=== PATIENT | female | born 1950 | race Caucasian/White ===

== ENCOUNTER 2016-10-16 11:02 | Inpatient (IN) | payer OTHER, MEDICARE ==
[~2016-10-16] VITALS: Ht 149.9 cm; Wt 113.4 kg
[~2016-10-16 11:02] MED LIST: ALBU18HF2 IH; ALEN70TA45 PO; AMLO5TAB2 PO; ATOR10TA PO; BENA10TA2 PO; CHOL50006 PO; GABA-532 PO; HYDR-552 PO; HYPR15DR9 OP; LEVE750T10 PO; LEVO150T8 PO; LIOT50TA3 PO; LORA0.5T PO; NYST5ORA PO; PARO10TA3 PO; TAMS0.4C34 PO; TOPI-67 PO; TRAM50TA2 PO; VENL75CA56 PO; ZIPR60CA2 PO; ZOLP5TAB7 PO
[2016-10-16 11:27] LABS: BASOPHILS # (AUTO) 0.1 /CMM (0.0-0.2); BASOPHILS % (AUTO) 0.5 % (0.0-2.0); DIFF TOTAL % 100 %; EOSINOPHILS # (AUTO) 0.7 /CMM (0.0-0.7); HEMATOCRIT 27 % (33-45); HEMOGLOBIN 8.4 g/dL (11.5-14.8); LYMPHOCYTES % (AUTO) 20.8 % (20.0-44.0); MEAN CORPUSCULAR HEMOGLOBIN 27 PG (26.0-33.0); MEAN CORPUSCULAR HGB CONC 31 g/dl (31.0-36.0); MEAN CORPUSCULAR VOLUME 85 fL (82-100); MONOCYTES % (AUTO) 6.7 % (2.0-12.0); NEUTROPHILS # (AUTO) 9.4 /CMM (1.8-8.9); PLATELET COUNT (AUTO) 268 /CMM (150-450); RED BLOOD CELL COUNT(AUTO) 3.16 MIL/uL (4.0-5.2); WHITE BLOOD COUNT (AUTO) 14.2 K/uL (4.3-11.0)
[2016-10-16 11:37] LABS: ANION GAP 15 (5-14); CALCIUM, SERUM 8.6 mg/dL (8.5-10.1); CARBON DIOXIDE 21 mmol/L (21-32); CHLORIDE 110 mmol/L (98-107); CREATININE 2.2 mg/dL (0.6-1.3); GFR 22 mL/min (>60); GLUCOSE 94 mg/dL (74-106); POTASSIUM 6.1 mmol/L (3.5-5.1); SODIUM SERUM 140 mmol/L (136-145); UREA NITROGEN, BLOOD 38 mg/dL (7-18)
[2016-10-16 11:40] LABS: INR 1.01 (0.87-1.13); PROTHROMBIN TIME 10.6 SECS (9.5-12.7)
[2016-10-16 11:43] LABS: ALANINE AMINOTRANSFERASE 23 U/L (12-78); ALBUMIN 2.9 g/dL (3.4-5.0); ASPARTATE AMINOTRANSFERASE 20 U/L (15-37); BILIRUBIN,TOTAL 0.1 mg/dL (0.2-1.0); TOTAL PROTEIN, SERUM 6.9 g/dL (6.4-8.2)
[2016-10-16 11:45] LABS: INDIRECT BILIRUBIN 0.1 mg/dL (0.0-1.1); TROPONIN I < 0.017 ng/mL (0.00-0.056)
[2016-10-16 11:51] LABS: LACTIC ACID 0.9 mmol/L (0.4-2.0)
[2016-10-16] MEDS ORDERED: LEVOFLOXACIN 750 MG /D5W 150ML 150 ML IV ONE ×2 (12:27→12:30)
[2016-10-16] MEDS ORDERED: IV SET PRIMARY PUMP SET 1 EA INFUS.SET MC ONE (12:28)
[2016-10-16] MEDS ORDERED: LEVO100T9 PO (13:23)
[2016-10-16] MEDS ORDERED: ERGO50003 PO (13:23)
[2016-10-16] MEDS ORDERED: HYDR-3326 PO (13:23)
[2016-10-16] MEDS ORDERED: ASPI-991 PO (13:23)
[2016-10-16] MEDS ORDERED: LURA80TA PO (13:23)
[2016-10-16] MEDS ORDERED: ACET-2605 PO (13:23)
[2016-10-16] MEDS ORDERED: LEVE250T4 PO (13:24)
[2016-10-16 16:00] VITALS: BP 132/63
[2016-10-16] MEDS ORDERED: INSULIN REGULAR, HUMAN 100 UNIT/ML 3 ML VIAL SQ PRN ×2 (19:00→23:00)
[2016-10-16] MEDS ORDERED: DEXTROSE 50%-WATER 50 ML DISP.SYRIN IV PRN ×2 (19:00→23:00)
[2016-10-16 20:00] VITALS: BP 117/66
[2016-10-16] MEDS ORDERED: LORAZEPAM 0.5 MG TABLET PO PRN (21:00)
[2016-10-16] MEDS ORDERED: TRAMADOL HCL 50 MG TABLET PO PRN (21:00)
[2016-10-16] MEDS ORDERED: ALBUTEROL SULFATE 8 GM HFA.AER.AD IH PRN (21:00)
[2016-10-16] MEDS: ATORVASTATIN 10 MG TABLET PO SCH (21:45)
[2016-10-16] MEDS: LEVETIRACETAM (250 MG) 250 MG TABLET PO SCH (21:45)
[2016-10-16] MEDS: TOPIRAMATE 25 MG TABLET PO SCH (21:45)
[2016-10-16] MEDS: GABAPENTIN 100 MG CAPSULE PO SCH (21:45)
[2016-10-16] MEDS: BLOOD SUGAR DIAGNOSTIC 1 EACH STRIP IN SCH (21:53)
[2016-10-16] MEDS ORDERED: ACETAMINOPHEN ES 500 MG TABLET PO PRN (22:00)
[2016-10-16] MEDS ORDERED: ZOLPIDEM TARTRATE 5 MG TABLET PO SCH (22:00)
[2016-10-17 01:08] LABS: ABG BASE EXCESS -3.7 mmol/L; ABG HCO3 22.6 mmol/L; ABG PCO2 46.4 mmHg (35.0-45.0); ABG PH 7.306 (7.350-7.450); ABG PO2 71.1 mmHg (75.0-100.0); ABG TOTAL HEMOGLOBIN 11.3 G/dL (12.0-16.0); ALLEN TEST Pass; AaDO2 23.1 mmHg; O2Hb 90.5 % (94.0-97.0)
[2016-10-17] MEDS: BLOOD SUGAR DIAGNOSTIC 1 EACH STRIP IN SCH ×2 (05:41→21:55)
[2016-10-17 07:17] LABS: BASOPHILS % (AUTO) 0.3 % (0.0-2.0); DIFF TOTAL % 100 %; EOSINOPHILS # (AUTO) 0.6 /CMM (0.0-0.7); EOSINOPHILS % (AUTO) 5.2 % (0.0-6.0); HEMATOCRIT 25 % (33-45); HEMOGLOBIN 8.3 g/dL (11.5-14.8); LYMPHOCYTES # (AUTO) 1.8 /CMM (0.8-4.8); LYMPHOCYTES % (AUTO) 15.2 % (20.0-44.0); MEAN CORPUSCULAR HEMOGLOBIN 28 PG (26.0-33.0); MEAN CORPUSCULAR HGB CONC 33 g/dl (31.0-36.0); MEAN CORPUSCULAR VOLUME 85 fL (82-100); MONOCYTES # (AUTO) 0.9 /CMM (0.1-1.30); MONOCYTES % (AUTO) 7.6 % (2.0-12.0); NEUTROPHILS # (AUTO) 8.4 /CMM (1.8-8.9); NEUTROPHILS % (AUTO) 71.7 % (43.0-81.0); PLATELET COUNT (AUTO) 243 /CMM (150-450); RED BLOOD CELL COUNT(AUTO) 2.99 MIL/uL (4.0-5.2); WHITE BLOOD COUNT (AUTO) 11.7 K/uL (4.3-11.0)
[2016-10-17] MEDS ORDERED: BLOOD SUGAR DIAGNOSTIC 1 EACH STRIP IN SCH (07:30)
[2016-10-17 07:46] LABS: THYROID STIMULATING HORMONE 10.493 uIU/mL (0.358-3.74)
[2016-10-17 08:00] VITALS: BP 142/71
[2016-10-17] MEDS ORDERED: ALBUTEROL FS 2.5 MG/0.5 ML VIAL.NEB NEB PRN ×2 (08:00→09:30)
[2016-10-17] MEDS ORDERED: IPRATROPIUM NEB FS 0.5 MG/2.5 ML AMPUL.NEB IH PRN ×2 (08:00→09:30)
[2016-10-17] MEDS ORDERED: TAMSULOSIN 0.4 MG CAP.SR.24H PO SCH (09:00)
[2016-10-17] MEDS: LEVETIRACETAM (250 MG) 250 MG TABLET PO SCH ×2 (09:00→21:09)
[2016-10-17] MEDS: ASPIRIN EC 81 MG TABLET.DR PO SCH (10:21)
[2016-10-17] MEDS: BENAZEPRIL HCL 10 MG TABLET PO SCH (10:22)
[2016-10-17] MEDS: PAROXETINE HCL 10 MG TABLET PO SCH (10:22)
[2016-10-17] MEDS: VENLAFAXINE XR 75 MG CAP.SR.24H PO SCH (10:23)
[2016-10-17] MEDS: TOPIRAMATE 25 MG TABLET PO SCH ×2 (10:23→21:10)
[2016-10-17] MEDS: GABAPENTIN 100 MG CAPSULE PO SCH ×3 (10:23→17:25)
[2016-10-17] MEDS: LEVOTHYROXINE SODIUM 100 MCG TABLET PO SCH (10:24)
[2016-10-17] MEDS: AMLODIPINE BESYLATE 5 MG TABLET PO SCH ×2 (10:24→17:27)
[2016-10-17] MEDS: POLYVINYL ALCOHOL 15 ML BOTTLE OP SCH ×3 (10:52→17:00)
[2016-10-17 16:00] VITALS: BP 133/72
[2016-10-17] MEDS ORDERED: DEXTROSE 50%-WATER 50 ML DISP.SYRIN IV PRN (18:30)
[2016-10-17] MEDS ORDERED: IV NS 0.9% 250 ML IV ONE (19:40)
[2016-10-17] MEDS ORDERED: SECONDARY IV SET 1 EA INFUS.SET MC ONE (19:40)
[2016-10-17] MEDS: AZITHROMYCIN 500 MG in IV D5W 250 ML IV SCH (19:53)
[2016-10-17 20:00] VITALS: BP 118/70
[2016-10-17] MEDS: ALBUTEROL FS 2.5 MG/0.5 ML VIAL.NEB NEB SCH ×2 (20:47→23:21)
[2016-10-17] MEDS: IPRATROPIUM NEB FS 0.5 MG/2.5 ML AMPUL.NEB IH SCH ×2 (20:47→23:21)
[2016-10-17] MEDS: CEFTRIAXONE 1 G in IV D5W 50 ML IV SCH (21:08)
[2016-10-17] MEDS: ATORVASTATIN 10 MG TABLET PO SCH (21:09)
[2016-10-17] MEDS: *INSULIN ASPART NOVOLOG 100 UNIT/ML CARTRIDGE SQ PRN (21:59)
[2016-10-18] MEDS: IPRATROPIUM NEB FS 0.5 MG/2.5 ML AMPUL.NEB IH SCH ×6 (03:17→23:11)
[2016-10-18] MEDS: ALBUTEROL FS 2.5 MG/0.5 ML VIAL.NEB NEB SCH ×6 (03:17→23:11)
[2016-10-18] MEDS: BLOOD SUGAR DIAGNOSTIC 1 EACH STRIP IN SCH ×4 (05:09→21:17)
[2016-10-18 08:00] VITALS: BP_SYST 144; BP_DIAS 68; BP_DIAS 82
[2016-10-18] MEDS: POLYVINYL ALCOHOL 15 ML BOTTLE OP SCH ×3 (09:00→16:42)
[2016-10-18] MEDS: LEVETIRACETAM (250 MG) 250 MG TABLET PO SCH ×2 (09:06→21:05)
[2016-10-18] MEDS: GABAPENTIN 100 MG CAPSULE PO SCH ×3 (09:06→16:40)
[2016-10-18] MEDS: VENLAFAXINE XR 75 MG CAP.SR.24H PO SCH (09:06)
[2016-10-18] MEDS: TOPIRAMATE 25 MG TABLET PO SCH ×2 (09:06→21:10)
[2016-10-18] MEDS: LEVOTHYROXINE SODIUM 100 MCG TABLET PO SCH (09:06)
[2016-10-18] MEDS: PAROXETINE HCL 10 MG TABLET PO SCH (09:06)
[2016-10-18] MEDS: ASPIRIN EC 81 MG TABLET.DR PO SCH (09:06)
[2016-10-18] MEDS: AMLODIPINE BESYLATE 5 MG TABLET PO SCH ×2 (09:07→16:41)
[2016-10-18] MEDS: BENAZEPRIL HCL 10 MG TABLET PO SCH (09:07)
[2016-10-18] MEDS ORDERED: LEVOFLOXACIN 500 MG /D5W 100ML 500 MG in PREMIX 1 EA IV SCH (12:00)
[2016-10-18] MEDS: INSULIN ASPART NOVOLOG 100 UNIT/ML CARTRIDGE SQ PRN (12:23)
[2016-10-18 16:00] VITALS: BP 134/71
[2016-10-18] MEDS: AZITHROMYCIN 500 MG in IV D5W 250 ML IV SCH (17:39)
[2016-10-18 20:00] VITALS: BP 118/72
[2016-10-18] MEDS: CEFTRIAXONE 1 G in IV D5W 50 ML IV SCH (20:59)
[2016-10-18] MEDS: ATORVASTATIN 10 MG TABLET PO SCH (21:06)
[2016-10-18] MEDS: *INSULIN ASPART NOVOLOG 100 UNIT/ML CARTRIDGE SQ PRN (21:20)
[2016-10-19] MEDS: IPRATROPIUM NEB FS 0.5 MG/2.5 ML AMPUL.NEB IH SCH ×6 (03:34→23:39)
[2016-10-19] MEDS: ALBUTEROL FS 2.5 MG/0.5 ML VIAL.NEB NEB SCH ×6 (03:34→23:39)
[2016-10-19] MEDS: BLOOD SUGAR DIAGNOSTIC 1 EACH STRIP IN SCH ×4 (06:44→22:39)
[2016-10-19 08:00] VITALS: BP 122/70
[2016-10-19] MEDS: ASPIRIN EC 81 MG TABLET.DR PO SCH (08:32)
[2016-10-19] MEDS: PAROXETINE HCL 10 MG TABLET PO SCH (08:33)
[2016-10-19] MEDS: TOPIRAMATE 25 MG TABLET PO SCH ×2 (08:33→20:45)
[2016-10-19] MEDS: LEVETIRACETAM (250 MG) 250 MG TABLET PO SCH ×2 (08:33→20:45)
[2016-10-19] MEDS: GABAPENTIN 100 MG CAPSULE PO SCH ×3 (08:33→17:47)
[2016-10-19] MEDS: AMLODIPINE BESYLATE 5 MG TABLET PO SCH ×2 (08:33→17:47)
[2016-10-19] MEDS: BENAZEPRIL HCL 10 MG TABLET PO SCH (08:33)
[2016-10-19] MEDS: VENLAFAXINE XR 75 MG CAP.SR.24H PO SCH (08:34)
[2016-10-19] MEDS: LEVOTHYROXINE SODIUM 100 MCG TABLET PO SCH (08:34)
[2016-10-19] MEDS: POLYVINYL ALCOHOL 15 ML BOTTLE OP SCH ×3 (08:37→17:54)
[2016-10-19] MEDS: HYDROCODONE/APAP 5/325MG 1 EACH TABLET PO PRN (12:11)
[2016-10-19] MEDS: *INSULIN ASPART NOVOLOG 100 UNIT/ML CARTRIDGE SQ PRN ×2 (12:20→22:43)
[2016-10-19 16:00] VITALS: BP 117/71
[2016-10-19] MEDS: AZITHROMYCIN 500 MG in IV D5W 250 ML IV SCH (17:49)
[2016-10-19 20:00] VITALS: BP 111/66
[2016-10-19] MEDS: CEFTRIAXONE 1 G in IV D5W 50 ML IV SCH (20:45)
[2016-10-19] MEDS: ATORVASTATIN 10 MG TABLET PO SCH (21:45)
[2016-10-20] MEDS: ALBUTEROL FS 2.5 MG/0.5 ML VIAL.NEB NEB SCH ×6 (04:13→23:27)
[2016-10-20] MEDS: IPRATROPIUM NEB FS 0.5 MG/2.5 ML AMPUL.NEB IH SCH ×6 (04:14→23:26)
[2016-10-20] MEDS: BLOOD SUGAR DIAGNOSTIC 1 EACH STRIP IN SCH ×4 (06:41→21:00)
[2016-10-20] MEDS: LEVOTHYROXINE SODIUM 100 MCG TABLET PO SCH (06:42)
[2016-10-20 08:00] VITALS: BP 100/66
[2016-10-20] MEDS: VENLAFAXINE XR 75 MG CAP.SR.24H PO SCH (09:00)
[2016-10-20] MEDS: ASPIRIN EC 81 MG TABLET.DR PO SCH (09:00)
[2016-10-20] MEDS: AMLODIPINE BESYLATE 5 MG TABLET PO SCH ×2 (09:00→17:00)
[2016-10-20] MEDS: POLYVINYL ALCOHOL 15 ML BOTTLE OP SCH ×3 (09:00→17:00)
[2016-10-20] MEDS: GABAPENTIN 100 MG CAPSULE PO SCH ×3 (09:00→18:23)
[2016-10-20] MEDS: PAROXETINE HCL 10 MG TABLET PO SCH (09:00)
[2016-10-20] MEDS: BENAZEPRIL HCL 10 MG TABLET PO SCH (09:00)
[2016-10-20] MEDS: TOPIRAMATE 25 MG TABLET PO SCH ×2 (09:00→20:59)
[2016-10-20] MEDS: LEVETIRACETAM (250 MG) 250 MG TABLET PO SCH ×2 (09:00→21:00)
[2016-10-20] MEDS: HYDROCODONE/APAP 5/325MG 1 EACH TABLET PO PRN ×2 (11:36→18:22)
[2016-10-20 14:00] VITALS: BP 111/60
[2016-10-20] MEDS: AZITHROMYCIN 500 MG in IV D5W 250 ML IV SCH (17:43)
[2016-10-20] MEDS: CEFTRIAXONE 1 G in IV D5W 50 ML IV SCH (20:40)
[2016-10-20] MEDS: ATORVASTATIN 10 MG TABLET PO SCH (21:00)
[2016-10-20] MEDS: *INSULIN ASPART NOVOLOG 100 UNIT/ML CARTRIDGE SQ PRN (21:13)
[2016-10-20 21:31] VITALS: BP 113/68
[2016-10-21] MEDS: ALBUTEROL FS 2.5 MG/0.5 ML VIAL.NEB NEB SCH ×6 (03:43→23:22)
[2016-10-21] MEDS: IPRATROPIUM NEB FS 0.5 MG/2.5 ML AMPUL.NEB IH SCH ×6 (03:43→23:22)
[2016-10-21] MEDS: LEVOTHYROXINE SODIUM 100 MCG TABLET PO SCH (06:39)
[2016-10-21] MEDS: BLOOD SUGAR DIAGNOSTIC 1 EACH STRIP IN SCH ×3 (06:39→16:33)
[2016-10-21] MEDS: INSULIN ASPART NOVOLOG 100 UNIT/ML CARTRIDGE SQ PRN (06:40)
[2016-10-21 08:00] VITALS: BP 111/68
[2016-10-21] MEDS: POLYVINYL ALCOHOL 15 ML BOTTLE OP SCH ×3 (09:00→16:33)
[2016-10-21] MEDS: VENLAFAXINE XR 75 MG CAP.SR.24H PO SCH (09:30)
[2016-10-21] MEDS: LEVETIRACETAM (250 MG) 250 MG TABLET PO SCH ×2 (09:30→21:37)
[2016-10-21] MEDS: ASPIRIN EC 81 MG TABLET.DR PO SCH (09:30)
[2016-10-21] MEDS: GABAPENTIN 100 MG CAPSULE PO SCH ×3 (09:30→16:31)
[2016-10-21] MEDS: PAROXETINE HCL 10 MG TABLET PO SCH (09:30)
[2016-10-21] MEDS: TOPIRAMATE 25 MG TABLET PO SCH ×2 (09:30→21:35)
[2016-10-21] MEDS: AMLODIPINE BESYLATE 5 MG TABLET PO SCH ×2 (09:31→16:31)
[2016-10-21] MEDS: BENAZEPRIL HCL 10 MG TABLET PO SCH (09:31)
[2016-10-21 16:00] VITALS: BP 111/68
[2016-10-21] MEDS: AZITHROMYCIN 500 MG in IV D5W 250 ML IV SCH (18:11)
[2016-10-21] MEDS: HYDROCODONE/APAP 5/325MG 1 EACH TABLET PO PRN (18:17)
[2016-10-21] MEDS: CEFTRIAXONE 1 G in IV D5W 50 ML IV SCH (19:30)
[2016-10-21 20:00] VITALS: BP 119/74
[2016-10-21] MEDS: ATORVASTATIN 10 MG TABLET PO SCH (21:35)
[2016-10-22] MEDS: ALBUTEROL FS 2.5 MG/0.5 ML VIAL.NEB NEB SCH ×6 (03:34→23:30)
[2016-10-22] MEDS: IPRATROPIUM NEB FS 0.5 MG/2.5 ML AMPUL.NEB IH SCH ×6 (03:35→23:30)
[2016-10-22 08:00] VITALS: BP 113/71
[2016-10-22] MEDS: VENLAFAXINE XR 75 MG CAP.SR.24H PO SCH (08:29)
[2016-10-22] MEDS: BENAZEPRIL HCL 10 MG TABLET PO SCH (08:30)
[2016-10-22] MEDS: LEVOTHYROXINE SODIUM 100 MCG TABLET PO SCH (08:31)
[2016-10-22] MEDS: GABAPENTIN 100 MG CAPSULE PO SCH ×3 (08:31→16:44)
[2016-10-22] MEDS: AMLODIPINE BESYLATE 5 MG TABLET PO SCH ×2 (08:31→16:44)
[2016-10-22] MEDS: PAROXETINE HCL 10 MG TABLET PO SCH (08:31)
[2016-10-22] MEDS: LEVETIRACETAM (250 MG) 250 MG TABLET PO SCH ×2 (08:31→22:16)
[2016-10-22] MEDS: TOPIRAMATE 25 MG TABLET PO SCH ×2 (08:31→22:16)
[2016-10-22] MEDS: ASPIRIN EC 81 MG TABLET.DR PO SCH (08:31)
[2016-10-22] MEDS: HYDROCODONE/APAP 5/325MG 1 EACH TABLET PO PRN (08:36)
[2016-10-22] MEDS: POLYVINYL ALCOHOL 15 ML BOTTLE OP SCH ×3 (08:43→16:40)
[2016-10-22] MEDS ORDERED: ERGOCALCIFEROL (VITAMIN D 2) 50,000 UNIT CAPSULE PO SCH (09:00)
[2016-10-22 16:00] VITALS: BP 114/60
[2016-10-22] MEDS: AZITHROMYCIN 500 MG in IV D5W 250 ML IV SCH (18:54)
[2016-10-22 20:00] VITALS: BP 116/65
[2016-10-22] MEDS: ATORVASTATIN 10 MG TABLET PO SCH (22:16)
[2016-10-22] MEDS: CEFTRIAXONE 1 G in IV D5W 50 ML IV SCH (22:17)
[2016-10-23] MEDS: ALBUTEROL FS 2.5 MG/0.5 ML VIAL.NEB NEB SCH ×4 (03:30→15:00)
[2016-10-23] MEDS: IPRATROPIUM NEB FS 0.5 MG/2.5 ML AMPUL.NEB IH SCH ×4 (03:30→15:00)
[2016-10-23] MEDS: HYDROCODONE/APAP 5/325MG 1 EACH TABLET PO PRN (07:12)
[2016-10-23 08:00] VITALS: BP 114/68
[2016-10-23] MEDS: POLYVINYL ALCOHOL 15 ML BOTTLE OP SCH ×3 (09:00→17:18)
[2016-10-23] MEDS: BENAZEPRIL HCL 10 MG TABLET PO SCH (10:42)
[2016-10-23] MEDS: LEVETIRACETAM (250 MG) 250 MG TABLET PO SCH (10:43)
[2016-10-23] MEDS: AMLODIPINE BESYLATE 5 MG TABLET PO SCH ×2 (10:44→17:20)
[2016-10-23] MEDS: LEVOTHYROXINE SODIUM 100 MCG TABLET PO SCH (10:45)
[2016-10-23] MEDS: GABAPENTIN 100 MG CAPSULE PO SCH ×3 (10:45→17:20)
[2016-10-23] MEDS: ASPIRIN EC 81 MG TABLET.DR PO SCH (10:45)
[2016-10-23] MEDS: VENLAFAXINE XR 75 MG CAP.SR.24H PO SCH (10:45)
[2016-10-23] MEDS: PAROXETINE HCL 10 MG TABLET PO SCH (10:46)
[2016-10-23] MEDS: TOPIRAMATE 25 MG TABLET PO SCH (10:46)
[2016-10-23 16:00] VITALS: BP 122/70
[2016-10-23 16:13] LABS: CALCIUM, SERUM 8.4 mg/dL (8.5-10.1); CREATININE 1.9 mg/dL (0.6-1.3)
[2016-10-23 17:20] VITALS: BP 120/77
[2016-10-23] MEDS: AZITHROMYCIN 500 MG in IV D5W 250 ML IV SCH (17:21)
[2016-10-23] MEDS: CEFTRIAXONE 1 G in IV D5W 50 ML IV SCH (20:00)
== END 2016-10-23 20:40 | DRG 720 ==
LOC: ER 11:03 → MED 15:10 → UNDODISIN 10-23 17:51
PROVIDERS: ADMIT Internal Medicine; ATTEND Internal Medicine
DX: A41.9 Sepsis, unspecified organism (principal); J96.90 Respiratory failure, unspecified, unspecified whether with hypoxia or hypercapnia; N17.0 Acute kidney failure with tubular necrosis; J69.0 Pneumonitis due to inhalation of food and vomit; N18.4 Chronic kidney disease, stage 4 (severe); J15.9 Unspecified bacterial pneumonia; I13.0 Hypertensive heart and chronic kidney disease with heart failure and stage 1 through stage 4 chronic kidney disease, or unspecified chronic kidney disease; E11.22 Type 2 diabetes mellitus with diabetic chronic kidney disease; K21.9 Gastro-esophageal reflux disease without esophagitis; J44.1 Chronic obstructive pulmonary disease with (acute) exacerbation; H26.9 Unspecified cataract; I25.10 Atherosclerotic heart disease of native coronary artery without angina pectoris; E03.9 Hypothyroidism, unspecified; E11.65 Type 2 diabetes mellitus with hyperglycemia; G40.409 Other generalized epilepsy and epileptic syndromes, not intractable, without status epilepticus; E87.5 Hyperkalemia; Z87.891 Personal history of nicotine dependence; E78.5 Hyperlipidemia, unspecified; M19.90 Unspecified osteoarthritis, unspecified site; T38.0X5A Adverse effect of glucocorticoids and synthetic analogues, initial encounter; Z79.82 Long term (current) use of aspirin; Z86.73 Personal history of transient ischemic attack (TIA), and cerebral infarction without residual deficits; G47.33 Obstructive sleep apnea (adult) (pediatric); E55.9 Vitamin D deficiency, unspecified; E66.2 Morbid (severe) obesity with alveolar hypoventilation; E67.3 Hypervitaminosis D; J44.0 Chronic obstructive pulmonary disease with (acute) lower respiratory infection; Z87.820 Personal history of traumatic brain injury
CPT/HCPCS: 36415; 36600; 71010-TC; 76770-TC; 80048-TC; 80061-TC; 80076-TC; 82803-TC; 82962-TC; 83605-TC; 84443-TC; 84484-TC; 85025-TC; 85730-TC; 87040-TC; 87081-TC; 94799-TC; 97001-TC; 97110-TC; 97530-TC; A4216; A4606; J0456; J0696; J1815; J1956; J7050; J7060; Z7610

== ENCOUNTER 2017-04-15 15:06 | Emergency (ER) | payer MEDICARE, OTHER ==
[~2017-04-15] VITALS: Ht 152.4 cm; Wt 113.4 kg
[~2017-04-15 15:06] MED LIST changes: +ACET-2605 PO; -ALEN70TA45 PO; +ASPI-991 PO; -CHOL50006 PO; +ERGO50003 PO; +HYDR-3326 PO; +LEVE250T4 PO; -LEVE750T10 PO; +LEVO100T9 PO; -LEVO150T8 PO; -LIOT50TA3 PO; +LURA80TA PO; -NYST5ORA PO; -ZIPR60CA2 PO
--- NOTE | 2017-04-15 15:15 | NUR ---
PATIENT BIB EMT FROM [facility], D/T PATIENT C/O VAGINAL IRRITATION. PATIENT IS A/OX 4. BREATHING EVEN AND UNLABORED ON ROOM AIR. NO SOB. VITALS STABLE. SAFTEY AND COMFORT MEASURES IN PLACE. AWAITING MD ORDERS.
--- NOTE | 2017-04-15 15:34 | NUR ---
AT BEDSIDE, PERFORMING PELVIC EXAM.
--- NOTE | 2017-04-15 15:39 | NUR ---
CALLED [facility] FOR TRANSPORT BACK TO [facility], ETA 20 MIN
--- NOTE | 2017-04-15 16:20 | NUR ---
PATIENT CLEARED FOR DISCHARGE. VITALS REMAIN STABLE. REPORT GIVEN TO EMT. DISCHARGE INSTRUCTION PROVIDED, PATIENT VERBALIZES UNDERSTANDING. PATIENT DISCHARGED BACK TO [facility].
[2017-04-15 16:24] VITALS: BP 128/72
== END 2017-04-15 16:26 ==
LOC: ER 15:08
DX: N89.8 Other specified noninflammatory disorders of vagina (principal); N95.2 Postmenopausal atrophic vaginitis; E11.9 Type 2 diabetes mellitus without complications; E78.5 Hyperlipidemia, unspecified; F29 Unspecified psychosis not due to a substance or known physiological condition; M19.90 Unspecified osteoarthritis, unspecified site; F32.9 Major depressive disorder, single episode, unspecified; I11.0 Hypertensive heart disease with heart failure; I50.9 Heart failure, unspecified; J45.909 Unspecified asthma, uncomplicated; K21.9 Gastro-esophageal reflux disease without esophagitis; R47.01 Aphasia; Z79.82 Long term (current) use of aspirin; Z86.73 Personal history of transient ischemic attack (TIA), and cerebral infarction without residual deficits; Z88.1 Allergy status to other antibiotic agents; Z88.8 Allergy status to other drugs, medicaments and biological substances; Z91.011 Allergy to milk products
CPT/HCPCS: 99283; A4606; Z7610

== ENCOUNTER 2017-07-02 08:30 | Emergency (ER) | payer MEDICARE, OTHER ==
[~2017-07-02] VITALS: Ht 149.9 cm; Wt 117.9 kg
--- NOTE | 2017-07-02 08:30 | NUR ---
BIB PA C/O R FOOT AND L HIP PAIN, NO RECENT FALL OR INJURY REPORTED, NAD NOTED, VSS, RESP EVEN AND UNLABORED. WAITING FOR MD JACKSON.
[2017-07-02] MEDS ORDERED: KETOROLAC TROMETHAMINE 15 MG/ML VIAL ONE ×2 (09:00)
[2017-07-02] MEDS ORDERED: KETOROLAC TROMETHAMINE INJ 30 MG/ML VIAL IV ONE (09:00)
--- NOTE | 2017-07-02 09:05 | NUR ---
RAC #20 IV ACCESS. BLOOD SAMPLE COLLECTED SENT TO LAB
[2017-07-02] MEDS ORDERED: CARB200T PO (09:26)
[2017-07-02] MEDS ORDERED: GABA-534 PO (09:26)
[2017-07-02] MEDS ORDERED: POLY15DR40 EACHEYE (09:26)
[2017-07-02] MEDS ORDERED: LEVO150T8 PO (09:26)
--- NOTE | 2017-07-02 09:26 | NUR ---
MAINTENANCE ENGINEER OIL FIELD AT BEDSIDE
[2017-07-02] MEDS ORDERED: CLOT15CR4 TP (09:31)
[2017-07-02 09:50] LABS: BASOPHILS % (AUTO) 0.4 % (0.0-2.0); EOSINOPHILS # (AUTO) 0.2 /CMM (0.0-0.7); EOSINOPHILS % (AUTO) 2.3 % (0.0-6.0); HEMATOCRIT 29 % (33-45); HEMOGLOBIN 9.5 g/dL (11.5-14.8); LYMPHOCYTES % (AUTO) 22.1 % (20.0-44.0); MEAN CORPUSCULAR HEMOGLOBIN 30 PG (26.0-33.0); MEAN CORPUSCULAR HGB CONC 33 g/dl (31.0-36.0); MEAN CORPUSCULAR VOLUME 90 fL (82-100); MONOCYTES # (AUTO) 0.8 /CMM (0.1-1.30); MONOCYTES % (AUTO) 8.9 % (2.0-12.0); NEUTROPHILS % (AUTO) 66.3 % (43.0-81.0); PLATELET COUNT (AUTO) 248 /CMM (150-450); RDW COEFFICIENT OF VARIATION 13.3 (11.5-15.0)
--- NOTE | 2017-07-02 09:57 | NUR ---
CALLED [facility] -- PER REPORT PATIENT DOESN'T WALK. PATIENT IS ABLE TO STAND WITH ASSISTANCE.
[2017-07-02 10:00] LABS: CALCIUM, SERUM 8.3 mg/dL (8.5-10.1); CARBON DIOXIDE 27 mmol/L (21-32); CHLORIDE 109 mmol/L (98-107); CREATININE 2.1 mg/dL (0.6-1.3); GLUCOSE 91 mg/dL (74-106); POTASSIUM 5.9 mmol/L (3.5-5.1); SODIUM SERUM 141 mmol/L (136-145); UREA NITROGEN, BLOOD 55 mg/dL (7-18)
[2017-07-02 10:03] LABS: INR 1.01 (0.87-1.13); PROTHROMBIN TIME 10.5 SECS (9.5-12.7)
[2017-07-02 10:05] LABS: ALANINE AMINOTRANSFERASE 15 U/L (12-78); ALBUMIN 2.8 g/dL (3.4-5.0); ALKALINE PHOSPHATASE 172 U/L (46-116); ASPARTATE AMINOTRANSFERASE 12 U/L (15-37); BILIRUBIN,TOTAL 0.2 mg/dL (0.2-1.0)
[2017-07-02 10:07] LABS: TROPONIN I < 0.017 ng/mL (0.00-0.056)
--- NOTE | 2017-07-02 10:43 | NUR ---
DR GODOY PAGED AGAIN
--- NOTE | 2017-07-02 11:04 | NUR ---
CALLED FOR AMB PICKUP ETA GIVEN [phone]
[2017-07-02 11:55] VITALS: BP 138/80
--- NOTE | 2017-07-02 11:55 | NUR ---
IV removed. Catheter intact and site benign. Pressure and 4x4 applied to site. No bleeding noted.
--- NOTE | 2017-07-02 11:55 | NUR ---
Patient discharged to home in stable condition. Written and verbal after care instructions given. Patient verbalizes understanding of instruction.
== END 2017-07-02 12:03 | disposition home or self-care (01) ==
LOC: ER 08:32
DX: S90.31XA Contusion of right foot, initial encounter (principal); E11.9 Type 2 diabetes mellitus without complications; H26.9 Unspecified cataract; M19.90 Unspecified osteoarthritis, unspecified site; E78.5 Hyperlipidemia, unspecified; F32.9 Major depressive disorder, single episode, unspecified; I11.0 Hypertensive heart disease with heart failure; I50.9 Heart failure, unspecified; J45.909 Unspecified asthma, uncomplicated; K21.9 Gastro-esophageal reflux disease without esophagitis; Z74.01 Bed confinement status; Z79.82 Long term (current) use of aspirin; Z86.73 Personal history of transient ischemic attack (TIA), and cerebral infarction without residual deficits; Z88.1 Allergy status to other antibiotic agents; Z88.8 Allergy status to other drugs, medicaments and biological substances; Z91.011 Allergy to milk products; W19.XXXA Unspecified fall, initial encounter; Y93.89 Activity, other specified; Y92.89 Other specified places as the place of occurrence of the external cause; Y99.9 Unspecified external cause status
CPT/HCPCS: 36415; 71010; 73503; 73630; 80048; 80076; 84484; 85025; 85730; 86850; 96374; 99285; A4606; J1885 ×2; 73502; Z7610

== ENCOUNTER 2017-09-22 07:23 | Emergency (ER) | payer MEDICARE, OTHER ==
[~2017-09-22] VITALS: Ht 149.9 cm; Wt 122.5 kg
[~2017-09-22 07:23] MED LIST changes: -ACET-2605 PO; -ALBU18HF2 IH; -ASPI-991 PO; +CARB200T PO; +CLOT15CR4 TP; -GABA-532 PO; +GABA-534 PO; -HYDR-3326 PO; -HYDR-552 PO; -HYPR15DR9 OP; -LEVO100T9 PO; +LEVO150T8 PO; -PARO10TA3 PO; +POLY15DR40 EACHEYE; -TAMS0.4C34 PO; -ZOLP5TAB7 PO
--- NOTE | 2017-09-22 07:26 | NUR ---
WEN [address] [facility] D/T "STAFF UNABLE TO AROUSE PT" PER EMS. PATIENT RECEIVED AAO3. APPEARS IN NO APPARENT DITSRESS, RESPIRATION EVEN AND UNLABORED. VSS
--- NOTE | 2017-09-22 07:45 | NUR ---
MD HERRERA AT BEDSIDE
[2017-09-22 08:37] LABS: BASOPHILS % (AUTO) 0.3 % (0.0-2.0); EOSINOPHILS # (AUTO) 0.3 /CMM (0.0-0.7); EOSINOPHILS % (AUTO) 2.4 % (0.0-6.0); HEMATOCRIT 25 % (33-45); HEMOGLOBIN 8.1 g/dL (11.5-14.8); LYMPHOCYTES # (AUTO) 2.2 /CMM (0.8-4.8); LYMPHOCYTES % (AUTO) 20.8 % (20.0-44.0); MEAN CORPUSCULAR HEMOGLOBIN 29 PG (26.0-33.0); MEAN CORPUSCULAR HGB CONC 33 g/dl (31.0-36.0); MEAN CORPUSCULAR VOLUME 89 fL (82-100); MONOCYTES # (AUTO) 0.9 /CMM (0.1-1.30); MONOCYTES % (AUTO) 8.4 % (2.0-12.0); NEUTROPHILS # (AUTO) 7.1 /CMM (1.8-8.9); NEUTROPHILS % (AUTO) 68.1 % (43.0-81.0); PLATELET COUNT (AUTO) 245 /CMM (150-450); RDW COEFFICIENT OF VARIATION 13.9 (11.5-15.0); RED BLOOD CELL COUNT(AUTO) 2.75 MIL/uL (4.0-5.2); WHITE BLOOD COUNT (AUTO) 10.4 K/uL (4.3-11.0)
[2017-09-22 08:46] LABS: CALCIUM, SERUM 8.7 mg/dL (8.5-10.1); CREATININE 1.9 mg/dL (0.6-1.3); POTASSIUM 4.8 mmol/L (3.5-5.1)
[2017-09-22 08:55] LABS: ALBUMIN 2.8 g/dL (3.4-5.0); BILIRUBIN,TOTAL 0.2 mg/dL (0.2-1.0); TOTAL PROTEIN, SERUM 6.6 g/dL (6.4-8.2)
--- NOTE | 2017-09-22 09:05 | NUR ---
[facility] ETA [id number] TRIP # [id number]
[2017-09-22 10:03] VITALS: BP 140/70
--- NOTE | 2017-09-22 10:03 | NUR ---
PATIENT TRANSPORTED TO [facility].
== END 2017-09-22 10:11 | disposition home or self-care (01) ==
LOC: ER 07:26
DX: E86.0 Dehydration (principal); N28.9 Disorder of kidney and ureter, unspecified; I10 Essential (primary) hypertension; I50.9 Heart failure, unspecified; J45.909 Unspecified asthma, uncomplicated; K21.9 Gastro-esophageal reflux disease without esophagitis; E11.9 Type 2 diabetes mellitus without complications; E78.5 Hyperlipidemia, unspecified; F32.9 Major depressive disorder, single episode, unspecified; M19.90 Unspecified osteoarthritis, unspecified site; Z86.73 Personal history of transient ischemic attack (TIA), and cerebral infarction without residual deficits; Z88.8 Allergy status to other drugs, medicaments and biological substances; Z88.1 Allergy status to other antibiotic agents; Z88.5 Allergy status to narcotic agent; Z91.011 Allergy to milk products; Z91.013 Allergy to seafood
CPT/HCPCS: 36415; 80048; 80076; 85025; 99284; A4606; Z7610

== ENCOUNTER 2017-11-19 17:12 | Emergency (ER) | payer MEDICARE, OTHER ==
[~2017-11-19] VITALS: Ht 149.9 cm; Wt 90.7 kg
[~2017-11-19 17:12] MED LIST changes: +ERGO500014 PO; -ERGO50003 PO; -TOPI-67 PO; +TOPI25TA49 PO
--- NOTE | 2017-11-19 17:29 | NUR ---
AAOX3, [id number]: FELL OFF HER WHEELCHAIR C/O L ANKLE AND FOOT PAIN. CMS WNL. RR IS EVEN AND UNLABORED WITH NAD NOTED. SKIN IS WARM AND DRY. AWAITING MD FOR EVAL.
--- NOTE | 2017-11-19 17:49 | NUR ---
XRAY IN PROGRESS AT BS
--- NOTE | 2017-11-19 17:57 | NUR ---
GWENDOLYN CALLED PATIENTS FRIEND FROM [facility] TO CHECK UP ON THE PATIENT .
--- NOTE | 2017-11-19 18:15 | NUR ---
CALLED [facility] FOR TRANSPORT ETA OF 1 HR WAS GIVEN. TRIP#[id number]
[2017-11-19] MEDS ORDERED: ONDANSETRON 4 MG TAB.RAPDIS PO ONE (18:30)
[2017-11-19] MEDS ORDERED: HYDROCODONE/APAP 5/325MG 1 EACH TABLET PO ONE (18:30)
[2017-11-19] MEDS ORDERED: HYDROCODONE/APAP 5/325MG 1 EACH TABLET ONE (18:35)
[2017-11-19] MEDS ORDERED: ONDANSETRON 4 MG TAB.RAPDIS ONE (18:35)
--- NOTE | 2017-11-19 19:07 | NUR ---
Patient discharged to home via ambulance in stable condition. Written and verbal after care instructions given. Patient verbalizes understanding of instruction.
[2017-11-19 19:11] VITALS: BP 132/61
== END 2017-11-19 19:15 | disposition home or self-care (01) ==
LOC: ER 17:13
DX: S82.842A Displaced bimalleolar fracture of left lower leg, initial encounter for closed fracture (principal); E11.9 Type 2 diabetes mellitus without complications; E78.5 Hyperlipidemia, unspecified; F32.9 Major depressive disorder, single episode, unspecified; I11.0 Hypertensive heart disease with heart failure; I50.9 Heart failure, unspecified; J45.909 Unspecified asthma, uncomplicated; K21.9 Gastro-esophageal reflux disease without esophagitis; Z86.73 Personal history of transient ischemic attack (TIA), and cerebral infarction without residual deficits; Z88.1 Allergy status to other antibiotic agents; Z88.8 Allergy status to other drugs, medicaments and biological substances; Z91.011 Allergy to milk products; W05.0XXA Fall from non-moving wheelchair, initial encounter; Y93.89 Activity, other specified; Y92.89 Other specified places as the place of occurrence of the external cause; Y99.8 Other external cause status
CPT/HCPCS: 73610-TC; 73630-TC; A4606; Q0162; Z7610

== ENCOUNTER 2018-01-07 12:36 | Inpatient (IN) | payer OTHER, MEDICARE ==
[~2018-01-07] VITALS: Ht 149.9 cm; Wt 120.2 kg
[2018-01-07] VITALS (8 sets, daily range): BP systolic 101–151; BP diastolic 59–86
[~2018-01-07 12:36] MED LIST changes: -AMLO5TAB2 PO; +AMLO5TAB7 PO; -BENA10TA2 PO; +BENA10TA9 PO
--- NOTE | 2018-01-07 12:49 | NUR ---
AAOX3, CAME TO ER FROM [facility] C/O ABNORMAL LAB HGB=6.6. RR IS EVEN AND UNLABORED WITH NAD NOTED. SKIN IS WARM AND DRY. PAPA ADEN AT BS FOR EVAL.
--- NOTE | 2018-01-07 12:56 | NUR ---
*STOCK HANDLER FLOORPERSON AT [facility], ARSLAN JOHNSON, .
[2018-01-07 13:24] LABS: BASOPHILS # (AUTO) 0.1 /CMM (0.0-0.2); BASOPHILS % (AUTO) 0.7 % (0.0-2.0); EOSINOPHILS % (AUTO) 2.2 % (0.0-6.0); HEMATOCRIT 24 % (33-45); HEMOGLOBIN 7.6 g/dL (11.5-14.8); LYMPHOCYTES # (AUTO) 2.5 /CMM (0.8-4.8); LYMPHOCYTES % (AUTO) 20.5 % (20.0-44.0); MEAN CORPUSCULAR HGB CONC 33 g/dl (31.0-36.0); MEAN CORPUSCULAR VOLUME 87 fL (82-100); MONOCYTES # (AUTO) 1.2 /CMM (0.1-1.30); MONOCYTES % (AUTO) 9.4 % (2.0-12.0); NEUTROPHILS # (AUTO) 8.2 /CMM (1.8-8.9); NEUTROPHILS % (AUTO) 67.2 % (43.0-81.0); PLATELET COUNT (AUTO) 326 /CMM (150-450); RDW COEFFICIENT OF VARIATION 14.5 (11.5-15.0); RED BLOOD CELL COUNT(AUTO) 2.71 MIL/uL (4.0-5.2); WHITE BLOOD COUNT (AUTO) 12.3 K/uL (4.3-11.0)
[2018-01-07 13:32] LABS: CALCIUM, SERUM 8.5 mg/dL (8.5-10.1); CREATININE 2.3 mg/dL (0.6-1.3); POTASSIUM 5.2 mmol/L (3.5-5.1)
[2018-01-07 13:36] LABS: INR 0.88 (0.85-1.15)
[2018-01-07 13:38] LABS: ALBUMIN 2.8 g/dL (3.4-5.0); BILIRUBIN,DIRECT 0.1 mg/dL (0.0-0.2); BILIRUBIN,TOTAL 0.2 mg/dL (0.2-1.0); TOTAL PROTEIN, SERUM 7.1 g/dL (6.4-8.2)
--- NOTE | 2018-01-07 13:56 | NUR ---
PAGED DR.DALE MCCORMICK
[2018-01-07] MEDS ORDERED: HYDR-552 PO (14:03)
[2018-01-07] MEDS ORDERED: ALBU18HF2 IH (14:03)
[2018-01-07] MEDS ORDERED: ASPI-1152 PO (14:03)
[2018-01-07] MEDS ORDERED: ONDA4TAB5 PO (14:03)
[2018-01-07] MEDS ORDERED: POLY17PO4 PO (14:03)
--- NOTE | 2018-01-07 14:55 | NUR ---
REPORT GIVEN TO MARIJA ULRICH FOR CHRISTINE MS 116-2
--- NOTE | 2018-01-07 14:55 | NUR ---
MS1/RN REPORT FROM ER - ROOM 116#2 REPORT RECEIVED FROM ER NURSE TRIPP FOR PT TO BE ADMITTED FOR ANEMIA, UNDER THE CARE OF DR. MCCORMICK. AWAITING FOR PT'S ARRIVAL.
--- NOTE | 2018-01-07 15:25 | NUR ---
MS1/RISK SPECIALIST TO [facility] - ROOM 116#1 PT ARRIVED VIA GURNEY ACCOMPANIED BY ER NURSE TRIPP AND LINES TENDER. PT TRANSFERRED TO UNIT BED. ON ROOM AIR SATURATING WELL @ 96%, LUNG SOUNDS CLEAR. IV SITE FLUSHED, PATENT WITH NO S/S OF INFECTION. NO ACTIVE BLEEDING NOTED. PT NOTED WITH CAST OF LEFT LOWER FOOT, DRESSING. PT A/O X 3, COMFORTABLE, ABLE TO VERBALIZED NEEDS. AWAITING FOR ADMITTING ORDERS. CL WITHIN REACHED AND SAFETY MAINTAINED. ON GOING MONITORING.
[2018-01-07] MEDS ORDERED: CLOTRIMAZOLE/BETAMETASONE DIPROPIONATE 15 GM TUBE TP PRN (16:30)
[2018-01-07] MEDS ORDERED: IV NS 0.9% 250 ML BAG IV ONE (16:30)
[2018-01-07] MEDS ORDERED: LORAZEPAM 0.5 MG TABLET PO PRN (16:30)
[2018-01-07] MEDS: POLYVINYL ALCOHOL 15 ML BOTTLE EACHEYE SCH (16:30)
[2018-01-07] MEDS ORDERED: ONDANSETRON 4 MG TAB.RAPDIS SL PRN (16:30)
--- NOTE | 2018-01-07 16:40 | NUR ---
MS1/RN BLOOD TRANSFUSION TRANSFUSION OF 1 UNIT OF PRBC INITIATED. ON GOING MONITORING.
[2018-01-07] MEDS: GABAPENTIN 300 MG CAPSULE PO SCH (17:53)
[2018-01-07] MEDS: CARBAMAZEPINE 200 MG TABLET PO SCH (17:53)
[2018-01-07] MEDS: AMLODIPINE BESYLATE 5 MG TABLET PO SCH (17:53)
[2018-01-07] MEDS: HYDROCODONE/APAP 5/325MG 1 EACH TABLET PO PRN (17:57)
--- NOTE | 2018-01-07 19:16 | NUR ---
MS1/RN AM SHIFT END NOTES NO ACUTE CHANGE OF CONDITION NOTED SINCE PT WAS ADMITTED THIS AFTERNOON. BLOOD TRANSFUSION ON GOING, NO ADVERSE REACTION TO TRANSFUSION NOTED SINCE INITIALLY ADMINISTERED. PT ENDORSED TO PM NURSE TO CONTINUE CARE. CL WITHIN REACHED AND SAFETY MAINTAINED.
[2018-01-07] MEDS ORDERED: ALBUTEROL FS 2.5 MG/3 ML VIAL.NEB NEB PRN (19:30)
--- NOTE | 2018-01-07 19:30 | NUR ---
MS RN OPENING NOTES: PATIENT IN BED, AOX3, ON ROOM AIR, BREATHING EVEN ADN UNLABORED, BREATH SOUNDS CLEAR, DIMINISHED AT BASES. APPEARS PALE. PATIENT IS CALM AND IN NO DISTRESS, DENIES PAIN AT THIS TIME. NOTED CAST WITH CLEAN INTACT DRESSING OVER LEFT LOWER LEG. PATIENT CURRENTLY RECEIVING 1 UNIT PRBC, INFUSING WELL OVER R HAND G20. PROVIDED FOR COMFORT AND SAFETY, BED IN LOWEST AND LOCKED POSITION, SIDERAILS UP X3, CALL LIGHT WITHIN REACH. WILL CONT TO MONITOR.
[2018-01-07] MEDS ORDERED: FUROSEMIDE 20 MG/2 ML VIAL IV ONE (20:00)
[2018-01-07] MEDS: LEVETIRACETAM (250 MG) 250 MG TABLET PO SCH (20:27)
[2018-01-07] MEDS: TOPIRAMATE 25 MG TABLET PO SCH (20:27)
--- NOTE | 2018-01-07 20:28 | NUR ---
RN NOTES: BLOOD TRANSFUSION ENDED AT 2017 PM, LASIX 20 MG SUPPOSED TO BE GIVEN POST BT, HOWEVER, BP CHECKED AT 101/59, RECHECKED 99/61. UNABLE TO GIVE LASIX AT THIS TIME, WILL RECHECK BP AFTER AN HOUR.
[2018-01-07] MEDS: ATORVASTATIN 10 MG TABLET PO SCH (22:27)
--- NOTE | 2018-01-07 22:32 | NUR ---
RN NOTES: BP RECHECKED AT 114/66, HR: 76, O2 SAT 98%, TEMP: 98.0, RR: 18. ADMINISTERED LASIX 20 MG IV ONE TIME DOSE JUST NOW.
[2018-01-08] VITALS: BP 134/77
[2018-01-08] MEDS: POLYVINYL ALCOHOL 15 ML BOTTLE EACHEYE SCH ×3 (00:50→18:24)
[2018-01-08 04:00] VITALS: BP 127/71
[2018-01-08] MEDS: PANTOPRAZOLE 40 MG TABLET.DR PO SCH (06:50)
[2018-01-08] MEDS: LEVOTHYROXINE SODIUM 75 MCG TABLET PO SCH (06:51)
--- NOTE | 2018-01-08 06:59 | NUR ---
MS RN CLOSING NOTES: PATIENT IN BED, AOX3, ON O2 AT 2 LPM VIA NC, BREATHING EVEN AND UNLABORED. APPEARS CALM AND IN NO DISTRESS. DENIES PAIN. PIV OVER R HAND G 20 INTACT AND PATENT TO FLUSH. DUE MEDS GIVEN. PROVIDED FOR COMFORT AND SAFETY. BED IN LOWEST AND LOCKED POSITION, SIDERAILS UP X3, CALL LIGHT WITHIN REACH. NO ACUTE CHANGE IN CONDITION NOTED THROUGH SHIFT. WILL ENDORSE TO AM RN FOR CHRISTINE.
[2018-01-08 07:11] LABS: BASOPHILS % (AUTO) 0.2 % (0.0-2.0); EOSINOPHILS % (AUTO) 2.3 % (0.0-6.0); HEMATOCRIT 23 % (33-45); HEMOGLOBIN 7.7 g/dL (11.5-14.8); LYMPHOCYTES # (AUTO) 1.9 /CMM (0.8-4.8); LYMPHOCYTES % (AUTO) 17.8 % (20.0-44.0); MEAN CORPUSCULAR HGB CONC 34 g/dl (31.0-36.0); MEAN CORPUSCULAR VOLUME 88 fL (82-100); MONOCYTES # (AUTO) 1.1 /CMM (0.1-1.30); MONOCYTES % (AUTO) 9.7 % (2.0-12.0); NEUTROPHILS # (AUTO) 7.6 /CMM (1.8-8.9); PLATELET COUNT (AUTO) 250 /CMM (150-450); RDW COEFFICIENT OF VARIATION 14.8 (11.5-15.0); RED BLOOD CELL COUNT(AUTO) 2.64 MIL/uL (4.0-5.2); WHITE BLOOD COUNT (AUTO) 10.9 K/uL (4.3-11.0)
--- NOTE | 2018-01-08 07:30 | NUR ---
received pt. alert and oriented x3,o2 on.no complaints offered.splint in place lt. lower leg.
[2018-01-08 08:00] VITALS: BP_SYST 131; BP_SYST 139; BP_SYST 149; BP_DIAS 85; BP_DIAS 95
[2018-01-08] MEDS: HYDROCODONE/APAP 5/325MG 1 EACH TABLET PO PRN (08:02)
[2018-01-08] MEDS: GABAPENTIN 300 MG CAPSULE PO SCH ×3 (08:49→18:23)
[2018-01-08] MEDS: BENAZEPRIL HCL 10 MG TABLET PO SCH (08:50)
[2018-01-08] MEDS: AMLODIPINE BESYLATE 5 MG TABLET PO SCH ×2 (08:50→17:00)
[2018-01-08] MEDS: VENLAFAXINE XR 75 MG CAP.SR.24H PO SCH (08:50)
[2018-01-08] MEDS: CARBAMAZEPINE 200 MG TABLET PO SCH (08:50)
[2018-01-08] MEDS: ASPIRIN EC 81 MG TABLET.DR PO SCH (08:51)
[2018-01-08] MEDS: TOPIRAMATE 25 MG TABLET PO SCH ×2 (08:51→20:55)
[2018-01-08] MEDS: LEVETIRACETAM (250 MG) 250 MG TABLET PO SCH ×2 (08:51→20:55)
[2018-01-08] MEDS: POLYETHYLENE GLYCOL 3350 17 GM POWD.PACK PO SCH (08:53)
[2018-01-08] MEDS ORDERED: LATUDA 80 MG PO SCH (09:00)
[2018-01-08] MEDS: TRAMADOL HCL 50 MG TABLET PO PRN (12:34)
--- NOTE | 2018-01-08 15:30 | NUR ---
medicated x 2 for lt. ankle pain.
--- NOTE | 2018-01-08 15:30 | NUR ---
dr. stubbs in to see pt. aware of elevated troponin.
[2018-01-08 16:00] VITALS: BP 122/62
--- NOTE | 2018-01-08 16:00 | NUR ---
transferred via bed to rm. 205-1.report to keshia devine.all belongings sent with pt.
[2018-01-08 17:30] VITALS: BP 115/57
[2018-01-08] MEDS ORDERED: IV NS 0.9% 1,000 ML BAG IV PRN (17:30)
[2018-01-08] MEDS: CARBAMAZEPINE 100 MG TAB.CHEW PO SCH (18:24)
[2018-01-08] MEDS: IV NS 0.9% 1,000 ML IV PRN (18:28)
[2018-01-08] MEDS ORDERED: BISACODYL (5 MG) 5 MG TABLET.DR PO ONE (18:30)
[2018-01-08] MEDS ORDERED: NA PHOS,M-B/NA PHOS,DI-BA 1 EA ENEMA RC PRN (19:00)
--- NOTE | 2018-01-08 19:00 | NUR ---
RN MS NOTES PT IN BED, AWAKE, ALERT AND ORIENTED, NO COMPLAINT OF PAIN, NOT IN DISTRESS, CALL LIGHT WITHIN REACH, ASSISTED WITH MEALS, SEEN BY DR. HERNANDEZ, PLAN FOR EGD/COLONOSCOPY ON WEDNESDAY, PREP ORDERS GIVEN, PT INFORMED, VERBAL CONSENT GIVEN, PM MEDS GIVEN, IV FLUIDS INFUSING WELL, ALL NEEDS ATTENDED.
[2018-01-08 20:00] VITALS: BP_SYST 118; BP_SYST 133; BP_DIAS 79; BP_DIAS 82
[2018-01-08] MEDS: ATORVASTATIN 10 MG TABLET PO SCH (21:44)
[2018-01-09] MEDS: POLYVINYL ALCOHOL 15 ML BOTTLE EACHEYE SCH ×3 (00:16→17:04)
[2018-01-09 06:15] LABS: BASOPHILS % (AUTO) 0.4 % (0.0-2.0); EOSINOPHILS % (AUTO) 2.1 % (0.0-6.0); HEMATOCRIT 22 % (33-45); HEMOGLOBIN 7.3 g/dL (11.5-14.8); LYMPHOCYTES % (AUTO) 20.2 % (20.0-44.0); MEAN CORPUSCULAR HGB CONC 33 g/dl (31.0-36.0); MEAN CORPUSCULAR VOLUME 88 fL (82-100); MONOCYTES # (AUTO) 0.9 /CMM (0.1-1.30); MONOCYTES % (AUTO) 9.2 % (2.0-12.0); NEUTROPHILS # (AUTO) 6.6 /CMM (1.8-8.9); NEUTROPHILS % (AUTO) 68.1 % (43.0-81.0); PLATELET COUNT (AUTO) 245 /CMM (150-450); RED BLOOD CELL COUNT(AUTO) 2.55 MIL/uL (4.0-5.2); WHITE BLOOD COUNT (AUTO) 9.8 K/uL (4.3-11.0)
[2018-01-09 06:22] LABS: CALCIUM, SERUM 8.1 mg/dL (8.5-10.1); CREATININE 2.3 mg/dL (0.6-1.3); POTASSIUM 5.4 mmol/L (3.5-5.1)
[2018-01-09] MEDS: IV NS 0.9% 1,000 ML IV PRN (06:37)
[2018-01-09 08:00] VITALS: BP 160/63
[2018-01-09] MEDS ORDERED: MAGNESIUM CITRATE 296 ML BOTTLE PO ONE ×2 (09:00→14:00)
[2018-01-09] MEDS ORDERED: BISACODYL (5 MG) 5 MG TABLET.DR PO ONE (09:00)
[2018-01-09] MEDS ORDERED: PEG 3350/NA SULF,BICARB,CL/KCL 4,000 ML BOTTLE PO ONE (09:00)
[2018-01-09] MEDS: POLYETHYLENE GLYCOL 3350 17 GM POWD.PACK PO SCH (09:16)
[2018-01-09] MEDS: LEVETIRACETAM (250 MG) 250 MG TABLET PO SCH ×2 (09:17→22:05)
[2018-01-09] MEDS: CARBAMAZEPINE 100 MG TAB.CHEW PO SCH ×2 (09:17→17:04)
[2018-01-09] MEDS: PANTOPRAZOLE 40 MG TABLET.DR PO SCH (09:18)
[2018-01-09] MEDS: ASPIRIN EC 81 MG TABLET.DR PO SCH (09:18)
[2018-01-09] MEDS: GABAPENTIN 300 MG CAPSULE PO SCH ×3 (09:18→17:04)
[2018-01-09] MEDS: BENAZEPRIL HCL 10 MG TABLET PO SCH (09:18)
[2018-01-09] MEDS: TOPIRAMATE 25 MG TABLET PO SCH ×2 (09:18→22:05)
[2018-01-09] MEDS: VENLAFAXINE XR 75 MG CAP.SR.24H PO SCH (09:18)
[2018-01-09] MEDS: AMLODIPINE BESYLATE 5 MG TABLET PO SCH ×2 (09:19→17:05)
[2018-01-09] MEDS: LEVOTHYROXINE SODIUM 75 MCG TABLET PO SCH (09:21)
--- NOTE | 2018-01-09 09:40 | NUR ---
MS RN OPENING NOTES: RECEIVED PATIENT IN BED, AOX3, VERBALLY RESPONSIVE, DELAYED SPEECH ABLE TO MAKE NEEDS KNOWN, BREATHING EVEN ADN UNLABORED, ON ROOM AIR. PATIENT IN NO APPARENT DISTRESS, DENIES PAIN OR DISCOMFORT AT THIS TIME. CAST TO LEFT LOWER LE S/F FACTURE. IV TO RIGHT HAND INFUSING NS AT 75CC/HR. SAFETY MEASURES RENDERED , BED IN LOWEST AND LOCKED POSITION, SIDERAILS UP X3, CALL LIGHT WITHIN REACH. WILL CONT TO MONITOR.
--- NOTE | 2018-01-09 13:17 | NUR ---
MS/RN NOTES PATIENT IN BOWEL PREP FOR SCHEDULED COLONOSCOPY/ENDOSCOPY. DR MCCORMICK AT BEDSIDE, DISCUSSED PLAN OF CARE , TO CONTINUE TO MEDICATION REGIMEN AND PROCEDURE PREPARATION
[2018-01-09 16:00] VITALS: BP 144/69
--- NOTE | 2018-01-09 18:52 | NUR ---
MS/RN NOTES PATIENT RESTING IN BED COMFORTABLY, NO SIGNIFICANT CHANGES IN CONDITION, VITAL SIGNS REMAIN STABLE, AFEBRILE. ALL DUE MEDICATIONS GIVEN , ALL NEEDS MET AND ATTENDED. PATIENT IN PROCESS OF BOWEL PREP WITH GOLYTELY, MAGNESIUM CITRATE, LAXATIVES FOR AM SCHEDULED EGD/COLONOSCOPY. PATIENT HAVING MULTIPLE BOWEL MOVEMENTS, BROWNISH LIQUID. SAFETY MEASURES RENDERED, CALL LIGHT PLACED WITHIN EASY REACH. WILL ENDORSE CARE TO MOTORCYCLE ASSEMBLER FOR CHRISTINE.
--- NOTE | 2018-01-09 19:30 | NUR ---
MS/RN OPENING NOTES PT RECEIVED AWAKE, A/OX3, WITH DELAYED SPEECH. RESTING COMFORTABLY IN BED. ON 2LPM O2 VIA NC, BREATHING EVEN AND UNLABORED. DENIES SOB, C/O OF PAIN TO LEFT LEG 04/19. LEFT LEFT WITH SPLINT AND WRAPPED WITH LAURA BANDAGE. WILL ADMINISTER PAIN MEDICATION ORDERED. IV TO RIGHT HAND PATENT AND INTACT RUNNING IVF ORDERED. PT FOR EGD/COLONOSCOPY IN AM. PT FINISHING [employer]. CONSENTS SIGNED IN CHART. BED IN LOW/LOCKED POSITION WITH CALL LIGHT IN REACH. SIDE RAILS UPX2. WILL CONTINUE TO MONITOR
[2018-01-09 20:00] VITALS: BP 175/88
[2018-01-09] MEDS: TRAMADOL HCL 50 MG TABLET PO PRN (20:05)
[2018-01-09 22:00] VITALS: BP 155/82
[2018-01-09] MEDS: ATORVASTATIN 10 MG TABLET PO SCH (22:05)
[2018-01-10] MEDS: POLYVINYL ALCOHOL 15 ML BOTTLE EACHEYE SCH ×4 (01:10→23:37)
[2018-01-10] MEDS: IV NS 0.9% 1,000 ML IV PRN ×2 (05:17→23:31)
[2018-01-10 06:49] LABS: BASOPHILS % (AUTO) 0.1 % (0.0-2.0); HEMATOCRIT 23 % (33-45); HEMOGLOBIN 7.3 g/dL (11.5-14.8); LYMPHOCYTES # (AUTO) 1.5 /CMM (0.8-4.8); LYMPHOCYTES % (AUTO) 15.2 % (20.0-44.0); MEAN CORPUSCULAR HGB CONC 32 g/dl (31.0-36.0); MEAN CORPUSCULAR VOLUME 88 fL (82-100); MONOCYTES # (AUTO) 0.9 /CMM (0.1-1.30); MONOCYTES % (AUTO) 8.8 % (2.0-12.0); NEUTROPHILS # (AUTO) 7.4 /CMM (1.8-8.9); NEUTROPHILS % (AUTO) 73.9 % (43.0-81.0); PLATELET COUNT (AUTO) 236 /CMM (150-450); RDW COEFFICIENT OF VARIATION 15.1 (11.5-15.0); RED BLOOD CELL COUNT(AUTO) 2.56 MIL/uL (4.0-5.2); WHITE BLOOD COUNT (AUTO) 9.9 K/uL (4.3-11.0)
[2018-01-10] MEDS: LEVOTHYROXINE SODIUM 75 MCG TABLET PO SCH (07:30)
--- NOTE | 2018-01-10 07:35 | NUR ---
MS/RN CLOSING NOTES PT AWAKE, A/OX3. RESTING COMFORTABLY IN BED. CURRENTLY ON ROOM AIR, BREATHING EVEN AND UNLABORED. DENIES SOB AND PAIN AT THIS TIME. LEFT LEG REMAINS WITH SPLINT AND WRAPPED WITH LAURA BANDAGE. IV TO RIGHT HAND PATENT AND INTACT RUNNING IVF ORDERED. PT REMAINED NPO POST MIDNIGHT. EGD/COLONOSCOPY SCHEDULED FOR [address] HERNANDEZ. CONSENTS AND CHECKLIST SIGNED IN CHART. UPPER DENTURES REMOVED AND PLACED IN DENTURE CUP WITH PT'S STICKER, LEFT AT BEDSIDE. 2 RINGS REMOVED AND PLACED IN CLEAR BAG WITH PT'S STICKER, PLACED IN ZIPPER OF PT'S PURSE. PT AWARE OF WHERE EVERYTHING WAS PLACED. NO SIGNIFICANT CHANGES OVERNIGHT. KEPT PT COMFORTABLE DURING SHIFT. ALL NEEDS MET. BED IN LOW/LOCKED POSITION WITH CALL LIGHT IN REACH. SIDE RAILS UPX2. ENDORSED TO DAY SHIFT MARIJA KING.
--- NOTE | 2018-01-10 08:03 | NUR ---
MS RN: INITIAL NOTE RECEIVED PT A/OX3. DELAYED SPEECH. INCONTINENT. USES DIAPER. BEDREST. SKIN INTACT. L FOOT SPLINT LAURA WRAP IN PLACE. NPO DUE TO SCHEDULED COLONOSCOPY. ALL PROTOCOLS GIVEN. FOR COLONOSCOPY. R HAND #24 RUNNING NS AT 75ML/HR. SITE CLEAR AND PATENT. NO REDNESS OR BLEEDING NOTED. RESTING COMFORTABLY IN BED. CALL LIGHT WITHIN REACH.
[2018-01-10 08:53] VITALS: BP 152/81
[2018-01-10] MEDS: POLYETHYLENE GLYCOL 3350 17 GM POWD.PACK PO SCH (09:00)
[2018-01-10] MEDS ORDERED: LABETALOL HCL IV 100MG VIAL ONE (09:59)
--- NOTE | 2018-01-10 10:33 | NUR ---
PT RETURNED FROM COLONSCOPY.S TABLE. BP 153/84, PULSE 80, RR 18, O2 95% ON ROOM AIR. A/OX3. PER MD HERNANDEZ TO PLACE ORDER FOR AIR CONTRAST BARIUM ENEMA THIS AM. CONTINUE TO MONITOR VS, RESUME MEDS, RESUME, IV NS AT 75ML.HR. ALL ORDERS CARRIED OUT.
[2018-01-10] MEDS: VENLAFAXINE XR 75 MG CAP.SR.24H PO SCH (10:45)
[2018-01-10] MEDS: LEVETIRACETAM (250 MG) 250 MG TABLET PO SCH ×2 (10:45→21:46)
[2018-01-10] MEDS: AMLODIPINE BESYLATE 5 MG TABLET PO SCH ×2 (10:45→16:36)
[2018-01-10] MEDS: CARBAMAZEPINE 100 MG TAB.CHEW PO SCH ×2 (10:45→16:36)
[2018-01-10] MEDS: ISOSORBIDE DINITRATE (20MG) 20 MG TABLET PO SCH ×2 (10:45→16:36)
[2018-01-10] MEDS: GABAPENTIN 300 MG CAPSULE PO SCH ×3 (10:46→16:36)
[2018-01-10] MEDS: hydrALAZINE HCL 25 MG TABLET PO SCH ×2 (10:46→16:37)
[2018-01-10] MEDS: PANTOPRAZOLE 40 MG TABLET.DR PO SCH (10:46)
[2018-01-10] MEDS: TOPIRAMATE 25 MG TABLET PO SCH ×2 (10:46→21:46)
[2018-01-10] MEDS: ASPIRIN EC 81 MG TABLET.DR PO SCH (10:46)
--- NOTE | 2018-01-10 14:54 | NUR ---
PT RETURNED FROM RADIOLOGY. ABLE TO EAT. STARTED BACK ON REGULAR MECHANICAL DIET PER [place] ORDER. SKIPPED NEURONTIN AT 1300 DUE TO PT BEING IN RADIOLOGY FOR 2 HOURS. NO DISTRESS NOTED. NO SOB NOTED. CURRENTLY EATING.
[2018-01-10 16:33] VITALS: BP 154/85
--- NOTE | 2018-01-10 18:56 | NUR ---
MS RN: CLOSING NOTE PT TOOK ALL MEDICATIONS ON TIME. NO ADVERSE REACTIONS NOTED. COLONSCOPY DONE IN AM BY MD HERNANDEZ. AIR BARIUM ENEMA DONE IN RADIOLOGY TO CHECK RIGHT SIDE OF COLONE. HAD LUNCH AT 1500 WHEN ALL PROCEDURES COMPLETE. ON REGULAR DIET MECHANICAL SOFT. A/OX3. DELAYED SPEECH. MS. INCONTINENT. USES DIAPER. BEDREST. TURNS AND REPOSITIONS NEEDED. SKIN INTACT. L FOOT SPLINTER AND LAURA WRAP IN PLACE. R HAND #24 RUNNING NS AT 75ML/HR. SITE CLEAR AND PATENT. NO REDNESS OR BLEEDING NOTED. RESTING COMFORTABLY IN BED. CALL LIGHT WITHIN REACH.
--- NOTE | 2018-01-10 19:30 | NUR ---
MS/RN OPENING NOTES PT RECEIVED ASLEEP, AROUSABLE TO NAME. WITH DELAYED SPEECH. S/P EGD/COLONOSCOPY AND AIR ENEMA WITH BARIUM TODAY. BACK ON MECHANICAL SOFT REGULAR DIET. IV TO RIGHT HAND PATENT AND INTACT RUNNING IVF ORDERED. SPLINT TO LEFT LEG IN PLACE AND ELEVATED ON PILLOW. BED IN LOW/LOCKED POSITION WITH CALL LIGHT IN REACH. SIDE RAILS UPX2. WILL CONTINUE TO MONITOR
[2018-01-10 20:00] VITALS: BP 142/68
[2018-01-10] MEDS: ATORVASTATIN 10 MG TABLET PO SCH (21:46)
[2018-01-11] VITALS (8 sets, daily range): BP systolic 124–164; BP diastolic 58–102
[2018-01-11 06:42] LABS: BASOPHILS % (AUTO) 0.2 % (0.0-2.0); EOSINOPHILS % (AUTO) 1.8 % (0.0-6.0); HEMATOCRIT 21 % (33-45); LYMPHOCYTES # (AUTO) 2.3 /CMM (0.8-4.8); LYMPHOCYTES % (AUTO) 18.5 % (20.0-44.0); MEAN CORPUSCULAR HGB CONC 33 g/dl (31.0-36.0); MEAN CORPUSCULAR VOLUME 88 fL (82-100); MONOCYTES # (AUTO) 1.3 /CMM (0.1-1.30); MONOCYTES % (AUTO) 10.2 % (2.0-12.0); NEUTROPHILS # (AUTO) 8.6 /CMM (1.8-8.9); NEUTROPHILS % (AUTO) 69.3 % (43.0-81.0); PLATELET COUNT (AUTO) 226 /CMM (150-450); RDW COEFFICIENT OF VARIATION 14.5 (11.5-15.0); RED BLOOD CELL COUNT(AUTO) 2.42 MIL/uL (4.0-5.2); WHITE BLOOD COUNT (AUTO) 12.4 K/uL (4.3-11.0)
--- NOTE | 2018-01-11 07:00 | NUR ---
MS/RN CLOSING NOTES PT ASLEEP, EASILY AROUSABLE TO NAME. A/OX3 DELAYED SPEECH. ON 2L O2 VIA NC, BREATHING EVEN AND UNLABORED. NO SOB OR PAIN NOTED. IN NO ACUTE DISTRESS. SPLINT TO LEFT LEFT IN PLACE WRAPPED WITH LAURA BANDAGE. IV TO RIGHT HAND PATENT AND INTACT. NO SIGNIFICANT CHANGES OVERNIGHT. KEPT PT COMFORTABLE DURING SHIFT. ALL NEEDS MET. BED IN LOW/LOCKED POSITION WITH CALL LIGHT IN REACH. SIDE RAILS UPX2. WILL ENDORSE TO DAY SHIFT RN CHRISTINE.
--- NOTE | 2018-01-11 07:08 | NUR ---
MS/RN NOTES PAGED DR. MCCORMICK'S OFFICE. SPOKE TO WILL ABREU AND NOTIFIED HER OF PT'S HGB OF 7.0 DOWN FROM 7.3 YESTERDAY. WITH ORDERS TO TRANSFUSE 2 UNITS OF PRBC'S. ORDERS READBACK FOR VERIFICATION. ENDORSED TO DAY SHIFT RN Addendum: 01/11/18 at 0748 by OMAR WEISS RN ONLY ABLE TO ENTER 1 UNIT OF PRBC'S, CALLED LAB FOR ASSISTANCE. ENDORSED TO DAY SHIFT RN TO ENTER ANOTHER UNIT AFTER 1ST UNIT IS TRANSFUSED
--- NOTE | 2018-01-11 07:15 | NUR ---
RN NOTES: PATIENT RESTING IN BED. NONLABORED BREATHING NOTED ON ROOM 2 L. NO SIGNS OF DISTRESS NOTED. DENIES PAIN AT THE MOMENT. IV SITE ON RIGHT HAND PATENT AND INTACT. PATIENT AOX3 WITH DELAYED SPEECH. BED IN LOWEST LOCKED POSITION. CALL LIGHT WITHIN REACH. WILL CONTINUE TO MONITOR
[2018-01-11 07:24] LABS: CALCIUM, SERUM 8.4 mg/dL (8.5-10.1); CREATININE 1.7 mg/dL (0.6-1.3); POTASSIUM 5.3 mmol/L (3.5-5.1)
--- NOTE | 2018-01-11 08:00 | NUR ---
MARIJA NOTES: GLAUCOMA PER PATIENT Addendum: 01/11/18 at 1206 by KVNG PICKARD RN Amended: Links added.
[2018-01-11] MEDS: LEVETIRACETAM (250 MG) 250 MG TABLET PO SCH ×2 (08:17→22:25)
[2018-01-11] MEDS: GABAPENTIN 300 MG CAPSULE PO SCH ×3 (08:18→16:30)
[2018-01-11] MEDS: ASPIRIN EC 81 MG TABLET.DR PO SCH (08:18)
[2018-01-11] MEDS: PANTOPRAZOLE 40 MG TABLET.DR PO SCH (08:18)
[2018-01-11] MEDS: TOPIRAMATE 25 MG TABLET PO SCH ×2 (08:19→22:25)
[2018-01-11] MEDS: hydrALAZINE HCL 25 MG TABLET PO SCH ×2 (08:19→16:30)
[2018-01-11] MEDS: CARBAMAZEPINE 100 MG TAB.CHEW PO SCH ×2 (08:20→16:30)
[2018-01-11] MEDS: ISOSORBIDE DINITRATE (20MG) 20 MG TABLET PO SCH ×2 (08:21→17:44)
[2018-01-11] MEDS: VENLAFAXINE XR 75 MG CAP.SR.24H PO SCH (08:21)
[2018-01-11] MEDS: LEVOTHYROXINE SODIUM 75 MCG TABLET PO SCH (08:21)
[2018-01-11] MEDS: POLYVINYL ALCOHOL 15 ML BOTTLE EACHEYE SCH ×2 (08:22→16:30)
[2018-01-11] MEDS: POLYETHYLENE GLYCOL 3350 17 GM POWD.PACK PO SCH ×2 (08:25→09:00)
--- NOTE | 2018-01-11 09:00 | NUR ---
RN NOTES: MIRALAX REFUSED BY PATIENT. BENEFITS AND RISKS EXPLAINED AT LENGTH
[2018-01-11] MEDS: AMLODIPINE BESYLATE 5 MG TABLET PO SCH ×2 (09:40→17:44)
--- NOTE | 2018-01-11 10:10 | NUR ---
RN NOTES: PER DR MCCORMICK ADMINISTER ONLY 1 UNIT OF PACKED RBC. ADMINISTER IV 20 LASIX ONCE AFTER
--- NOTE | 2018-01-11 10:10 | NUR ---
RN NOTES: DURING ROUNDS, DR MCCORMICK NOTIFIED OF CURRENT CBC RESULTS. ALSO, NOTIFIED HIM THAT AN ORDER WAS OBTAINED FROM ONCALL DR, DR WILL SILVA, TO INFUSE 2 UNITS OF RBC. PER DR MCCORMICK, INFUSE ONLY 1 UNIT OF PRBC AND GIVE IV 20 MG LASIX AFTER. PER DR MCCORMICK, NO NEED FOR A CBC AFTER TRANSFUSION. ORDER RECORDED AND READ BACK X2.
[2018-01-11] MEDS ORDERED: FUROSEMIDE 20 MG/2 ML VIAL IV ONE ×2 (10:30→14:00)
--- NOTE | 2018-01-11 10:57 | NUR ---
RN NOTES: PATIENT REQUESTING FOR NORCO, STATING THAT A PAIN OF 6/10 BEGAN BEFORE BLOOD TRANSFUSION ADMINISTRATION. ADMINISTERED PER ORDERS
[2018-01-11] MEDS: HYDROCODONE/APAP 5/325MG 1 EACH TABLET PO PRN ×2 (10:58→19:47)
--- NOTE | 2018-01-11 13:41 | NUR ---
RN NOTES: BLOOD TRANSFUSION ADMINISTERED AT 1039 WITH INITIAL RATE OF 60 ML/HOUR. VITALS STABLE . REMAINED WITH PATIENT DURING INITIAL 15 MINUTES. NO SIGNS OF DISTRESS NOTED . NONLABORED BREATHING NOTED ON ROOM AIR. AFTER 15 MINS, RATE INCREASED TO 75 ML/HOUR-VITALS ASSESSED AGAIN AND RECORDED-STABLE. 1125- VITALS REASSESSED AND NOTED TO BE STABLE. PATIEN DENYING ANY ADVERSE EFFECTS. RATE INCREASED TO 100 ML/HOUR. AT 1228- VS ASSESSED AND NOTED TO BE 155/73, 98.2 WITH HR OF 70 AND RR OF 18. NO ADVERSE REACTIONS NOTED. AT 1341 - INFUSION ENDED VITALS RECORDED . PATIENT STABLE. NONLABORED BREATHING NOTED ON ROOM BERTO. DENYING PAIN. NO FEVER NOTED
--- NOTE | 2018-01-11 19:30 | NUR ---
RN NOTES: PATIENT RESTING IN BED. NONLABORED BREATHING NOTED ON ROOM ROOM AIR. NO SIGNS OF DISTRESS NOTED. DENIES PAIN AT THE MOMENT. IV SITE ON RIGHT HAND PATENT AND INTACT. IV GAUGE 22 ON RIGHT ARM STARTED DURING SHIFT, PATENT AND INTACT. PATIENT AOX3 WITH DELAYED SPEECH. BED IN LOWEST LOCKED POSITION. CALL LIGHT WITHIN REACH. NO ACTIVE SIGNS OF BLEEDING NOTED. WILL CONTINUE TO MONITOR.
--- NOTE | 2018-01-11 19:30 | NUR ---
RN NOTES: PATIENT RESTING IN BED. NONLABORED BREATHING NOTED ON ROOM ROOM AIR. NO SIGNS OF DISTRESS NOTED. DENIES PAIN AT THE MOMENT. IV SITE ON RIGHT HAND PATENT AND INTACT. IV GAUGE 22 ON RIGHT ARM STARTED DURING SHIFT, PATENT AND INTACT. PATIENT AOX3 WITH DELAYED SPEECH. BED IN LOWEST LOCKED POSITION. CALL LIGHT WITHIN REACH. PATIENT HELPED TO STAY CLEAN AND DRY DURING SHIFT. NO ACTIVE SIGNS OF BLEEDING NOTED
[2018-01-11] MEDS: ATORVASTATIN 10 MG TABLET PO SCH (22:25)
[2018-01-12] MEDS: POLYVINYL ALCOHOL 15 ML BOTTLE EACHEYE SCH ×2 (00:30→08:12)
--- NOTE | 2018-01-12 07:30 | NUR ---
RN MS NOTES PT IN BED, AWAKE, ALERT AND ORIENTED, NO COMPLAINT OF PAIN OR ANY DISCOMFORT, BREATHING PATTERN NORMAL, CALL LIGHT WITHIN REACH, PLEASANT AND COOPERATIVE, NEEDS ATTENDED.
[2018-01-12 08:00] VITALS: BP 169/108
[2018-01-12] MEDS ORDERED: BOOST PLUS FOOD-CHOCLATE 237 ML BOX PO SCH (08:00)
[2018-01-12] MEDS: hydrALAZINE HCL 25 MG TABLET PO SCH (08:12)
[2018-01-12] MEDS: LEVOTHYROXINE SODIUM 75 MCG TABLET PO SCH (08:12)
[2018-01-12] MEDS: VENLAFAXINE XR 75 MG CAP.SR.24H PO SCH (08:12)
[2018-01-12] MEDS: PANTOPRAZOLE 40 MG TABLET.DR PO SCH (08:12)
[2018-01-12] MEDS: GABAPENTIN 300 MG CAPSULE PO SCH (08:12)
[2018-01-12] MEDS: CARBAMAZEPINE 100 MG TAB.CHEW PO SCH (08:12)
[2018-01-12] MEDS: TOPIRAMATE 25 MG TABLET PO SCH (08:12)
[2018-01-12 08:13] VITALS: BP 169/108
[2018-01-12] MEDS: ASPIRIN EC 81 MG TABLET.DR PO SCH (08:13)
[2018-01-12] MEDS: ISOSORBIDE DINITRATE (20MG) 20 MG TABLET PO SCH (08:13)
[2018-01-12] MEDS: AMLODIPINE BESYLATE 5 MG TABLET PO SCH (08:13)
[2018-01-12] MEDS: LEVETIRACETAM (250 MG) 250 MG TABLET PO SCH (08:14)
[2018-01-12] MEDS: POLYETHYLENE GLYCOL 3350 17 GM POWD.PACK PO SCH (09:00)
--- NOTE | 2018-01-12 14:00 | NUR ---
RN MS NOTES PT IN BED, AWAKE, ALERT AND ORIENTED, PT FOR DISCHARGE BACK TO [facility], ORDER GIVEN BY DR. MCCORMICK, PT INFORMED, DISCHARGE AND MEDICATION INSTRUCTIONS PROVIDED TO PT, VERBALIZED UNDERSTANDING, BELONGINGS ACCOUNTED FOR, CALLED [facility], SPOKE WITH [facility] INFORMED OF PT'S TRANSFER BACK, PICKED UP BY AMBULANCE PERSONNEL, LEFT VIA GUERNEY, WITH ALL BELONGINGS IN STABLE CONDITION.
[2018-01-13] MEDS ORDERED: ERGOCALCIFEROL (VITAMIN D 2) 50,000 UNIT CAPSULE PO SCH (16:30)
== END 2018-01-12 14:00 | DRG 241 ==
LOC: ER 12:42 → MEDSG1 14:55 → MEDSG2 01-08 15:56
PROVIDERS: ADMIT Internal Medicine; ATTEND Internal Medicine
DX: K29.71 Gastritis, unspecified, with bleeding (principal); N17.9 Acute kidney failure, unspecified; E11.22 Type 2 diabetes mellitus with diabetic chronic kidney disease; F03.90 Unspecified dementia, unspecified severity, without behavioral disturbance, psychotic disturbance, mood disturbance, and anxiety; I13.0 Hypertensive heart and chronic kidney disease with heart failure and stage 1 through stage 4 chronic kidney disease, or unspecified chronic kidney disease; I50.9 Heart failure, unspecified; Z68.43 Body mass index [BMI] 50.0-59.9, adult; D63.8 Anemia in other chronic diseases classified elsewhere; E83.39 Other disorders of phosphorus metabolism; K63.5 Polyp of colon; E03.9 Hypothyroidism, unspecified; E78.5 Hyperlipidemia, unspecified; E66.9 Obesity, unspecified; K21.9 Gastro-esophageal reflux disease without esophagitis; K44.9 Diaphragmatic hernia without obstruction or gangrene; Z86.73 Personal history of transient ischemic attack (TIA), and cerebral infarction without residual deficits; N18.3 Chronic kidney disease, stage 3 (moderate); I25.10 Atherosclerotic heart disease of native coronary artery without angina pectoris; J45.909 Unspecified asthma, uncomplicated; Z79.899 Other long term (current) drug therapy; Z90.49 Acquired absence of other specified parts of digestive tract; K25.4 Chronic or unspecified gastric ulcer with hemorrhage; G40.409 Other generalized epilepsy and epileptic syndromes, not intractable, without status epilepticus
CPT/HCPCS: 36415; 74280-TC; 80048-TC; 80076-TC; 82728-TC; 83690-TC; 85025-TC; 85730-TC; 86850-TC; 86921-TC; 87081-TC; 88305-TC; 88313-TC; 88342; A4606; J1100; J1940; J3490; J7030; J7050; P9016-BL; Z7610

== ENCOUNTER 2018-02-21 19:17 | Inpatient (IN) | payer MEDICARE, OTHER ==
[~2018-02-21] VITALS: Ht 172.7 cm; Wt 117.9 kg
[~2018-02-21 19:17] MED LIST changes: +ALBU18HF2 IH; +ASPI-1152 PO; +HYDR-552 PO; +ONDA4TAB5 PO; +POLY17PO4 PO
--- NOTE | 2018-02-21 19:30 | NUR ---
PT SCOTTY FROM [facility], PT PER EMS HAD A GLF AT 6PM AND C/O LEFT ANKLE PAIN DENIES LOC, NAD NOTED, VSS, RESP EVEN AND UNLABORED, PT WAS PUT ON MONITOR, WAITING FOR MD JACKSON.
[2018-02-21] MEDS ORDERED: HYDROCODONE/APAP 10/325MG 1 EA TABLET PO ONE (20:00)
--- NOTE | 2018-02-21 20:10 | NUR ---
CALLED NURSING RESTAURANT SUPERVISOR AND REQUESTED A MED SURG BED FOR THIS PT.
[2018-02-21] MEDS ORDERED: HYDROCODONE/APAP 10/325MG 1 EA TABLET ONE (20:20)
[2018-02-21 20:41] LABS: BASOPHILS # (AUTO) 0.1 /CMM (0.0-0.2); BASOPHILS % (AUTO) 0.7 % (0.0-2.0); EOSINOPHILS % (AUTO) 2.1 % (0.0-6.0); HEMATOCRIT 27 % (33-45); HEMOGLOBIN 9.3 g/dL (11.5-14.8); LYMPHOCYTES # (AUTO) 2.2 /CMM (0.8-4.8); LYMPHOCYTES % (AUTO) 13.5 % (20.0-44.0); MEAN CORPUSCULAR HGB CONC 34 g/dl (31.0-36.0); MEAN CORPUSCULAR VOLUME 88 fL (82-100); MONOCYTES # (AUTO) 1.2 /CMM (0.1-1.30); MONOCYTES % (AUTO) 7.4 % (2.0-12.0); NEUTROPHILS # (AUTO) 12.7 /CMM (1.8-8.9); NEUTROPHILS % (AUTO) 76.3 % (43.0-81.0); PLATELET COUNT (AUTO) 286 /CMM (150-450); RDW COEFFICIENT OF VARIATION 16.1 (11.5-15.0); RED BLOOD CELL COUNT(AUTO) 3.13 MIL/uL (4.0-5.2); WHITE BLOOD COUNT (AUTO) 16.5 K/uL (4.3-11.0)
[2018-02-21 20:44] LABS: INR 0.94 (0.85-1.15)
[2018-02-21 20:53] LABS: CALCIUM, SERUM 8.8 mg/dL (8.5-10.1); CREATININE 1.9 mg/dL (0.6-1.3); POTASSIUM 5.2 mmol/L (3.5-5.1)
--- NOTE | 2018-02-21 21:35 | NUR ---
RN ADMITTING NOTES Pt ARRIVED VIA GURNEY. WAS ASSISTED BY THE STAFF IN TRANSFERRING THE Pt TO THE ROOM BED SAFELY. Pt IS A/OX3, VERBAL, ABLE TO MAKE NEEDS KNOWN. Pt C/O PAIN ON RT FOOT, WILL ADMINISTER PAIN MEDS ONCE ORDER FROM DR MCCORMICK COMES IN. INFORMED Pt THAT THE DR WAS NOTIFIED AND THAT WE NEED TO WAIT FOR THE DR TO CALL BACK FOR THE MED ORDERS. Pt UNDERSTOOD. IV ACCESS ON RAC #18G, SL. SAFETY MEASURES IN PLACE. BED LOW, LOCKED, HOB ELEVATED, SIDE RAILS UP, CALL LIGHT AND BEDSIDE TABLE WITHIN REACH. WILL CONTINUE TO MONITOR Pt THROUGHOUT THE NIGHT FOR SAFETY.
[2018-02-22] MEDS: HYDROCODONE/APAP 5/325MG 1 EACH TABLET PO PRN ×4 (00:21→21:33)
--- NOTE | 2018-02-22 06:40 | NUR ---
RN CLOSING NOTES NO SIGNIFICANT CHANGES IN Pt's CONDITION. Pt REMAINS IN STABLE CONDITION. NO S/S OF ACUTE DISTRESS OR SOB NOTED. ALL NEEDS MET AND ATTENDED TO. SAFETY MEASURES IN PLACE. WILL ENDORSE TO DAYSHIFT RN FOR Pt's CHRISTINE.
--- NOTE | 2018-02-22 07:15 | NUR ---
RN NOTES PT IS SITTING UP IN BED, AWAKE AND ALERT. PT ON RA, RESPIRATIONS ARE EVEN AND UNLABORED. IV ON RAC INTACT AND SL. NO SIGNS OF DISTRESS NOTED. SAFETY MEASURES ARE IN PLACE, CALL LIGHT IS IN REACH. WILL CONTINUE TO MONITOR.
[2018-02-22] MEDS ORDERED: TRAMADOL HCL 50 MG TABLET PO PRN (07:30)
[2018-02-22] MEDS ORDERED: HYDROCODONE/APAP 5/325MG 1 EACH TABLET PO PRN (07:30)
[2018-02-22] MEDS ORDERED: LORAZEPAM 0.5 MG TABLET PO PRN (07:30)
[2018-02-22] MEDS ORDERED: CLOTRIMAZOLE/BETAMETASONE DIPROPIONATE 15 GM TUBE TP PRN (07:30)
[2018-02-22 08:00] VITALS: BP 158/92
[2018-02-22] MEDS ORDERED: ONDANSETRON HCL/PF 4 MG/2 ML VIAL IVP PRN (08:00)
[2018-02-22] MEDS: ASPIRIN EC 81 MG TABLET.DR PO SCH (08:11)
[2018-02-22] MEDS: GABAPENTIN 300 MG CAPSULE PO SCH ×3 (08:11→16:05)
[2018-02-22] MEDS: POLYVINYL ALCOHOL 15 ML BOTTLE EACHEYE SCH ×3 (08:11→16:06)
[2018-02-22] MEDS: LEVETIRACETAM (250 MG) 250 MG TABLET PO SCH ×2 (08:11→21:32)
[2018-02-22] MEDS: TOPIRAMATE 25 MG TABLET PO SCH ×2 (08:12→21:32)
[2018-02-22] MEDS: VENLAFAXINE XR 75 MG CAP.SR.24H PO SCH (08:12)
[2018-02-22] MEDS: POLYETHYLENE GLYCOL 3350 17 GM POWD.PACK PO SCH (08:12)
[2018-02-22] MEDS: AMLODIPINE BESYLATE 5 MG TABLET PO SCH ×2 (08:13→16:05)
[2018-02-22] MEDS: BENAZEPRIL HCL 10 MG TABLET PO SCH (08:16)
[2018-02-22] MEDS: CARBAMAZEPINE 200 MG TABLET PO SCH ×2 (09:00→16:05)
[2018-02-22 12:00] VITALS: BP 192/94
[2018-02-22 13:00] VITALS: BP 192/94
[2018-02-22] MEDS ORDERED: ALBUTEROL FS 2.5 MG/0.5 ML VIAL.NEB NEB PRN (13:30)
--- NOTE | 2018-02-22 13:30 | NUR ---
RN NOTES PTS BP 192/94. MD MADE AWARE AND DID NOT WANT TO ADD ANY PRN ANTIHYPERTENSIVE MEDICATIONS. PT WAS GIVEN NORCO AND ULTRAM TO BETTER CONTROL PAIN, POSSIBLE CAUSE FOR INCREASED BP. WILL CONTINUE TO MONITOR.
[2018-02-22 16:00] VITALS: BP 200/80
[2018-02-22 16:34] VITALS: BP 159/93
--- NOTE | 2018-02-22 18:49 | NUR ---
RN NOTES PT IS LAYING DOWN IN BED, RESTING COMFORTABLY. PT ON RA, RESPIRATIONS ARE EVEN AND UNLABORED. IV ON RAC INTACT AND SL. ALL MEDS WERE GIVEN ORDERED AND PT NEEDS MET. NO SIGNS OF DISTRESS NOTED. SAFETY MEASURES ARE IN PLACE, CALL LIGHT IS IN REACH. WILL ENDORSE TO CONTROL SUPERVISOR RN FOR CONTINUITY OF CARE.
--- NOTE | 2018-02-22 19:45 | NUR ---
RN OPENING NOTES RECEIVED REPORT FROM DAYSHIFT MARIJA SERRA. FOUND Pt AWAKE, RESTING IN BED. NO S/S OF ACUTE DISTRESS OR SOB NOTED. Pt IS A/OX3, VERBAL, ABLE TO MAKE NEEDS KNOWN. IV ACCESS ON RAC #18G, SL. SAFETY MEASURES IN PLACE. BED LOW, LOCKED, HOB ELEVATED, SIDE RAILS UP, CALL LIGHT AND BEDSIDE TABLE WITHIN REACH. WILL CONTINUE TO MONITOR Pt THROUGHOUT THE NIGHT FOR SAFETY.
[2018-02-22 20:00] VITALS: BP_SYST 146; BP_SYST 160; BP_DIAS 79; BP_DIAS 86
[2018-02-22] MEDS: ATORVASTATIN 10 MG TABLET PO SCH (21:32)
[2018-02-23] MEDS: HYDROCODONE/APAP 5/325MG 1 EACH TABLET PO PRN ×2 (06:17→16:53)
--- NOTE | 2018-02-23 06:45 | NUR ---
RN CLOSING NOTES NO SIGNIFICANT CHANGES IN Pt's CONDITION. Pt REMAINS STABLE AT THIS TIME. NO S/S OF ACUTE DISTRESS OR SOB NOTED DURING THE NIGHT. ALL NEEDS MET AND ATTENDED TO. SAFETY MEASURES IN PLACE. WILL ENDORSE TO DAYSHIFT RN FOR Pt's CHRISTINE.
--- NOTE | 2018-02-23 07:20 | NUR ---
RN NOTES PATIENT ASLEEP BUT EASILY AROUSABLE, BREATHING EVEN AND UNLABORED, NO S/SX OF PAIN OR DISCOMFORT AT THIS TIME, RIGHT LEG SPLINT AND LEFT LEG CAST C/D/I. KEPT PATIENT COMFORTABLE AT THIS TIME, NEEDS ANTICIPATED, CALL LIGHT WITHIN REACH, WILL CONTINUE TO MONITOR.
[2018-02-23 08:41] VITALS: BP 169/71
[2018-02-23] MEDS: POLYVINYL ALCOHOL 15 ML BOTTLE EACHEYE SCH ×3 (09:07→16:55)
[2018-02-23] MEDS: LEVOTHYROXINE SODIUM 75 MCG TABLET PO SCH (09:08)
[2018-02-23] MEDS: GABAPENTIN 300 MG CAPSULE PO SCH ×3 (09:09→16:52)
[2018-02-23] MEDS: VENLAFAXINE XR 75 MG CAP.SR.24H PO SCH (09:09)
[2018-02-23] MEDS: ASPIRIN EC 81 MG TABLET.DR PO SCH (09:09)
[2018-02-23] MEDS: LEVETIRACETAM (250 MG) 250 MG TABLET PO SCH ×2 (09:10→21:33)
[2018-02-23] MEDS: TOPIRAMATE 25 MG TABLET PO SCH ×2 (09:10→21:33)
[2018-02-23] MEDS: CARBAMAZEPINE 200 MG TABLET PO SCH ×2 (09:10→16:52)
[2018-02-23] MEDS: AMLODIPINE BESYLATE 5 MG TABLET PO SCH ×2 (09:11→16:52)
[2018-02-23] MEDS: BENAZEPRIL HCL 10 MG TABLET PO SCH (09:11)
[2018-02-23] MEDS: POLYETHYLENE GLYCOL 3350 17 GM POWD.PACK PO SCH (09:11)
--- NOTE | 2018-02-23 13:00 | NUR ---
RN NOTES Patient able to verbalize needs, breathing even and unlabored, assisted with adl care, turned and repositioned every 2 hours or as patient permits. needs attended and met, call light within reach, will continue to monitor.
[2018-02-23 16:14] VITALS: BP 162/75
--- NOTE | 2018-02-23 18:06 | NUR ---
RN NOTES Spoke with [facility] (Ortho), he stated, no cast, keep right lower leg splinted, non-weight bearing and f/u with ortho as outpatient. Relayed to Dr. Manzanares.
--- NOTE | 2018-02-23 18:08 | NUR ---
RN NOTES Patient a/ox3, able to verbalize needs, breathing even and unlabored, no sob noted, denies pain at this time, assisted with adl care, turned and repositioned every 2 hours or as patient permits. Needs attended and met, call light within reach, will endorse to night monitor for margie.
[2018-02-23 19:33] VITALS: BP 127/76
--- NOTE | 2018-02-23 19:35 | NUR ---
MS RN NOTES RECEIVED ON BED A/O X2-3,BREATHING REGULAR,NOT IN ANY FORM OF DISTRESS,SALINE LOCK RIGHT AC INTACT AND PATENT.RIGHT LOWER LEG WITH SPLINT IN PLACE WRAPPED WITH BROWN ELASTIC BANDAGE.OLD CAST IN PLACE LEFT LOWER LEG,FROM OLD FALL.CALL LIGHT IN REACH.WILL CONTINUE TO MONITOR FO PAIN.
[2018-02-23 20:00] VITALS: BP 127/76
[2018-02-23] MEDS: ATORVASTATIN 10 MG TABLET PO SCH (21:33)
--- NOTE | 2018-02-24 01:00 | NUR ---
MS RN NOTES SOUND ASLEEP,KEPT WARM AND COMFORTABLE.
--- NOTE | 2018-02-24 05:30 | NUR ---
MS RN NOTES MORNING CARE RENDERED BY ANAYA KAISER,TOLERATED WELL.
[2018-02-24] MEDS: HYDROCODONE/APAP 5/325MG 1 EACH TABLET PO PRN ×2 (06:41→13:13)
--- NOTE | 2018-02-24 06:41 | NUR ---
MS RN NOTES PAIN MANAGEMENT C/O PAIN VIA RIGHT LOWER LEG 6/10 0N PAIN SCALE,NORCO 5/325MG,1 TAB PO GIVEN,TAKEN WELL.
--- NOTE | 2018-02-24 06:51 | NUR ---
MS RN NOTES NO SIGNIFICANT CHANGE IN STATUS,AWAITING PLACEMENT AT 4 SEASONS.REPORT GIVEN TO SHARIF DUTTON FOR CHRISTINE.
[2018-02-24] MEDS ORDERED: ERGOCALCIFEROL (VITAMIN D 2) 50,000 UNIT CAPSULE PO SCH (07:30)
--- NOTE | 2018-02-24 07:30 | NUR ---
MS/RN Patient received Patient received from night order selector. Left leg in a below the knee cast, right leg splinted, has sensation to all toes on both feet. Safety measures in place, all belongings within reach, along with call light. Side rails X3 in upright position, brakes locked, bed in lowest setting. Bed alarm in working order and switched on. Will continue to monitor and ensure safety.
[2018-02-24] MEDS: POLYVINYL ALCOHOL 15 ML BOTTLE EACHEYE SCH ×3 (07:51→16:54)
[2018-02-24] MEDS: GABAPENTIN 300 MG CAPSULE PO SCH ×3 (07:52→16:53)
[2018-02-24] MEDS: ASPIRIN EC 81 MG TABLET.DR PO SCH (07:52)
[2018-02-24] MEDS: TOPIRAMATE 25 MG TABLET PO SCH (07:52)
[2018-02-24] MEDS: POLYETHYLENE GLYCOL 3350 17 GM POWD.PACK PO SCH (07:52)
[2018-02-24] MEDS: VENLAFAXINE XR 75 MG CAP.SR.24H PO SCH (07:52)
[2018-02-24] MEDS: LEVOTHYROXINE SODIUM 75 MCG TABLET PO SCH (07:52)
[2018-02-24] MEDS: LEVETIRACETAM (250 MG) 250 MG TABLET PO SCH (07:52)
[2018-02-24] MEDS: CARBAMAZEPINE 200 MG TABLET PO SCH ×2 (07:53→16:53)
[2018-02-24] MEDS: BENAZEPRIL HCL 10 MG TABLET PO SCH (07:53)
[2018-02-24] MEDS: AMLODIPINE BESYLATE 5 MG TABLET PO SCH ×2 (07:54→16:53)
[2018-02-24 08:00] VITALS: BP 143/83
[2018-02-24 08:29] VITALS: BP 143/86
--- NOTE | 2018-02-24 08:41 | NUR ---
MS/RN Medications Morning medications administered as ordered, no problems swallowing pills whole.
--- NOTE | 2018-02-24 11:30 | NUR ---
MS/RN S/B Dr Marks Seen by Dr Marks (covering for Dr Manzanares) - may be discharged today if bed available at [facility].
--- NOTE | 2018-02-24 13:24 | NUR ---
MS/RN Pain Complaining of pain to both lower extremities, 05/20. Liberty one tablet administered, will reassess pain level.
[2018-02-24 16:00] VITALS: BP 125/77
[2018-02-24 16:40] VITALS: BP 125/77
[2018-02-24 16:53] VITALS: BP 125/77
--- NOTE | 2018-02-24 17:30 | NUR ---
MS/RN Report Spoke with software development coordinator Ines at [facility] , basic report given, stated that patient was accepted. Attempted to give full report to nurse but placed on hold for twenty minutes, again spoke with admissions, stated to go ahead and trasfer the patient, they would contact floor with any questions or concerns.
--- NOTE | 2018-02-24 18:10 | NUR ---
MS/shoulder sawyer plan Bed available at [facility], transport scheduled for 1829. All paperwork completed and signed by two RN's. Heplock and name bands removed.
== END 2018-02-24 18:48 | DRG 342 ==
LOC: ER 19:19 → MEDSG2 21:06
PROVIDERS: ADMIT Internal Medicine; ATTEND Internal Medicine
DX: S82.301A Unspecified fracture of lower end of right tibia, initial encounter for closed fracture (principal); I13.0 Hypertensive heart and chronic kidney disease with heart failure and stage 1 through stage 4 chronic kidney disease, or unspecified chronic kidney disease; I50.9 Heart failure, unspecified; E11.22 Type 2 diabetes mellitus with diabetic chronic kidney disease; N18.3 Chronic kidney disease, stage 3 (moderate); G40.409 Other generalized epilepsy and epileptic syndromes, not intractable, without status epilepticus; I25.10 Atherosclerotic heart disease of native coronary artery without angina pectoris; E03.9 Hypothyroidism, unspecified; Y92.89 Other specified places as the place of occurrence of the external cause; W05.0XXA Fall from non-moving wheelchair, initial encounter; E11.65 Type 2 diabetes mellitus with hyperglycemia; E78.5 Hyperlipidemia, unspecified; R47.81 Slurred speech; Z87.820 Personal history of traumatic brain injury; Z99.3 Dependence on wheelchair; R27.0 Ataxia, unspecified; K21.9 Gastro-esophageal reflux disease without esophagitis; J45.909 Unspecified asthma, uncomplicated; F32.9 Major depressive disorder, single episode, unspecified; E66.9 Obesity, unspecified; Z68.39 Body mass index [BMI] 39.0-39.9, adult; S82.431A Displaced oblique fracture of shaft of right fibula, initial encounter for closed fracture; F41.9 Anxiety disorder, unspecified; Z87.891 Personal history of nicotine dependence
CPT/HCPCS: 36415; 73600-TC; 73610-TC; 73700-TC; 80048-TC; 85025-TC; 85730-TC; 87081-TC; A4606; Z7610

== ENCOUNTER 2019-06-11 13:53 | Emergency (ER) | payer OTHER, MEDICARE ==
[~2019-06-11] VITALS: Ht 149.9 cm; Wt 103.0 kg
[~2019-06-11 13:53] MED LIST changes: +ALCA3DRO EACHEYE; -AMLO5TAB7 PO; +AMLO5TAB9 PO; +BENA10TA11 PO; -BENA10TA9 PO; -CLOT15CR4 TP; +DEXT15DR28 EACHEYE; +HYDR-4384 PO; -HYDR-552 PO; -LORA0.5T PO; -LURA80TA PO; +MAGN400O6 PO; -ONDA4TAB5 PO; -POLY15DR40 EACHEYE; -POLY17PO4 PO; +PROP15DR EACHEYE; -TRAM50TA2 PO
--- NOTE | 2019-06-11 14:00 | NUR ---
AOx3, BIBRA 860 from [facility] for GLF c/o left knee and ankle pain, -ko. RR is even and unlabored with NAD noted. Skin is warm and dry. Awaiting MD for eval. [facility] WNL.
--- NOTE | 2019-06-11 16:55 | NUR ---
CALLED [facility]. ETA 1830 TRIP# [phone]
--- NOTE | 2019-06-11 17:24 | NUR ---
Called [place] [phone] spoke to Dioni Robins RN made aware patient is coming back to facility [facility] home instruction aware .I called family son made aware .
--- NOTE | 2019-06-11 17:49 | NUR ---
ETA 1830
--- NOTE | 2019-06-11 18:24 | NUR ---
[facility] ETA 191
--- NOTE | 2019-06-11 18:52 | NUR ---
Update ETA 1914
--- NOTE | 2019-06-11 18:53 | NUR ---
Patient awake alert requesting for water and juice given no vomiting patient watching Tv ,repositiion patient to rt side changed diaper x 1 assisted by Nuha Rincon CNA
--- NOTE | 2019-06-11 19:42 | NUR ---
GAVE REPORT TO KAZ Middleton FOR TRANSPORTATION [facility]
[2019-06-11 19:44] VITALS: BP 123/70
== END 2019-06-11 19:44 | disposition home or self-care (01) ==
LOC: ER 13:55
DX: S82.62XA Displaced fracture of lateral malleolus of left fibula, initial encounter for closed fracture (principal); I11.0 Hypertensive heart disease with heart failure; I50.9 Heart failure, unspecified; I25.10 Atherosclerotic heart disease of native coronary artery without angina pectoris; I25.2 Old myocardial infarction; K21.9 Gastro-esophageal reflux disease without esophagitis; E11.9 Type 2 diabetes mellitus without complications; F32.9 Major depressive disorder, single episode, unspecified; E78.5 Hyperlipidemia, unspecified; Z98.890 Other specified postprocedural states; Z86.73 Personal history of transient ischemic attack (TIA), and cerebral infarction without residual deficits; Z88.8 Allergy status to other drugs, medicaments and biological substances; Z88.1 Allergy status to other antibiotic agents; Z91.011 Allergy to milk products; Z79.899 Other long term (current) drug therapy; Z79.82 Long term (current) use of aspirin; W18.39XA Other fall on same level, initial encounter; Y93.89 Activity, other specified; Y92.89 Other specified places as the place of occurrence of the external cause; Y99.8 Other external cause status
CPT/HCPCS: 73564-TC; 73610-TC

== ENCOUNTER 2019-08-12 07:00 | Inpatient (IN) | payer MEDICARE, OTHER ==
[~2019-08-12] VITALS: Ht 149.9 cm; Wt 102.1 kg
[2019-08-12] VITALS (10 sets, daily range): BP systolic 141–181; BP diastolic 60–91
--- NOTE | 2019-08-12 07:03 | NUR ---
"[id number], FROM [facility], C/O CP PRESSURE, NON RADIATING, BS 129, 3 NITRO SPRAY AND ASA 162 GIVEN BY EMS ON SCENE" pt awake, alert, -sob, nad noted, vss ,pending md christensen
[2019-08-12] MEDS ORDERED: ASPIRIN 81 MG TAB.CHEW PO ONE (07:30)
[2019-08-12 07:39] LABS: BASOPHILS % (AUTO) 0.4 % (0.0-2.0); EOSINOPHILS % (AUTO) 2.3 % (0.0-6.0); LYMPHOCYTES # (AUTO) 1.5 /CMM (0.8-4.8); LYMPHOCYTES % (AUTO) 18.7 % (20.0-44.0); MEAN CORPUSCULAR HGB CONC 30 g/dl (31.0-36.0); MEAN CORPUSCULAR VOLUME 78 fL (82-100); MONOCYTES # (AUTO) 0.8 /CMM (0.1-1.30); MONOCYTES % (AUTO) 10.4 % (2.0-12.0); NEUTROPHILS # (AUTO) 5.4 /CMM (1.8-8.9); NEUTROPHILS % (AUTO) 68.2 % (43.0-81.0); PLATELET COUNT (AUTO) 245 /CMM (150-450); RED BLOOD CELL COUNT(AUTO) 2.28 MIL/uL (4.0-5.2)
[2019-08-12 07:44] LABS: CHLORIDE 113 mmol/L (98-107); POTASSIUM 5.2 mmol/L (3.5-5.1); SODIUM SERUM 143 mmol/L (136-145)
[2019-08-12 07:49] LABS: CALCIUM, SERUM 7.9 mg/dL (8.5-10.1); CARBON DIOXIDE 22 mmol/L (21-32); GLUCOSE 98 mg/dL (74-106); UREA NITROGEN, BLOOD 38 mg/dL (7-18)
[2019-08-12 07:54] LABS: HEMOGLOBIN 5.4 g/dL (11.5-14.8)
[2019-08-12 07:55] LABS: HEMATOCRIT 18 % (33-45)
[2019-08-12 08:29] LABS: THYROID STIMULATING HORMONE 0.473 uIU/mL (0.358-3.74)
[2019-08-12 08:55] LABS: BAND % (MANUAL) 1 % (0.0-5.0); EOSINOPHILS % (MANUAL) 4 % (0-4); LYMPHOCYTES % (MANUAL) 19 % (16-48); MONOCYTES % (MANUAL) 7 % (0-11.0); NEUTROPHILS % (MANUAL) 69 (42-76)
[2019-08-12] MEDS ORDERED: CARV25TA2 PO (08:58)
[2019-08-12] MEDS ORDERED: POLY15DR40 EACHEYE (08:58)
[2019-08-12] MEDS ORDERED: APIX2.5T PO (08:58)
[2019-08-12] MEDS ORDERED: RISP0.253 PO (08:58)
[2019-08-12] MEDS ORDERED: NITR0.4T48 SL (08:58)
[2019-08-12] MEDS ORDERED: PANT40TA2 PO (08:58)
[2019-08-12] MEDS ORDERED: LORA10TA7 PO (08:58)
--- NOTE | 2019-08-12 09:42 | NUR ---
CALLED CAROLYN MCCORMICK [phone] OPTION 1 6 LEFT MSG.
[2019-08-12] MEDS ORDERED: PANTOPRAZOLE 40 MG VIAL IV ONE (10:00)
[2019-08-12] MEDS ORDERED: ASPIRIN 81 MG TAB.CHEW ONE (10:43)
[2019-08-12] MEDS ORDERED: PANTOPRAZOLE 40 MG VIAL ONE (10:43)
--- NOTE | 2019-08-12 10:43 | NUR ---
report given to Triny DUTTON for [facility].
--- NOTE | 2019-08-12 11:20 | NUR ---
AGENCY CASHIER NOTES RECEIVED PATIENT FROM ER REPORT GIVEN BY CHANDLER WITH STABLE VITAL SIGNS.PATIENT ALERT ORIENTED X 3. NO ACUTE DISTRESS NOTED. BREATHING UNLABORED. NO SOB NOTED. DENIED ANY PAIN. IV ACCESS PATENT AND INTACT WITH RUNNING BLOOD TRANSFUSION ON GOING. NO ADVERSE REACTION OF BLOOD TRANSFUSION NOTED. NEEDS ATTENDED AND ANTICIPATED. SAFETY MEASURES IN PLACE. CALL LIGHT WITHIN REACH. WILL CONTINUE TO MONITOR ACCORDINGLY.
--- NOTE | 2019-08-12 11:30 | NUR ---
pt transported to 3rd floor
--- NOTE | 2019-08-12 11:35 | NUR ---
COMPUTER FORENSIC EXAMINER NOTES BLOOD TRANSFUSION ENDED, VITAL SIGNS STABLE. BP 152/79, RR 19, GA 60, TEMPERATURE 97.8 , O2 SATURATION 100% ON ROOM AIR. NO ADVERSE REACTION OF BLOOD TRANSFUSION NOTED. NO ACUTE DISTRESS NOTED. NO SOB NOTED. WILL CONTINUE TO MONITOR PATIENT.
--- NOTE | 2019-08-12 12:06 | NUR ---
TRANSITION LEAD NOTES NOTIFIED DR MCCORMICK REGARDING NEW PATIENT ADMISSION ORDERS AND DIET AND CLARIFIED WHEN HEMOGLOBIN AND HEMATOCRIT RECHECKED, DR MCCORMICK ORDERED POST BLOOD TRANSFUSION HEMOGLOBIN AND HEMATOCRIT RECHECKED AT 1800 TODAY AND CARDIAC /CCHO REGULAR DIET, NOTED AND CARRIED OUT. DR MCCORMICK TO COME AND SEE PATIENT TODAY AND PUT IN ORDERS.
--- NOTE | 2019-08-12 12:35 | NUR ---
CIVIL CLERK NOTES BLOOD TRANSFUSION ENDED, VITAL SIGNS STABLE. BP 152/79, RR 19, NH 60, TEMPERATURE 97.8 , O2 SATURATION 100% ON ROOM AIR. NO ADVERSE REACTION OF BLOOD TRANSFUSION NOTED. NO ACUTE DISTRESS NOTED. NO SOB NOTED. WILL CONTINUE TO MONITOR PATIENT. Addendum: 08/12/19 at 1929 by MAI GORDILLO RN DISREGARD ABOVE NOTES, WRONG ENTRY
[2019-08-12] MEDS ORDERED: NITROGLYCERIN 0.4 MG/TAB BOTTLE SL PRN (14:30)
--- NOTE | 2019-08-12 14:32 | NUR ---
DRY WALL INSTALLATIONS MECHANIC NOTES PATIENT SEEN AND EVALUATED BY DR JACE LEON WITH NEW ORDERS MADE AND TO UPDATE HOME MEDICATION RECONCILIATION, NOTED AND CARRIED OUT.
--- NOTE | 2019-08-12 15:02 | NUR ---
CALL OR CONTACT CENTRE TEAM LEADER NOTES CLARIFIED WITH CAROLYN ELAM REGARDING CARBAMAZEPINE ORDER TO CONTINUE MEDICATION ,PATIENT IS ALLERGIC TO PHENOBARBITAL, DR JACE MCCORMICK OK TO CONTINUE CARBAMAZEPINE PATIENT TAKING MEDICATION AT HOME, NOTED AND CARRIED OUT.
[2019-08-12] MEDS ORDERED: risperiDONE 0.25 MG TABLET PO SCH (17:00)
[2019-08-12] MEDS ORDERED: CARVEDILOL 25 MG TABLET PO SCH (17:00)
[2019-08-12] MEDS: TOPIRAMATE 25 MG TABLET PO SCH (17:46)
[2019-08-12] MEDS: CARBAMAZEPINE 200 MG TABLET PO SCH (17:46)
[2019-08-12] MEDS: CARVEDILOL 12.5 MG TABLET PO SCH (17:48)
[2019-08-12 18:48] LABS: IRON, SERUM 18 ug/dl (50-175); TOTAL IRON BINDING CAPACITY 257 ug/dl (250-450)
[2019-08-12 18:57] LABS: FERRITIN 8 ng/mL (8-388)
--- NOTE | 2019-08-12 19:00 | NUR ---
ADMITTING MANAGER NOTES PATIENT IN BED ALERT ORIENTED X 3. NO ACUTE DISTRESS NOTED. NO SOB NOTED. BREATHING UNLABORED. IV ACCESS PATENT AND INTACT, NO REDNESS OR SWELLING NOTED. NO BLEEDING NOTED. SAFETY MEASURES IN PLACE. CALL LIGHT WITHIN REACH. WILL CONTINUE TO MONITOR ACCORDINGLY.
[2019-08-12 19:19] LABS: HEMOGLOBIN 6.2 g/dL (11.5-14.8)
--- NOTE | 2019-08-12 19:30 | NUR ---
ELECTRONICS COMMODITY MANAGER NOTES RECEIVED ON BED A/O X4,NO SOB,O2 IN USED AT 2L/NC TO KEEP O2 SAT ABOVE 90%.SALINE LOCK RIGHT AC INTACT AND PATENT.OBESE,PALE LOOKING,H/H 6.2/20 AFTER PRBC 1UNIT GIVEN ON DAYSHIFT.WILL TRANSFUSE ANOTHER UNIT OF BLOOD.ON ISOFLEX BED FOR SKIN MANAGEMENT.REPOSITION PER PROTOCOL.CALL LIGHT IN REACH,NEEDS ANTICIPATED.
[2019-08-12] MEDS ORDERED: BENAZEPRIL HCL 10 MG TABLET ONE (20:47)
[2019-08-12] MEDS: BENAZEPRIL HCL 10 MG TABLET PO SCH (20:48)
--- NOTE | 2019-08-12 20:48 | NUR ---
FINISH MACHINE TENDER NOTES SBP ON THE HIGH SIDE,NO PRN MEDS FOR HIGH BLOOD PRESSURE,DRILL SHARPENER OPERATOR MD FOR DR JACE JI.DR BRENNER DRILL SHARPENER OPERATOR,OK TO GIVE LOTENSIN 10MG NOW,NOTED AND CARRIED OUT.
--- NOTE | 2019-08-12 21:20 | NUR ---
MS RN NOTES STARTED ON SECOND UNIT OF PRBC 321ML.
[2019-08-12] MEDS: LEVETIRACETAM (250 MG) 250 MG TABLET PO SCH (21:38)
[2019-08-12] MEDS: ATORVASTATIN 10 MG TABLET PO SCH (21:38)
[2019-08-13] VITALS: BP 172/79
[2019-08-13 00:56] VITALS: BP 173/79
--- NOTE | 2019-08-13 00:56 | NUR ---
SHAPE CARVER NOTES SECOND UNIT OF PRBC COMPLETED,NO ADVERSE REACTION NOTED.VITAL SIGNS WITH IN NORMAL LIMITS
[2019-08-13 04:00] VITALS: BP 161/79
--- NOTE | 2019-08-13 06:01 | NUR ---
PHYSIOLOGY TEACHER NOTES FAIRLY RESTED,SLEEPING.PRBC 2 UNITS INFUSED WITHOUT ADVERSE REACTION NOTED.IN NO ACUTE DISTRESS,AWAITING CBC RESULT.WILL ENDORSE TO DAY NURSE FOR CHRISTINE
[2019-08-13 06:48] LABS: BASOPHILS % (AUTO) 0.5 % (0.0-2.0); EOSINOPHILS % (AUTO) 2.4 % (0.0-6.0); HEMATOCRIT 24 % (33-45); HEMOGLOBIN 7.6 g/dL (11.5-14.8); LYMPHOCYTES # (AUTO) 1.6 /CMM (0.8-4.8); LYMPHOCYTES % (AUTO) 20.1 % (20.0-44.0); MEAN CORPUSCULAR HGB CONC 32 g/dl (31.0-36.0); MEAN CORPUSCULAR VOLUME 81 fL (82-100); MONOCYTES # (AUTO) 0.9 /CMM (0.1-1.30); MONOCYTES % (AUTO) 10.7 % (2.0-12.0); NEUTROPHILS # (AUTO) 5.4 /CMM (1.8-8.9); NEUTROPHILS % (AUTO) 66.3 % (43.0-81.0); PLATELET COUNT (AUTO) 211 /CMM (150-450); RED BLOOD CELL COUNT(AUTO) 2.93 MIL/uL (4.0-5.2); WHITE BLOOD COUNT (AUTO) 8.1 K/uL (4.3-11.0)
--- NOTE | 2019-08-13 07:00 | NUR ---
RUBBER ROLLER GRINDER NOTES PATIENT IN BED ALERT ORIENTED X 3. NO ACUTE DISTRESS NOTED. NO SOB NOTED. BREATHING UNLABORED. IV ACCESS PATENT AND INTACT, NO REDNESS OR SWELLING NOTED. NO BLEEDING NOTED. SAFETY MEASURES IN PLACE. CALL LIGHT WITHIN REACH. WILL CONTINUE TO MONITOR ACCORDINGLY.
[2019-08-13] MEDS ORDERED: LEVOTHYROXINE SODIUM 150 MCG TABLET PO SCH (07:30)
[2019-08-13] MEDS: LEVOTHYROXINE SODIUM 75 MCG TABLET PO SCH (07:53)
[2019-08-13 08:00] VITALS: BP 153/78
[2019-08-13] MEDS: LEVETIRACETAM (250 MG) 250 MG TABLET PO SCH ×2 (08:52→21:05)
[2019-08-13] MEDS: risperiDONE 1 MG TABLET PO SCH ×2 (08:52→16:46)
[2019-08-13] MEDS: TOPIRAMATE 25 MG TABLET PO SCH ×3 (08:52→16:47)
[2019-08-13] MEDS: CARBAMAZEPINE 200 MG TABLET PO SCH ×2 (08:52→16:46)
[2019-08-13] MEDS: LORATADINE 10 MG TABLET PO SCH (08:53)
[2019-08-13] MEDS: BENAZEPRIL HCL 10 MG TABLET PO SCH (08:53)
[2019-08-13] MEDS: CARVEDILOL 12.5 MG TABLET PO SCH ×2 (08:54→16:47)
[2019-08-13] MEDS ORDERED: CARVEDILOL 12.5 MG TABLET PO SCH (09:00)
[2019-08-13] MEDS ORDERED: PANTOPRAZOLE 40 MG VIAL IV SCH (09:00)
[2019-08-13] MEDS: PANTOPRAZOLE 40 MG VIAL IV SCH (16:46)
--- NOTE | 2019-08-13 19:00 | NUR ---
SHIP'S ENGINEER NOTES PATIENT IN BED ALERT ORIENTED X 3. NO ACUTE DISTRESS NOTED. NO SOB NOTED. BREATHING UNLABORED. IV ACCESS PATENT AND INTACT, NO REDNESS OR SWELLING NOTED. DUE MEDICATIONS GIVEN. NO ASE NOTED. NEEDS ATTENDED AND ANTICIPATED. KEPT CLEAN DRY AND CONFORTABLE. SAFETY MEASURES IN PLACE. CALL LIGHT WITHIN REACH. WILL ENDORSE TO NIGHT NURSE FOR CONTINUITY OF CARE.
--- NOTE | 2019-08-13 19:15 | NUR ---
BAR STAFF NOTES LAYING COMFORTABLY ON BED,A/O X3,BREATHING EASY,NO SOB,SALINE LOCK RIGHT AC INTACT AND PATENT.ON ISOFLEX BED FOR SKIN MANAGEMENT.INSTRUCTED NPO POST MIDNIGHT FOR EGD TOMORROW,CONSENT SIGNED BY Lisa BANUELOS AT THE MOMENT,PALE LOOKING,S/P BLOOD TRANSFUSION OF 2 UNITS PACKED CELLS,LATEST H/H 7.624.CALL LIGHT IN REACH,NEEDS ANTICIPATED.
[2019-08-13 20:00] VITALS: BP_SYST 159; BP_DIAS 80; BP_DIAS 84
--- NOTE | 2019-08-13 20:32 | NUR ---
NARROW GAUGE BRAKEMAN NOTES SR-62 ON TELE MONITOR
[2019-08-13] MEDS: ATORVASTATIN 10 MG TABLET PO SCH (21:05)
[2019-08-14 04:00] VITALS: BP 156/82
--- NOTE | 2019-08-14 05:48 | NUR ---
LEGAL RECORDS CLERK NOTES ON BED A/O X3-4,KEPT NPO FOR EGD TODAY,WITH CONSENT.MORNING CARE RENDERED BY JOB LONDON.SALINE LOCK RIGHT AC INTACT AND PATENT.IN NO ACUTE DISTRESS.CALL LIGHT IN REACH,NEEDS ATTENDED.WILL ENDORSE TO DAY NURSE FOR CHRISTINE.
[2019-08-14] MEDS: LEVOTHYROXINE SODIUM 75 MCG TABLET PO SCH (07:30)
--- NOTE | 2019-08-14 07:47 | NUR ---
SKIVER SOCK LININGS OPENING NOTES RECEIVED PATIENT IN BED ALERT AND AWAKE. HOB ELEVATED. NO SOB. DENIES ANY C/O PAIN NOR DISCOMFORT AT THIS TIME. ON NPO STATUS FOR EGD TODAY. ON TELE MONITORING SR NAD SINUS JENNIFER WITH HR OF 55. RESTING COMFORTABLY IN BED AT THIS TIME. SL ON LEFT AC#20 INTACT AND PATENT. BED IN LOWEST POSITION, LOCKED. BED ALARM ON. CALL LIGHT WITHIN REACH.
[2019-08-14 08:00] VITALS: BP 128/75
[2019-08-14] MEDS: BENAZEPRIL HCL 10 MG TABLET PO SCH (09:00)
[2019-08-14] MEDS: LEVETIRACETAM (250 MG) 250 MG TABLET PO SCH ×2 (09:00→21:07)
[2019-08-14] MEDS: CARBAMAZEPINE 200 MG TABLET PO SCH ×2 (09:00→17:55)
[2019-08-14] MEDS: LORATADINE 10 MG TABLET PO SCH (09:00)
[2019-08-14] MEDS: risperiDONE 1 MG TABLET PO SCH ×2 (09:00→17:54)
[2019-08-14] MEDS: CARVEDILOL 12.5 MG TABLET PO SCH ×2 (09:00→17:54)
[2019-08-14] MEDS: TOPIRAMATE 25 MG TABLET PO SCH ×3 (09:00→17:54)
[2019-08-14] MEDS: PANTOPRAZOLE 40 MG VIAL IV SCH ×2 (10:32→17:53)
--- NOTE | 2019-08-14 11:24 | NUR ---
MS RN NOTES RELAYED TO LOR Panchal THAT PATIENT IS NOT ON THE SCHEDULE FOR EGD PER OR AND THAT LOR NEEDS TO CALL OR FOR SCHEDULING OF EGD. PER JOSE L CANCEL EGD TODAY AND RESUME DIET ORDERED. SHE WILL CALL TO ARRANGE IT.
[2019-08-14] MEDS: SOD FERRIC GLUC 125 MG in IV NS 0.9% 100 ML IV SCH (14:35)
[2019-08-14 16:00] VITALS: BP 159/74
--- NOTE | 2019-08-14 18:38 | NUR ---
MS RN CLOSING NOTES ALERT AND ORIENTED X4. . HOB ELEVATED. NO SOB. DENIES ANY C/O PAIN NOR DISCOMFORT AT THIS TIME. SL ON LEFT AC#20 INTACT AND PATENT WITHOUT S/S OF COMPLICATIONS NO APPARENT DISTRESS. PATIENT PREFERS TO BE IN SUPINE POSITION DESPITE OF EXPLANATION OF RISK AND BENEFITS. ABLE TO VERBALIZE NEEDS. BED IN LOWEST POSITION, LOCKED. BED ALARM ON. CALL LIGHT WITHIN REACH
--- NOTE | 2019-08-14 19:30 | NUR ---
MS DUTTON OPENING NOTE RECEIVED PATIENT IN BED. A/O X3. ON OXYGEN 3L/MIN VIA NASAL CANNULA. RESPIRATIONS EVEN AND UNLABORED. NO SOB NOTED. DENIES PAIN AT THIS TIME. IN NO APPARENT DISTRESS. IV ACCESS IN LAC #18 PATENT AND SALINE LOCKED. BED IS LOW AND LOCKED, SIDE RAILS UP X2, HOB FLAT. CALL LIGHT WITHIN REACH. WILL CONTINUE TO MONITOR. Addendum: 08/14/19 at 2015 by MARIE AVILA RN CORRECTION: 2L/MIN VIA NASAL CANULA AND HOB IN HIGH FOWLERS POSITION.
[2019-08-14 20:00] VITALS: BP 160/84
[2019-08-14 20:26] VITALS: BP 127/68
[2019-08-14 20:43] VITALS: BP 164/84
[2019-08-14] MEDS: ALBUTEROL FS 2.5 MG/0.5 ML VIAL.NEB NEB SCH (20:49)
[2019-08-14] MEDS: ATORVASTATIN 10 MG TABLET PO SCH (21:04)
--- NOTE | 2019-08-14 21:07 | NUR ---
MS RN NOTE WHEN PULLING KEPPRA FROM [facility] CELL, ACCIDENTLY PULLED WRONG MED, THEREFORE I WENT BACK TO [facility] CALL AND PULLED KEPPRA TWICE BUT PULLED CORRECT DOSE FOR ONE DOSE AND PLACED OTHER MEDICATION BACK IN CORRECT UNIT.
[2019-08-15] MEDS: ALBUTEROL FS 2.5 MG/0.5 ML VIAL.NEB NEB SCH ×4 (01:24→19:51)
--- NOTE | 2019-08-15 07:00 | NUR ---
MS RN CLOSING NOTE PATIENT IN BED. A/O X3. REMAINS ON OXYGEN 2L/MIN VIA NASAL CANNULA. RESPIRATIONS EVEN AND UNLABORED. NO SOB NOTED. DENIES PAIN. NO DISTRESS NOTED. REMAINED NPO SINCE MIDNIGHT. IV ACCESS REMAINS IN RAC #18 PATENT AND SALINE LOCKED. BED REMAINS LOW AND LOCKED, SIDE RAILS UP X2, HOB HIGH FOWLERS . CALL LIGHT WITHIN REACH. WILL ENDORSE TO NEXT SHIFT.
[2019-08-15] MEDS: LEVOTHYROXINE SODIUM 75 MCG TABLET PO SCH (07:30)
[2019-08-15 07:55] VITALS: BP 155/71
--- NOTE | 2019-08-15 08:05 | NUR ---
ms rn received on bed, awake,alert,oriented x3,not in any form of distress, respirations even and unlabored,no sob noted, lugs are diminish,abdomen soft,positive bowel sounds,denies pain at this time. will monitor patient's condition.
[2019-08-15] MEDS: TOPIRAMATE 25 MG TABLET PO SCH ×3 (09:00→16:46)
[2019-08-15] MEDS: CARVEDILOL 12.5 MG TABLET PO SCH ×2 (09:00→16:47)
[2019-08-15] MEDS: PANTOPRAZOLE 40 MG VIAL IV SCH ×2 (09:00→16:48)
[2019-08-15] MEDS: risperiDONE 1 MG TABLET PO SCH ×2 (09:00→16:47)
[2019-08-15] MEDS: CARBAMAZEPINE 200 MG TABLET PO SCH ×2 (09:00→16:48)
--- NOTE | 2019-08-15 09:30 | NUR ---
ms rn held meds npo at this time ,for egd at 1 pm.
[2019-08-15 10:13] LABS: BASOPHILS % (AUTO) 0.4 % (0.0-2.0); EOSINOPHILS % (AUTO) 2.2 % (0.0-6.0); HEMATOCRIT 24 % (33-45); HEMOGLOBIN 7.8 g/dL (11.5-14.8); LYMPHOCYTES # (AUTO) 1.4 /CMM (0.8-4.8); LYMPHOCYTES % (AUTO) 16.5 % (20.0-44.0); MEAN CORPUSCULAR HGB CONC 32 g/dl (31.0-36.0); MEAN CORPUSCULAR VOLUME 80 fL (82-100); MONOCYTES # (AUTO) 0.8 /CMM (0.1-1.30); MONOCYTES % (AUTO) 9.5 % (2.0-12.0); NEUTROPHILS # (AUTO) 6.1 /CMM (1.8-8.9); NEUTROPHILS % (AUTO) 71.4 % (43.0-81.0); PLATELET COUNT (AUTO) 211 /CMM (150-450); RED BLOOD CELL COUNT(AUTO) 3.03 MIL/uL (4.0-5.2); WHITE BLOOD COUNT (AUTO) 8.6 K/uL (4.3-11.0)
[2019-08-15 10:14] LABS: CALCIUM, SERUM 8.1 mg/dL (8.5-10.1); CREATININE 1.9 mg/dL (0.6-1.3); POTASSIUM 5.2 mmol/L (3.5-5.1)
--- NOTE | 2019-08-15 10:20 | NUR ---
ms rn called dr. stubbs,patient has nolab today, w/ orders mad and carried out.
--- NOTE | 2019-08-15 12:30 | NUR ---
ms rn patient went down for egd.
--- NOTE | 2019-08-15 15:00 | NUR ---
ms rn patient came back from egd, w/ order to follow previous orders.
[2019-08-15] MEDS: SOD FERRIC GLUC 125 MG in IV NS 0.9% 100 ML IV SCH (15:51)
[2019-08-15 16:15] VITALS: BP 180/71
[2019-08-15] MEDS: LEVETIRACETAM (250 MG) 250 MG TABLET PO SCH ×2 (16:47→21:39)
[2019-08-15] MEDS: LORATADINE 10 MG TABLET PO SCH (16:47)
[2019-08-15] MEDS: BENAZEPRIL HCL 10 MG TABLET PO SCH (16:48)
--- NOTE | 2019-08-15 18:40 | NUR ---
MS RN ON BED, NO DISTRESS NOTED,ALL NEEDS ATTENDED.
--- NOTE | 2019-08-15 19:30 | NUR ---
RN PM OPENING NOTE BEDSIDE REPORT RECIEVED FROM TWYLA DUTTON. PT AXO X3. PT IN BED BED DOWN LOCKED SRX3 BED ALARM ACTIVE. ON 2LNC DENIES SOB. IV TO RAC #20 HEPLOCKED WITH NO S/S OF INFILTRATION. FLUSHED. REVIEWED POC QUESTIONS CONCERNS ADDRESSED. CALL LIGHT WITHIN REACH VERBALIZED UNDERSTANDING TO CALL FOR ASSISTANCE IF NEEDED.
[2019-08-15 19:55] VITALS: BP 139/66
[2019-08-15] MEDS: ATORVASTATIN 10 MG TABLET PO SCH (21:39)
[2019-08-16] MEDS: ALBUTEROL FS 2.5 MG/0.5 ML VIAL.NEB NEB SCH ×4 (01:54→20:16)
[2019-08-16] MEDS: LEVOTHYROXINE SODIUM 75 MCG TABLET PO SCH (06:03)
--- NOTE | 2019-08-16 06:35 | NUR ---
RN PM CLOSING NOTE PT AXO X3. PT IN BED BED DOWN LOCKED SRX3 BED ALARM ACTIVE. ON 2LNC DENIES SOB. IV TO RAC #20 HEPLOCKED WITH NO S/S OF INFILTRATION. FLUSHED. CALL LIGHT WITHIN REACH VERBALIZED UNDERSTANDING TO CALL FOR ASSISTANCE IF NEEDED.
[2019-08-16 08:00] VITALS: BP 152/77
--- NOTE | 2019-08-16 08:00 | NUR ---
ms rn received on ed, awake,alert,oriented x3,not in any form of distress, respirations even and unlabored,no sob noted,lungs are clear,abdomen soft,positive bowel sound.denies pain at this time,all needs attended.
--- NOTE | 2019-08-16 09:00 | NUR ---
ms schmitt breakfast served,due meds given,tolerated well.
[2019-08-16] MEDS: PANTOPRAZOLE 40 MG VIAL IV SCH ×2 (09:36→18:24)
[2019-08-16] MEDS: BENAZEPRIL HCL 10 MG TABLET PO SCH (09:37)
[2019-08-16] MEDS: CARBAMAZEPINE 200 MG TABLET PO SCH ×2 (09:37→18:25)
[2019-08-16] MEDS: LORATADINE 10 MG TABLET PO SCH (09:37)
[2019-08-16] MEDS: LEVETIRACETAM (250 MG) 250 MG TABLET PO SCH ×2 (09:37→21:05)
[2019-08-16] MEDS: TOPIRAMATE 25 MG TABLET PO SCH ×3 (09:37→18:25)
[2019-08-16] MEDS: risperiDONE 1 MG TABLET PO SCH ×2 (09:38→18:25)
[2019-08-16] MEDS: CARVEDILOL 12.5 MG TABLET PO SCH ×2 (09:52→18:25)
--- NOTE | 2019-08-16 12:00 | NUR ---
ms rn was seen by dr. stubbs ,for d/c in am.
--- NOTE | 2019-08-16 15:40 | NUR ---
ms rn on bed, no distress noted.
[2019-08-16 16:00] VITALS: BP 136/71
[2019-08-16] MEDS ORDERED: ACETAMINOPHEN 325 MG TABLET PO PRN (18:30)
--- NOTE | 2019-08-16 19:00 | NUR ---
MS RN ON BED, NO DISTRESS NOTED, PATIENT REFUSED TO BE TURNED Q 2 HOURS
--- NOTE | 2019-08-16 19:10 | NUR ---
MS RN NOTE RECEIVED PT IN STABLE CONDITION A/O X3, CURRENTLY WATCHING TV. NO SIGNS OF SOB OR DISTRESS, NO C/O PAIN OR N/V. IV IN R AC #[address] ALL CURRENT NEEDS ATTENDED TO. BED LOW, LOCKED, UPPER RAILS UP, AND CALL LIGHT WITHIN REACH. WILL CONT. TO MONITOR.
[2019-08-16 20:12] VITALS: BP 136/68
[2019-08-16] MEDS: ATORVASTATIN 10 MG TABLET PO SCH (21:05)
[2019-08-17] MEDS: ALBUTEROL FS 2.5 MG/0.5 ML VIAL.NEB NEB SCH ×4 (01:20→19:21)
[2019-08-17 06:22] LABS: BASOPHILS % (AUTO) 0.4 % (0.0-2.0); EOSINOPHILS % (AUTO) 3.2 % (0.0-6.0); HEMATOCRIT 26 % (33-45); HEMOGLOBIN 8.1 g/dL (11.5-14.8); LYMPHOCYTES # (AUTO) 1.5 /CMM (0.8-4.8); LYMPHOCYTES % (AUTO) 16.3 % (20.0-44.0); MEAN CORPUSCULAR HGB CONC 31 g/dl (31.0-36.0); MEAN CORPUSCULAR VOLUME 81 fL (82-100); MONOCYTES % (AUTO) 11.2 % (2.0-12.0); NEUTROPHILS # (AUTO) 6.3 /CMM (1.8-8.9); NEUTROPHILS % (AUTO) 68.9 % (43.0-81.0); PLATELET COUNT (AUTO) 214 /CMM (150-450); RED BLOOD CELL COUNT(AUTO) 3.21 MIL/uL (4.0-5.2); WHITE BLOOD COUNT (AUTO) 9.2 K/uL (4.3-11.0)
--- NOTE | 2019-08-17 06:23 | NUR ---
MS RN NOTE PT REMAINS IN STABLE CONDITION A/O X3, CURRENTLY RESTING. NO SIGNS OF SOB OR DISTRESS, NO C/O PAIN OR N/V. IV IN L HAND IN PLACE. ALL CURRENT NEEDS ATTENDED TO. BED LOW, LOCKED, UPPER RAILS UP, AND CALL LIGHT WITHIN REACH. WILL CONT. TO MONITOR AND ENDORSE TO NEXT SHIFT FOR CHRISTINE.
[2019-08-17 08:00] VITALS: BP 148/71
--- NOTE | 2019-08-17 08:00 | NUR ---
MS RN - AM NOTES PATIENT IS A/O X3. ON ROOM AIR. NO SIGNS OF SOB OR ACUTE RESPIRATORY DISTRESS. NO C/O PAIN. PATIENT HAS IV HEP LOCK IN LEFT HAND #20, NO SIGNS OF INFILTRATION. BED IS LOCKED AND IN LOW POSITION. CALL LIGHT IS WITHIN REACH. WILL CONTINUE TO MONITOR.
[2019-08-17] MEDS: LEVOTHYROXINE SODIUM 75 MCG TABLET PO SCH (08:30)
[2019-08-17] MEDS: PANTOPRAZOLE 40 MG VIAL IV SCH ×2 (08:50→16:33)
[2019-08-17] MEDS: risperiDONE 1 MG TABLET PO SCH ×2 (08:53→16:34)
[2019-08-17] MEDS: CARBAMAZEPINE 200 MG TABLET PO SCH ×2 (08:56→16:34)
[2019-08-17] MEDS: LEVETIRACETAM (250 MG) 250 MG TABLET PO SCH (08:56)
[2019-08-17] MEDS: TOPIRAMATE 25 MG TABLET PO SCH ×3 (08:56→16:34)
[2019-08-17] MEDS: LORATADINE 10 MG TABLET PO SCH (08:56)
[2019-08-17] MEDS: CARVEDILOL 12.5 MG TABLET PO SCH ×2 (08:57→16:36)
[2019-08-17] MEDS: BENAZEPRIL HCL 10 MG TABLET PO SCH (08:58)
[2019-08-17] MEDS ORDERED: AMLODIPINE BESYLATE 5 MG TABLET PO SCH (09:00)
[2019-08-17 16:00] VITALS: BP 142/67
--- NOTE | 2019-08-17 19:00 | NUR ---
MS RN NOTES: PATIENT RESTING IN BED; ON ROOM AIR; NO SIGNS OF SOB OR ACUTE RESPIRATORY DISTRESS; PATIENT NOTIFIED ABOUT DISCHARGE PLANNING; BED SET IN LOW POSITION AND ALARMS ON; CALL LIGHT WITHIN REACH; ALL BELONGINGS ARE WITH PATIENT ON BED.
--- NOTE | 2019-08-17 19:30 | NUR ---
RECEIVE PT IN BED A/O X3, STABLE NO S/S OF DISTRESS, AWAITING AMBULANCE FOR DISCHARGE.
[2019-08-17 20:14] VITALS: BP 124/63
--- NOTE | 2019-08-17 22:54 | NUR ---
PATIENT DISCHARGE PATIENT LEFT AT 2046,NO S/S OF DISTRESS NOTED, VS STABLE BP 124/63 P 81 R 20 TEMP 98.9 02 SAT 98% EDUCATION ABOUT DISEASE AND RISKS AND BENEFITS FOLLOW UP CARE PROVIDED, PT VERBALIZED UNDERSTANDING. CONT MEDICATION PRESCRIPTION AND HEALTH DOCUMENTS WAS PROVIDED TO EMT. I.V HEPLOCK REMOVED. ALL BELONGINGS WAS TAKEN, DENTURES UPPER WITH PATIENT. PICK BY 2 EMT [facility] TO [facility] PATIENT APPRECIATIVE TO NURSES AND THANKFUL.
== END 2019-08-17 20:47 | DRG 378 ==
LOC: ER 07:02 → TELE 10:21 → MED 08-14 08:46
PROVIDERS: ADMIT Internal Medicine; ATTEND Internal Medicine
PROC: 30233N1 Transfusion of Nonautologous Red Blood Cells into Peripheral Vein, Percutaneous Approach (ICD-10-PCS; 2019-08-12)
PROC: 0DB78ZX Excision of Stomach, Pylorus, Via Natural or Artificial Opening Endoscopic, Diagnostic (ICD-10-PCS; principal; 2019-08-15)
DX: K29.71 Gastritis, unspecified, with bleeding (principal); I13.0 Hypertensive heart and chronic kidney disease with heart failure and stage 1 through stage 4 chronic kidney disease, or unspecified chronic kidney disease; N18.4 Chronic kidney disease, stage 4 (severe); Z68.42 Body mass index [BMI] 45.0-49.9, adult; D62 Acute posthemorrhagic anemia; I48.91 Unspecified atrial fibrillation; I25.10 Atherosclerotic heart disease of native coronary artery without angina pectoris; K44.9 Diaphragmatic hernia without obstruction or gangrene; E78.5 Hyperlipidemia, unspecified; E66.9 Obesity, unspecified; J44.9 Chronic obstructive pulmonary disease, unspecified; E03.9 Hypothyroidism, unspecified; E11.22 Type 2 diabetes mellitus with diabetic chronic kidney disease; F25.9 Schizoaffective disorder, unspecified; M19.90 Unspecified osteoarthritis, unspecified site; K21.9 Gastro-esophageal reflux disease without esophagitis; D50.9 Iron deficiency anemia, unspecified; R07.9 Chest pain, unspecified; G40.409 Other generalized epilepsy and epileptic syndromes, not intractable, without status epilepticus; I50.9 Heart failure, unspecified; I69.322 Dysarthria following cerebral infarction; Z87.891 Personal history of nicotine dependence; Z87.11 Personal history of peptic ulcer disease
CPT/HCPCS: 36415; 71045-TC; 80048-TC; 82728-TC; 83540-TC; 84439-TC; 84443-TC; 84484-TC; 85025-TC; 85027-TC; 85610-TC; 86850-TC; 86921-TC; 87081-TC; 88305-TC; 88312-TC; 88342; 94799-TC; C9113; G0378; J2704; J2916; J7030; J7050; P9016-BL

== ENCOUNTER 2019-09-09 16:44 | Emergency (ER) | payer MEDICARE, OTHER ==
[~2019-09-09] VITALS: Ht 149.9 cm; Wt 104.3 kg
[~2019-09-09 16:44] MED LIST changes: -ALCA3DRO EACHEYE; -AMLO5TAB9 PO; +APIX2.5T PO; -BENA10TA11 PO; +BENA10TA74 PO; +CARV25TA2 PO; -DEXT15DR28 EACHEYE; -ERGO500014 PO; -GABA-534 PO; +LORA10TA7 PO; -MAGN400O6 PO; +NITR0.4T48 SL; +PANT40TA2 PO; +POLY15DR40 EACHEYE; -PROP15DR EACHEYE; +RISP0.253 PO; -VENL75CA56 PO
--- NOTE | 2019-09-09 16:55 | NUR ---
PT BIBA C/O R ANKLE PAIN AND SWELLING S/P FALLING OFF HER WHEELCHAIR 5 DAYS AGO PT ENDORSES 07/20 PS.. PT AAOX4, VSS, BREATHING EVEN AND UNLABORED ON ROOM AIR. PT CONNECTED TO THE MONITOR AND POX
[2019-09-09] MEDS ORDERED: AMLO5TAB9 PO (16:58)
--- NOTE | 2019-09-09 17:19 | NUR ---
XRAY AT BEDSIDE FOR EVAL
--- NOTE | 2019-09-09 18:28 | NUR ---
[facility] ETA [id number] TRIP#[id number]
--- NOTE | 2019-09-09 20:13 | NUR ---
Patient discharged to home in stable condition. Written and verbal after care instructions given TO EMT. REPORT GIVEN TO BENNY @ [facility]. PT EN ROUT VIA BLS TO [facility].
[2019-09-09 20:15] VITALS: BP 127/90
== END 2019-09-09 20:17 ==
LOC: ER 16:46
DX: M19.90 Unspecified osteoarthritis, unspecified site (principal); I11.0 Hypertensive heart disease with heart failure; I50.9 Heart failure, unspecified; I25.10 Atherosclerotic heart disease of native coronary artery without angina pectoris; I25.2 Old myocardial infarction; K21.9 Gastro-esophageal reflux disease without esophagitis; E11.9 Type 2 diabetes mellitus without complications; E78.5 Hyperlipidemia, unspecified; J45.909 Unspecified asthma, uncomplicated; F32.9 Major depressive disorder, single episode, unspecified; Z98.890 Other specified postprocedural states; Z79.899 Other long term (current) drug therapy; Z86.73 Personal history of transient ischemic attack (TIA), and cerebral infarction without residual deficits; Z88.1 Allergy status to other antibiotic agents; Z88.8 Allergy status to other drugs, medicaments and biological substances; Z91.011 Allergy to milk products; Z79.82 Long term (current) use of aspirin; W05.0XXA Fall from non-moving wheelchair, initial encounter; Y93.89 Activity, other specified; Y92.89 Other specified places as the place of occurrence of the external cause; Y99.8 Other external cause status
CPT/HCPCS: 73560-TC; 73610-TC

== ENCOUNTER 2019-10-31 13:56 | Inpatient (IN) | payer MEDICARE, OTHER ==
[~2019-10-31] VITALS: Ht 149.9 cm; Wt 117.5 kg
[2019-10-31] VITALS (24 sets, daily range): BP systolic 53–138; BP diastolic 27–90
[~2019-10-31 13:56] MED LIST changes: +AMLO5TAB9 PO; -APIX2.5T PO; -ASPI-1152 PO; -LORA10TA7 PO; -POLY15DR40 EACHEYE
--- NOTE | 2019-10-31 14:06 | NUR ---
pt felipe from care facility for evaluation of dizziness since 0300 this morning. pt also c/o back pain x 2 days. pt placed on monitor and noted to be hypotensive and bradycardic. pt is verbally responsive aaox3. denies chest pain. awaiting md christensen.
--- NOTE | 2019-10-31 14:29 | NUR ---
dr freitas at bedside for eval.
--- NOTE | 2019-10-31 14:36 | NUR ---
iv line started blood drawn and sent to lab.
[2019-10-31] MEDS ORDERED: ATROPINE SULFATE INJ 1 MG/ML VIAL ONE ×2 (14:37→14:58)
[2019-10-31 14:43] LABS: BASOPHILS % (AUTO) 0.5 % (0.0-2.0); HEMOGLOBIN 8.2 g/dL (11.5-14.8); LYMPHOCYTES # (AUTO) 0.8 /CMM (0.8-4.8); MEAN CORPUSCULAR VOLUME 91 fL (82-100)
[2019-10-31 14:45] LABS: EOSINOPHILS % (AUTO) 1.3 % (0.0-6.0); HEMATOCRIT 26 % (33-45); LYMPHOCYTES % (AUTO) 15.9 % (20.0-44.0); MEAN CORPUSCULAR HGB CONC 31 g/dl (31.0-36.0); MONOCYTES # (AUTO) 0.6 /CMM (0.1-1.30); MONOCYTES % (AUTO) 10.8 % (2.0-12.0); NEUTROPHILS # (AUTO) 3.8 /CMM (1.8-8.9); NEUTROPHILS % (AUTO) 71.5 % (43.0-81.0); PLATELET COUNT (AUTO) 154 /CMM (150-450); RED BLOOD CELL COUNT(AUTO) 2.87 MIL/uL (4.0-5.2); WHITE BLOOD COUNT (AUTO) 5.3 K/uL (4.3-11.0)
[2019-10-31] MEDS: ATROPINE SULFATE 1 MG/10 ML DISP.SYRIN IV PRN ×4 (15:00→15:09)
[2019-10-31] MEDS ORDERED: DOPamine 400 MG in IV D5W 250 ML IV PRN ×3 (15:00→22:00)
[2019-10-31 15:06] LABS: ALANINE AMINOTRANSFERASE 31 U/L (12-78); ALBUMIN 2.8 g/dL (3.4-5.0); ALKALINE PHOSPHATASE 256 U/L (46-116); ASPARTATE AMINOTRANSFERASE 17 U/L (15-37); B-TYPE NATRIURETIC PEPTIDE 1742 PG/ML (0-125); BILIRUBIN,DIRECT 0.1 mg/dL (0.0-0.2); BILIRUBIN,TOTAL 0.2 mg/dL (0.2-1.0); CALCIUM, SERUM 7.6 mg/dL (8.5-10.1); CARBON DIOXIDE 17 mmol/L (21-32); CHLORIDE 106 mmol/L (98-107); CREATININE 4.1 mg/dL (0.6-1.3); GLUCOSE 101 mg/dL (74-106); SODIUM SERUM 134 mmol/L (136-145); TOTAL PROTEIN, SERUM 6.1 g/dL (6.4-8.2)
[2019-10-31 15:29] LABS: THYROID STIMULATING HORMONE 4.223 uIU/mL (0.358-3.74)
--- NOTE | 2019-10-31 15:36 | NUR ---
DOPAMINE DRIP TITRATED TO 15 MCG. TOLERATING WELL.
[2019-10-31 15:37] LABS: POTASSIUM 7.1 mmol/L (3.5-5.1); UREA NITROGEN, BLOOD 96 mg/dL (7-18)
--- NOTE | 2019-10-31 15:48 | NUR ---
CALLED OFFICE, PAGED DR MCCORMICK
--- NOTE | 2019-10-31 15:53 | NUR ---
PT YO RADIOLOGY FOR HEAD CT SCAN VIA [facility].
[2019-10-31] MEDS ORDERED: ALBUTEROL FS 2.5 MG/3 ML VIAL.NEB NEB ONE (16:00)
[2019-10-31] MEDS ORDERED: DEXTROSE 50%-WATER 50 ML DISP.SYRIN IV ONE (16:00)
[2019-10-31] MEDS ORDERED: INSULIN REGULAR, HUMAN 100 UNIT/ML 10 ML VIAL IV ONE (16:00)
--- NOTE | 2019-10-31 16:03 | NUR ---
picc line nurse at bedside.
[2019-10-31] MEDS ORDERED: INSULIN REGULAR, HUMAN 100 UNIT/ML 10 ML VIAL ONE (16:13)
[2019-10-31] MEDS ORDERED: DEXTROSE 50%-WATER 50 ML DISP.SYRIN ONE (16:13)
--- NOTE | 2019-10-31 16:29 | NUR ---
PAGED DR MCCORMICK
[2019-10-31] MEDS ORDERED: ALBUTEROL FS 2.5 MG/3 ML VIAL.NEB ONE (16:50)
--- NOTE | 2019-10-31 17:05 | NUR ---
JACE SPEAKING WITH DR BRAVO
--- NOTE | 2019-10-31 17:46 | NUR ---
REPORT GIVEN TO LOVE. PT TRANSFERED TO ICU.
[2019-10-31 17:47] LABS: CARBAMAZEPINE (TEGRETOL) 10.1 ug/ml (4-11.9)
--- NOTE | 2019-10-31 17:50 | NUR ---
SWEATBAND SEPARATORAMUSEMENT CENTRE MANAGER NOTE RECEIVED REPORT FROM KARON DUTTON FROM ER.PATIENT RECEIVED VIA [email or web address].AXOX4.NO SOB NO DISTRESS NOTED.O2 SAT 90% ON ROOM AIR .PLACED ON 2L O2 VIA NASAL CANULA.R UPPER ARM PICCLINE.INTACT AND PATENT WITH DOPAMINE .L WRIST IV IS INTACT AND PATENT.PATIENT ON AFIB ON MONITOR.NO C/O CHEST PAIN.BODY CHECK DONE.HYPOTHERMIC.SEEN BY .GOT NEW ORDERS.BED IS LOW AND IN LOCKED POSITION.CALL LIGHT IN REACH.BED ALARM ON.SRX3.WILL CONTINUE TO MONITOR.
[2019-10-31] MEDS ORDERED: ONDANSETRON HCL/PF 4 MG/2 ML VIAL IVP PRN (18:30)
[2019-10-31] MEDS ORDERED: Z GUARD REMEDY 2 OZ OINT TP PRN (18:30)
[2019-10-31] MEDS ORDERED: SODIUM POLYSTYRENE SULFONATE 15 G/60 ML BOTTLE PO ONE (18:30)
[2019-10-31] MEDS ORDERED: ACETAMINOPHEN 325 MG TABLET PO PRN (18:30)
[2019-10-31] MEDS ORDERED: ZOLPIDEM TARTRATE 5 MG TABLET PO PRN (18:30)
[2019-10-31] MEDS ORDERED: NITROGLYCERIN 0.4 MG/TAB BOTTLE SL PRN (18:30)
[2019-10-31] MEDS ORDERED: FUROSEMIDE 40 MG/4 ML VIAL IV ONE ×2 (18:30→23:30)
[2019-10-31] MEDS ORDERED: Calcium Gluconate 1GM/10ML 4.65 MEQ in IV NS 0.9% 40 ML IV ONE (18:30)
[2019-10-31] MEDS ORDERED: ALBUTEROL FS 2.5 MG/3 ML VIAL.NEB NEB PRN (19:30)
--- NOTE | 2019-10-31 19:32 | NUR ---
CLINICAL LAW PROFESSOR NOTE PATIENT WAS ON AFIB. MADE AWARE.GOT ORDER TO D/C DOPAMINE. ON THE CASE. PER PATIENT SHE DONT WANT CPR OR INTUBATION.PATIENT AXOX4.PATIENT IS JENNIFER WITH AFIB. MADE AWARE.MONITOR PATIENT IF SATURATING OK OR BP IS NORMAL. EXPECTING HR IN HIGH 20'S BECAUSE OF COREG EFFECT.BELONGINGS NOT DONE.ENDORSED TO PM NURSE FOR CHRISTINE.AWAITING FOR SURY DAS.CENTRAL SUPPLY NOTIFIED.LEFT MESSAGE.
[2019-10-31 19:48] LABS: CREATININE 4.2 mg/dL (0.6-1.3)
[2019-10-31 19:51] LABS: POTASSIUM 6.8 mmol/L (3.5-5.1)
[2019-10-31 19:54] LABS: CREATININE, URINE 180.5 MG/DL (30.0-125.0)
[2019-10-31 19:56] LABS: APPEARANCE,URINE CLOUDY (CLEAR); BILIRUBIN,URINE NEGATIVE (NEGATIVE); BLOOD, URINE MODERATE Ery/uL (NEGATIVE); COLOR,URINE YELLOW (YELLOW); KETONES,URINE NEGATIVE (NEGATIVE); LEUKOCYTE ESTERASE ,URINE MODERATE (NEGATIVE); NITRITE, URINE NEGATIVE (NEGATIVE); PH,URINE 5.5 (5.0-8.0); PROTEIN,URINE 100 mg/dl (NEGATIVE); UGLUCOSE NEGATIVE (NEGATIVE); UROBILINOGEN,URINE 0.2 EU/dL (0.2)
[2019-10-31] MEDS: Sodium Bicarbonate 100 MEQ in IV 1/2NS 1000 ML 1,000 ML IV PRN (20:05)
[2019-10-31 20:31] LABS: BACTERIA,URINE 2+ /HPF (None Seen); SQUAMOUS EPITHELIAL CELL,UR Moderate /HPF (None Seen); WBC,URINE TOO NUMEROUS TO COUN /HPF (0-3)
[2019-10-31] MEDS ORDERED: DOPamine 400MG/D5W 250ML RTU 250 ML IV ONE (21:23)
[2019-10-31] MEDS ORDERED: DOPamine 800 MG in IV D5W 250 ML IV PRN (21:30)
[2019-10-31 21:48] LABS: EOSINOPHIL,URINE None Seen
[2019-10-31] MEDS ORDERED: ATORVASTATIN 10 MG TABLET PO SCH (22:00)
[2019-10-31] MEDS: DOPamine 400 MG in IV D5W 250 ML IV PRN (22:05)
[2019-10-31] MEDS: LEVETIRACETAM (250 MG) 250 MG TABLET PO SCH (22:06)
[2019-10-31] MEDS ORDERED: SODIUM BICARBONATE SYR 50 MEQ/50 ML DISP.SYRIN IV ONE (23:30)
[2019-10-31] MEDS ORDERED: CEFTRIAXONE 1 G in IV D5W 50 ML IV SCH (23:30)
--- NOTE | 2019-10-31 23:45 | NUR ---
CALLED DR SILVA ABOUT CLARIFYING LATEST ORDERS,
[2019-10-31 23:59] LABS: CALCIUM, SERUM 7.4 mg/dL (8.5-10.1); CREATININE 4.2 mg/dL (0.6-1.3)
[2019-11-01] VITALS (100 sets, daily range): BP systolic 72–146; BP diastolic 32–105
--- NOTE | 2019-11-01 00:27 | NUR ---
DR. SILVA INFORMED OF K OF 7, ORDERS OBTAINED
[2019-11-01] MEDS ORDERED: ALBUTEROL FS 2.5 MG/3 ML VIAL.NEB NEB SCH (00:30)
[2019-11-01] MEDS ORDERED: INSULIN REGULAR, HUMAN 100 UNIT/ML 3 ML VIAL IV ONE (00:30)
[2019-11-01] MEDS ORDERED: SODIUM POLYSTYRENE SULFONATE 15 G/60 ML BOTTLE PO ONE (00:30)
[2019-11-01] MEDS ORDERED: FUROSEMIDE 40 MG/4 ML VIAL IV SCH (00:30)
[2019-11-01] MEDS ORDERED: DEXTROSE 50%-WATER 50 ML DISP.SYRIN IVP ONE (00:30)
[2019-11-01] MEDS ORDERED: CEFTRIAXONE 1 G VIAL ONE (00:38)
[2019-11-01] MEDS ORDERED: Calcium Gluconate 0.465 MEQ/ML VIAL IV ONE (00:44)
[2019-11-01] MEDS ORDERED: SODIUM POLYSTYRENE SULFONATE 15 G/60 ML BOTTLE ONE (00:55)
[2019-11-01] MEDS: Calcium Gluconate 1GM/10ML 4.65 MEQ in IV NS 0.9% 40 ML IV ONE ×2 (01:20→01:24)
[2019-11-01 04:45] LABS: BASOPHILS % (AUTO) 0.1 % (0.0-2.0); EOSINOPHILS % (AUTO) 1.1 % (0.0-6.0); HEMATOCRIT 24 % (33-45); HEMOGLOBIN 7.5 g/dL (11.5-14.8); LYMPHOCYTES # (AUTO) 0.7 /CMM (0.8-4.8); LYMPHOCYTES % (AUTO) 10.2 % (20.0-44.0); MEAN CORPUSCULAR HGB CONC 32 g/dl (31.0-36.0); MEAN CORPUSCULAR VOLUME 90 fL (82-100); MONOCYTES # (AUTO) 0.7 /CMM (0.1-1.30); MONOCYTES % (AUTO) 9.4 % (2.0-12.0); NEUTROPHILS # (AUTO) 5.6 /CMM (1.8-8.9); NEUTROPHILS % (AUTO) 79.2 % (43.0-81.0); PLATELET COUNT (AUTO) 156 /CMM (150-450); RED BLOOD CELL COUNT(AUTO) 2.63 MIL/uL (4.0-5.2)
[2019-11-01] MEDS: DOPamine 400 MG in IV D5W 250 ML IV PRN (04:45)
[2019-11-01] MEDS: Sodium Bicarbonate 100 MEQ in IV 1/2NS 1000 ML 1,000 ML IV PRN ×4 (04:45→23:13)
--- NOTE | 2019-11-01 04:50 | NUR ---
GIVEN UPDATE ON PT, ORDERS OBTAINED
[2019-11-01 05:15] LABS: ALBUMIN 2.5 g/dL (3.4-5.0); BILIRUBIN,TOTAL 0.2 mg/dL (0.2-1.0); CALCIUM, SERUM 7.8 mg/dL (8.5-10.1); CREATININE 4.1 mg/dL (0.6-1.3); MAGNESIUM 1.7 mg/dL (1.8-2.4); PHOSPHORUS 6.1 mg/dL (2.5-4.9); TOTAL PROTEIN, SERUM 5.6 g/dL (6.4-8.2)
[2019-11-01] MEDS ORDERED: IV NS 0.9% 500 ML IV ONE (05:30)
[2019-11-01] MEDS ORDERED: FUROSEMIDE 40 MG/4 ML VIAL IV ONE (05:30)
--- NOTE | 2019-11-01 06:54 | NUR ---
ONLY 1 BAG OF BICARB HUNG BETWEEN 5 AND 6 AM
--- NOTE | 2019-11-01 07:15 | NUR ---
SNOW SHOVELER OPENING NOTE RECEIVED REPORT FROM PM NURSE.PATIENT IN BED.AXOX4.ON 2L O2 VIA NASAL CANULA.NO SOB NO DISTRESS NOTED.IV ON RAPHAEL PICCLINE INTACT AND PATENT WITH DOPAMINE AND IVF.ON MONITOR AFIB.HR30-60'S.FC DRAINING YELLOW URINE WITH SEDIMENTS.BED IS LOW AND IN LOCKED POSITION.CALL LIGHT IN REACH.BED ALARM ON SRX3.WILL CONTINUE TO MONITOR.
[2019-11-01] MEDS: PANTOPRAZOLE 40 MG TABLET.DR PO SCH (08:01)
[2019-11-01] MEDS: LEVOTHYROXINE SODIUM 75 MCG TABLET PO SCH (08:01)
[2019-11-01] MEDS: risperiDONE 1 MG TABLET PO SCH ×2 (08:55→16:37)
[2019-11-01] MEDS: TOPIRAMATE 25 MG TABLET PO SCH ×3 (08:55→16:37)
[2019-11-01] MEDS: LEVETIRACETAM (250 MG) 250 MG TABLET PO SCH (08:55)
--- NOTE | 2019-11-01 09:42 | NUR ---
REMOVABLE PROSTHODONTIST NOTE PATIENT CONVERTED TO SINUS JENNIFER FROM AFIB.WILL CONTINUE TO MONITOR.PATIENT COMFORTABLE.AXOX4.
--- NOTE | 2019-11-01 11:16 | NUR ---
CURING ROOM WORKER NOTE SEEN BY .SPOKE TO THE PATIENT.EXPLAINED ABOUT HEMODIALYSIS AND CATHETER PLACEMENT.VERBALIZED UNDERSTANDING.GOT NEW ORDERS.PATIENT SIGNED CONSENT.WILL CONTINUE TO MONITOR.
--- NOTE | 2019-11-01 12:00 | NUR ---
HEMODIALYSIS CATHETER INSERTION Peat Shredder Tender: [facility] Emre Moser NP Straight trialysis catheter 13f 30 cm Patient has order to insert HD catheter. Informed consent is signed and in chart. Insertion site determined to be right femoral vein. Patient was prepped using sterile technique with chlorhexidine. Patient was covered with a sterile drape and I donned a sterile gown. The insertion site was anesthetized with 1% lidocaine. Needle inserted under ultrasound guidance. Guidewire inserted through needle and needle removed. Small clifton made at insertion site of approximately 2 mm. Dilator inserted over guidewire then removed. Catheter inserted fully over guidewire. Guidewire removed. Blood return at all three ports. Caps placed on each port. Catheter secured with 2 sutures. Biopatch placed and covered with tegaderm. No s/s of complication. Tolerated well with minimal blood loss. Ebl 3ml.
--- NOTE | 2019-11-01 12:21 | NUR ---
HEALTH CARE ANALYST NOTE PATIENT REFUSED TO OFFLOAD B HEELS.EDUCATION GIVEN .STILL REFUSING.
--- NOTE | 2019-11-01 13:15 | NUR ---
HAMMER DRIVER NOTE SEEN BY .UPDATED ABOUT PATIENT CONDITION WITH LABS.TO CONTINUE DOPAMINE.GOT NEW ORDER FOR SCD AND HEPARIN.MADE AWARE ABOUT PATIENT CONVERTED TO SINUS JENNIFER.SEEN EKG AND ECHO RESULT.TO D/C MCCRARY.HOLDING DIALYSIS TODAY. SPOKE TO .WILL CONTINUE TO MONITOR.
--- NOTE | 2019-11-01 14:27 | NUR ---
CIGARETTE MACHINES MECHANIC NOTE MADE AWARE ABOUT CORTISOL LEVEL 12.1.NNO.
[2019-11-01 15:25] LABS: BASOPHILS % (AUTO) 0.4 % (0.0-2.0); EOSINOPHILS % (AUTO) 0.9 % (0.0-6.0); HEMATOCRIT 22 % (33-45); HEMOGLOBIN 7.2 g/dL (11.5-14.8); LYMPHOCYTES # (AUTO) 0.7 /CMM (0.8-4.8); LYMPHOCYTES % (AUTO) 11.1 % (20.0-44.0); MEAN CORPUSCULAR HGB CONC 32 g/dl (31.0-36.0); MEAN CORPUSCULAR VOLUME 88 fL (82-100); MONOCYTES # (AUTO) 0.7 /CMM (0.1-1.30); MONOCYTES % (AUTO) 10.7 % (2.0-12.0); NEUTROPHILS # (AUTO) 4.9 /CMM (1.8-8.9); NEUTROPHILS % (AUTO) 76.9 % (43.0-81.0); PLATELET COUNT (AUTO) 158 /CMM (150-450); RED BLOOD CELL COUNT(AUTO) 2.54 MIL/uL (4.0-5.2); WHITE BLOOD COUNT (AUTO) 6.4 K/uL (4.3-11.0)
[2019-11-01 15:38] LABS: ALBUMIN 2.4 g/dL (3.4-5.0); BILIRUBIN,TOTAL 0.1 mg/dL (0.2-1.0); CALCIUM, SERUM 6.7 mg/dL (8.5-10.1); MAGNESIUM 1.5 mg/dL (1.8-2.4); PHOSPHORUS 5.8 mg/dL (2.5-4.9); POTASSIUM 5.2 mmol/L (3.5-5.1); TOTAL PROTEIN, SERUM 5.3 g/dL (6.4-8.2)
--- NOTE | 2019-11-01 15:50 | NUR ---
MANAGER OF SCHOOL NOTE NEW CBC BMP MAG AND PHOS RESULT RELAYED TO .NO MAG REPLACEMENT NOW.THAT WILL INCREASE POTASSIUM ABSORPTION.PATIENT HAS K HIGH.WILL CONTINUE TO MONITOR.
--- NOTE | 2019-11-01 18:10 | NUR ---
PROCUREMENT INTERN NOTE BILATERAL LOWER EXTREMITY SWOLLEN.CONTRAINDICATED FOR DVT PUMP.GOT NEW ORDER FROM TO DO VENOUS DOPPLER BLE.
--- NOTE | 2019-11-01 19:20 | NUR ---
BRUSH CLEARER SURVEYING CLOSING NOTE .PATIENT IN BED.AXOX4.COMFORTABLE.ALL NEEDS MET.ON 2L O2 VIA NASAL CANULA.NO SOB NO DISTRESS NOTED.IV ON RAPHAEL PICCLINE INTACT AND PATENT WITH IVF.DOPAMINE ON HOLD.BP IS MAINTAINING ORDERED.ON MONITOR SR HR 62..MCCRARY CATH DISCONTINUED.URINATEDX1 WITH MINIMAL URINE.MONITORING URINE OUTPUT.BED IS LOW AND IN LOCKED POSITION.CALL LIGHT IN REACH.BED ALARM ON SRX3.AWAITING BLE DOPPLER.ENDORSED TO PM NURSE FOR CHRISTINE.
--- NOTE | 2019-11-01 19:45 | NUR ---
ICU/RETAIL GIFT CARD MERCHANDISING RECEIVED REPORT FROM DAY NURSE. SEE NURSING FLOWSHEET FOR ASSESSMENT. THERE ARE IS A COUPLE OF SKIN ISSUES WHICH ARE ADDRESSED ON THE FLOWSHEET ALONG WITH THE INTERVENTIONS. PT ON 2 LITERS N/C, TOLERATING THIS WELL WITH SATURATION AT 100%. PT IS ALERT X 4 WITH SOME DELAYED RESPONDS. DOPAMINE IS ON HOLD FOR BLOOD PRESSURE, WILL CONTINUE TO CLOSELY MONITOR HER BP. PT IS ON A MECH. SOFT RENAL DIET. NO ACUTE DISTRESS SEEN AT THIS TIME, WILL CONTINUE TO MONITOR THIS PT.
[2019-11-01] MEDS ORDERED: LEVETIRACETAM SOL (5 ML) 100 MG/ML UDC GT SCH (21:05)
[2019-11-01] MEDS ORDERED: LEVETIRACETAM SOL (5 ML) 100 MG/ML UDC PO SCH (21:07)
[2019-11-01] MEDS: LEVETIRACETAM SOL (5 ML) 100 MG/ML UDC PO SCH (21:14)
[2019-11-01] MEDS: HEPARIN SODIUM, PORCINE 5000 UNITS/1 ML VIAL SQ SCH (21:15)
--- NOTE | 2019-11-01 22:00 | NUR ---
ICU/MACHINE STRAW HAT PRESSER PT WAS GIVEN PM CARE, PT'S DIAPER WAS CHANGED AT THIS TIME. PT HAD A SMALL BOWEL MOVEMENT. THEN PT WAS TUNED AND REPOSITIONED FOR COMFORT AND CARE. NO ACUTE DISTRESS SEEN AT THIS TIME, PT APPEARED TO HAVE TOLERATED THIS WELL. CALL LIGHT WITHIN REACH.
[2019-11-01] MEDS ORDERED: CEFTRIAXONE 1 G in IV D5W 50 ML IV SCH (23:00)
[2019-11-02] VITALS (51 sets, daily range): BP systolic 85–161; BP diastolic 37–86
--- NOTE | 2019-11-02 00:20 | NUR ---
ICU/RISK CONTROL REPRESENTATIVE DURING THE 1999 ASSESSMENT FOUND THAT THE PT HAD LOWER EXTREMITY REDNESS TO THE LOWER LEGS AND TO THE LEFT THIGH. PICTURE WAS TAKEN THEN PLACED INTO THE CHART.WILL CONTINUE TO MONITOR THIS PT AND HER SKIN ISSUES.
--- NOTE | 2019-11-02 02:07 | NUR ---
ICU/TOOTH CUTTER CLUTCH PT WAS TURNED AND REPOSITIONED FOR COMFORT AND CARE. PT AT THIS TIME DECLINED TO BE WASHED AND GIVEN AM CARE. WILL CONTINUE TO MONITOR THIS PT.
--- NOTE | 2019-11-02 04:10 | NUR ---
ICU/BATTERY TESTER FIELD AM LABS ALONG WITH CHEST XRAY DONE, AWAIT FOR ANY ABNORMAL RESULTS.
[2019-11-02] MEDS: HEPARIN SODIUM, PORCINE 5000 UNITS/1 ML VIAL SQ SCH (05:27)
[2019-11-02 06:07] LABS: PTH, INTACT 696 pg/mL (15-65)
--- NOTE | 2019-11-02 07:00 | NUR ---
ICU/BEAM DYER REPORT GIVEN TO DAY NURSE, NO NEW ISSUES WERE FOUND THAT REQUIRE TO BE ADDRESSED.
--- NOTE | 2019-11-02 07:10 | NUR ---
RN INITIAL NOTES RECEIVED PT AWAKE, A/OX3. ON 02 VIA VT. NO RESPIRATORY DISTRESS NOTED. NO SOB NOTED. DENIES ANY PAIN. RAPHAEL PICC IN PLACE. BICARD DRIP AT 125ML/HR INFUSING. RIGHT FEMORAL HD CATH IN PLACE. PT CLEAN AND DRY. COMFORTABLE. CALL LIGHT WITHIN REACH. WILL MONITOR
[2019-11-02] MEDS: PANTOPRAZOLE 40 MG TABLET.DR PO SCH (08:14)
[2019-11-02] MEDS: risperiDONE 1 MG TABLET PO SCH ×2 (08:14→17:09)
[2019-11-02] MEDS: LEVOTHYROXINE SODIUM 75 MCG TABLET PO SCH (08:14)
[2019-11-02] MEDS: TOPIRAMATE 25 MG TABLET PO SCH ×3 (08:14→17:10)
[2019-11-02] MEDS: HYDROCORTISONE SOD SUCCINATE 100 MG/2 ML VIAL IV SCH ×3 (08:15→17:09)
[2019-11-02] MEDS: Sodium Bicarbonate 100 MEQ in IV 1/2NS 1000 ML 1,000 ML IV PRN (08:16)
[2019-11-02] MEDS: LEVETIRACETAM SOL (5 ML) 100 MG/ML UDC PO SCH (08:17)
[2019-11-02 10:29] LABS: BASOPHILS % (AUTO) 0.5 % (0.0-2.0); EOSINOPHILS % (AUTO) 2.1 % (0.0-6.0); LYMPHOCYTES # (AUTO) 0.9 /CMM (0.8-4.8); LYMPHOCYTES % (AUTO) 21.1 % (20.0-44.0); MEAN CORPUSCULAR HGB CONC 32 g/dl (31.0-36.0); MEAN CORPUSCULAR VOLUME 89 fL (82-100); MONOCYTES # (AUTO) 0.6 /CMM (0.1-1.30); MONOCYTES % (AUTO) 14.1 % (2.0-12.0); NEUTROPHILS # (AUTO) 2.7 /CMM (1.8-8.9); NEUTROPHILS % (AUTO) 62.2 % (43.0-81.0); PLATELET COUNT (AUTO) 126 /CMM (150-450); RED BLOOD CELL COUNT(AUTO) 2.18 MIL/uL (4.0-5.2); WHITE BLOOD COUNT (AUTO) 4.3 K/uL (4.3-11.0)
[2019-11-02 10:39] LABS: ALBUMIN 2.1 g/dL (3.4-5.0); BILIRUBIN,TOTAL 0.1 mg/dL (0.2-1.0); CALCIUM, SERUM 6.3 mg/dL (8.5-10.1); CREATININE 3.7 mg/dL (0.6-1.3); HEMOGLOBIN 6.3 g/dL (11.5-14.8); MAGNESIUM 1.3 mg/dL (1.8-2.4); PHOSPHORUS 5.7 mg/dL (2.5-4.9); POTASSIUM 4.1 mmol/L (3.5-5.1); TOTAL PROTEIN, SERUM 4.6 g/dL (6.4-8.2)
[2019-11-02 10:40] LABS: HEMATOCRIT 20 % (33-45)
--- NOTE | 2019-11-02 11:48 | NUR ---
RN NOTES CALLED DR MCCORMICK TO FOLLOW UP LAB RESULT. HGB 6.3, HCT 20. NO SIGNS OF ACTIVE BLEEDING NOTED. BUN 81, CREA 3.7. MAGNESIUM 1.3. MD ORDERED TYPE AND SCREEN AND 1 UNIT OF PRBC, GIVE LASIX 20MG POST TRANSFUSION, DC BICARB DRIP, DC HEPARIN AND COLLECT STOOL FOR OB. PHARMACY TO REPLACE MAGNESIUM. MD ALSO AWARE OF CXR RESULT. WILL CLOSELY MONITOR
[2019-11-02] MEDS ORDERED: FUROSEMIDE 20 MG/2 ML VIAL IV PRN (12:00)
[2019-11-02 13:08] LABS: *SPE A/G RATIO 1.2 (0.7-1.7); *SPE ALBUMIN 2.7 g/dL (2.9-4.4); *SPE ALPHA-1-GLOBULIN 0.2 g/dL (0.0-0.4); *SPE ALPHA-2-GLOBULIN 0.7 g/dL (0.4-1.0); *SPE BETA GLOBULIN 0.8 g/dL (0.7-1.3); *SPE GLOBULIN, TOTAL 2.3 g/dL (2.2-3.9); *SPE M-SPIKE Not Observed g/dL (Not Observed); *SPEGAMMA GLOBULIN 0.6 g/dL (0.4-1.8)
[2019-11-02 14:23] LABS: LYMPHOCYTES % (MANUAL) 13 % (16-48); MONOCYTES % (MANUAL) 6 % (0-11.0); NEUTROPHILS % (MANUAL) 81 (42-76)
[2019-11-02] MEDS ORDERED: Magnesium 1GM/D5W 100ML PREMIX PIGGYBACK IV ONE (17:30)
[2019-11-02] MEDS: Magnesium 1GM/D5W 100ML PREMIX 100 ML IV SCH ×3 (17:38→20:55)
--- NOTE | 2019-11-02 18:20 | NUR ---
RN NOTES PT TRANSFERRED TO ROOM 304-2. PT A/OX3. ON ROOM AIR. NO RESPIRATORY DISTRESS NOTED. DENIES ANY PAIN. PT COMFORTABLE. IN STABLE CONDITION
--- NOTE | 2019-11-02 19:15 | NUR ---
LEGAL EXECUTIVE NOTES RECEIVED PT IN BED AWAKE AND ABLE TO MAKE NEEDS KNOWN. PT A/O X3. RESPIRATIONS EVEN AND UNLABORED WITH NO S/S OF ACUTE DISTRESS OR SOB NOTED. NO COMPLAINTS OF PAIN AT THIS TIME. SAFETY MEASURES IN PLACE WITH BED IN LOWEST LOCKED POSITION WITH SIDE RAILS UP X2. CALL LIGHT WITHIN REACH. WILL CONTINUE TO MONITOR.
[2019-11-02] MEDS: LEVETIRACETAM (250 MG) 250 MG TABLET PO SCH (21:15)
[2019-11-03] VITALS: BP 120/54
[2019-11-03 04:00] VITALS: BP 131/57
[2019-11-03 06:27] LABS: BASOPHILS % (AUTO) 0.1 % (0.0-2.0); EOSINOPHILS % (AUTO) 0.2 % (0.0-6.0); HEMATOCRIT 24 % (33-45); HEMOGLOBIN 7.7 g/dL (11.5-14.8); LYMPHOCYTES # (AUTO) 0.9 /CMM (0.8-4.8); LYMPHOCYTES % (AUTO) 16.1 % (20.0-44.0); MEAN CORPUSCULAR HGB CONC 33 g/dl (31.0-36.0); MEAN CORPUSCULAR VOLUME 86 fL (82-100); MONOCYTES # (AUTO) 0.8 /CMM (0.1-1.30); MONOCYTES % (AUTO) 15.5 % (2.0-12.0); NEUTROPHILS # (AUTO) 3.7 /CMM (1.8-8.9); NEUTROPHILS % (AUTO) 68.1 % (43.0-81.0); PLATELET COUNT (AUTO) 140 /CMM (150-450); RED BLOOD CELL COUNT(AUTO) 2.75 MIL/uL (4.0-5.2); WHITE BLOOD COUNT (AUTO) 5.4 K/uL (4.3-11.0)
[2019-11-03 06:46] LABS: ALBUMIN 2.2 g/dL (3.4-5.0); BILIRUBIN,TOTAL 0.1 mg/dL (0.2-1.0); CALCIUM, SERUM 6.6 mg/dL (8.5-10.1); CREATININE 3.2 mg/dL (0.6-1.3); PHOSPHORUS 5.4 mg/dL (2.5-4.9)
--- NOTE | 2019-11-03 07:10 | NUR ---
MS RN NOTES PATIENT IN BED ALERT ORIENT X 3. NO ACUTE DISTRESS NOTED. BREATHING UNLABORED. IV ACCESS PATENT AND INTACT, NO REDNESS, NO SWELLING NOTED. SAFETY MEASURES IN PLACE. CALL LIGHT WITHIN REACH WILL CONTINUE TO MONITOR ACCORDINGLY.
[2019-11-03] MEDS: LEVOTHYROXINE SODIUM 75 MCG TABLET PO SCH (07:47)
[2019-11-03] MEDS: PANTOPRAZOLE 40 MG TABLET.DR PO SCH (07:47)
--- NOTE | 2019-11-03 07:56 | NUR ---
DISTRIBUTION LINEMAN NOTES PT IN BED AWAKE AND ABLE TO MAKE NEEDS KNOWN. PT A/O X3. RESPIRATIONS EVEN AND UNLABORED WITH NO S/S OF ACUTE DISTRESS OR SOB NOTED THROUGHOUT SHIFT. PT TURNED Q2 HOURS THROUGHOUT SHIFT. PT KEPT CLEAN, DRY, AND COMFORTABLE. NO COMPLAINTS OF PAIN AT THIS TIME. SAFETY MEASURES IN PLACE WITH BED IN LOWEST LOCKED POSITION WITH SIDE RAILS UP X2. CALL LIGHT WITHIN REACH. WILL ENDORSE TO ONCOMING NURSE FOR CHRISTINE.
[2019-11-03 08:25] VITALS: BP 117/56
[2019-11-03] MEDS: risperiDONE 1 MG TABLET PO SCH ×2 (08:40→17:41)
[2019-11-03] MEDS: TOPIRAMATE 25 MG TABLET PO SCH ×3 (08:40→17:41)
[2019-11-03] MEDS: HYDROCORTISONE SOD SUCCINATE 100 MG/2 ML VIAL IV SCH ×3 (08:41→17:41)
[2019-11-03] MEDS: LEVETIRACETAM (250 MG) 250 MG TABLET PO SCH ×2 (08:41→21:30)
--- NOTE | 2019-11-03 10:20 | NUR ---
WOUND CARE CONSULT: PT PRESENTS WITH SCARRING AND DISCOLORATION TO LEFT POSTERIOR THIGH, PRESENT ON ADMISSION. PT IS INCONTINENT. RECOMMENDATIONS MADE FOR SKIN PROTECTION AND DISCUSSED WITH NURSING STAFF. WILL SEE PRN. HODGES IN AGREEMENT WITH PLAN OF CARE. CURRENT EVERARDO SCORE IS 13. Addendum: 11/03/19 at 1022 by ADAIR SPARROW WNDNU Amended: Links added.
--- NOTE | 2019-11-03 12:55 | NUR ---
MS RN NOTES RECEIVED A CALL FROM PHARMACIST MARCELA THAT POTASSIUM CANNOT BE REPLACED PER PROTOCOL DUE TO CREATININE LEVEL 3.[address] MCCORMICK REGARDING POTASSIUM LEVEL 3.0 AND CREATININE LEVEL 3.2 WITH ORDERS FOR POTASSIUM CHLORIDE 40MEQ TODAY AND TOMORROW. ORDERS CLARIFIED AND READ BACK, NOTED AND CARRIED OUT.
[2019-11-03] MEDS ORDERED: POTASSIUM CHLORIDE 20 MEQ TAB.PRT.SR PO ONE (13:00)
[2019-11-03 16:39] VITALS: BP 142/65
--- NOTE | 2019-11-03 19:00 | NUR ---
MS RN NOTES PATIENT IN BED ALERT ORIENT X 3. NO ACUTE DISTRESS NOTED. BREATHING UNLABORED. IV ACCESS PATENT AND INTACT, NO REDNESS, NO SWELLING NOTED. NEEDS ATTENDED AND ANTICIPATED. KEPT CLEAN, DRY AND COMFORTABLE. REPOSITIONED PER PROTOCOL. SAFETY MEASURES IN PLACE. CALL LIGHT WITHIN REACH. WILL ENDORSE TO NIGHT NURSE FOR CONTINUITY OF CARE.
--- NOTE | 2019-11-03 19:10 | NUR ---
FAMILY CONSUMER SCIENCE [employer] TEACHER NOTES RECEIVED PT IN BED AWAKE AND ABLE TO MAKE NEEDS KNOWN. PT A/O X3. RESPIRATIONS EVEN AND UNLABORED WITH NO S/S OF ACUTE DISTRESS OR SOB NOTED. NO COMPLAINTS OF PAIN AT THIS TIME. PT NOTED WITH RAPHAEL PICC LINE PATENT AND INTACT AND SL. PT ALSO NOTED WITH R FEMORAL HD CATH. SAFETY MEASURES IN PLACE WITH BED IN LOWEST LOCKED POSITION WITH SIDE RAILS UP X2. CALL LIGHT WITHIN REACH. WILL CONTINUE TO MONITOR.
[2019-11-03 20:00] VITALS: BP 152/69
[2019-11-03] MEDS: ATORVASTATIN 10 MG TABLET PO SCH (21:30)
--- NOTE | 2019-11-04 07:28 | NUR ---
RN OPENING NOTES Patient received on room air, no sob noted, a/o x3 with R femoral HD cath. R UA picc line S/L. Bed at the lowest setting, call light within reach, side rails up x2.
--- NOTE | 2019-11-04 07:43 | NUR ---
DIRECTOR OF WEB MARKETING NOTES PT IN BED AWAKE AND ABLE TO MAKE NEEDS KNOWN. PT A/O X3. RESPIRATIONS EVEN AND UNLABORED WITH NO S/S OF ACUTE DISTRESS OR SOB NOTED THROUGHOUT SHIFT. PT TURNED Q2 HOURS THROUGHOUT SHIFT. PT KEPT CLEAN, DRY, AND COMFORTABLE. NO COMPLAINTS OF PAIN AT THIS TIME. SAFETY MEASURES IN PLACE WITH BED IN LOWEST LOCKED POSITION WITH SIDE RAILS UP X2. CALL LIGHT WITHIN REACH. WILL ENDORSE TO ONCOMING NURSE FOR CHRISTINE.
[2019-11-04 08:00] VITALS: BP 144/70
[2019-11-04] MEDS: HYDROCORTISONE SOD SUCCINATE 100 MG/2 ML VIAL IV SCH ×2 (08:40→08:46)
[2019-11-04] MEDS: TOPIRAMATE 25 MG TABLET PO SCH ×3 (08:40→16:30)
[2019-11-04] MEDS: risperiDONE 1 MG TABLET PO SCH ×2 (08:40→16:30)
[2019-11-04] MEDS: LEVETIRACETAM (250 MG) 250 MG TABLET PO SCH ×2 (08:41→21:41)
[2019-11-04] MEDS: PANTOPRAZOLE 40 MG TABLET.DR PO SCH (08:41)
[2019-11-04] MEDS: LEVOTHYROXINE SODIUM 75 MCG TABLET PO SCH (08:41)
[2019-11-04] MEDS ORDERED: POTASSIUM CHLORIDE 20 MEQ TAB.PRT.SR PO ONE (13:00)
[2019-11-04 16:00] VITALS: BP 157/78
--- NOTE | 2019-11-04 17:39 | NUR ---
rn closing notes patient remains on room air, no sob noted, patient denies pain at this time. RAPHAEL picc line SL remains patent at this time. Bed at the lowest setting, call light within reach, side rails up x2. Will give report to NOC RN for CHRISTINE bedside report.
--- NOTE | 2019-11-04 19:05 | NUR ---
MS RN NOTES RECEIVED PT IN BED AWAKE AND ABLE TO MAKE NEEDS KNOWN. PT A/O X3. RESPIRATIONS EVEN AND UNLABORED WITH NO S/S OF ACUTE DISTRESS OR SOB NOTED. NO COMPLAINTS OF PAIN AT THIS TIME. PT NOTED WITH RAPHAEL PICC LINE PATENT AND INTACT AND SL. SAFETY MEASURES IN PLACE WITH BED IN LOWEST LOCKED POSITION WITH SIDE RAILS UP X2. CALL LIGHT WITHIN REACH. WILL CONTINUE TO MONITOR.
[2019-11-04 20:00] VITALS: BP 147/95
[2019-11-04] MEDS: ATORVASTATIN 10 MG TABLET PO SCH (21:41)
[2019-11-05 06:23] LABS: BASOPHILS % (AUTO) 0.5 % (0.0-2.0); EOSINOPHILS % (AUTO) 4.6 % (0.0-6.0); HEMATOCRIT 23 % (33-45); HEMOGLOBIN 7.5 g/dL (11.5-14.8); LYMPHOCYTES # (AUTO) 1.8 /CMM (0.8-4.8); LYMPHOCYTES % (AUTO) 24.3 % (20.0-44.0); MEAN CORPUSCULAR HGB CONC 33 g/dl (31.0-36.0); MEAN CORPUSCULAR VOLUME 88 fL (82-100); MONOCYTES % (AUTO) 13.4 % (2.0-12.0); NEUTROPHILS # (AUTO) 4.2 /CMM (1.8-8.9); NEUTROPHILS % (AUTO) 57.2 % (43.0-81.0); PLATELET COUNT (AUTO) 135 /CMM (150-450); RED BLOOD CELL COUNT(AUTO) 2.61 MIL/uL (4.0-5.2); WHITE BLOOD COUNT (AUTO) 7.4 K/uL (4.3-11.0)
[2019-11-05 06:55] LABS: ALBUMIN 2.2 g/dL (3.4-5.0); BILIRUBIN,TOTAL 0.2 mg/dL (0.2-1.0); CALCIUM, SERUM 7.5 mg/dL (8.5-10.1); CREATININE 2.4 mg/dL (0.6-1.3); MAGNESIUM 1.8 mg/dL (1.8-2.4); PHOSPHORUS 4.2 mg/dL (2.5-4.9); POTASSIUM 4.2 mmol/L (3.5-5.1); TOTAL PROTEIN, SERUM 4.9 g/dL (6.4-8.2)
--- NOTE | 2019-11-05 07:37 | NUR ---
MS/RN OPENING NOTES Patient received resting in bed, A/O x3 showing no signs of acute distress or SOB, saturating well on RA. RAPHAEL Picc line s/l is clean and intact. Patient has no complaints of pain at this time. Bed is in lowest position, side rails x3 in upright position, call light is within reach and patient is aware of how to call for assistance when needed. Fall, safety, and seizure precautions enforced. Will continue with plan of care.
[2019-11-05 08:00] VITALS: BP 151/85
[2019-11-05] MEDS: risperiDONE 1 MG TABLET PO SCH ×2 (08:56→18:08)
[2019-11-05] MEDS: LEVOTHYROXINE SODIUM 75 MCG TABLET PO SCH (08:57)
[2019-11-05] MEDS: LEVETIRACETAM (250 MG) 250 MG TABLET PO SCH ×2 (08:57→21:04)
[2019-11-05] MEDS: TOPIRAMATE 25 MG TABLET PO SCH ×3 (08:57→18:08)
[2019-11-05] MEDS: PANTOPRAZOLE 40 MG TABLET.DR PO SCH (08:57)
[2019-11-05] MEDS: HYDROCORTISONE SOD SUCCINATE 100 MG/2 ML VIAL IV SCH (08:57)
[2019-11-05] MEDS: AMLODIPINE BESYLATE 5 MG TABLET PO SCH (13:28)
[2019-11-05] MEDS: SOD FERRIC GLUC 125 MG in IV NS 0.9% 100 ML IV SCH (14:10)
[2019-11-05 16:00] VITALS: BP 158/70
--- NOTE | 2019-11-05 19:45 | NUR ---
MS RN OPENING NOTES PATIENT RECEIVED RESTING IN BED COMFORTABLY; AWAKE, A/O X3; BREATHING EVEN AND UNLABORED; NO S/S OF ACUTE RESPIRATORY DISTRESS NOTED; RAPHAEL PICC S/L INTACT AND PATENT; INTERMITTENT DVT PUMPS IN PLACE; SAFETY PRECAUTIONS IN PLACE; SEIZURE PRECAUTIONS IN PLACE; BED LOCKED IN LOW POSITION; CALL LIGHT WITHIN EASY REACH; WILL CONTINUE TO MONITOR.
[2019-11-05 20:00] VITALS: BP 157/77
[2019-11-05] MEDS: ATORVASTATIN 10 MG TABLET PO SCH (21:04)
--- NOTE | 2019-11-06 06:05 | NUR ---
MS RN CLOSING NOTES PATIENT AWAKE, A/O X3; BREATHING EVEN AND UNLABORED; NO S/S OF ACUTE RESPIRATORY DISTRESS NOTED; PATIENT TOLERATING ROOM AIR WELL; R UA PICC LINE INTACT AND PATENT; FLUSHING WELL; NO S/S OF REDNESS OR INFILTRATION NOTED; ALL NEEDS TENDED TO; PATIENT DENIES PAIN; BED LOCKED IN LOW POSITION; SEIZURE AND SAFETY PRECAUTIONS IN PLACE; WILL ENDORSE CONTINUITY OF CARE TO ONCOMING SHIFT.
[2019-11-06] MEDS: LEVOTHYROXINE SODIUM 75 MCG TABLET PO SCH (07:32)
[2019-11-06] MEDS: PANTOPRAZOLE 40 MG TABLET.DR PO SCH (07:32)
[2019-11-06 08:00] VITALS: BP 169/81
--- NOTE | 2019-11-06 08:00 | NUR ---
RN NOTES RECEIVED PATIENT IN THE BED SITTING IN THE BED. PATIENT A/OX3, REFUSED PAIN, OBESE WITH TOTAL CARE. V/S TAKEN BP -169/81, P-62. PATIENT TOLERATED BREAKFAST WELL. ADMINISTERED SCHEDULED MEDICATION, IV ACCESS ON RIGHT UPPER ARM PICC LINE SL. ASSIST PATIENT TURN AND REPOSTION Q 2 HR. SEEN PATIENT BY Dr MALDONADO , NEW ORDER CHANGE DIET FOR CLEAR LIQUID, PLAN TO SEE GI CONSULTATION FOR ANEMIA. CALL LIGHT WITHIN TO REACH, SAFETY PRECAUTION MAINTAINED ALL THE TIME.
[2019-11-06] MEDS ORDERED: MISCELLANEOUS MED 1 EA EA XX ONE (09:00)
[2019-11-06] MEDS: TOPIRAMATE 25 MG TABLET PO SCH ×3 (09:16→18:02)
[2019-11-06] MEDS: HYDROCORTISONE SOD SUCCINATE 100 MG/2 ML VIAL IV SCH (09:16)
[2019-11-06] MEDS: LEVETIRACETAM (250 MG) 250 MG TABLET PO SCH ×2 (09:16→21:02)
[2019-11-06] MEDS: risperiDONE 1 MG TABLET PO SCH ×2 (09:16→16:08)
[2019-11-06] MEDS: AMLODIPINE BESYLATE 5 MG TABLET PO SCH (09:17)
[2019-11-06] MEDS ORDERED: PEG 3350/NA SULF,BICARB,CL/KCL 4,000 ML BOTTLE PO ONE (10:00)
--- NOTE | 2019-11-06 12:00 | NUR ---
RN NOTES PATIENT SEEM BY OT, AND PT,PATIENT UNABLE TO AMBULATE, CONTINUED MONITORING.
[2019-11-06] MEDS: hydrALAZINE HCL 25 MG TABLET PO SCH ×2 (16:08→21:02)
[2019-11-06] MEDS: ISOSORBIDE DINITRATE (10MG) 10 MG TABLET PO SCH ×2 (16:08→21:02)
[2019-11-06 16:19] VITALS: BP 170/94
[2019-11-06] MEDS: SOD FERRIC GLUC 125 MG in IV NS 0.9% 100 ML IV SCH (16:56)
--- NOTE | 2019-11-06 17:00 | NUR ---
rn notes PATIENT SIGN CONSENT FORM FOR COLONOSCOPE WHICH IS SCHEDULED 11/07/19, ASSIST RIMMA AD REPOSTION Q 2HR, BUT REFUSED USE PILLOW, PATIENT WAS CRYING. EDUCATED PATIENT RISK OF PRESSURE ULCER FORMATION, STILL REFUSED. CALL LIGHT WITHIN TO REACH, INFUSING FERRLECIT 100 ML/HR ON RIGHT PICC LINE INTACT. CALL LIGHT WITHIN TO REACH, ADMINISTERED SCHEDULED MEDICATION.
[2019-11-06 17:15] VITALS: BP 130/55
--- NOTE | 2019-11-06 18:00 | NUR ---
RN NOTES PATIENT STABLE REFUSED PAIN, NO SEIZURE PRECAUTION, MED COMPLAINT, V/S WNL. PATIENT STARTED TAKING GOLYTELY 4L AT THIS TIME FOR COLONOSCOPE SCHEDULED TOMORROW. CALL LIGHT WITHIN TO REACH. ENDORSED ONCOMING NURSE FOLLOW PLAN OF CARE.
[2019-11-06] MEDS: Magnesium 1GM/D5W 100ML PREMIX 100 ML IV SCH ×2 (19:44→20:42)
--- NOTE | 2019-11-06 19:49 | NUR ---
MS RN OPENING NOTES PATIENT AWAKE, A/O X3; RESTING IN BED COMFORTABLY; BREATHING EVEN AND UNLABORED; NO S/S OF ACUTE RESPIRATORY DISTRESS NOTED; PATIENT DRINKING GOLYTELY 4L; PATIENT TOLERATING WELL; RAPHAEL PICC LINE FLUSHING WELL; NO S/S OF REDNESS OR INFILTRATION; SAFETY PRECAUTIONS IN PLACE; BILATERAL UPPER SIDE RAILS X2; CALL LIGHT WITHIN REACH; WILL CONTINUE TO MONITOR.
[2019-11-06 20:00] VITALS: BP 152/73
[2019-11-06] MEDS: ATORVASTATIN 10 MG TABLET PO SCH (21:04)
[2019-11-07] MEDS: ISOSORBIDE DINITRATE (10MG) 10 MG TABLET PO SCH ×3 (05:08→21:51)
[2019-11-07] MEDS: hydrALAZINE HCL 25 MG TABLET PO SCH ×3 (05:09→21:51)
--- NOTE | 2019-11-07 05:34 | NUR ---
MS RN NOTES PATIENT WHEELED FOR COLONOSCOPY; ACCOMPANIED BY OR STAFF
--- NOTE | 2019-11-07 06:33 | NUR ---
MS RN CLOSING NOTES PATIENT UNDERGOING PROCEDURE; WILL ENDORSE TO ONCOMING NURSE
--- NOTE | 2019-11-07 07:30 | NUR ---
RN MS NOTES PT AWAKE, ALERT AND ORIENTED, IN HER ROOM, S/P COLONOSCOPY, TOLERATED PROCEDURE WELL, NO COMPLAINT OF PAIN, NOT IN DISTRESS, CALL LIGHT WITHIN REACH, NEEDS ATTENDED.
[2019-11-07 08:00] VITALS: BP 150/74
[2019-11-07] MEDS: PANTOPRAZOLE 40 MG TABLET.DR PO SCH (08:48)
[2019-11-07] MEDS: LEVOTHYROXINE SODIUM 75 MCG TABLET PO SCH (08:48)
[2019-11-07] MEDS: risperiDONE 1 MG TABLET PO SCH ×2 (08:59→17:08)
[2019-11-07] MEDS: HYDROCORTISONE SOD SUCCINATE 100 MG/2 ML VIAL IV SCH (08:59)
[2019-11-07] MEDS: LEVETIRACETAM (250 MG) 250 MG TABLET PO SCH ×2 (08:59→21:51)
[2019-11-07] MEDS: AMLODIPINE BESYLATE 5 MG TABLET PO SCH ×2 (08:59→17:09)
[2019-11-07] MEDS: TOPIRAMATE 25 MG TABLET PO SCH ×3 (08:59→17:09)
--- NOTE | 2019-11-07 13:00 | NUR ---
RN MS NOTES PT IN BED, AWAKE, ALERT AND ORIENTED, NO COMPLAINT AT THIS TIME, SCHEDULED MEDS GIVEN ORDERED, TOLERATING CURRENT DIET, CALL LIGHT WITHIN REACH.
[2019-11-07 13:46] LABS: BASOPHILS % (AUTO) 0.4 % (0.0-2.0); EOSINOPHILS % (AUTO) 1.4 % (0.0-6.0); HEMATOCRIT 26 % (33-45); HEMOGLOBIN 8.5 g/dL (11.5-14.8); LYMPHOCYTES # (AUTO) 0.6 /CMM (0.8-4.8); LYMPHOCYTES % (AUTO) 7.6 % (20.0-44.0); MEAN CORPUSCULAR HGB CONC 32 g/dl (31.0-36.0); MEAN CORPUSCULAR VOLUME 89 fL (82-100); MONOCYTES # (AUTO) 0.5 /CMM (0.1-1.30); MONOCYTES % (AUTO) 6.5 % (2.0-12.0); NEUTROPHILS # (AUTO) 7.1 /CMM (1.8-8.9); NEUTROPHILS % (AUTO) 84.1 % (43.0-81.0); PLATELET COUNT (AUTO) 139 /CMM (150-450); RED BLOOD CELL COUNT(AUTO) 2.94 MIL/uL (4.0-5.2); WHITE BLOOD COUNT (AUTO) 8.4 K/uL (4.3-11.0)
[2019-11-07 14:30] LABS: ALBUMIN 2.6 g/dL (3.4-5.0); BILIRUBIN,TOTAL 0.2 mg/dL (0.2-1.0); CALCIUM, SERUM 8.2 mg/dL (8.5-10.1); CREATININE 1.9 mg/dL (0.6-1.3); PHOSPHORUS 3.7 mg/dL (2.5-4.9); TOTAL PROTEIN, SERUM 5.7 g/dL (6.4-8.2)
[2019-11-07] MEDS: SOD FERRIC GLUC 125 MG in IV NS 0.9% 100 ML IV SCH (14:34)
[2019-11-07 16:00] VITALS: BP 142/75
--- NOTE | 2019-11-07 18:06 | NUR ---
RN MS NOTES PT IN BED, AWAKE, ALERT AND ORIENTED, EATING DINNER WHILE WATCHING TV, PM MEDS GIVEN ORDERED, NEEDS ATTENDED.
--- NOTE | 2019-11-07 19:40 | NUR ---
MS RN NOTE: PATIENT RESTING IN BED, NO ACUTE DISTRESS NOTED. BREATHING EVEN AND UNLABORED, NO SOB NOTED. PICC LINE TO MIK IN PLACE. BED LOCKED AND IN LOWEST POSITION, CALL LIGHT IN REACH. WILL CONTINUE TO MONITOR.
[2019-11-07 20:15] VITALS: BP 138/62
[2019-11-07] MEDS: ATORVASTATIN 10 MG TABLET PO SCH (21:51)
--- NOTE | 2019-11-08 03:15 | NUR ---
MS RN NOTE: PATIENT RESTING IN BED, NO ACUTE DISTRESS NOTED. BREATHING EVEN AND UNLABORED, NO SOB NOTED. BED LOCKED AND IN LOWEST POSITION, CALL LIGHT IN REACH. WILL CONTINUE TO MONITOR.
[2019-11-08] MEDS: hydrALAZINE HCL 25 MG TABLET PO SCH ×3 (05:44→22:03)
[2019-11-08] MEDS: ISOSORBIDE DINITRATE (10MG) 10 MG TABLET PO SCH ×3 (05:45→22:02)
--- NOTE | 2019-11-08 06:20 | NUR ---
MS RN NOTE: PATIENT RESTING IN BED, NO ACUTE DISTRESS NOTED. BREATHING EVEN AND UNLABORED, NO SOB NOTED. PICC LINE TO MIK IN PLACE. BED LOCKED AND IN LOWEST POSITION, CALL LIGHT IN REACH. WILL ENDORSE TO DAY NURSE TO CONTINUE WITH PLAN OF CARE.
[2019-11-08 06:33] LABS: BASOPHILS % (AUTO) 0.5 % (0.0-2.0); EOSINOPHILS % (AUTO) 3.6 % (0.0-6.0); HEMATOCRIT 25 % (33-45); HEMOGLOBIN 7.8 g/dL (11.5-14.8); LYMPHOCYTES # (AUTO) 1.5 /CMM (0.8-4.8); LYMPHOCYTES % (AUTO) 15.2 % (20.0-44.0); MEAN CORPUSCULAR HGB CONC 32 g/dl (31.0-36.0); MEAN CORPUSCULAR VOLUME 90 fL (82-100); MONOCYTES % (AUTO) 10.6 % (2.0-12.0); NEUTROPHILS # (AUTO) 6.8 /CMM (1.8-8.9); NEUTROPHILS % (AUTO) 70.1 % (43.0-81.0); PLATELET COUNT (AUTO) 146 /CMM (150-450); RED BLOOD CELL COUNT(AUTO) 2.75 MIL/uL (4.0-5.2); WHITE BLOOD COUNT (AUTO) 9.7 K/uL (4.3-11.0)
[2019-11-08 07:10] LABS: CALCIUM, SERUM 8.2 mg/dL (8.5-10.1); CREATININE 1.9 mg/dL (0.6-1.3); POTASSIUM 4.2 mmol/L (3.5-5.1)
--- NOTE | 2019-11-08 07:30 | NUR ---
RN MS NOTES PT IN BED, AWAKE, ALERT AND ORIENTED, NO COMPLAINT OF PAIN, NOT IN DISTRESS, CALL LIGHT WITHIN REACH, ATE BREAKFAST WITH GOOD APPETITE, NEEDS ATTENDED.
[2019-11-08 08:00] VITALS: BP 132/63
[2019-11-08] MEDS: risperiDONE 1 MG TABLET PO SCH ×2 (09:12→16:51)
[2019-11-08] MEDS: LEVETIRACETAM (250 MG) 250 MG TABLET PO SCH ×2 (09:12→22:02)
[2019-11-08] MEDS: PANTOPRAZOLE 40 MG TABLET.DR PO SCH (09:12)
[2019-11-08] MEDS: LEVOTHYROXINE SODIUM 75 MCG TABLET PO SCH (09:12)
[2019-11-08] MEDS: AMLODIPINE BESYLATE 5 MG TABLET PO SCH ×2 (09:13→16:52)
[2019-11-08] MEDS: TOPIRAMATE 25 MG TABLET PO SCH ×3 (09:13→16:51)
--- NOTE | 2019-11-08 12:31 | NUR ---
RN MS NOTES PT IN BED, EATING LUNCH, TOLERATING WELL, NO COMPLAINT AT THIS TIME, NOT IN DISTRESS, CALL LIGHT WITHIN REACH, NEEDS ATTENDED.
[2019-11-08] MEDS: SOD FERRIC GLUC 125 MG in IV NS 0.9% 100 ML IV SCH (14:23)
[2019-11-08 16:00] VITALS: BP 118/73
--- NOTE | 2019-11-08 18:35 | NUR ---
RN MS NOTES PT IN BED, AWAKE, ALERT AND ORIENTED, WATCHING TV, ASSISTED WITH DINNER, NO COMPLAINT OF PAIN, NOT IN DISTRESS, PM CARE PROVIDED, SCHEDULED MEDS GIVEN ORDERED, KEPT CLEAN AND DRY, ASSISTED IN TURNING AND REPOSITIONING, ALL NEEDS ATTENDED.
--- NOTE | 2019-11-08 19:30 | NUR ---
MS RN OPENING NOTES PATIENT AWAKE AND WATCHING TV IN BED. A/O X3. ON ROOM AIR. PATIENT ABLE TO VERBALIZE NEEDS. PICC LINE PRESENT ON RIGHT UPPER ARM, INTACT & PATENT, HEP LOCKED. NO S/S OF ACUTE RESPIRATORY DISTRESS AND NO COMPLAINTS OF PAIN AT THIS TIME. BED LOCKED, ALARM ON, SIDE RAILS X2, CALL LIGHT WITHIN REACH. WILL CONTINUE TO MONITOR.
[2019-11-08 20:00] VITALS: BP 151/71
[2019-11-08] MEDS: ATORVASTATIN 10 MG TABLET PO SCH (22:03)
[2019-11-09 05:00] VITALS: BP 154/69
[2019-11-09] MEDS: hydrALAZINE HCL 25 MG TABLET PO SCH ×3 (05:18→22:19)
[2019-11-09] MEDS: ISOSORBIDE DINITRATE (10MG) 10 MG TABLET PO SCH ×3 (05:18→22:19)
--- NOTE | 2019-11-09 07:24 | NUR ---
MS RN OPENING NOTES RECEIVED PATIENT IN BED RESTING COMFORTABLY IN MODERATE HIGH BACK REST. A/O X3. ON ROOM AIR. NO SIGNS OF DISTRESS NOTED AT THIS TIME. PICC LINE PRESENT ON RIGHT UPPER ARM, INTACT & PATENT, HEP LOCKED. SAFETY MEASURES IN PLACE, BED LOCKED, ALARM ON, SIDE RAILS X2, CALL LIGHT WITHIN REACH. WILL CONTINUE TO MONITOR.
--- NOTE | 2019-11-09 07:25 | NUR ---
MS RN CLOSING NOTES PATIENT AWAKE IN BED. A/O X3. ON ROOM AIR. NO S/S OF ACUTE RESPIRATORY DISTRESS AND NO COMPLAINTS OF PAIN AT THIS TIME. PICC LINE PRESENT ON RIGHT UPPER ARM, INTACT & PATENT, HEP LOCKED. BED LOCKED, SIDE RAILS X2, CALL LIGHT WITHIN REACH. WILL ENDORSE TO DAY SHIFT NURSE TO FOLLOW PLAN OF CARE.
[2019-11-09] MEDS: LEVOTHYROXINE SODIUM 75 MCG TABLET PO SCH (08:22)
[2019-11-09] MEDS: AMLODIPINE BESYLATE 5 MG TABLET PO SCH ×2 (08:23→16:27)
[2019-11-09] MEDS: risperiDONE 1 MG TABLET PO SCH ×2 (08:23→16:27)
[2019-11-09] MEDS: LEVETIRACETAM (250 MG) 250 MG TABLET PO SCH ×2 (08:23→22:20)
[2019-11-09] MEDS: PANTOPRAZOLE 40 MG TABLET.DR PO SCH (08:23)
[2019-11-09] MEDS: TOPIRAMATE 25 MG TABLET PO SCH ×3 (08:23→16:26)
[2019-11-09] MEDS: SOD FERRIC GLUC 125 MG in IV NS 0.9% 100 ML IV SCH (13:49)
--- NOTE | 2019-11-09 18:47 | NUR ---
MS RN CLOSING NOTES PATIENT IN BED RESTING COMFORTABLY IN MODERATE HIGH BACK REST. A/O X3. ON ROOM AIR. NO SIGNS OF DISTRESS NOTED THROUGHOUT THE SHIFT. PICC LINE PRESENT ON RIGHT UPPER ARM, INTACT & PATENT, HEP LOCKED. SAFETY MEASURES IN PLACE, BED LOCKED, ALARM ON, SIDE RAILS X2, CALL LIGHT WITHIN REACH. WILL ENDORSE TO MANUFACTURING CHIEF ENGINEER NURSE FOR CHRISTINE.
--- NOTE | 2019-11-09 19:45 | NUR ---
RN Notes Patient awake, alert and oriented x3,HOB elevated on room air and tolerated well. Denies any pain and discomfort. Right upper arm PICC line patent and intact. Safety measures and fall precaution in place. Will continue to monitor.
[2019-11-09 20:00] VITALS: BP 145/50
[2019-11-09] MEDS: ATORVASTATIN 10 MG TABLET PO SCH (22:20)
[2019-11-10 05:00] VITALS: BP 133/70
[2019-11-10] MEDS: hydrALAZINE HCL 25 MG TABLET PO SCH ×3 (05:21→21:21)
[2019-11-10] MEDS: ISOSORBIDE DINITRATE (10MG) 10 MG TABLET PO SCH ×3 (05:21→21:20)
--- NOTE | 2019-11-10 06:38 | NUR ---
RN Notes Patient sleep well overnight, no signs of distress and discomfort noted. Vital signs stable, BP controlled.Kept clean and dry. No significant change in condition noted. Will endorse accordingly.
--- NOTE | 2019-11-10 07:10 | NUR ---
MS RN NOTES PATIENT IN ALERT ORIENTED X 3. NO ACUTE DISTRESS NOTED, BREATHING UNLABORED. SAFETY MEASURES IN PLACE. CALL LIGHT WITHIN REACH. WILL CONTINUE TO MONITOR ACCORDINGLY.
[2019-11-10] MEDS: LEVOTHYROXINE SODIUM 75 MCG TABLET PO SCH (07:32)
[2019-11-10] MEDS: PANTOPRAZOLE 40 MG TABLET.DR PO SCH (07:32)
[2019-11-10 08:30] VITALS: BP 144/65
[2019-11-10] MEDS: LEVETIRACETAM (250 MG) 250 MG TABLET PO SCH ×2 (08:58→21:19)
[2019-11-10] MEDS: AMLODIPINE BESYLATE 5 MG TABLET PO SCH ×2 (08:59→17:38)
[2019-11-10] MEDS: risperiDONE 1 MG TABLET PO SCH ×2 (08:59→17:38)
[2019-11-10] MEDS: TOPIRAMATE 25 MG TABLET PO SCH ×3 (08:59→17:38)
[2019-11-10 12:41] LABS: BASOPHILS % (AUTO) 0.5 % (0.0-2.0); HEMATOCRIT 25 % (33-45); HEMOGLOBIN 7.8 g/dL (11.5-14.8); LYMPHOCYTES # (AUTO) 0.9 /CMM (0.8-4.8); LYMPHOCYTES % (AUTO) 14.2 % (20.0-44.0); MEAN CORPUSCULAR HGB CONC 31 g/dl (31.0-36.0); MEAN CORPUSCULAR VOLUME 90 fL (82-100); MONOCYTES # (AUTO) 0.9 /CMM (0.1-1.30); MONOCYTES % (AUTO) 13.3 % (2.0-12.0); NEUTROPHILS # (AUTO) 4.5 /CMM (1.8-8.9); PLATELET COUNT (AUTO) 153 /CMM (150-450); RED BLOOD CELL COUNT(AUTO) 2.77 MIL/uL (4.0-5.2); WHITE BLOOD COUNT (AUTO) 6.7 K/uL (4.3-11.0)
[2019-11-10 13:13] LABS: CALCIUM, SERUM 7.2 mg/dL (8.5-10.1); CREATININE 1.8 mg/dL (0.6-1.3); MAGNESIUM 1.5 mg/dL (1.8-2.4); PHOSPHORUS 3.4 mg/dL (2.5-4.9)
[2019-11-10] MEDS ORDERED: Magnesium 1GM/D5W 100ML PREMIX 100 ML IV SCH (14:42)
--- NOTE | 2019-11-10 19:00 | NUR ---
MS RN NOTES PATIENT IN ALERT ORIENTED X 3. NO ACUTE DISTRESS NOTED, BREATHING UNLABORED. NEEDS ATTENDED AND ANTICIPATED. KEPT CLEAN DRY AND COMFORTABLE. SAFETY MEASURES IN PLACE. CALL LIGHT WITHIN REACH. WILL ENDORSE TO NIGHT NURSE FOR CONTINUITY OF CARE.
[2019-11-10 20:00] VITALS: BP 146/68
--- NOTE | 2019-11-10 20:08 | NUR ---
MS RN RECEIVED PATIENT IN BED A/O X 3, SLURRED SPEECH. STABLE AND NOT IN DISTRESS. WILL CONTINUE TO MONITOR
[2019-11-10] MEDS: ATORVASTATIN 10 MG TABLET PO SCH (21:19)
[2019-11-11] MEDS: ISOSORBIDE DINITRATE (10MG) 10 MG TABLET PO SCH ×2 (05:51→13:10)
[2019-11-11] MEDS: hydrALAZINE HCL 25 MG TABLET PO SCH ×2 (05:51→13:11)
--- NOTE | 2019-11-11 06:37 | NUR ---
PT SLEPT WELL, AM CARE RENDERED. NEEDS ATTENDED AND ANTICIPATED.KEPT CLEAN, DRY AND COMFORTABLE. ASSISTED REPOSITION EVERY 2 HOURS. SAFETY MEASURES AT ALL TIMES. ENDORSE NEXT [facility].
--- NOTE | 2019-11-11 07:30 | NUR ---
RN MS NOTES PT IN BED, AWAKE, ALERT AND ORIENTED, NO COMPLAINT OF PAIN OR ANY DISCOMFORT, CALL LIGHT WITHIN REACH, KEPT COMFORTABLE, NEEDS ATTENDED.
[2019-11-11 08:00] VITALS: BP 134/64
[2019-11-11] MEDS: risperiDONE 1 MG TABLET PO SCH (09:10)
[2019-11-11] MEDS: TOPIRAMATE 25 MG TABLET PO SCH ×2 (09:10→13:10)
[2019-11-11] MEDS: LEVETIRACETAM (250 MG) 250 MG TABLET PO SCH (09:10)
[2019-11-11] MEDS: PANTOPRAZOLE 40 MG TABLET.DR PO SCH (09:10)
[2019-11-11] MEDS: LEVOTHYROXINE SODIUM 75 MCG TABLET PO SCH (09:10)
[2019-11-11] MEDS: AMLODIPINE BESYLATE 5 MG TABLET PO SCH (09:10)
--- NOTE | 2019-11-11 12:39 | NUR ---
RN MS NOTES PER CM, PER DR MCCORMICK PT OK TO DISCHARGE BACK TO [facility] [place] WITH SAME MEDICATIONS, NOTED AND CARRIED OUT, PT INFORMED, AGREED WITH PLAN.
[2019-11-11 15:30] VITALS: BP 154/77
--- NOTE | 2019-11-11 15:51 | NUR ---
RN MS NOTES PT IN BED, AWAKE, ALERT AND ORIENTED, NO COMPLAINT OF PAIN OR ANY DISCOMFORT, CM SPOKE WITH DR. MCCORMICK, PER MD OK TO DISCHARGE BACK TO [facility] WITH SAME MEDS, NOTED AND CARRIED OUT, PT INFORMED, DISCHARGE AND MEDICATION INSTRUCTIONS PROVIDED TO PT, VERBALIZED UNDERSTANDING, SKIN ASSESSMENT AND PHOTOS DONE, PT REFUSED HER LEFT SIDE TO BE CHECKED, STATED THERE IS NOTHING IN THERE, BELONGINGS ACCOUNTED FOR, REPORT GIVEN TO SIVAN, [employer]ACLE [employer] DEVELOPER OF [facility], INFORMED THAT PT IS COMING BACK, PICC LINE TO RIGHT UPPER ARM REMOVED WTHOUT NO COMPLICATIONS, NO BLEEDING NOTED, PRESSURE DRESSING APPLIED, PICKED UP BY 2 TRANSPORTATION PERSONNEL, [facility]
== END 2019-11-11 16:01 | DRG 469 ==
LOC: ER 14:02 → ICU 17:05 → TELE 11-02 18:10 → MED 11-03 08:54
PROVIDERS: ADMIT Internal Medicine; ATTEND Internal Medicine
DX: N17.0 Acute kidney failure with tubular necrosis (principal); R57.9 Shock, unspecified; J96.90 Respiratory failure, unspecified, unspecified whether with hypoxia or hypercapnia; E11.22 Type 2 diabetes mellitus with diabetic chronic kidney disease; E87.2 Acidosis; E87.5 Hyperkalemia; I49.5 Sick sinus syndrome; N25.0 Renal osteodystrophy; G40.409 Other generalized epilepsy and epileptic syndromes, not intractable, without status epilepticus; I13.0 Hypertensive heart and chronic kidney disease with heart failure and stage 1 through stage 4 chronic kidney disease, or unspecified chronic kidney disease; I50.9 Heart failure, unspecified; I25.10 Atherosclerotic heart disease of native coronary artery without angina pectoris; N18.3 Chronic kidney disease, stage 3 (moderate); D50.9 Iron deficiency anemia, unspecified; D63.1 Anemia in chronic kidney disease; N39.0 Urinary tract infection, site not specified; Z66 Do not resuscitate; Z86.73 Personal history of transient ischemic attack (TIA), and cerebral infarction without residual deficits; Z87.891 Personal history of nicotine dependence; E03.9 Hypothyroidism, unspecified; G40.909 Epilepsy, unspecified, not intractable, without status epilepticus; E66.9 Obesity, unspecified; Z68.43 Body mass index [BMI] 50.0-59.9, adult; K64.8 Other hemorrhoids; I95.2 Hypotension due to drugs; T44.7X5A Adverse effect of beta-adrenoreceptor antagonists, initial encounter; Y92.89 Other specified places as the place of occurrence of the external cause; K62.1 Rectal polyp; I12.9 Hypertensive chronic kidney disease with stage 1 through stage 4 chronic kidney disease, or unspecified chronic kidney disease; N18.9 Chronic kidney disease, unspecified; T50.995A Adverse effect of other drugs, medicaments and biological substances, initial encounter; B96.1 Klebsiella pneumoniae [K. pneumoniae] as the cause of diseases classified elsewhere; I25.2 Old myocardial infarction; K29.70 Gastritis, unspecified, without bleeding; J45.909 Unspecified asthma, uncomplicated; D63.8 Anemia in other chronic diseases classified elsewhere
CPT/HCPCS: 36415; 36569; 70450-TC; 71045-TC; 76770-TC; 80048-TC; 80053-TC; 80061-TC; 80076-TC; 80156-TC; 81000-TC; 82533; 82550-TC; 82570-TC; 82728-TC; 83735-TC; 83880; 83970; 84100-TC; 84155; 84155-TC; 84165; 84300-TC; 84439-TC; 84443-TC; 84484-TC; 85025-TC; 85730-TC; 86850-TC; 86921-TC; 87081-TC; 87086-TC; 87186-TC; 88305-TC; 93307-TC; 93970-TC; 97110-TC; 97112-TC; 97530-TC; A4216; C1750; C1751; C1769; G0378; J0461; J0610; J0696; J1265; J1644; J1720; J1815; J1940; J1953; J2405; J2916; J3475; J3490; J7030; J7040; J7050; J7060; P9016-BL

== ENCOUNTER 2021-05-01 12:31 | Emergency (ER) | payer MEDICARE, OTHER ==
[~2021-05-01] VITALS: Ht 149.9 cm; Wt 106.6 kg
[~2021-05-01 12:31] MED LIST changes: +AMLO-212 PO; -AMLO5TAB9 PO
--- NOTE | 2021-05-01 12:44 | NUR ---
TO ER BED 1, BIB RA DUE TO L KNEE AND FOOT PAIN FROM [facility] 2 DAYS AGO, AT BEDSIDE
--- NOTE | 2021-05-01 13:11 | NUR ---
XRAY AT BEDSIDE
[2021-05-01] MEDS ORDERED: CALC500T53 PO (13:37)
[2021-05-01] MEDS ORDERED: ACET325T53 PO (13:37)
[2021-05-01] MEDS ORDERED: VIT1TABL46 PO (13:37)
[2021-05-01] MEDS ORDERED: MAGN400T8 PO (13:37)
--- NOTE | 2021-05-01 14:00 | NUR ---
SPOKE TO STEPHANIE OF [facility], CONFIRMED PT TOOK BP MEDS THIS MORNING, INFORMED
[2021-05-01 15:43] VITALS: BP 152/101
--- NOTE | 2021-05-01 15:44 | NUR ---
GWENDOLYN, PT'S SON CALLED TO ASK IF PT IS BEING DC TODAY
--- NOTE | 2021-05-01 16:05 | NUR ---
CALLED RADIOLOGY TO FOLLOW-UP RE RESULT OF HER XRAY.
--- NOTE | 2021-05-01 16:20 | NUR ---
CALLED [facility] FOR TRANSPORT TO SNF. ETA 30-45 MINUTES.
== END 2021-05-01 17:47 ==
LOC: ER 12:33
DX: S80.12XA Contusion of left lower leg, initial encounter (principal); S90.02XA Contusion of left ankle, initial encounter; I11.0 Hypertensive heart disease with heart failure; I50.9 Heart failure, unspecified; I25.2 Old myocardial infarction; I25.10 Atherosclerotic heart disease of native coronary artery without angina pectoris; K21.9 Gastro-esophageal reflux disease without esophagitis; E11.9 Type 2 diabetes mellitus without complications; F32.9 Major depressive disorder, single episode, unspecified; E78.5 Hyperlipidemia, unspecified; E03.9 Hypothyroidism, unspecified; Z98.890 Other specified postprocedural states; Z88.8 Allergy status to other drugs, medicaments and biological substances; Z88.1 Allergy status to other antibiotic agents; Z91.011 Allergy to milk products; Z79.899 Other long term (current) drug therapy; W19.XXXA Unspecified fall, initial encounter; Y93.89 Activity, other specified; Y92.89 Other specified places as the place of occurrence of the external cause; Y99.8 Other external cause status
CPT/HCPCS: 73564-TC; 73610-TC; 73630-TC

== ENCOUNTER 2021-12-02 10:00 | Inpatient (IN) | payer OTHER, MEDICARE ==
[~2021-12-02] VITALS: Ht 149.9 cm; Wt 105.2 kg
[~2021-12-02 10:00] MED LIST changes: +ACET325T53 PO; -BENA10TA74 PO; +CALC500T53 PO; +MAGN400T8 PO; -NITR0.4T48 SL; +VIT1TABL46 PO
--- NOTE | 2021-12-02 10:00 | NUR ---
BIB [facility] FROM A [facility]ISON [facility] C/O GENERALIZED WEAKNESS, HYPOTENSIVE 78/80 1L OF NORMAL SALINE WAS GIVEN PRIOR TO ARRIVAL AND BP WHEN UP TO 95/52 PER EMS. PT IS A&OX2. PT ATTACHED TO MONITOR, PROVIDED WITH WARM BLNAKET FOR COMFORT. AWAITING FOR MD JACKSON.
[2021-12-02] MEDS ORDERED: CALC500T52 PO (10:09)
[2021-12-02] MEDS ORDERED: FURO-144 PO (10:09)
[2021-12-02] MEDS ORDERED: CALC500T63 PO (10:09)
[2021-12-02] MEDS ORDERED: ACET-868 PO (10:09)
[2021-12-02] MEDS ORDERED: CLOT15CR27 TP (10:09)
[2021-12-02] MEDS ORDERED: SEVE800T8 PO (10:09)
[2021-12-02] MEDS ORDERED: HYDR-4076 PO (10:09)
[2021-12-02] MEDS ORDERED: MAGN500T2 PO (10:09)
[2021-12-02] MEDS ORDERED: CALC0.253 PO (10:09)
--- NOTE | 2021-12-02 10:55 | NUR ---
X RAY AT BEDSIDE
[2021-12-02] MEDS ORDERED: IV NS 0.9% 1,000 ML BAG IV ONE (11:00)
--- NOTE | 2021-12-02 11:00 | NUR ---
MAXIPINE NOT GIVEN; PT HAS CROSS ALLEGY WITH THIS MEDICATION PER PHARMACY
--- NOTE | 2021-12-02 11:13 | NUR ---
LAB AT BEDSIDE
--- NOTE | 2021-12-02 11:15 | NUR ---
URINE SAMPLE, RAPID COVID TEST, AND FECAL OCCULT TEST COLLECTED AND SENT AT BEDSIDE
--- NOTE | 2021-12-02 11:37 | NUR ---
PT TAKEN TO CT VIA SWETA
[2021-12-02 11:43] LABS: BASOPHILS % (AUTO) 0.3 % (0.0-2.0); EOSINOPHILS % (AUTO) 1.8 % (0.0-6.0); LYMPHOCYTES # (AUTO) 0.7 K/uL (0.8-4.8); MEAN CORPUSCULAR HGB CONC 33 g/dl (31.0-36.0); MEAN CORPUSCULAR VOLUME 96 fL (82-100); MONOCYTES # (AUTO) 0.7 K/uL (0.1-1.30); MONOCYTES % (AUTO) 7.9 % (2.0-12.0); NEUTROPHILS # (AUTO) 7.4 K/uL (1.8-8.9); PLATELET COUNT (AUTO) 199 K/uL (150-450); WHITE BLOOD COUNT (AUTO) 9.1 K/uL (4.3-11.0)
[2021-12-02 11:45] LABS: RED BLOOD CELL COUNT(AUTO) 1.53 MIL/uL (4.0-5.2)
[2021-12-02 11:46] LABS: HEMATOCRIT 15 % (33-45); HEMOGLOBIN 4.9 g/dL (11.5-14.8)
[2021-12-02 11:50] LABS: CALCIUM, SERUM 7.9 mg/dL (8.5-10.1); CARBON DIOXIDE 18 mmol/L (21-32); CHLORIDE 108 mmol/L (98-107); CREATININE 4.1 mg/dL (0.6-1.3); GLUCOSE 134 mg/dL (74-106); POTASSIUM 4.2 mmol/L (3.5-5.1); SODIUM SERUM 140 mmol/L (136-145)
[2021-12-02 11:51] LABS: UREA NITROGEN, BLOOD 114 mg/dL (7-18)
[2021-12-02 11:52] LABS: BILIRUBIN,URINE NEGATIVE (NEGATIVE); COLOR,URINE YELLOW (YELLOW); LEUKOCYTE ESTERASE ,URINE NEGATIVE (NEGATIVE); NITRITE, URINE NEGATIVE (NEGATIVE); PH,URINE 5.5 (5.0-8.0); PROTEIN,URINE 30 mg/dl (NEGATIVE); UGLUCOSE NEGATIVE (NEGATIVE); UROBILINOGEN,URINE 0.2 EU/dL (0.2)
[2021-12-02 12:03] LABS: ALANINE AMINOTRANSFERASE 18 U/L (12-78); ALBUMIN 2.4 g/dL (3.4-5.0); ALKALINE PHOSPHATASE 201 U/L (46-116); ASPARTATE AMINOTRANSFERASE 10 U/L (15-37); BILIRUBIN,DIRECT 0.1 mg/dL (0.0-0.2); BILIRUBIN,TOTAL 0.2 mg/dL (0.2-1.0); TOTAL PROTEIN, SERUM 5.4 g/dL (6.4-8.2)
[2021-12-02 12:13] LABS: BACTERIA,URINE None seen /HPF (None Seen); RBC,URINE 0-2 /HPF (0-2); SQUAMOUS EPITHELIAL CELL,UR Moderate /HPF (None Seen); WBC,URINE 0-2 /HPF (0-3)
--- NOTE | 2021-12-02 12:21 | NUR ---
CONSENT FOR BLOOD TRANSFUSION OBTAINED
[2021-12-02 12:27] LABS: OCCULT BLOOD STOOL POSITIVE (NEGATIVE)
[2021-12-02] MEDS ORDERED: VANCOMYCIN 1 GM in IV D5W 250 ML IV ONE (12:30)
[2021-12-02] MEDS ORDERED: PANTOPRAZOLE 40 MG VIAL IV ONE (12:30)
[2021-12-02] MEDS ORDERED: IV NS 0.9% 500 ML BAG IV ONE (12:30)
[2021-12-02] MEDS ORDERED: CEFEPIME 1 GM in IV D5W 50 ML IV ONE (12:30)
--- NOTE | 2021-12-02 12:51 | NUR ---
CALLED NURSING SUP REGARDING PT BED
--- NOTE | 2021-12-02 12:53 | NUR ---
CALLED DR. MITCHELL AND DR. MCCORMICK, BOTH REFUSED TO ADMIT PT. WAS NOTIFIED TO ADMIT UNDER EPIC
[2021-12-02] MEDS ORDERED: PANTOPRAZOLE 40 MG VIAL ONE (13:11)
--- NOTE | 2021-12-02 13:47 | NUR ---
CALLED NURSING SUP FOR UPDATE ON PT BED AND WAS NOTIFIED THAT THE WE ARE STILL WAITING FOR COVID RESULT.
--- NOTE | 2021-12-02 13:52 | NUR ---
ROOM 116-2
--- NOTE | 2021-12-02 14:17 | NUR ---
REPORT GIVEN TO [place] FOR CHRISTINE
--- NOTE | 2021-12-02 14:17 | NUR ---
REPORT GIVEN FOR CHRISTINE
[2021-12-02] MEDS ORDERED: ONDANSETRON HCL/PF 4 MG/2 ML VIAL IVP PRN (14:30)
[2021-12-02] MEDS ORDERED: ACETAMINOPHEN 325 MG TABLET PO PRN (14:30)
[2021-12-02] MEDS ORDERED: CLOTRIMAZOLE 1% 15 GM TUBE TP PRN (14:30)
[2021-12-02] MEDS ORDERED: TEMAZEPAM 7.5 MG CAPSULE PO PRN (14:30)
[2021-12-02] MEDS ORDERED: MAGNESIUM HYDROXIDE 30 ML UDC PO PRN (14:30)
[2021-12-02] MEDS ORDERED: Z GUARD REMEDY 4 OZ OINT TP PRN (14:30)
[2021-12-02 16:00] VITALS: BP 106/54
[2021-12-02 16:03] LABS: EOSINOPHILS % (MANUAL) 1 % (0-4); LYMPHOCYTES % (MANUAL) 13 % (16-48); METAMYELOCYTES % 1 % (0-0); MONOCYTES % (MANUAL) 8 % (0-11.0); NEUTROPHILS % (MANUAL) 77 (42-76)
[2021-12-02 16:27] VITALS: BP 108/52
[2021-12-02] MEDS ORDERED: FUROSEMIDE 40 MG TABLET PO SCH (17:00)
[2021-12-02] MEDS: SEVELAMER CARBONATE 800 MG TABLET PO SCH (17:07)
[2021-12-02] MEDS: risperiDONE 1 MG TABLET PO SCH (17:07)
[2021-12-02] MEDS: PANTOPRAZOLE 40 MG VIAL IV SCH (17:08)
[2021-12-02] MEDS: CARBAMAZEPINE 200 MG TABLET PO SCH (17:08)
[2021-12-02 18:50] VITALS: BP 117/49
--- NOTE | 2021-12-02 19:05 | NUR ---
RN OPENING NOTES RECEIVED PATIENT ON BED , ALERT ORIENTED X 4, RESPIRATORY EVEN AND UNLABORED NO SOB NOTED. REMAIN AFEBRILE, ON ROOM AIR SATING AT 98%. PATIENT CURRENTLY ON CLEAR LIQUID DIET NOTED WITH RIGHT UPPER ARM MID LINE, INTACT, PATENT, FLUSHED WITH NS, NO INFILTRATION NOTED AT SITE. WITH ONGOING BLOOD TRANSFUSION 1 UNIT PRBC, NO ADVERSE REACTION NOTED. ALL SAFETY MEASURE PROVIDED. BED IN LOWEST POSITION, LOCKED. CONTINUE TO MONITOR.
--- NOTE | 2021-12-02 19:15 | NUR ---
RN NOTES PATIENT RECEIVING I UNIT PRBC, NO ADVERVESE REACTION NOTED. NOT IN DISTRESS, TITAL SIGN T-97.4, P 72, O2SA7- 97%, BP-137/58. CONTINUE TO MONITOR
--- NOTE | 2021-12-02 19:30 | NUR ---
RN NOTES NO ADVERVESE REACTION NOTED. NOT IN DISTRESS, TITAL SIGN T-97.6, P 70, O2SA7- 98%, BP-136/54. CONTINUE TO MONITOR
[2021-12-02 20:00] VITALS: BP 137/58
--- NOTE | 2021-12-02 20:00 | NUR ---
RN NOTES NO ADVERVESE REACTION NOTED. NOT IN DISTRESS, TITAL SIGN T-97.4, P 72, O2SA7- 96%, BP-133/52. CONTINUE TO MONITOR
--- NOTE | 2021-12-02 21:05 | NUR ---
RN NOTES BLOOD TRANSFUSION DONE, NO ADVERVESE REACTION NOTED. NOT IN DISTRESS, VITAL SIGN T-97.5, P 72, O2SA7- 98%, BP-134/50. CONTINUE TO MONITOR
[2021-12-02 21:29] LABS: HEMOGLOBIN 7.7 g/dL (11.5-14.8)
[2021-12-02] MEDS: TOPIRAMATE 25 MG TABLET PO SCH (22:05)
[2021-12-02] MEDS: LEVETIRACETAM (250 MG) 250 MG TABLET PO SCH (22:05)
[2021-12-03] VITALS: BP 135/66
[2021-12-03 04:00] VITALS: BP 112/55
[2021-12-03] MEDS: TOPIRAMATE 25 MG TABLET PO SCH ×3 (05:03→21:10)
[2021-12-03 07:11] LABS: BASOPHILS % (AUTO) 0.3 % (0.0-2.0); EOSINOPHILS % (AUTO) 4.6 % (0.0-6.0); HEMATOCRIT 22 % (33-45); HEMOGLOBIN 7.3 g/dL (11.5-14.8); LYMPHOCYTES # (AUTO) 1.2 K/uL (0.8-4.8); LYMPHOCYTES % (AUTO) 14.7 % (20.0-44.0); MEAN CORPUSCULAR HGB CONC 34 g/dl (31.0-36.0); MEAN CORPUSCULAR VOLUME 93 fL (82-100); MONOCYTES # (AUTO) 0.9 K/uL (0.1-1.30); MONOCYTES % (AUTO) 10.8 % (2.0-12.0); NEUTROPHILS # (AUTO) 5.6 K/uL (1.8-8.9); NEUTROPHILS % (AUTO) 69.6 % (43.0-81.0); PLATELET COUNT (AUTO) 181 K/uL (150-450); RED BLOOD CELL COUNT(AUTO) 2.34 MIL/uL (4.0-5.2)
--- NOTE | 2021-12-03 07:19 | NUR ---
RN CLOSING NOTES REMAIN STABLE THROUGH OUT THE SHIFT. RESPIRATORY EVEN AND UNLABORED NO SOB NOTED. REMAIN AFEBRILE, ON ROOM AIR SATING AT 98%. PATIENT CURRENTLY ON CLEAR LIQUID DIET S/P BLOOD TRANSFUSION 1 UNIT PRBC, NO ADVERSE REACTION NOTED. ALL DUE MEDS GIVEN ORDERED. ALL SAFETY MEASURE PROVIDED. BED IN LOWEST POSITION, LOCKED. CONTINUE TO MONITOR.
--- NOTE | 2021-12-03 07:20 | NUR ---
RN OPENING NOTES RECEIVED PATIENT IN BED AWAKE, ALERT/ ORIENTED X4 AND VERBALLY RESPONSIVE. PATIENT ON ROOM AIR, BREATHING EVEN AND UNLABORED. NO SOB OR ANY ACUTE DISTRESS NOTED. PATIENT ON TELE MONITOR READING NSR WITH HR OF 72. IV ACCESS ON RAPHAEL MIDLINE FLUSHED WELL, INTACT AND PATENT. NO S/S OF INFILTRATIONS. ALL SAFETY MEASURE IN PLACE. BED ON LOWEST POSITION AND LOCKED. HOB ELEVATED. PLACE CALL LIGHT WITHIN REACH. WILL CONTINUE TO MONITOR PATIENT ACCORDINGLY.
[2021-12-03 07:38] LABS: CALCIUM, SERUM 7.7 mg/dL (8.5-10.1); CREATININE 4.1 mg/dL (0.6-1.3); MAGNESIUM 3.4 mg/dL (1.8-2.4); POTASSIUM 4.5 mmol/L (3.5-5.1)
[2021-12-03 08:00] VITALS: BP 112/52
[2021-12-03] MEDS: risperiDONE 1 MG TABLET PO SCH ×2 (08:54→16:22)
[2021-12-03] MEDS: CALCITRIOL 0.25 MCG CAPSULE PO SCH (08:55)
[2021-12-03] MEDS: SEVELAMER CARBONATE 800 MG TABLET PO SCH ×3 (08:55→17:33)
[2021-12-03] MEDS: CALCIUM CARBONATE (1250) 500 MG TABLET PO SCH (08:55)
[2021-12-03] MEDS: PANTOPRAZOLE 40 MG VIAL IV SCH (08:55)
[2021-12-03] MEDS: CARBAMAZEPINE 200 MG TABLET PO SCH ×2 (08:56→16:21)
[2021-12-03] MEDS: LEVETIRACETAM (250 MG) 250 MG TABLET PO SCH ×2 (08:56→21:10)
[2021-12-03] MEDS: LEVOTHYROXINE SODIUM 50 MCG TABLET PO SCH (09:04)
[2021-12-03 12:00] VITALS: BP 117/61
--- NOTE | 2021-12-03 12:00 | NUR ---
RN NOTES PROCEDURE FOR TUNNELED CATH FOR HEMODIALYSIS ON RIGHT GROIN WAS PERFORMED AT BEDSIDE, PATIENT TOLERATED WELL. MINIMAL BLEEDING NOTED AT THE SITE. ALL NEEDS ATTENDED. CALL LIGHT WITHIN REACH. WILL CONTINUE TO MONITOR PATIENT ACCORDINGLY.
[2021-12-03 16:00] VITALS: BP 130/68
[2021-12-03] MEDS: PANTOPRAZOLE 40 MG TABLET.DR PO SCH (16:22)
--- NOTE | 2021-12-03 18:51 | NUR ---
RN CLOSING NOTES PATIENT REMAINS IN STABLE CONDITION THROUGHOUT SHIFT. BREATHING EVEN AND UNLABORED. NO SOB OR ANY ACUTE DISTRESS NOTED. ON ROOM AIR TOLERATING WELL, O2 SAT AT 99%. NO C/O PAIN/DISCOMFORT AT THE TIME. ALL DUE MEDS GIVEN ORDERED. KEPT PATIENT CLEAN, DRY AND COMFORTABLE. ALL NEEDS ATTENDED. ALL SAFETY MEASURES IN PLACE. HOB ELEVATED, BED LOCKED AND IN LOWEST POSITION WITH SIDERAILS UP, CALL LIGHT WITHIN REACH. WILL ENDORSE TO ONCOMING NURSE FOR CONTINUE TO CARE.
--- NOTE | 2021-12-03 19:05 | NUR ---
RN OPENING NOTES RECEIVED PATIENT ON BED , ALERT ORIENTED X 4, RESPIRATORY EVEN AND UNLABORED NO SOB NOTED. REMAIN AFEBRILE, ON ROOM AIR SATING AT 98%. PATIENT CURRENTLY ON CLEAR LIQUID DIET, NECTAR THICK, NOTED WITH RIGHT UPPER ARM MID LINE, INTACT, PATENT, FLUSHED WITH NS, NO INFILTRATION NOTED AT SITE. RIGHT FEMORAL HD SITE, NO BLEEDING NOTED. ALL SAFETY MEASURE PROVIDED. BED IN LOWEST POSITION, LOCKED. CONTINUE TO MONITOR.
[2021-12-03 20:00] VITALS: BP 134/76
[2021-12-03 20:39] LABS: OCCULT BLOOD STOOL POSITIVE (NEGATIVE)
[2021-12-04] VITALS: BP 109/72
[2021-12-04 04:00] VITALS: BP 133/67
[2021-12-04] MEDS: TOPIRAMATE 25 MG TABLET PO SCH ×3 (05:14→22:03)
[2021-12-04 07:14] LABS: BASOPHILS % (AUTO) 0.2 % (0.0-2.0); EOSINOPHILS % (AUTO) 4.2 % (0.0-6.0); HEMATOCRIT 21 % (33-45); HEMOGLOBIN 7.2 g/dL (11.5-14.8); LYMPHOCYTES # (AUTO) 0.9 K/uL (0.8-4.8); LYMPHOCYTES % (AUTO) 10.9 % (20.0-44.0); MEAN CORPUSCULAR HGB CONC 34 g/dl (31.0-36.0); MEAN CORPUSCULAR VOLUME 92 fL (82-100); MONOCYTES % (AUTO) 12.2 % (2.0-12.0); NEUTROPHILS # (AUTO) 5.7 K/uL (1.8-8.9); NEUTROPHILS % (AUTO) 72.5 % (43.0-81.0); PLATELET COUNT (AUTO) 126 K/uL (150-450); RED BLOOD CELL COUNT(AUTO) 2.29 MIL/uL (4.0-5.2); WHITE BLOOD COUNT (AUTO) 7.9 K/uL (4.3-11.0)
--- NOTE | 2021-12-04 07:25 | NUR ---
RN OPENING NOTES RECEIVED PATIENT IN BED AWAKE, ALERT/ ORIENTED X4 AND VERBALLY RESPONSIVE. PATIENT ON ROOM AIR, TOLERATING WELL WITH O2 SAT OF 95% BREATHING EVEN AND UNLABORED. NO SOB OR ANY ACUTE DISTRESS NOTED. PATIENT ON TELE MONITOR READING NSR WITH HR OF 83 BPM. IV ACCESS ON RAPHAEL MIDLINE FLUSHED WELL, INTACT AND PATENT. NO S/S OF INFILTRATIONS. ALL SAFETY MEASURE IN PLACE. BED ON LOWEST POSITION AND LOCKED. HOB ELEVATED. PLACE CALL LIGHT WITHIN REACH. WILL CONTINUE TO MONITOR PATIENT ACCORDINGLY.
--- NOTE | 2021-12-04 07:32 | NUR ---
RN CLOSING NOTES NO SIGNIFICANT CHANGES THROUGH OUT THE SHIFT, RESPIRATORY EVEN AND UNLABORED NO SOB NOTED. REMAIN AFEBRILE, ON ROOM AIR SATING AT 98%. PATIENT CURRENTLY ON CLEAR LIQUID DIET, NECTAR THICK. ALL DUE MEDS GIVEN ORDERED. ALL SAFETY MEASURE PROVIDED. BED IN LOWEST POSITION, LOCKED. CONTINUE TO MONITOR.
[2021-12-04 08:00] VITALS: BP 150/62
[2021-12-04 08:16] LABS: CALCIUM, SERUM 7.7 mg/dL (8.5-10.1); CREATININE 2.8 mg/dL (0.6-1.3); MAGNESIUM 2.8 mg/dL (1.8-2.4); PHOSPHORUS 2.7 mg/dL (2.5-4.9); POTASSIUM 3.7 mmol/L (3.5-5.1)
[2021-12-04] MEDS: PANTOPRAZOLE 40 MG TABLET.DR PO SCH ×2 (08:20→17:13)
[2021-12-04] MEDS: SEVELAMER CARBONATE 800 MG TABLET PO SCH ×3 (08:20→17:13)
[2021-12-04] MEDS: CARBAMAZEPINE 200 MG TABLET PO SCH ×2 (08:20→17:13)
[2021-12-04] MEDS: LEVETIRACETAM (250 MG) 250 MG TABLET PO SCH ×2 (08:20→22:03)
[2021-12-04] MEDS: CALCIUM CARBONATE (1250) 500 MG TABLET PO SCH (08:20)
[2021-12-04] MEDS: LEVOTHYROXINE SODIUM 50 MCG TABLET PO SCH (08:20)
[2021-12-04] MEDS: risperiDONE 1 MG TABLET PO SCH ×2 (08:20→17:13)
[2021-12-04] MEDS: CALCITRIOL 0.25 MCG CAPSULE PO SCH (08:20)
[2021-12-04 12:00] VITALS: BP 124/49
[2021-12-04 12:20] LABS: EOSINOPHILS % (MANUAL) 3 % (0-4); LYMPHOCYTES % (MANUAL) 9 % (16-48); MONOCYTES % (MANUAL) 8 % (0-11.0); NEUTROPHILS % (MANUAL) 77 (42-76); REACTIVE LYMPHOCYTES 3 % (0-0)
--- NOTE | 2021-12-04 15:46 | NUR ---
RN NOTES HEMODIALYSIS FINISHED 500 ML WAS REMOVED. BP-117/64, HR-68. PATIENT REMAINS AFEBRILE. BREATHING EVEN AND UNLABORED. NO SOB OR ANY ACUTE DISTRESS NOTED. WILL CONTINUE TO MONITOR PATIENT ACCORDINGLY.
[2021-12-04 16:00] VITALS: BP 116/67
--- NOTE | 2021-12-04 19:10 | NUR ---
RN NOTES RECEIVED REPORT FROM MORNING RN. PATIENT IN BED A/O X 3 ABLE TO MAKE NEEDS KNOW. WITH RAPHAEL MIDLINE , R FEMORAL HD CATH PATENT FLUSHES WELL. VITAL SIGNS TAKEN AND RECORDED AFEBRILE. ALL SAFETY MEASURES IN PLACE AT ALL TIMES. HOB ELEVATED. CALL LIGHT WITHIN REACH. BED ON LOWEST POSITION AND LOCKED. WILL CLOSELY MONITOR THE PATIENT
--- NOTE | 2021-12-04 19:37 | NUR ---
RN CLOSING NOTES PATIENT REMAINS IN STABLE CONDITION THROUGHOUT SHIFT. BREATHING EVEN AND UNLABORED. NO SOB OR ANY ACUTE DISTRESS NOTED. ON ROOM AIR TOLERATING WELL. NO C/O PAIN/DISCOMFORT AT THE TIME. ALL DUE MEDS GIVEN ORDERED. KEPT PATIENT CLEAN, DRY AND COMFORTABLE. ALL NEEDS ATTENDED. ALL SAFETY MEASURES IN PLACE. HOB ELEVATED, BED LOCKED AND IN LOWEST POSITION WITH SIDERAILS UP, CALL LIGHT WITHIN REACH. ENDORSED TO ONCOMING NURSE FOR CONTINUITY OF CARE.
[2021-12-04 20:00] VITALS: BP_SYST 113; BP_DIAS 60; BP_DIAS 67
[2021-12-05] VITALS (12 sets, daily range): BP systolic 105–155; BP diastolic 50–76
[2021-12-05] MEDS: TOPIRAMATE 25 MG TABLET PO SCH ×3 (05:58→20:35)
[2021-12-05 07:50] LABS: BASOPHILS % (AUTO) 0.2 % (0.0-2.0); EOSINOPHILS % (AUTO) 4.5 % (0.0-6.0); LYMPHOCYTES # (AUTO) 1.3 K/uL (0.8-4.8); LYMPHOCYTES % (AUTO) 21.4 % (20.0-44.0); MEAN CORPUSCULAR HGB CONC 34 g/dl (31.0-36.0); MEAN CORPUSCULAR VOLUME 92 fL (82-100); MONOCYTES # (AUTO) 0.8 K/uL (0.1-1.30); MONOCYTES % (AUTO) 12.9 % (2.0-12.0); NEUTROPHILS # (AUTO) 3.7 K/uL (1.8-8.9); PLATELET COUNT (AUTO) 79 K/uL (150-450); RED BLOOD CELL COUNT(AUTO) 2.12 MIL/uL (4.0-5.2)
[2021-12-05 07:53] LABS: HEMOGLOBIN 6.6 g/dL (11.5-14.8)
[2021-12-05 07:54] LABS: HEMATOCRIT 20 % (33-45)
[2021-12-05 08:02] LABS: CALCIUM, SERUM 7.4 mg/dL (8.5-10.1); CREATININE 2.3 mg/dL (0.6-1.3); MAGNESIUM 2.5 mg/dL (1.8-2.4); POTASSIUM 3.5 mmol/L (3.5-5.1)
[2021-12-05] MEDS: SEVELAMER CARBONATE 800 MG TABLET PO SCH ×3 (08:14→17:08)
[2021-12-05] MEDS: CALCITRIOL 0.25 MCG CAPSULE PO SCH (08:15)
[2021-12-05] MEDS: LEVOTHYROXINE SODIUM 50 MCG TABLET PO SCH (08:15)
[2021-12-05] MEDS: PANTOPRAZOLE 40 MG TABLET.DR PO SCH ×2 (08:15→17:08)
[2021-12-05] MEDS: CALCIUM CARBONATE (1250) 500 MG TABLET PO SCH (08:15)
[2021-12-05] MEDS: LEVETIRACETAM (250 MG) 250 MG TABLET PO SCH ×2 (08:15→20:35)
[2021-12-05] MEDS: CARBAMAZEPINE 200 MG TABLET PO SCH ×2 (08:15→17:08)
[2021-12-05] MEDS: risperiDONE 1 MG TABLET PO SCH ×2 (08:15→17:08)
[2021-12-05 11:39] LABS: BAND % (MANUAL) 2 % (0.0-5.0); EOSINOPHILS % (MANUAL) 4 % (0-4); LYMPHOCYTES % (MANUAL) 22 % (16-48); MONOCYTES % (MANUAL) 7 % (0-11.0); NEUTROPHILS % (MANUAL) 65 (42-76)
--- NOTE | 2021-12-05 18:08 | NUR ---
RN NOTE S/P BLOOD TRANSFUSION OF 2 PACKS RBC, NO ADVERSE AND ALLERGIC REACTIONS NOTED. V/S WNL. NO SOB. WILL CONTINUE TO MONITOR.
--- NOTE | 2021-12-05 19:50 | NUR ---
RN NOTE RECEIVED PATIENT IN BED, AWAKE, ALERT, AND VERBALLY RESPONSIVE. ABLE TO MAKE NEEDS KNOWN. USING CELLPHONE. BREATHING EVEN AND UNLABORED AT THIS TIME. TOLERATING ROOM AIR. NO DISTRESS. SKIN WARM AND DRY, NOTED WITH RIGHT UPPER ARM MIDLINE, NO IVF, NO INFILTRATION, NOTED WITH RIGHT FEMORAL HD ACCESS. DRESSING INTACT, NO BLEEDING. DENIES PAIN. BED LOW, IN LOCKED POSITION, CALL LIGHT WITHIN REACH.
[2021-12-05 19:51] LABS: HEMOGLOBIN 9.1 g/dL (11.5-14.8)
[2021-12-06] VITALS: BP 140/69
[2021-12-06 04:00] VITALS: BP 132/83
[2021-12-06] MEDS: TOPIRAMATE 25 MG TABLET PO SCH ×3 (04:04→21:59)
[2021-12-06 06:47] LABS: BASOPHILS % (AUTO) 0.4 % (0.0-2.0); EOSINOPHILS % (AUTO) 4.8 % (0.0-6.0); HEMATOCRIT 28 % (33-45); HEMOGLOBIN 9.6 g/dL (11.5-14.8); LYMPHOCYTES # (AUTO) 1.1 K/uL (0.8-4.8); LYMPHOCYTES % (AUTO) 16.6 % (20.0-44.0); MEAN CORPUSCULAR HGB CONC 34 g/dl (31.0-36.0); MEAN CORPUSCULAR VOLUME 89 fL (82-100); MONOCYTES # (AUTO) 0.7 K/uL (0.1-1.30); MONOCYTES % (AUTO) 11.3 % (2.0-12.0); NEUTROPHILS # (AUTO) 4.4 K/uL (1.8-8.9); NEUTROPHILS % (AUTO) 66.9 % (43.0-81.0); PLATELET COUNT (AUTO) 92 K/uL (150-450); RED BLOOD CELL COUNT(AUTO) 3.18 MIL/uL (4.0-5.2); WHITE BLOOD COUNT (AUTO) 6.6 K/uL (4.3-11.0)
[2021-12-06 07:18] LABS: CALCIUM, SERUM 7.5 mg/dL (8.5-10.1); CREATININE 2.8 mg/dL (0.6-1.3); MAGNESIUM 2.4 mg/dL (1.8-2.4); PHOSPHORUS 3.6 mg/dL (2.5-4.9); POTASSIUM 3.5 mmol/L (3.5-5.1)
--- NOTE | 2021-12-06 08:00 | NUR ---
RN OPENING NOTE RECEIVED PATIENT IN BED, AO X 3-4, IN NO ACUTE DISTRESS AT THIS TIME. SATURATION AT 95% ON ROOM AIR. SKIN IS WARM TO TOUCH, KEEP CLEAN/DRY, INTACT IV AND FLUSHING WELL, AND R FERMORAL HD CATH, NO S/S OF INFECTION. SAFETY MEASURES IMPLEMENTED. PATIENT BED ALARM IS ON. HEAD OF BED ELEVATED. BED IS LOCKED, IN LOWEST POSITION AND SIDE RAILS UP. CALL LIGHT WITHIN REACH OF THE PATIENT. WILL CONTINUE TO MONITOR AND REASSESS FOR ANY CHANGES.
[2021-12-06] MEDS: CALCIUM CARBONATE (1250) 500 MG TABLET PO SCH (08:17)
[2021-12-06] MEDS: SEVELAMER CARBONATE 800 MG TABLET PO SCH ×3 (08:17→17:18)
[2021-12-06] MEDS: LEVOTHYROXINE SODIUM 50 MCG TABLET PO SCH (08:17)
[2021-12-06] MEDS: LEVETIRACETAM (250 MG) 250 MG TABLET PO SCH ×2 (08:18→21:58)
[2021-12-06] MEDS: PANTOPRAZOLE 40 MG TABLET.DR PO SCH ×2 (08:18→17:19)
[2021-12-06] MEDS: CALCITRIOL 0.25 MCG CAPSULE PO SCH (08:18)
[2021-12-06] MEDS: CARBAMAZEPINE 200 MG TABLET PO SCH ×2 (08:18→17:21)
[2021-12-06] MEDS: risperiDONE 1 MG TABLET PO SCH ×2 (08:18→17:19)
[2021-12-06 12:00] VITALS: BP 163/75
--- NOTE | 2021-12-06 15:48 | NUR ---
PATIENT REFUSED TAKE VITAL SIGN AT THIS TIME.
[2021-12-06 16:00] VITALS: BP 163/75
--- NOTE | 2021-12-06 18:14 | NUR ---
RN CLOSING NOTE PATIENT IN BED, ABLE TO RESPONDS ALL STIMULI. NO ACUTE DISTRESS OBSERVED. RESPIRATORY EVEN AND UNLABORED, NO SOB. SKIN IS WARM TO TOUCH, KEEP CLEAN/DRY, INTACT IV SITE. KEPT REMAINS ELEVATED HOB FOR ENSURE AIRWAY AND ASPIRATION PRECAUTION, ALSO LOWER POSITION OF THE BED FOR SAFETY, BED ALARM IS ON AT ALL THE TIMES. CALL LIGHT WITHIN REACH, ALL NEED MET. WILL ENDORSE PUBLIC EVENTS FACILITIES RENTAL MANAGER.
--- NOTE | 2021-12-06 19:34 | NUR ---
RN NOTES RECEIVED PT FOR CONTINUITY OF CARE. PATIENT A/OX 3-4 IN NO S/SX OF ACUTE DISTRESS AT THIS TIME; CURRENTLY ON ROOM AIR; WITH 02 SAT >95% AT THIS TIME. WILL ENSURE SAFETY MEASURES WITHIN THE SHIFT. PATIENT BED ALARM IS ON. HEAD OF BED ELEVATED. BED IS LOCKED, IN LOWEST POSITION AND SIDE RAILS UP. CALL LIGHT WITHIN REACH OF THE PATIENT. APPLICABLE ISOLATION PRECAUTIONS IN PLACE. WILL CONTINUE TO MONITOR AND REASSESS FOR ANY CHANGES AND WILL CARRY OUT ANY ONGOING AND ACTIVE MD ORDER.
[2021-12-06 20:00] VITALS: BP 154/83
[2021-12-07] VITALS: BP 99/55
--- NOTE | 2021-12-07 02:00 | NUR ---
RN NOTES PATIENT REMAINED TO BE IN NO SIGNS OF ACUTE RESPIRATORY DISTRESS , VITAL SIGNS WNL AT THIS TIME. CISCO ADMINISTRATOR MADE AWARE. WILL CONTINUE TO MONITOR AND REASSESS FOR ANY CHANGES THROUGHOUT THE SHIFT.
[2021-12-07 04:00] VITALS: BP 123/73
[2021-12-07] MEDS: TOPIRAMATE 25 MG TABLET PO SCH ×2 (05:33→12:57)
--- NOTE | 2021-12-07 06:34 | NUR ---
RN CLOSING NOTE: PATIENT REMAINS IN ROOM IN NO SIGNS OF RESPIRATORY DISTRESS, PATIENT STILL ON ROOM AIR;TOLERATING WELL SATURATING @ >95% SP02. SAFETY MEASURES IMPLEMENTED, BED IN LOWEST POSITION, LOCKED, SIDE RAILS UP, CALL LIGHT WITHIN REACH. ALL NEEDS AND ORDERS ADDRESSED DURING THE SHIFT. IV ACCESS MAINTAINED INTACT, SECURED AND FLUSHING WELL. ALL DUE MEDS GIVEN ORDERED & SCHEDULED ; PATIENT TOLERATED WELL. PATIENT KEPT CLEAN AND COMFORTABLE WITHIN THE SHIFT. PATIENT ENDORSED TO INCOMING SHIFT RN WITH STABLE VITAL SIGN AND FOR CONTINUITY OF CARE.
[2021-12-07 07:10] LABS: BASOPHILS % (AUTO) 0.3 % (0.0-2.0); EOSINOPHILS % (AUTO) 5.6 % (0.0-6.0); HEMATOCRIT 29 % (33-45); HEMOGLOBIN 9.9 g/dL (11.5-14.8); LYMPHOCYTES # (AUTO) 1.1 K/uL (0.8-4.8); MEAN CORPUSCULAR HGB CONC 34 g/dl (31.0-36.0); MEAN CORPUSCULAR VOLUME 89 fL (82-100); MONOCYTES # (AUTO) 0.6 K/uL (0.1-1.30); NEUTROPHILS # (AUTO) 4.3 K/uL (1.8-8.9); NEUTROPHILS % (AUTO) 67.1 % (43.0-81.0); PLATELET COUNT (AUTO) 109 K/uL (150-450); RED BLOOD CELL COUNT(AUTO) 3.29 MIL/uL (4.0-5.2); WHITE BLOOD COUNT (AUTO) 6.4 K/uL (4.3-11.0)
--- NOTE | 2021-12-07 07:30 | NUR ---
RN OPENING NOTE PATIENT RESTING IN ROOM IN NO SIGNS OF RESPIRATORY DISTRESS, PATIENT ON ROOM AIR;TOLERATING WELL SATURATING @ >95% SP02. PATIENT HAS RAPHAEL MIDLINE INTACT AND PATENT AND R FEMORAL HD CATH INTACT AND PATENT. . SAFETY MEASURES IMPLEMENTED, BED IN LOWEST POSITION, LOCKED, SIDE RAILS UP, CALL LIGHT WITHIN REACH. WILL CONTINUE TO MONITOR
[2021-12-07 07:33] LABS: CALCIUM, SERUM 7.8 mg/dL (8.5-10.1); CREATININE 2.8 mg/dL (0.6-1.3); MAGNESIUM 2.5 mg/dL (1.8-2.4); PHOSPHORUS 3.8 mg/dL (2.5-4.9); POTASSIUM 3.7 mmol/L (3.5-5.1)
[2021-12-07 08:00] VITALS: BP 157/93
[2021-12-07] MEDS: PANTOPRAZOLE 40 MG TABLET.DR PO SCH (09:29)
[2021-12-07] MEDS: CALCITRIOL 0.25 MCG CAPSULE PO SCH (09:29)
[2021-12-07] MEDS: SEVELAMER CARBONATE 800 MG TABLET PO SCH ×2 (09:29→12:57)
[2021-12-07] MEDS: CALCIUM CARBONATE (1250) 500 MG TABLET PO SCH (09:30)
[2021-12-07] MEDS: LEVOTHYROXINE SODIUM 50 MCG TABLET PO SCH (09:30)
[2021-12-07] MEDS: LEVETIRACETAM (250 MG) 250 MG TABLET PO SCH (09:30)
[2021-12-07] MEDS: risperiDONE 1 MG TABLET PO SCH (09:30)
[2021-12-07] MEDS: CARBAMAZEPINE 200 MG TABLET PO SCH (09:33)
[2021-12-07 12:00] VITALS: BP 150/84
--- NOTE | 2021-12-07 14:00 | NUR ---
BUSINESS DEVELOPMENT DIRECTOR NOTE PATIENT DISCHARGED IN STABLE CONDITION. RAPHAEL MIDLINE REMOVED AND L FEMORAL HD CATH REMOVED WITH NO SIGNS OF BLEEDING OR DISTRESS. PATIENT ON RA O2SAT OF >95% THROUGHOUT SHIFT. PATIENT HAD ALL VALUABLES WITH HER UPON DISCHARGE. CARE TRANSFERRED TO TWO EMT'S FOR TRANSPORT TO [facility]. PATIENT STABLE UPON DISCHARGE.
--- NOTE | 2021-12-07 14:11 | NUR ---
RN OPENING NOTE PATIENT RESTING IN ROOM IN NO SIGNS OF RESPIRATORY DISTRESS, PATIENT ON ROOM AIR;TOLERATING WELL SATURATING @ >95% SP02. PATIENT HAS RAPHAEL MIDLINE INTACT AND PATENT. SAFETY MEASURES IMPLEMENTED, BED IN LOWEST POSITION, LOCKED, SIDE RAILS UP, CALL LIGHT WITHIN REACH. WILL CONTINUE TO MONITOR. Addendum: 12/07/21 at 1418 by AUREA VILLARREAL RN OPENING NOTE IS AT 0730 NOT 1418. PATIENT DISCHARGED AT 1400.
[2021-12-09 09:07] LABS: HEPATITIS Be AB Negative (Negative)
== END 2021-12-07 13:57 | DRG 253 ==
LOC: ER 10:04 → TRANSITION 13:09 → TELE1 14:03 → TELE-TD 15:13 → TELE1 12-03 19:09
PROVIDERS: ADMIT Nurse Practitioner Family; ATTEND Nurse Practitioner Family
PROC: 30233N1 Transfusion of Nonautologous Red Blood Cells into Peripheral Vein, Percutaneous Approach (ICD-10-PCS; principal; 2021-12-02)
PROC: 05H533Z Insertion of Infusion Device into Right Subclavian Vein, Percutaneous Approach (ICD-10-PCS; 2021-12-02)
PROC: B546ZZA Ultrasonography of Right Subclavian Vein, Guidance (ICD-10-PCS; 2021-12-02)
PROC: 06HM33Z Insertion of Infusion Device into Right Femoral Vein, Percutaneous Approach (ICD-10-PCS; 2021-12-03)
PROC: B54BZZA Ultrasonography of Right Lower Extremity Veins, Guidance (ICD-10-PCS; 2021-12-03)
PROC: 5A1D70Z Performance of Urinary Filtration, Intermittent, Less than 6 Hours Per Day (ICD-10-PCS; 2021-12-03)
DX: K92.2 Gastrointestinal hemorrhage, unspecified (principal); N17.0 Acute kidney failure with tubular necrosis; D69.1 Qualitative platelet defects; E44.0 Moderate protein-calorie malnutrition; N18.4 Chronic kidney disease, stage 4 (severe); D63.8 Anemia in other chronic diseases classified elsewhere; E83.51 Hypocalcemia; D69.59 Other secondary thrombocytopenia; E83.9 Disorder of mineral metabolism, unspecified; E11.22 Type 2 diabetes mellitus with diabetic chronic kidney disease; I13.0 Hypertensive heart and chronic kidney disease with heart failure and stage 1 through stage 4 chronic kidney disease, or unspecified chronic kidney disease; I50.9 Heart failure, unspecified; E88.09 Other disorders of plasma-protein metabolism, not elsewhere classified; D62 Acute posthemorrhagic anemia; I25.10 Atherosclerotic heart disease of native coronary artery without angina pectoris; Z87.820 Personal history of traumatic brain injury; E03.9 Hypothyroidism, unspecified; E66.01 Morbid (severe) obesity due to excess calories; E78.5 Hyperlipidemia, unspecified; J45.909 Unspecified asthma, uncomplicated; Z20.822 Contact with and (suspected) exposure to COVID-19; Z87.891 Personal history of nicotine dependence; Z90.710 Acquired absence of both cervix and uterus; R27.0 Ataxia, unspecified; Z68.42 Body mass index [BMI] 45.0-49.9, adult; Z99.3 Dependence on wheelchair
CPT/HCPCS: 36415; 70450-TC; 71045-TC; 80048-TC; 80074; 80076-TC; 81001; 82272-TC; 83540-TC; 83605-TC; 83735-TC; 83880; 83970; 84100-TC; 84484-TC; 85025-TC; 85027-TC; 85730-TC; 86704; 86706; 86707; 86708; 86709; 86850-TC; 87040-TC; 87081-TC; 87086-TC; 87340; 90935-TC; C1750; C9113; G0378; J0692; J3370; J7030; J7050; J7060; P9016

== ENCOUNTER 2021-12-29 20:30 | Inpatient (IN) | payer MEDICARE, OTHER ==
[~2021-12-29] VITALS: Ht 167.6 cm; Wt 98.9 kg
[~2021-12-29 20:30] MED LIST changes: +ACET-868 PO; -ACET325T53 PO; -ALBU18HF2 IH; +CALC0.253 PO; +CALC500T52 PO; -CALC500T53 PO; -CARV25TA2 PO; +CLOT15CR27 TP; +FURO-144 PO; +HYDR-4076 PO; -HYDR-4384 PO; -MAGN400T8 PO; +MAGN500T2 PO; +SEVE800T8 PO; -VIT1TABL46 PO
--- NOTE | 2021-12-29 20:43 | NUR ---
[facility] FROM [facility], PER CAREGIVER "PATIENT IS MORE WEAK TODAY AND FEELING SICK". PATIENT ON A MONITOR AND POX, IN BED 06 AWAITING MD JACKSON.
[2021-12-29 21:27] LABS: BASOPHILS % (AUTO) 0.3 % (0.0-2.0); HEMATOCRIT 25 % (33-45); HEMOGLOBIN 8.2 g/dL (11.5-14.8); LYMPHOCYTES # (AUTO) 1.1 K/uL (0.8-4.8); LYMPHOCYTES % (AUTO) 11.3 % (20.0-44.0); MEAN CORPUSCULAR HGB CONC 33 g/dl (31.0-36.0); MEAN CORPUSCULAR VOLUME 91 fL (82-100); MONOCYTES # (AUTO) 0.8 K/uL (0.1-1.30); MONOCYTES % (AUTO) 8.3 % (2.0-12.0); NEUTROPHILS # (AUTO) 7.3 K/uL (1.8-8.9); NEUTROPHILS % (AUTO) 77.1 % (43.0-81.0); PLATELET COUNT (AUTO) 176 K/uL (150-450); RED BLOOD CELL COUNT(AUTO) 2.71 MIL/uL (4.0-5.2); WHITE BLOOD COUNT (AUTO) 9.4 K/uL (4.3-11.0)
[2021-12-29 21:48] LABS: CALCIUM, SERUM 8.2 mg/dL (8.5-10.1); CARBON DIOXIDE 23 mmol/L (21-32); CHLORIDE 94 mmol/L (98-107); CREATININE 3.4 mg/dL (0.6-1.3); GLUCOSE 103 mg/dL (74-106); POTASSIUM 4.6 mmol/L (3.5-5.1); SODIUM SERUM 126 mmol/L (136-145)
[2021-12-29 21:52] LABS: UREA NITROGEN, BLOOD 85 mg/dL (7-18)
[2021-12-29 22:00] LABS: EOSINOPHILS % (MANUAL) 4 % (0-4); LYMPHOCYTES % (MANUAL) 11 % (16-48); MONOCYTES % (MANUAL) 5 % (0-11.0); NEUTROPHILS % (MANUAL) 80 (42-76)
[2021-12-29 22:03] LABS: ALKALINE PHOSPHATASE 188 U/L (46-116); ASPARTATE AMINOTRANSFERASE 13 U/L (15-37); BILIRUBIN,TOTAL 0.1 mg/dL (0.2-1.0)
[2021-12-29 22:04] LABS: ALANINE AMINOTRANSFERASE 16 U/L (12-78); TOTAL PROTEIN, SERUM 6.6 g/dL (6.4-8.2)
--- NOTE | 2021-12-29 22:20 | NUR ---
COVID SWAB SENT TO LAB
[2021-12-29] MEDS ORDERED: IV NS 0.9% 1,000 ML BAG IV ONE (22:30)
--- NOTE | 2021-12-29 22:51 | NUR ---
MRSA SWAB COLLECTED AND SENT TO LAB. PATIENT'S BELONGINGS LIST DONE.
[2021-12-29] MEDS ORDERED: hydrALAZINE HCL IV 20 MG VIAL IV PRN (23:30)
[2021-12-29] MEDS ORDERED: MORPHINE SULFATE INJ 2 MG/ML DISP.SYRIN IV PRN (23:30)
[2021-12-29] MEDS ORDERED: Z GUARD REMEDY 4 OZ OINT TP PRN (23:30)
[2021-12-29] MEDS ORDERED: ONDANSETRON HCL/PF 4 MG/2 ML VIAL IVP PRN (23:30)
[2021-12-29] MEDS ORDERED: ACETAMINOPHEN 325 MG TABLET PO PRN (23:30)
[2021-12-29] MEDS ORDERED: LABETALOL 20 MG/4 ML VIAL IV PRN (23:30)
[2021-12-29] MEDS ORDERED: MAGNESIUM HYDROXIDE 30 ML UDC PO PRN (23:30)
[2021-12-29] MEDS ORDERED: MAG HYDROX/AL HYDROX/SIMETH 30 ML UDC PO PRN (23:30)
[2021-12-30] MEDS ORDERED: LORAZEPAM INJ 2 MG/ML VIAL IV PRN
[2021-12-30] MEDS ORDERED: IV NS 0.9% 1,000 ML IV ONE
--- NOTE | 2021-12-30 00:27 | NUR ---
US TECH AT PT'S BEDSIDE
[2021-12-30 00:37] LABS: THYROID STIMULATING HORMONE 89.295 uIU/mL (0.358-3.74)
--- NOTE | 2021-12-30 01:10 | NUR ---
REPORT GIVEN TO ERROL
--- NOTE | 2021-12-30 02:37 | NUR ---
PT TRANSPORTED TO ROOM [address] PER [employer] [employer]
[2021-12-30 02:40] VITALS: BP 145/58
--- NOTE | 2021-12-30 04:36 | NUR ---
ADMISSION NOTES PT TRANSFERRED VIA [facility] @0230. AOx1-2. ON RA AND TOLERATING WELL. NO SOB NOTED. NO S/SX OF RESPIRATORY DISTRESS NOTED. TELE MONITOR DETECTS SINUS RHYTHM WITH RATE OF 68. IV ACCESS IN L WRIST #24 G RUNNING NS @ 70 ML/HR. SAFETY PRECAUTIONS IN PLACE: BED IN LOWEST, LOCKED POSITION, SIDERAILS UPx2, AND BRAKES ON. TABLE AND CALL LIGHT WITHIN REACH. WILL CONTINUE TO MONITOR.
[2021-12-30 04:42] VITALS: BP 145/58
[2021-12-30] MEDS: TOPIRAMATE 25 MG TABLET PO SCH ×3 (05:00→21:23)
[2021-12-30] MEDS: hydrALAZINE HCL 25 MG TABLET PO SCH ×3 (05:00→21:23)
--- NOTE | 2021-12-30 06:53 | NUR ---
RN CLOSING NOTES PT IN BED, ASLEEP, AWAKENS TO VERBAL STIMULI. AOx1-2. ON RA AND TOLERATING WELL. NO SOB NOTED. NO S/SX OF RESPIRATORY DISTRESS NOTED. TELE MONITOR DETECTS SINUS RHYTHM WITH RATE OF 68. IV ACCESS IN L WRIST #24 G RUNNING NS @ 70 ML/HR. ALL NEEDS MET. PT KEPT CLEAN AND DRY. SAFETY PRECAUTIONS IN PLACE: BED IN LOWEST, LOCKED POSITION, SIDERAILS UPx2, AND BRAKES ON. TABLE AND CALL LIGHT WITHIN REACH. WILL ENDORSE TO ONCOMING SHIFT FOR CHRISTINE.
[2021-12-30 07:27] LABS: BASOPHILS % (AUTO) 0.3 % (0.0-2.0); EOSINOPHILS % (AUTO) 3.6 % (0.0-6.0); HEMATOCRIT 22 % (33-45); HEMOGLOBIN 7.2 g/dL (11.5-14.8); LYMPHOCYTES # (AUTO) 1.1 K/uL (0.8-4.8); LYMPHOCYTES % (AUTO) 13.2 % (20.0-44.0); MEAN CORPUSCULAR HGB CONC 34 g/dl (31.0-36.0); MEAN CORPUSCULAR VOLUME 91 fL (82-100); MONOCYTES # (AUTO) 0.7 K/uL (0.1-1.30); MONOCYTES % (AUTO) 8.5 % (2.0-12.0); NEUTROPHILS % (AUTO) 74.4 % (43.0-81.0); PLATELET COUNT (AUTO) 154 K/uL (150-450); RED BLOOD CELL COUNT(AUTO) 2.37 MIL/uL (4.0-5.2); WHITE BLOOD COUNT (AUTO) 8.1 K/uL (4.3-11.0)
[2021-12-30] MEDS ORDERED: LEVOTHYROXINE SODIUM 50 MCG TABLET PO SCH (07:30)
[2021-12-30 07:43] LABS: ALBUMIN 2.6 g/dL (3.4-5.0); BILIRUBIN,TOTAL 0.1 mg/dL (0.2-1.0); CALCIUM, SERUM 7.5 mg/dL (8.5-10.1); CREATININE 3.3 mg/dL (0.6-1.3); MAGNESIUM 3.2 mg/dL (1.8-2.4); PHOSPHORUS 4.2 mg/dL (2.5-4.9); POTASSIUM 4.4 mmol/L (3.5-5.1); TOTAL PROTEIN, SERUM 5.5 g/dL (6.4-8.2)
--- NOTE | 2021-12-30 07:55 | NUR ---
RN OPENING NOTE PATIENT IN BED RESTING AWAKE, A/OX3, NO S/S OF PAIN NOTED AT THIS TIME. ON ROOM AIR, NO DISTRESS OR SHORTNESS OF BREATH NOTED. IV ACCESS R WRIST #24G. PATIENT WITH EXTERNAL CAR INSTALLATIONS SUPERVISOR WITH CURRENT READING OF SR., NO CARDIAC DISTRESS NOTED. FALL AND SAFETY MEASURES IN PLACE, BED ALARM ON. BED IN LOW AND LOCK POSITION, CALL LIGHT AND TABLE WITHIN EASY REACH, SIDE RAILS UP X2. WILL CONTINUE TO MONITOR.
[2021-12-30 08:00] VITALS: BP 108/66
[2021-12-30] MEDS: HEPARIN SODIUM, PORCINE 5000 UNITS/1 ML VIAL SQ SCH ×3 (09:00→21:00)
[2021-12-30] MEDS ORDERED: FUROSEMIDE 40 MG TABLET PO SCH (09:00)
[2021-12-30] MEDS: risperiDONE 1 MG TABLET PO SCH ×2 (09:55→16:57)
[2021-12-30] MEDS: PANTOPRAZOLE 40 MG TABLET.DR PO SCH (09:55)
[2021-12-30] MEDS: CARBAMAZEPINE 200 MG TABLET PO SCH ×2 (09:56→16:56)
[2021-12-30] MEDS: MAGNESIUM OXIDE 400 MG TABLET PO SCH (09:57)
[2021-12-30] MEDS: CALCIUM CARBONATE (1250) 500 MG TABLET PO SCH (09:58)
[2021-12-30] MEDS: LEVETIRACETAM (250 MG) 250 MG TABLET PO SCH ×2 (09:58→21:23)
[2021-12-30] MEDS: CALCITRIOL 0.25 MCG CAPSULE PO SCH (09:59)
[2021-12-30] MEDS: AMLODIPINE BESYLATE 5 MG TABLET PO SCH (10:00)
[2021-12-30] MEDS: SEVELAMER CARBONATE 800 MG TABLET PO SCH ×3 (10:08→17:00)
--- NOTE | 2021-12-30 11:00 | NUR ---
RN NOTE PATIENT REFUSED TO TAKE HER 0900 HEPARIN. PATIENT SAID SHE IS ALLERGIC TO ALL ANTICOAGULANTS. DOCTOR WAS INFORM WHILE HE WAS IN PATIENT ROOM.
[2021-12-30 12:00] VITALS: BP 128/64
[2021-12-30 15:54] LABS: BAND % (MANUAL) 1 % (0.0-5.0); EOSINOPHILS % (MANUAL) 2 % (0-4); LYMPHOCYTES % (MANUAL) 13 % (16-48); MONOCYTES % (MANUAL) 4 % (0-11.0); NEUTROPHILS % (MANUAL) 80 (42-76)
[2021-12-30 16:00] VITALS: BP 136/70
--- NOTE | 2021-12-30 16:35 | NUR ---
SS Note: SS Consult requested for "pt. is at risk per admission assessment". Per EMR, Pt. has Hx. of functional quadriplegia, TBI, CHF, epilepsy, hypothyroidism, hypertension, CAD, CKD, GERD, psychosis, hyperlipidemia, oganic brain syndrome and does have a history of CVA, MDD and psychosis from the past. Per caregiver, the pt. was brought to the hospital for generalized weakness. EDGAR met with pt. bedside. The pt. is alert & oriented to name. Patient has some cognitive delay and is a poor historian. However, she stated she resides at [facility] [phone] and would like to return there once ready for discharge. Patient also stated her POA is her adopted son, Efrem Calderon [phone]. SW explored if pt. has any needs, areas of concern and patient stated that she is allergic to aspirin and has adverse reaction to blood thinner and stated she is on a salt free diet. SW validated pt. and relayed information to patient's nurse, Constance who was already aware and addressing it. Per CM note, patient will be able to return to [facility] [phone] when medically cleared. SW provided pt. with Senior abdifatah and pt. accepted them: ABUSE PREVENTION: ELDER ABUSE HOTLINE (03/05) ADULT PROTECTIVE SERVICES HOTLINE LONG-TERM CARE [facility] Region AREA ON AGING (HOTLINE) ADULT DAY HEALTH CARE CARE CENTERS: Private pay or [facility] funded adult day care [place] Adult [facility] Care [facility] , [facility] , [facility] , [facility] [place] Adult [facility] Health Care , [facility] Adult Day Health Care , [facility] Adult Daycare Center , [facility] , [place] Figueroa [facility] Adult [place] , [place] ALZHEIMERS DISEASE/DEMENTIA: Alzheimers Association Helpline [facility] Chapter www.alz.org/[facility] Department of Aging www.lacity.org Family Caregiver Fair Play www.caregiver.org [place] Caregiver Resources Center/Family Support www.[facility].org CANCER RESOURCES: Finnish Cancer Society www.cancer.org Cancer Support Community www.CancerSupportVvsb.org: CancerCare www.cancercare.org [facility] Cancer Support [place] www.[facility].org FIRSTHEALTH HEALTH ASSOCIATIONS: AARP www.aarp.org ALS Association (ask for Sonali) www.als.org Finnish Diabetes Association www.diabetes.org Finnish Heart Association www.heart.org Finnish Lung Association www.lungusa.org Finnish Parkinson Disease Association www.apdaparkinson.org [place] , www.redcross.org Arthritis Foundation www.arthritis.org Crohns & Colitis Foundation of Finnish www.ccfa.org/chapters/senait National Multiple Sclerosis Society www.nationalmssociety.org Myasthenia Gravis Foundation www.myasthenia-ca.org National Stroke Association www.stroke.org CONSERVATORSHIP & GUARDIANSHIP: AARP [place] Legal Services Center for Health Care Rights [place]are Information and Referral Kiln Labourer [facility]: [facility] Bar Referral Service [facility] Neighborhood Legal Services Office of the Public Guardian [place] EYESIGHT DISORDER RESOURCES: [place] Macular Degeneration Foundation [facility] www.[facility].org GRIEF AND BEREAVEMENT RESOURCES: The Gathering Place , [facility] THE HOPE Connection , [facility] , [place] HEARING DISORDER RESOURCES: [place] Telephone Access Program Deaf and Disabled Telecommunications Program www.ddtp.[facility].ca.gov HearRx Hearing Centers ([place]) Better Hearing Systems , [place] GLAD ([facility] Agency on Deafness) V/ TTY; Cash Management Officer , [facility] Hearing [facility] -low income hearing aid assistance www.Bioquimicamansfield hospitalringfoundation.org [place] [facility] , Arelis HELP AT HOME CAREGIVER SUPPORT: In Home Support Services (Must have Medi-Mohan to be eligible) *Ask for a list of agencies that provide services to assist with care in the home. Local Senior Centers also have listings of care providers. HOME SAFETY MODIFICATIONS AND EQUIPMENT: Senior centers have additional referrals. [place] Housing and Community Investment Dept. Handyworker Program (low income) or Visit http://hcidla.lacity.org/diy-tloxtj-wr for more information National Seating and Mobility and/or ; Forever Active www.foreveractivemed.com Stay Home Safe www.Stayhomesafe.com LIFE ALERT RESPONSE SYSTEM: Cinedigm Services [phone] www. Cinelan.[place]ia[place]ala Life Alert 664-843-5049 www.Sistemic.[place] Life Station 974-328-5146 www.FRINGE [employer].Viajala Safe Return 457-062-2861 www.alz.or/safereturn Cell Phones for Seniors www.[employer]IS [employer] MEALS AND FOOD PROGRAMS: [place] Meals on Wheels [phone] [place] Meals on Wheels [phone] [facility] [phone] [place] to the Homebound [phone] [place] to the Homebound [phone] [facility] to the Homebound [phone] [facility] to the Homebound [phone] [facility] [phone] [facility] [phone] ONE Generation [phone] [facility] [phone] [facility] [phone] Meals on Wheels [phone] For all ages: $6.85/ meal w side. Delivered M-F from 10 am-1pm. Application and payment is done over the phone. Frozen meals available for weekends. Emergency Food [facility] [phone] [facility] Casino Cashier Manager [phone] [facility] [phone] [facility]- Brown bag lunches [phone] [facility] [phone] MEAL/GROCERY DELIVERY PROGRAMS: [facility] Gourmet Meals [phone]- [facility] [phone]- [facility] Magic Kitchen [phone] Moms Meals [phone] (ask Sheth for Discount Select grocery stores may provide delivery. MEDICAL INSURANCE SUPPORT SERVICES: Center for Health Care Rights [phone] Health Insurance Counseling/Advocacy Programs (HICAP)-Must have Medicare. Offers counseling for Medi-Mohan eligibility [phone] Department of Public Casino Cashier Manager [phone] www.[facility].ca.gov Medicare 790-088-1995 www.socialsecurity.org Social Security [phone] SENIOR ACTIVITY PROGRAMS: *Contact a local senior center, adult school, recreation facility or community [facility] for education, fitness, recreation, and social programs. Aquatic Therapy and Adapted Exercise programs through [facility] [phone] Encore at [facility] [phone]/encore H2U- Senior Friends [phone] [place] Senior Programs [phone] www.oasisnet.org Suddenly 65 www.eibmcoja27.com SENIOR CENTERS: [facility] Center [phone] [facility] [phone] [facility] [phone] [facility] [phone] [facility] [phone] [facility] [phone] [facility] [phone] [facility] [phone] One GenerationViviRoyal [facility] [phone] [facility] [phone] [facility] [phone] [facility] [phone] [facility] [phone] TRANSPORTATION: Local [facility] may have applications for transportation programs and additional resources. ACCESS Services [phone] Transportation for seniors and disabled persons 7 days a week requiring 254 hr. advance reservation. Must apply and register for program ruba eligible. Brickflow RIDE [phone] or [phone] Transportation for seniors and persons with ADA card/metro disabled card in the [facility]. M-F only. Must register for services. ONE GENERATION [phone] Serves 65 years + in conjunction with city ride program. Must be registered with both programs. A to B Transport [phone] Provides wheelchair/gurney van service. Adult Medical Transport [phone] Accepts [facility] with prior authorization. Care Van [phone] Provides wheelchair Transport. [facility] Wide Transportation [phone] Provides gurney service [facility] Care [phone] Gurney Transport. All Town Transportation [phone] wheelchair & gurney transport D Transportation [phone] wheelchair & gurney transport [place] Non-Emergency Transport [phone] wheelchair & gurney transport [facility] Living [place] [phone] Short Term Transportation primarily for adults with disabilities on social security income. Nominal fee may apply and a reservation is required. [facility] [phone] or [phone] [facility] [phone] [place] [address] Referral Services -[phone] For additional programs & services VETERANS RESOURCES: Submissions for Aid and Attendance should be done directly to Federal VA office locatd at : [address] [address] X110 National Caregiver Support Line [phone] [facility] Veterans Services Field Office [phone] [place] Department of Affairs [phone] Pension Information [phone]
--- NOTE | 2021-12-30 19:02 | NUR ---
RN CLOSING NOTE PATIENT IN BED RESTING AWAKE, A/OX3, NO S/S OF PAIN NOTED AT THIS TIME. ON ROOM AIR, NO DISTRESS OR SHORTNESS OF BREATH NOTED. IV ACCESS R WRIST #24G. PATIENT WITH EXTERNAL MAID HOUSEKEEPER WITH CURRENT READING OF SR. AND HR OF 80, NO CARDIAC DISTRESS NOTED. ALL SCHEDULE MEDS ADMINISTERED, PATIENT PREFERS PILL WHOLE, BIG PILLS ONE AT A TIME. PATIENT WOULD LIKE HER FOOD TO BE NO SALT, DIETARY EXPLAIN TO PATIENT WE HAVE LOW SALT DIET. PATIENT COMPLAIN OF HER MEALS, 3 DIFFERENT BREAKFAST WAS ORDERED FOR PATIENT. FOR LUNCH AND DINNER PATIENT ATE A TURKEY SANDWICH, WHEAT BREAD AND MUSTER ONLY. PATIENT REFUSED TO BE REPOSITION OR TURN, PATIENT LIKE TO BE ONLY ON HER BACK AND NO PILLOWS UNDER HER FEET OR ARMS, TRIED SEVERAL TIMES TO REPOSITION PATIENT BUT PATIENT REFUSED EVERY TIME. FALL AND SAFETY MEASURES IN PLACE, BED ALARM ON. BED IN LOW AND LOCK POSITION, CALL LIGHT AND TABLE WITHIN EASY REACH, SIDE RAILS UP X2. WILL ENDORSE TO BARREL DRUM CUTTER.
--- NOTE | 2021-12-30 19:45 | NUR ---
TELE/RN OPENING NOTE RECEIVED PATIENT SLEEPING IN BED. ALERT AND ORIENTED X 2-3. ABLE TO MAKE NEEDS KNOWN. DENIES PAIN AT THIS TIME. CONTINUES ON ROOM AIR WITH NO S/SX OF RESPIRATORY DISTRESS NOTED. IV ACCESS TO LEFT WRIST #24G INTACT AND PATENT. CONTINUES ON IVF NS @ 70ML/HR. ORDER FOR BLOOD TRANSFUSION - WILL ATTEMPT PERIPHERAL IV PLACEMENT. CONTINUES ON TELE MONITOR WITH CURRENT SR. CONTINUES ON SOFT DIET WITH NO S/SX OF ASPIRATION NOTED. CALL LIGHT WITHIN REACH. ASPIRATION, FALL AND SAFETY PRECAUTIONS MAINTAINED. WILL CONTINUE TO MONITOR.
[2021-12-30 20:00] VITALS: BP 140/69
[2021-12-30 20:11] LABS: HEMOGLOBIN 8.1 g/dL (11.5-14.8)
--- NOTE | 2021-12-30 20:30 | NUR ---
TELE/RN NOTE ATTEMPTED IV PLACEMENT WITH MULTIPLE RN'S WITH NO SUCCESS. NOTIFIED MD WITH NEW ORDER FOR MIDLINE PLACEMENT. NOTIFIED NURSING GROUP HOME COUNSELOR ARVIN ESCALANTE. NOTIFIED MIDLINE TEAM WHO STATES THEY WILL BE HERE BY 2300.
[2021-12-30] MEDS: ATORVASTATIN 10 MG TABLET PO SCH (21:23)
[2021-12-31] VITALS (10 sets, daily range): BP systolic 98–128; BP diastolic 54–75
--- NOTE | 2021-12-31 00:14 | NUR ---
TELE/RN NOTE MD FIGUEROA FROM MIDLINE TEAM HERE. PLACED MIDLINE TO RIGHT UPPER ARM #18G.
--- NOTE | 2021-12-31 01:17 | NUR ---
TELE/RN NOTE STARTED BLOOD TRANSFUSION AT APPROX. 0100. DISCUSSED ADVERSE REACTIONS WITH PATIENT AND TOLD HER TO CALL IF SHE HAS ANY. BLOOD VERIFIED WITH PATRICIA DUTTON.
[2021-12-31] MEDS: hydrALAZINE HCL 25 MG TABLET PO SCH ×4 (05:00→21:03)
[2021-12-31] MEDS: TOPIRAMATE 25 MG TABLET PO SCH ×3 (05:58→20:59)
--- NOTE | 2021-12-31 06:25 | NUR ---
TELE/RN CLOSING NOTE PATIENT CURRENTLY RESTING IN BED. ALERT AND ORIENTED X 2-3. ABLE TO MAKE NEEDS KNOWN. DENIES PAIN AT THIS TIME. CONTINUES ON ROOM AIR WITH NO S/SX OF RESPIRATORY DISTRESS NOTED. IV ACCESS TO RIGHT UPPER ARM MIDLINE #18G INTACT, PATENT AND SALINE LOCKED. CONTINUES ON TELE MONITOR WITH CURRENT SR WITH 1ST DEGREE HB HR 78. CONTINUES ON SOFT DIET WITH NO S/SX OF ASPIRATION NOTED. CALL LIGHT WITHIN REACH. ASPIRATION, FALL AND SAFETY PRECAUTIONS MAINTAINED. WILL ENDORSE PLAN OF CARE TO ONCOMING SHIFT.
[2021-12-31] MEDS: LEVOTHYROXINE SODIUM 50 MCG TABLET PO SCH (07:30)
--- NOTE | 2021-12-31 07:52 | NUR ---
TELE/RN OPENING NOTE RECEIVE PATIENT RESTING IN BED. ON ROOM AIR; NO S/SX OF RESPIRATORY DISTRESS NOTED; BREATHING EVEN AND UNLABORED. NO S/SX OF PAIN PRESENT AT THIS TIME. IV ACCESS TO RIGHT UPPER ARM MIDLINE #18G INTACT, PATENT AND SALINE LOCKED. TELE MONITOR WITH CURRENT READING OF SR 71. CALL LIGHT WITHIN REACH. ASPIRATION, FALL AND SAFETY PRECAUTIONS MAINTAINED. WILL CONTINUE TO MONITOR PATIENT.
[2021-12-31] MEDS: CALCIUM CARBONATE (1250) 500 MG TABLET PO SCH (08:35)
[2021-12-31] MEDS: MAGNESIUM OXIDE 400 MG TABLET PO SCH (08:35)
[2021-12-31] MEDS: SEVELAMER CARBONATE 800 MG TABLET PO SCH ×3 (08:36→17:08)
[2021-12-31] MEDS: CALCITRIOL 0.25 MCG CAPSULE PO SCH (08:37)
[2021-12-31] MEDS: LEVETIRACETAM (250 MG) 250 MG TABLET PO SCH ×2 (08:37→20:59)
[2021-12-31] MEDS: CARBAMAZEPINE 200 MG TABLET PO SCH ×2 (08:38→17:08)
[2021-12-31] MEDS: PANTOPRAZOLE 40 MG TABLET.DR PO SCH (08:38)
[2021-12-31] MEDS: risperiDONE 1 MG TABLET PO SCH ×2 (08:39→17:08)
[2021-12-31] MEDS: AMLODIPINE BESYLATE 5 MG TABLET PO SCH (08:41)
[2021-12-31] MEDS: HEPARIN SODIUM, PORCINE 5000 UNITS/1 ML VIAL SQ SCH ×2 (08:42→21:00)
[2021-12-31 10:01] LABS: BASOPHILS % (AUTO) 0.5 % (0.0-2.0); EOSINOPHILS % (AUTO) 2.6 % (0.0-6.0); HEMATOCRIT 24 % (33-45); HEMOGLOBIN 8.1 g/dL (11.5-14.8); LYMPHOCYTES % (AUTO) 12.2 % (20.0-44.0); MEAN CORPUSCULAR HGB CONC 34 g/dl (31.0-36.0); MEAN CORPUSCULAR VOLUME 91 fL (82-100); MONOCYTES # (AUTO) 0.6 K/uL (0.1-1.30); MONOCYTES % (AUTO) 7.1 % (2.0-12.0); NEUTROPHILS # (AUTO) 6.3 K/uL (1.8-8.9); NEUTROPHILS % (AUTO) 77.6 % (43.0-81.0); PLATELET COUNT (AUTO) 154 K/uL (150-450); RED BLOOD CELL COUNT(AUTO) 2.66 MIL/uL (4.0-5.2); WHITE BLOOD COUNT (AUTO) 8.2 K/uL (4.3-11.0)
[2021-12-31 10:29] LABS: CREATININE 3.4 mg/dL (0.6-1.3); POTASSIUM 4.5 mmol/L (3.5-5.1)
[2021-12-31 10:35] LABS: ALBUMIN 2.7 g/dL (3.4-5.0); BILIRUBIN,TOTAL 0.2 mg/dL (0.2-1.0); TOTAL PROTEIN, SERUM 5.8 g/dL (6.4-8.2)
[2021-12-31 18:16] LABS: HEMOGLOBIN 8.3 g/dL (11.5-14.8)
--- NOTE | 2021-12-31 18:43 | NUR ---
TELE/RN CLOSING NOTE PATIENT RESTING IN BED. A/O X3. ON ROOM AIR; NO S/SX OF RESPIRATORY DISTRESS NOTED; BREATHING EVEN AND UNLABORED. NO COMPLAINS OF PAIN AT THIS TIME. IV ACCESS TO RIGHT UPPER ARM MIDLINE #18G INTACT, PATENT AND SALINE LOCKED. TELE MONITOR WITH CURRENT READING OF SR 74. ALL NEEDS ATTENDED DURING THE DAY. CALL LIGHT WITHIN REACH. ASPIRATION, FALL AND SAFETY PRECAUTIONS MAINTAINED. WILL ENDORSE TO TELLER SUPERVISOR NURSE FOR CHRISTINE.
--- NOTE | 2021-12-31 19:35 | NUR ---
FITTER PLACER OPENING NOTES RECEIVED PATIENT ON BED, AWAKE, ALERT AND ORIENTED X 3. BREATHING IS EVEN AND NONLABORED. NO SOB NOTED. NOT IN ANY FORM OF DISTRESS. ON ROOM AIR, TOLERATING WELL. ON TELEMETRY MONITORING VIA EXTERNAL HUMAN RESOURCES PARTNER; SINUS RHYTHM 75. WITH IV ACCESS AT LEFT WRIST G24; SALINE LOCKED. CALL LIGHT AND TABLE WITHIN REACH. SIDE RAILS UP X 2. BED IS PLACED IN LOWEST LOCKED POSITION. SAFETY MEASURES MAINTAINED. WILL CONTINUE TO MONITOR
--- NOTE | 2021-12-31 21:10 | NUR ---
BULK FOLDER NOTES DUE HEPARIN SODIUM 5000 U 1ML SQ REFUSED; PATIENT VERBALIZED "I AM ALLERGIC TO ALL BLOOD THINNERS.'
[2021-12-31] MEDS: ATORVASTATIN 10 MG TABLET PO SCH (21:23)
[2021-12-31 21:40] LABS: BASOPHILS % (AUTO) 0.3 % (0.0-2.0); EOSINOPHILS % (AUTO) 2.8 % (0.0-6.0); HEMATOCRIT 24 % (33-45); LYMPHOCYTES # (AUTO) 1.3 K/uL (0.8-4.8); LYMPHOCYTES % (AUTO) 15.9 % (20.0-44.0); MEAN CORPUSCULAR HGB CONC 33 g/dl (31.0-36.0); MEAN CORPUSCULAR VOLUME 91 fL (82-100); MONOCYTES # (AUTO) 0.8 K/uL (0.1-1.30); MONOCYTES % (AUTO) 9.8 % (2.0-12.0); NEUTROPHILS # (AUTO) 5.7 K/uL (1.8-8.9); NEUTROPHILS % (AUTO) 71.2 % (43.0-81.0); PLATELET COUNT (AUTO) 145 K/uL (150-450); RED BLOOD CELL COUNT(AUTO) 2.66 MIL/uL (4.0-5.2); WHITE BLOOD COUNT (AUTO) 7.9 K/uL (4.3-11.0)
[2022-01-01] VITALS: BP 117/66
[2022-01-01 02:08] LABS: HEMOGLOBIN 7.8 g/dL (11.5-14.8)
[2022-01-01 04:00] VITALS: BP 135/64
[2022-01-01] MEDS: TOPIRAMATE 25 MG TABLET PO SCH ×3 (04:36→22:03)
[2022-01-01] MEDS: hydrALAZINE HCL 25 MG TABLET PO SCH ×4 (04:41→21:00)
--- NOTE | 2022-01-01 06:40 | NUR ---
CLINICAL RESEARCH MONITOR CLOSING NOTES PATIENT IS ON BED; AWAKE, ALERT AND ORIENTED X 2-3. ON ROOM AIR, WELL TOLERATED. NO SOB NOTED. NO S/SX OF RESPIRATORY DISTRESS NOTED. DENIES ANY PAIN OF THIS TIME. WITH IV ACCESS ON L UPPER ARM G24; DRY AND INTACT; SALINE LOCKED. CONTINUES ON TELE MONITOR WITH SR 1ST DEGREE AV BLOCK HR 84. SAFETY PRECAUTIONS IMPLEMENTED. CALL LIGHT AND TABLE WITHIN REACH. SIDE RAILS UP X 2. BED IS IN LOWEST LOCKED POSITION. WILL ENDORSED TO MORNING SHIFT FOR CONTINUITY OF CARE.
[2022-01-01 07:17] LABS: ALBUMIN 2.8 g/dL (3.4-5.0); BILIRUBIN,TOTAL 0.2 mg/dL (0.2-1.0); CALCIUM, SERUM 7.9 mg/dL (8.5-10.1); CREATININE 3.9 mg/dL (0.6-1.3); POTASSIUM 4.7 mmol/L (3.5-5.1)
[2022-01-01 07:36] LABS: BASOPHILS % (AUTO) 0.3 % (0.0-2.0); EOSINOPHILS % (AUTO) 2.4 % (0.0-6.0); HEMATOCRIT 26 % (33-45); HEMOGLOBIN 8.5 g/dL (11.5-14.8); LYMPHOCYTES # (AUTO) 1.2 K/uL (0.8-4.8); LYMPHOCYTES % (AUTO) 13.6 % (20.0-44.0); MEAN CORPUSCULAR HGB CONC 33 g/dl (31.0-36.0); MEAN CORPUSCULAR VOLUME 91 fL (82-100); MONOCYTES # (AUTO) 0.8 K/uL (0.1-1.30); MONOCYTES % (AUTO) 9.8 % (2.0-12.0); NEUTROPHILS # (AUTO) 6.3 K/uL (1.8-8.9); NEUTROPHILS % (AUTO) 73.9 % (43.0-81.0); PLATELET COUNT (AUTO) 157 K/uL (150-450); RED BLOOD CELL COUNT(AUTO) 2.81 MIL/uL (4.0-5.2); WHITE BLOOD COUNT (AUTO) 8.5 K/uL (4.3-11.0)
--- NOTE | 2022-01-01 07:57 | NUR ---
TECHNICAL OPERATOR OPENING NOTE Patient in bed, awake. A/O x 2-3. On room air, breathing evenly and unlabored. No SOB or s/s of distress noted. IV access on RAPHAEL midline #18G, intact and patent. On tele monitoring showing SR, HR on the 80's. Safety measures in place: bed in low, locked position; siderails up x 2; call light within reach. Will continue to monitor.
[2022-01-01 08:00] VITALS: BP 143/88
--- NOTE | 2022-01-01 08:19 | NUR ---
RN NOTE Received critical value from lab, BUN is 100 and creatinine is 3.9. Dr. Ocampo and Dr. Contreras notified. Awaiting orders.
[2022-01-01] MEDS: CALCIUM CARBONATE (1250) 500 MG TABLET PO SCH (08:44)
[2022-01-01] MEDS: CARBAMAZEPINE 200 MG TABLET PO SCH ×2 (08:44→18:11)
[2022-01-01] MEDS: PANTOPRAZOLE 40 MG TABLET.DR PO SCH (08:44)
[2022-01-01] MEDS: SEVELAMER CARBONATE 800 MG TABLET PO SCH ×3 (08:44→18:10)
[2022-01-01] MEDS: LEVOTHYROXINE SODIUM 50 MCG TABLET PO SCH (08:44)
[2022-01-01] MEDS: MAGNESIUM OXIDE 400 MG TABLET PO SCH (08:44)
[2022-01-01] MEDS: LEVETIRACETAM (250 MG) 250 MG TABLET PO SCH ×2 (08:45→22:03)
[2022-01-01] MEDS: risperiDONE 1 MG TABLET PO SCH ×2 (08:45→18:11)
[2022-01-01] MEDS: CALCITRIOL 0.25 MCG CAPSULE PO SCH (08:45)
[2022-01-01] MEDS: HEPARIN SODIUM, PORCINE 5000 UNITS/1 ML VIAL SQ SCH ×2 (09:00→21:00)
[2022-01-01] MEDS: AMLODIPINE BESYLATE 5 MG TABLET PO SCH (09:00)
--- NOTE | 2022-01-01 09:00 | NUR ---
RN NOTE Patient refused Heparin injection, Dr. Ocampo aware.
[2022-01-01 12:00] VITALS: BP 117/55
--- NOTE | 2022-01-01 12:58 | NUR ---
RN NOTE Patient's BP decreased from 143/88 to 117/55 from this morning. Patient is scheduled for HD today, Hydralazine PO held.
[2022-01-01 16:00] VITALS: BP 115/62
[2022-01-01 18:19] LABS: HEMOGLOBIN 8.4 g/dL (11.5-14.8)
--- NOTE | 2022-01-01 18:30 | NUR ---
RN NOTE As per PAPA Andrea, permacath is okay to use.
--- NOTE | 2022-01-01 19:52 | NUR ---
HOSIERY MENDER CLOSING NOTE Patient in bed, resting. A/O x 2-3. On room air, breathing evenly and unlabored. No SOB or s/s of distress noted. IV access on RAPHAEL midline #18G, intact and patent. On tele monitoring showing SR, HR on the 80's. all needs attended to. Due meds given. Safety measures in place: bed in low, locked position; siderails up x 2; call light within reach. Will endorse to security shift supervisor nurse for CHRISTINE.
--- NOTE | 2022-01-01 19:55 | NUR ---
ROOF TRUSS MACHINE TENDER OPENING NOTES RECEIVED PATIENT ON BED, RESTING. ALERT AND ORIENTED X 2-3. BREATHING EVENLY AND UNLABORED. NO SOB NOTED. NO S/SX OF DISTRESS NOTED. ON ROOM AIR, TOLERATING WELL. ON TELE MONITORING SINUS RHYTHM, HR 82. WITH IV ACCESS ON RAPHAEL MIDLINE G18; PATENT AND INTACT. WITH ONGOING HEMODIALYSIS TREATMENT AT BEDSIDE. ABLE TO MAKE NEEDS KNOWN. SAFETY MEASURES IMPLEMENTED. CALL LIGHT AND TABLE WITHIN REACH. SIDE RAILS UP X 2. BED PLACED IN LOWEST LOCKED POSITION. SAFETY MEASURES IMPLEMENTED. WILL CONTINUE TO MONITOR.
[2022-01-01 20:00] VITALS: BP 137/73
[2022-01-01 21:40] LABS: BASOPHILS # (AUTO) 0.1 K/uL (0.0-0.2); BASOPHILS % (AUTO) 0.5 % (0.0-2.0); EOSINOPHILS % (AUTO) 2.1 % (0.0-6.0); HEMATOCRIT 25 % (33-45); HEMOGLOBIN 8.5 g/dL (11.5-14.8); LYMPHOCYTES # (AUTO) 0.9 K/uL (0.8-4.8); MEAN CORPUSCULAR HGB CONC 34 g/dl (31.0-36.0); MEAN CORPUSCULAR VOLUME 90 fL (82-100); MONOCYTES # (AUTO) 0.8 K/uL (0.1-1.30); NEUTROPHILS % (AUTO) 80.4 % (43.0-81.0); PLATELET COUNT (AUTO) 111 K/uL (150-450)
--- NOTE | 2022-01-01 21:45 | NUR ---
LEAD MECHANIC NOTES HEMODIALYSIS TREATMENT COMPLETED WITH 1L OUTPUT. PATIENT IS ALERT, AWAKE AND ORIENTED. ABLE TO MAKE NEEDS KNOWN. DUE MEDS GIVEN ORALLY ORDERED.
[2022-01-01] MEDS: ATORVASTATIN 10 MG TABLET PO SCH (22:03)
[2022-01-01] MEDS ORDERED: EPOETIN ALFA (10,000 UNIT) 10,000 UNIT/ML VIAL ONE (22:38)
[2022-01-01] MEDS: EPOETIN ALFA (4000 UNIT) 4,000 UNIT/ML VIAL IV PRN (22:59)
[2022-01-02] VITALS: BP 118/64
[2022-01-02 02:21] LABS: HEMOGLOBIN 7.8 g/dL (11.5-14.8)
[2022-01-02 04:00] VITALS: BP 113/47
[2022-01-02] MEDS: hydrALAZINE HCL 25 MG TABLET PO SCH ×3 (05:00→21:10)
[2022-01-02] MEDS: TOPIRAMATE 25 MG TABLET PO SCH ×3 (05:16→21:10)
--- NOTE | 2022-01-02 06:40 | NUR ---
AUTO SERVICER CLOSING NOTES PATIENT IS ON BED; AWAKE, ALERT AND ORIENTED X 2-3. ON ROOM AIR, WELL TOLERATED. NO SOB NOTED. NO S/SX OF RESPIRATORY DISTRESS NOTED. DENIES ANY PAIN OF THIS TIME. WITH IV ACCESS ON L UPPER ARM G24; DRY AND INTACT; SALINE LOCKED. CONTINUES ON TELE MONITOR WITH SR 1ST DEGREE AV BLOCK HR 74. SAFETY PRECAUTIONS IMPLEMENTED. CALL LIGHT AND TABLE WITHIN REACH. SIDE RAILS UP X 2. BED IS IN LOWEST LOCKED POSITION. WILL ENDORSED TO MORNING SHIFT FOR CONTINUITY OF CARE.
[2022-01-02 06:45] LABS: BASOPHILS % (AUTO) 0.4 % (0.0-2.0); HEMATOCRIT 23 % (33-45); HEMOGLOBIN 7.8 g/dL (11.5-14.8); LYMPHOCYTES # (AUTO) 1.1 K/uL (0.8-4.8); LYMPHOCYTES % (AUTO) 12.4 % (20.0-44.0); MEAN CORPUSCULAR HGB CONC 34 g/dl (31.0-36.0); MEAN CORPUSCULAR VOLUME 91 fL (82-100); MONOCYTES # (AUTO) 0.9 K/uL (0.1-1.30); MONOCYTES % (AUTO) 9.2 % (2.0-12.0); NEUTROPHILS # (AUTO) 7.1 K/uL (1.8-8.9); PLATELET COUNT (AUTO) 100 K/uL (150-450); RED BLOOD CELL COUNT(AUTO) 2.56 MIL/uL (4.0-5.2); WHITE BLOOD COUNT (AUTO) 9.3 K/uL (4.3-11.0)
[2022-01-02] MEDS: LEVOTHYROXINE SODIUM 50 MCG TABLET PO SCH ×2 (07:30→09:01)
--- NOTE | 2022-01-02 07:44 | NUR ---
FIELD ASSEMBLY SUPERVISOR OPENING NOTE Patient in bed, awake. A/O x 2-3, with delayed speech. On room air, breathing evenly and unlabored. IV access on RAPHAEL midline, SL intact and patent. Right internal jugular hemodialysis catheter noted. On tele monitoring showing SR, HR on the 70's. Safety precautions in place, bed in low, locked position; siderails up x 2; call light within reach. Will continue to monitor.
[2022-01-02 08:00] VITALS: BP 120/69
[2022-01-02 08:38] LABS: ALBUMIN 2.5 g/dL (3.4-5.0); BILIRUBIN,TOTAL 0.2 mg/dL (0.2-1.0); CALCIUM, SERUM 7.9 mg/dL (8.5-10.1); CREATININE 2.6 mg/dL (0.6-1.3); POTASSIUM 4.2 mmol/L (3.5-5.1); TOTAL PROTEIN, SERUM 5.7 g/dL (6.4-8.2)
[2022-01-02] MEDS: HEPARIN SODIUM, PORCINE 5000 UNITS/1 ML VIAL SQ SCH ×2 (09:00→21:00)
[2022-01-02] MEDS: CALCITRIOL 0.25 MCG CAPSULE PO SCH (09:01)
[2022-01-02] MEDS: CARBAMAZEPINE 200 MG TABLET PO SCH ×2 (09:01→17:39)
[2022-01-02] MEDS: PANTOPRAZOLE 40 MG TABLET.DR PO SCH (09:01)
[2022-01-02] MEDS: CALCIUM CARBONATE (1250) 500 MG TABLET PO SCH (09:01)
[2022-01-02] MEDS: SEVELAMER CARBONATE 800 MG TABLET PO SCH ×3 (09:01→17:39)
[2022-01-02] MEDS: risperiDONE 1 MG TABLET PO SCH ×2 (09:02→17:39)
[2022-01-02] MEDS: MAGNESIUM OXIDE 400 MG TABLET PO SCH (09:03)
[2022-01-02] MEDS: LEVETIRACETAM (250 MG) 250 MG TABLET PO SCH ×2 (09:03→21:10)
[2022-01-02] MEDS: AMLODIPINE BESYLATE 5 MG TABLET PO SCH (09:03)
[2022-01-02 10:59] LABS: HEMOGLOBIN 7.9 g/dL (11.5-14.8)
[2022-01-02 16:00] VITALS: BP 132/66
[2022-01-02 18:25] LABS: HEMOGLOBIN 8.4 g/dL (11.5-14.8)
--- NOTE | 2022-01-02 19:30 | NUR ---
ASSEMBLER SHOW MOTOR NOTES RECEIVED LAYING COMFORTABLY ON BED,CONVERSANT WHEN ENGAGED,DELAYED RESPONSE.BREATHING REGULAR,NOT IN ANY FORM OF DISTRESS.WITH RIGHT UPPER ARM MIDLINE FOR MEDS,RIGHT JUGULAR CATHETER FOR HD ACCESS.DENIES DISCOMFORTS AT THE MOMENT,CALL LIGHT IN REACH,NEEDS ANTICIPATED.
--- NOTE | 2022-01-02 19:31 | NUR ---
PANEL EDGE PAINTER CLOSING NOTE Patient in bed, resting. A/O x 2-3, with delayed speech. Stable on room air, breathing evenly and unlabored. IV access on RAPHAEL midline, SL intact and patent. Right internal jugular hemodialysis catheter noted. On tele monitoring showing SR, HR on the 70's. Due meds given. All needs attended to. Safety precautions maintained, bed in low, locked position; siderails up x 2; call light within reach. Will endorse to date night sitter nurse for CHRISTINE.
[2022-01-02 20:00] VITALS: BP 133/59
[2022-01-02 20:36] VITALS: BP 133/59
[2022-01-02] MEDS: ATORVASTATIN 10 MG TABLET PO SCH (21:10)
[2022-01-02 21:48] LABS: BASOPHILS % (AUTO) 0.4 % (0.0-2.0); EOSINOPHILS % (AUTO) 2.3 % (0.0-6.0); HEMATOCRIT 24 % (33-45); HEMOGLOBIN 8.1 g/dL (11.5-14.8); LYMPHOCYTES # (AUTO) 1.5 K/uL (0.8-4.8); LYMPHOCYTES % (AUTO) 14.5 % (20.0-44.0); MEAN CORPUSCULAR HGB CONC 33 g/dl (31.0-36.0); MEAN CORPUSCULAR VOLUME 91 fL (82-100); MONOCYTES # (AUTO) 1.2 K/uL (0.1-1.30); MONOCYTES % (AUTO) 10.9 % (2.0-12.0); NEUTROPHILS # (AUTO) 7.7 K/uL (1.8-8.9); NEUTROPHILS % (AUTO) 71.9 % (43.0-81.0); PLATELET COUNT (AUTO) 107 K/uL (150-450); RED BLOOD CELL COUNT(AUTO) 2.69 MIL/uL (4.0-5.2); WHITE BLOOD COUNT (AUTO) 10.7 K/uL (4.3-11.0)
[2022-01-03] VITALS (8 sets, daily range): BP systolic 115–149; BP diastolic 56–86
[2022-01-03] MEDS: TOPIRAMATE 25 MG TABLET PO SCH ×3 (05:01→21:00)
[2022-01-03] MEDS: hydrALAZINE HCL 25 MG TABLET PO SCH ×3 (05:01→21:00)
[2022-01-03] MEDS: LEVOTHYROXINE SODIUM 50 MCG TABLET PO SCH (06:29)
--- NOTE | 2022-01-03 06:35 | NUR ---
SUPERVISOR COOLER SERVICE NOTES FAIRLY RESTED AT NIGHT.ALL DUE MEDS ADMINISTERED,MORNING CARE RENDERED,SCHEDULED HEMODIALYSIS TREATMENT TODAY.WILL ENDORSE TO DAY NURSE FOR CHRISTINE.
--- NOTE | 2022-01-03 07:39 | NUR ---
FRIT COATER NOTES RECEIVED PATIENT LYING IN BED AWAKE, HOB ELEVATED. ABLE TO VERBALIZE NEEDS. A/O X3. TOLERATING ROOM AIR WELL. BREATHING EVEN AND UNLABORED. HAS RIGHT UPPER ARM MIDLINE #18G AND SALINE LOCK. INTACT, FLUSHING AND PATENT. SAFETY PRECAUTIONS IN PLACED. WILL CONTINUE PLAN OF CARE.
[2022-01-03] MEDS: PANTOPRAZOLE 40 MG TABLET.DR PO SCH (08:22)
[2022-01-03] MEDS: HEPARIN SODIUM, PORCINE 5000 UNITS/1 ML VIAL SQ SCH ×2 (09:00→21:00)
[2022-01-03] MEDS: AMLODIPINE BESYLATE 5 MG TABLET PO SCH (09:00)
[2022-01-03] MEDS: risperiDONE 1 MG TABLET PO SCH ×2 (09:01→17:01)
[2022-01-03] MEDS: CALCITRIOL 0.25 MCG CAPSULE PO SCH (09:01)
[2022-01-03] MEDS: MAGNESIUM OXIDE 400 MG TABLET PO SCH (09:01)
[2022-01-03] MEDS: CALCIUM CARBONATE (1250) 500 MG TABLET PO SCH (09:01)
[2022-01-03] MEDS: CARBAMAZEPINE 200 MG TABLET PO SCH ×2 (09:01→17:01)
[2022-01-03] MEDS: SEVELAMER CARBONATE 800 MG TABLET PO SCH ×3 (09:02→17:04)
[2022-01-03] MEDS: LEVETIRACETAM (250 MG) 250 MG TABLET PO SCH ×2 (09:02→21:04)
--- NOTE | 2022-01-03 09:11 | NUR ---
AIRPLANE PILOT SUPERVISOR NOTES HOLD FAM, PATIENT IS UNDERGOING HD THIS AM. REFUSED HEPARIN, VERBALIZED SHE IS ALLERGIC TO BLOOD THINNERS.
[2022-01-03 09:22] LABS: BASOPHILS % (AUTO) 0.3 % (0.0-2.0); EOSINOPHILS % (AUTO) 2.5 % (0.0-6.0); HEMATOCRIT 25 % (33-45); HEMOGLOBIN 8.3 g/dL (11.5-14.8); LYMPHOCYTES # (AUTO) 1.5 K/uL (0.8-4.8); LYMPHOCYTES % (AUTO) 16.1 % (20.0-44.0); MEAN CORPUSCULAR HGB CONC 33 g/dl (31.0-36.0); MEAN CORPUSCULAR VOLUME 92 fL (82-100); MONOCYTES # (AUTO) 0.9 K/uL (0.1-1.30); MONOCYTES % (AUTO) 9.4 % (2.0-12.0); NEUTROPHILS # (AUTO) 6.8 K/uL (1.8-8.9); NEUTROPHILS % (AUTO) 71.7 % (43.0-81.0); PLATELET COUNT (AUTO) 110 K/uL (150-450); RED BLOOD CELL COUNT(AUTO) 2.72 MIL/uL (4.0-5.2); WHITE BLOOD COUNT (AUTO) 9.5 K/uL (4.3-11.0)
[2022-01-03 10:45] LABS: HEMOGLOBIN 8.1 g/dL (11.5-14.8)
--- NOTE | 2022-01-03 11:26 | NUR ---
DIVE MASTER NOTES SEEN AND EXAMINED BY DR. ROMANO. PLAN OF CARE DISCUSSED WITH PATIENT, VERBALIZED UNDERSTANDING. PER MD, PLAN FOR PERMACATH PLACEMENT AND HE WILL DISCUSS WITH DR. MATTHEWS.
[2022-01-03 11:31] LABS: CALCIUM, SERUM 8.7 mg/dL (8.5-10.1); CREATININE 3.4 mg/dL (0.6-1.3); POTASSIUM 4.3 mmol/L (3.5-5.1)
[2022-01-03 11:34] LABS: ALBUMIN 2.7 g/dL (3.4-5.0); BILIRUBIN,TOTAL 0.2 mg/dL (0.2-1.0); TOTAL PROTEIN, SERUM 5.9 g/dL (6.4-8.2)
--- NOTE | 2022-01-03 12:39 | NUR ---
UNDERWATER TRAPPER NOTES HOLD HYDRALAZINE POST DIALYSIS. PER RN, REMOVED 2L OF FLUID. WILL MONITOR BP.
[2022-01-03] MEDS: EPOETIN ALFA (4000 UNIT) 4,000 UNIT/ML VIAL IV PRN (12:47)
--- NOTE | 2022-01-03 15:31 | NUR ---
HORIZONTAL BORING MILL SET UP OPERATOR NOTES NOTIFIED DR. ROMANO THAT PATIENT IS CONSTIPATED. NEW ORDER OF COLACE 100 MG BID SCHEDULED AND MIRALAX 17 GM DAILY SCHEDULED. NOTED AND CARRIED OUT.
[2022-01-03] MEDS: POLYETHYLENE GLYCOL 3350 17 GM POWD.PACK PO SCH (15:39)
[2022-01-03] MEDS: DOCUSATE SODIUM 100 MG CAPSULE PO SCH (17:00)
[2022-01-03 18:17] LABS: HEMOGLOBIN 8.3 g/dL (11.5-14.8)
--- NOTE | 2022-01-03 19:16 | NUR ---
COLLATERAL CLERK CLOSING NOTES PATIENT RESTING IN BED. RESPONSIVE TO VERBAL AND TACTILE STIMULI. A/O X2. NO APPARENT DISTRESS NOTED. NO SOB OR . NO C/O PAIN AT THIS TIME. 2 LITERS OF FLUID REMOVED DURING DIALYSIS. HAS RIGHT UPPER ARM MIDLINE #18G AND SALINE LOCK. PATENT, INTACT AND FLUSHING. REINFORCED RIGHT JUGULAR CENTRAL DIALYSIS LINE DRESSING. NO BM OF THIS TIME. SAFETY PRECAUTIONS IN PLACED: BED LOW AND LOCKED, SIDE RAILS UP X2, CALL LIGHT WITHIN REACH.
--- NOTE | 2022-01-03 19:45 | NUR ---
PATIENT ADVOCATE NOTES RECEIVED ON BED A/O X3,DOING HER RASHEL THING,BREATHING EASY,NO SOB,S/P HD TODAY REPORTED BY DAY NURSE.WITH RIGHT UPPER ARM MIDLINE FOR MEDS,RIGHT JUGULAR CATHETER FOR HD TREATMENT.NO COMPLAINTS AT THE MOMENT,CALL LIGHT IN REACH,NEEDS ANTICIPATED.
--- NOTE | 2022-01-03 21:00 | NUR ---
LIMO DRIVER NOTES ALL DUE PO MEDS GIVEN SCHEDULED,TAKE WITH WATER WITH THICKENER,NEGATIVE FOR ASPIRATION
[2022-01-03] MEDS: ATORVASTATIN 10 MG TABLET PO SCH (21:05)
[2022-01-03 21:35] LABS: BASOPHILS % (AUTO) 0.3 % (0.0-2.0); EOSINOPHILS % (AUTO) 2.4 % (0.0-6.0); HEMATOCRIT 23 % (33-45); HEMOGLOBIN 7.7 g/dL (11.5-14.8); LYMPHOCYTES # (AUTO) 1.3 K/uL (0.8-4.8); LYMPHOCYTES % (AUTO) 13.7 % (20.0-44.0); MEAN CORPUSCULAR HGB CONC 33 g/dl (31.0-36.0); MEAN CORPUSCULAR VOLUME 91 fL (82-100); MONOCYTES # (AUTO) 0.9 K/uL (0.1-1.30); NEUTROPHILS # (AUTO) 6.7 K/uL (1.8-8.9); NEUTROPHILS % (AUTO) 73.6 % (43.0-81.0); PLATELET COUNT (AUTO) 63 K/uL (150-450); RED BLOOD CELL COUNT(AUTO) 2.53 MIL/uL (4.0-5.2); WHITE BLOOD COUNT (AUTO) 9.1 K/uL (4.3-11.0)
[2022-01-04] VITALS (18 sets, daily range): BP systolic 85–138; BP diastolic 47–76
[2022-01-04 02:52] LABS: ALBUMIN 2.3 g/dL (3.4-5.0); BILIRUBIN,TOTAL 0.1 mg/dL (0.2-1.0); CALCIUM, SERUM 7.8 mg/dL (8.5-10.1); CREATININE 2.9 mg/dL (0.6-1.3); HEMOGLOBIN 6.8 g/dL (11.5-14.8); POTASSIUM 4.5 mmol/L (3.5-5.1); TOTAL PROTEIN, SERUM 5.2 g/dL (6.4-8.2)
--- NOTE | 2022-01-04 03:00 | NUR ---
GEOPHYSICAL OBSERVER NOTES REPORTED LAB,H/H AT 2AM WAS 6.8/,ALICIA PRATHER CEREAL CHEMIST MADE AWARE,WITH NEW ORDER TO TRANSFUSE 1 UNIT OF OF PRBC,NOTED. ORDERS PUT IN, BLOOD BANK MADE AWARE.
--- NOTE | 2022-01-04 03:00 | NUR ---
DIETITIAN RESEARCH NOTES TYPE AND SCREEN INITIATED BY LAB
[2022-01-04] MEDS: TOPIRAMATE 25 MG TABLET PO SCH ×3 (05:46→21:00)
[2022-01-04] MEDS: hydrALAZINE HCL 25 MG TABLET PO SCH ×3 (05:47→22:15)
--- NOTE | 2022-01-04 06:50 | NUR ---
PLUMBER SUPERVISOR NOTES REPORTED BY JOB LUKE,WITH SMALL AMOUNT OF STOOL WITH TINY BLOOD CLOTS ON IT,ORDERED STOOL FOR OB,BLOOD READY FOR PICK,LATEST BP 108/61,PULSE 102 ON TELE MONITOR.NOT IN ANY FORM OF DISTRESS,CALL LIGHT IN REACH,NEEDS ATTENDED.
[2022-01-04] MEDS: LEVOTHYROXINE SODIUM 50 MCG TABLET PO SCH (07:17)
--- NOTE | 2022-01-04 07:22 | NUR ---
TAPE LIBRARIAN OPENING NOTES RECEIVED PATIENT ON BED, RESTING. ALERT AND ORIENTED X 2-3. BREATHING EVENLY AND UNLABORED. NO SOB NOTED. NO S/SX OF DISTRESS NOTED. ON ROOM AIR, TOLERATING WELL. ON TELE MONITORING. WITH IV ACCESS ON RAPHAEL MIDLINE G18; PATENT AND INTACT.. ABLE TO MAKE NEEDS KNOWN. SAFETY MEASURES IMPLEMENTED. CALL LIGHT AND TABLE WITHIN REACH. SIDE RAILS UP X 2. BED PLACED IN LOWEST LOCKED POSITION. SAFETY MEASURES IMPLEMENTED. WILL CONTINUE TO MONITOR.
--- NOTE | 2022-01-04 07:51 | NUR ---
RN NOTE BLOOD TRANSFUSION STARTED, VITALS DOCUMENTED, EXPLAINED S/SX OF TRANSFUSION REACTION, VERBALIZED UNDERSTANDING. WILL CONTINUE TO MONITOR
[2022-01-04] MEDS: POLYETHYLENE GLYCOL 3350 17 GM POWD.PACK PO SCH ×2 (08:26→09:00)
[2022-01-04] MEDS: SEVELAMER CARBONATE 800 MG TABLET PO SCH ×3 (08:26→17:00)
[2022-01-04] MEDS: PANTOPRAZOLE 40 MG TABLET.DR PO SCH (08:26)
[2022-01-04] MEDS: DOCUSATE SODIUM 100 MG CAPSULE PO SCH ×2 (08:26→16:03)
[2022-01-04] MEDS: CALCIUM CARBONATE (1250) 500 MG TABLET PO SCH (08:27)
[2022-01-04] MEDS: LEVETIRACETAM (250 MG) 250 MG TABLET PO SCH ×2 (08:27→21:00)
[2022-01-04] MEDS: AMLODIPINE BESYLATE 5 MG TABLET PO SCH (08:27)
[2022-01-04] MEDS: MAGNESIUM OXIDE 400 MG TABLET PO SCH (08:27)
[2022-01-04] MEDS: CARBAMAZEPINE 200 MG TABLET PO SCH ×2 (08:27→16:59)
[2022-01-04] MEDS: risperiDONE 1 MG TABLET PO SCH ×2 (08:27→16:59)
[2022-01-04] MEDS: CALCITRIOL 0.25 MCG CAPSULE PO SCH (08:27)
[2022-01-04] MEDS: HEPARIN SODIUM, PORCINE 5000 UNITS/1 ML VIAL SQ SCH (08:28)
--- NOTE | 2022-01-04 08:51 | NUR ---
RN NOTE PATIENT REFUSED HEPARIN STATED SHES ALLERGIC, ALSO REFUSE BLOOD PRESSURE MEDICATION DUE TO BP LOWER THAN USUAL. PATIENT TOLERATING TRANSFUSION WELL.
--- NOTE | 2022-01-04 09:31 | NUR ---
RN NOTE PATIENT NOTED WITH BLOOD IN STOOL, STOOL OCCULT COLLECTED, MD NOTIFIED GAVE NEW ORDERS FOR GOLYTELY AND CLEAR LIQUID DIET, PATIENT IN TRANSFUSION MD ORDERED ANOTHER 1 UNIT STAT, VITALS STABLE, WILL CONTINUE TO MONITOR
[2022-01-04] MEDS: PANTOPRAZOLE 40 MG VIAL IV SCH ×2 (09:51→16:59)
[2022-01-04] MEDS ORDERED: MIDODRINE HCL (5MG) 5 MG TABLET PO PRN (10:00)
[2022-01-04] MEDS ORDERED: PEG 3350/NA SULF,BICARB,CL/KCL 4,000 ML BOTTLE PO ONE (10:00)
--- NOTE | 2022-01-04 10:00 | NUR ---
RN NOTE FIRST TRANSFUSION ENDED, VITALS STABLE NO S/SX OF TRANSFUSION REACTION NOTED, 2ND TRANSFUSION STARTED.
[2022-01-04 11:21] LABS: OCCULT BLOOD STOOL POSITIVE (NEGATIVE)
[2022-01-04 12:05] LABS: BASOPHILS % (AUTO) 0.3 % (0.0-2.0); EOSINOPHILS % (AUTO) 1.1 % (0.0-6.0); HEMATOCRIT 25 % (33-45); HEMOGLOBIN 8.4 g/dL (11.5-14.8); LYMPHOCYTES # (AUTO) 1.4 K/uL (0.8-4.8); LYMPHOCYTES % (AUTO) 12.6 % (20.0-44.0); MEAN CORPUSCULAR HGB CONC 33 g/dl (31.0-36.0); MEAN CORPUSCULAR VOLUME 91 fL (82-100); MONOCYTES # (AUTO) 1.3 K/uL (0.1-1.30); MONOCYTES % (AUTO) 11.7 % (2.0-12.0); NEUTROPHILS # (AUTO) 8.1 K/uL (1.8-8.9); NEUTROPHILS % (AUTO) 74.3 % (43.0-81.0); PLATELET COUNT (AUTO) 64 K/uL (150-450); WHITE BLOOD COUNT (AUTO) 10.9 K/uL (4.3-11.0)
[2022-01-04 12:06] LABS: HEMOGLOBIN 8.4 g/dL (11.5-14.8)
--- NOTE | 2022-01-04 12:32 | NUR ---
RN NOTE BLOOD PRESSURE NOTED SBP <90 WILL GIVE MIDODRINE PER ORDER
[2022-01-04] MEDS ORDERED: ALBUMIN 25% 25 GM in PREMIX 1 EA IV PRN (13:30)
--- NOTE | 2022-01-04 18:27 | NUR ---
LEAF SORTER CLOSING NOTES PATIENT ON BED, RESTING. ALERT AND ORIENTED X 2-3. BREATHING EVENLY AND UNLABORED. NO SOB NOTED. NO S/SX OF DISTRESS NOTED. ON ROOM AIR, TOLERATING WELL. ON TELE MONITORING. WITH IV ACCESS ON RAPHAEL MIDLINE G18; PATENT AND INTACT. PATIENT NOTED WITH IJ. PATIENT IS STATUS POST 2 PRBC HGB NOTED AT 8.4, NO MORE BLEEDING NOTED DURING SHIFT. PATIENT KEPT CLEAN AND DRY. ABLE TO MAKE NEEDS KNOWN. PATIENT REFUSED ROUTINE TURNING AND REPOSITIONING, TURNED AND REPOSITIONED PER PATIENT REQUEST. DENIES PAIN OR DISCOMFORT. SAFETY MEASURES IMPLEMENTED. CALL LIGHT AND TABLE WITHIN REACH. SIDE RAILS UP X 2. BED PLACED IN LOWEST LOCKED POSITION. SAFETY MEASURES IMPLEMENTED. WILL ENDORSE TO ONCOMING SHIFT
--- NOTE | 2022-01-04 19:15 | NUR ---
RN opening notes Received Pt sitting in bed comfortably drinking golytely. Pt is alert and orientedX3. On room air. No SOB. No S/S of distress noted. S/P PRBC 2 unit per am nurse. tele monitor showed SR hr at 69. RAPHAEL midline# 18 is clean, intact, SL. R jugular HD is in placed. Safety precautions is maintained. Bed at low position, brakes locked, side rails upX3, hob elevated and call light is within reach. Will continue to monitor.
[2022-01-04 20:00] LABS: HEMOGLOBIN 7.2 g/dL (11.5-14.8)
--- NOTE | 2022-01-04 21:15 | NUR ---
RN notes Pt's VS. BP 116/56, HR 68, Resp 20, O2 sat on 2 L NC is 100%. Tele monitor showed SR. Blood sugar 103.
--- NOTE | 2022-01-04 21:15 | NUR ---
RN notes Changing mental status. Found Pt is not responding with Pt's head was down. Neuro check was done. Pt was able to open eyes a little and scrathed Primary nurse arm and witness by House sup. Pupil was reacted to light. House sup at the bedside, charge nurse, primary nurse, CARAMEL CANDY MAKER HELPER's and other nurses. VS is stable. Tele monitor showed SR hr at 68.
--- NOTE | 2022-01-04 21:25 | NUR ---
RN notes Rapid response was called at 2114. Primary nurse MARIJA Bangura. RT's at the bedside (Vinh, RT, Saji RT and other RT's). ER charge nurse MARIJA CASAS. Soto Andrews RN. Charge nurse MARIJA Chavarria. Other RN's. and BREAKER MACHINE OPERATOR. Tele monitor showed SR. VS is stable. Oxygen on 2 L NC is 100%. RT's put Pt on nonrebreather 15 L. O2 sat is 100%. Called Dr. Nova. Addendum: 01/04/22 at 4 by BRENDAN WEEMS RN Rapid response was called at 2119
--- NOTE | 2022-01-04 21:28 | NUR ---
RN notes called Dr. Nova and spoke regarding Pt changing mental status. Pt is not responding at 2114. Pt was A/O X4 at the beginning of shift until 2114. Informed MD that Pt just had 2 PRBC today because low H+H. MD stated ER DR. Deejay HODGES is coming. Received ordered fro ABG, xray, CT head WO contrast, CBC.
--- NOTE | 2022-01-04 21:33 | NUR ---
RN notes ABG is ordered and done.
--- NOTE | 2022-01-04 21:34 | NUR ---
RN notes O2 sat is 85% on 2 L NC. Put Pt on nonrebreather. O2 sat is 100%.
[2022-01-04 21:40] LABS: ABG BASE EXCESS 1.8 mmol/L; ABG OXYGEN SATURATION 98.4 % (92.0-98.5); ABG PCO2 48.2 mmHg (35.0-45.0); ABG PH 7.371 (7.350-7.450); ABG PO2 170.4 mmHg (75.0-100.0); COHb 1.2 % (0.5-1.5); MetHb 0.2 % (0.0-1.5); SITE, ABG Right Radial
--- NOTE | 2022-01-04 21:40 | NUR ---
RN notes Dr. Villalba at the bedside to assess Pt. Pt is awake and talking now. Md stated "Pt is okay and awake now." Vinh Cardoza, Rt and primary nurse at the bedside. Charge nurse is aware and informed.
--- NOTE | 2022-01-04 21:40 | NUR ---
RN notes Dr. Villalba reading ABG result from RT. TRACIE Justice stated "is okay now."
--- NOTE | 2022-01-04 21:50 | NUR ---
RN notes Put Pt back to 1 L NC with O2 sat is 100%. NO SOB. No S/s of distress noted.
--- NOTE | 2022-01-04 21:50 | NUR ---
RN notes Per ED, RN to cancelled Chest xray, CT head WO contrast. Charge nurse and house sup are aware and informed.
[2022-01-04 21:58] LABS: BASOPHILS % (AUTO) 0.2 % (0.0-2.0); EOSINOPHILS % (AUTO) 2.4 % (0.0-6.0); HEMATOCRIT 22 % (33-45); HEMOGLOBIN 7.2 g/dL (11.5-14.8); LYMPHOCYTES # (AUTO) 1.5 K/uL (0.8-4.8); LYMPHOCYTES % (AUTO) 14.2 % (20.0-44.0); MEAN CORPUSCULAR HGB CONC 34 g/dl (31.0-36.0); MEAN CORPUSCULAR VOLUME 90 fL (82-100); MONOCYTES # (AUTO) 1.1 K/uL (0.1-1.30); MONOCYTES % (AUTO) 10.1 % (2.0-12.0); NEUTROPHILS # (AUTO) 7.8 K/uL (1.8-8.9); NEUTROPHILS % (AUTO) 73.1 % (43.0-81.0); RED BLOOD CELL COUNT(AUTO) 2.37 MIL/uL (4.0-5.2); WHITE BLOOD COUNT (AUTO) 10.6 K/uL (4.3-11.0)
[2022-01-04] MEDS: ATORVASTATIN 10 MG TABLET PO SCH (22:00)
[2022-01-04 22:06] LABS: PLATELET COUNT (AUTO) 30 K/uL (150-450)
--- NOTE | 2022-01-04 22:06 | NUR ---
RN notes Received a critical lab from [facility]. Informed and notified Dr. Nova. Informed MD that Pt's critical lab for Platelet is 30. Also informed MD that Pt is awake and talking. MD ordered 1 unit Platelet. Charge nurse is aware and informed. Order carried out.
--- NOTE | 2022-01-04 22:15 | NUR ---
RN notes Held PM meds because altered mental status and low BP. PT is awake and not following direction. Charge nurse is aware and informed.
--- NOTE | 2022-01-04 22:30 | NUR ---
RN notes Called and spoke with Moshe, from blood bank regarding Platelet ordered 1 unit. Informed Moshe that Pt's platelet is 30. Moshe stated " call back and speak to Millie. Charge nurse is aware and informed. Will continue to monitor.
--- NOTE | 2022-01-04 22:50 | NUR ---
RN notes Called blood bank and spoke with Millie regarding order for platelet 1 unit. Millie will call back once receive [facility]. Charge nurse is aware and informed.
--- NOTE | 2022-01-04 23:08 | NUR ---
RN notes During Pt's care noted Pt is having bloody watery stool. Pt still drinking golytely for colonoscopy tomorrow. Charge nurse is aware and informed.
[2022-01-05] VITALS (14 sets, daily range): BP systolic 90–116; BP diastolic 45–64
--- NOTE | 2022-01-05 00:30 | NUR ---
RN notes Pt stop drinking golitely. Pt drank about 2 L. Charge nurse is aware and informed.
[2022-01-05 01:49] LABS: HEMOGLOBIN 7.2 g/dL (11.5-14.8)
--- NOTE | 2022-01-05 01:50 | NUR ---
RN notes Millie called to ask regarding platelet ordered. Informed and explained to Millie, Dr. Nova only ordered 1 unit platelet. Millie verbalize understanding. Millie will call back when platelet is ready. Charge nurse is aware and informed.
--- NOTE | 2022-01-05 04:39 | NUR ---
RN notes Received a phone call from blood bank Millie, that platelet will be ready in 30 minutes.
[2022-01-05] MEDS: TOPIRAMATE 25 MG TABLET PO SCH ×3 (05:00→21:46)
[2022-01-05] MEDS: hydrALAZINE HCL 25 MG TABLET PO SCH ×3 (05:00→21:00)
--- NOTE | 2022-01-05 05:13 | NUR ---
RN notes Go to lab to picked up platelet.
--- NOTE | 2022-01-05 05:22 | NUR ---
RN notes Started 1 unit platelet (384 ML) transfusion per MD ordered and cosigned with MARIJA Adame. Platelet was checked with MARIJA Adame. VS as follows: BP 108/48. HR 65. TEMP 98.3 RESPIRATION 18. O2 SAT IS 100% ON 1 L NC.
--- NOTE | 2022-01-05 05:50 | NUR ---
RN notes 1 unit Platelet transfusion is given. Pt tolerated well. VS is stable. Afebrile. No S/S of distress noted. No SOB. Pt is awake and alert orientedX3. Will continue to monitor.
--- NOTE | 2022-01-05 07:00 | NUR ---
RN closing notes Pt is laying in bed comfortably watching TV. Pt is alert and orientedX3. On room air. No SOB. No S/S of distress noted. S/P 1 unit platelet. tele monitor showed SR hr at 70. RAPHAEL midline# 18 is clean, intact, SL. R jugular HD is in placed. Pt is NPO. Safety precautions is maintained. Bed at low position, brakes locked, side rails upX3, hob elevated and call light is within reach. Will endorse to am nurse for CHRISTINE.
--- NOTE | 2022-01-05 07:15 | NUR ---
TRAINING PROGRAM DEVELOPER OPENING NOTES RECEIVED PATIENT ON BED, RESTING. ALERT AND ORIENTED X 2-3. BREATHING EVENLY AND UNLABORED. NO SOB NOTED. NO S/SX OF DISTRESS NOTED. ON ROOM AIR, TOLERATING WELL. ON TELE MONITORING. WITH IV ACCESS ON RAPHAEL MIDLINE G18; PATENT AND INTACT. ABLE TO MAKE NEEDS KNOWN. PATIENT NPO AND NOTED TO HAVE SOME BLOOD IN STOOL, MD AWARE AND CHARGE AWARE. VITALS WNL, AWAITING COLONOSCOPY, CONSENT SIGNED. PATIENT IS STATUS POST PLATELETS SAFETY MEASURES IMPLEMENTED. CALL LIGHT AND TABLE WITHIN REACH. SIDE RAILS UP X 2. BED PLACED IN LOWEST LOCKED POSITION. SAFETY MEASURES IMPLEMENTED. WILL CONTINUE TO MONITOR.
[2022-01-05 07:19] LABS: BASOPHILS % (AUTO) 0.3 % (0.0-2.0); EOSINOPHILS % (AUTO) 3.8 % (0.0-6.0); LYMPHOCYTES # (AUTO) 1.3 K/uL (0.8-4.8); LYMPHOCYTES % (AUTO) 11.7 % (20.0-44.0); MEAN CORPUSCULAR HGB CONC 34 g/dl (31.0-36.0); MEAN CORPUSCULAR VOLUME 90 fL (82-100); MONOCYTES # (AUTO) 1.1 K/uL (0.1-1.30); MONOCYTES % (AUTO) 10.4 % (2.0-12.0); NEUTROPHILS # (AUTO) 8.1 K/uL (1.8-8.9); NEUTROPHILS % (AUTO) 73.8 % (43.0-81.0); PLATELET COUNT (AUTO) 61 K/uL (150-450); RED BLOOD CELL COUNT(AUTO) 2.13 MIL/uL (4.0-5.2); WHITE BLOOD COUNT (AUTO) 10.9 K/uL (4.3-11.0)
[2022-01-05] MEDS: LEVOTHYROXINE SODIUM 50 MCG TABLET PO SCH (07:30)
[2022-01-05 07:41] LABS: HEMATOCRIT 19 % (33-45); HEMOGLOBIN 6.5 g/dL (11.5-14.8)
--- NOTE | 2022-01-05 07:46 | NUR ---
RN NOTE CRITICAL LAB VALUE HGB 6.5 AND HCT 19, MD NOTIFIED AND DR JACKIE BURTON. ORDERED 1 PRBC UNIT STAT, LAB CALLED.
[2022-01-05 07:50] LABS: ALBUMIN 2.5 g/dL (3.4-5.0); BILIRUBIN,TOTAL 0.2 mg/dL (0.2-1.0); CALCIUM, SERUM 7.8 mg/dL (8.5-10.1); CREATININE 2.6 mg/dL (0.6-1.3); POTASSIUM 3.6 mmol/L (3.5-5.1); TOTAL PROTEIN, SERUM 4.7 g/dL (6.4-8.2)
[2022-01-05] MEDS: SEVELAMER CARBONATE 800 MG TABLET PO SCH ×3 (07:52→17:24)
[2022-01-05] MEDS: LEVETIRACETAM (250 MG) 250 MG TABLET PO SCH ×2 (08:12→21:46)
[2022-01-05] MEDS: DOCUSATE SODIUM 100 MG CAPSULE PO SCH ×2 (08:12→16:33)
[2022-01-05] MEDS: POLYETHYLENE GLYCOL 3350 17 GM POWD.PACK PO SCH (08:13)
[2022-01-05] MEDS: AMLODIPINE BESYLATE 5 MG TABLET PO SCH (08:13)
[2022-01-05] MEDS: CALCIUM CARBONATE (1250) 500 MG TABLET PO SCH (08:13)
[2022-01-05] MEDS: risperiDONE 1 MG TABLET PO SCH ×2 (08:13→16:33)
[2022-01-05] MEDS: MAGNESIUM OXIDE 400 MG TABLET PO SCH (08:13)
[2022-01-05] MEDS: CALCITRIOL 0.25 MCG CAPSULE PO SCH (08:14)
[2022-01-05] MEDS: CARBAMAZEPINE 200 MG TABLET PO SCH ×2 (08:14→16:31)
[2022-01-05] MEDS: PANTOPRAZOLE 40 MG VIAL IV SCH ×2 (08:24→16:33)
[2022-01-05 11:15] LABS: HEMOGLOBIN 8.8 g/dL (11.5-14.8)
[2022-01-05 12:08] LABS: D-DIMER 0.46 mg/L(FEU (0.17-0.50)
[2022-01-05] MEDS ORDERED: FAMOTIDINE/PF INJ 20 MG/2 ML VIAL IV ONE (13:13)
[2022-01-05 18:08] LABS: BAND % (MANUAL) 1 % (0.0-5.0); EOSINOPHILS % (MANUAL) 1 % (0-4); LYMPHOCYTES % (MANUAL) 12 % (16-48); MONOCYTES % (MANUAL) 2 % (0-11.0); NEUTROPHILS % (MANUAL) 84 (42-76)
--- NOTE | 2022-01-05 18:33 | NUR ---
ROUSTABOUT HEAD CLOSING NOTES PATIENT ON BED, RESTING. ALERT AND ORIENTED X 2-3. BREATHING EVENLY AND UNLABORED. NO SOB NOTED. NO S/SX OF DISTRESS NOTED. ON ROOM AIR, TOLERATING WELL. ON TELE MONITORING. WITH IV ACCESS ON RAPHAEL MIDLINE G18; PATENT AND INTACT. PATIENT NOTED WITH IJ. PATIENT IS STATUS POST 1 PRBC HGB TOLERATED WELL NO TRANSFUSION REACTION, NO MORE BLEEDING NOTED DURING SHIFT. PATIENT KEPT CLEAN AND DRY. ABLE TO MAKE NEEDS KNOWN. PATIENT REFUSED ROUTINE TURNING AND REPOSITIONING, TURNED AND REPOSITIONED PER PATIENT REQUEST. DENIES PAIN OR DISCOMFORT. SAFETY MEASURES IMPLEMENTED. CALL LIGHT AND TABLE WITHIN REACH. SIDE RAILS UP X 2. BED PLACED IN LOWEST LOCKED POSITION. SAFETY MEASURES IMPLEMENTED. WILL ENDORSE TO ONCOMING SHIFT
--- NOTE | 2022-01-05 19:30 | NUR ---
RN OPENING NOTE PATIENT IN BED, AWAKE, ABLE TO MAKE NEEDS KNOWN. A/O X 4. PATIENT ON RA, TOLERATING WELL. NOT IN ANY APPARENT DISTRESS. PATIENT S/P COLONOSCOPY WITH 1 CLIP PLACED, PATIENT NOT IN ANY PAIN AT THIS TIME. TELE MONITOR READS SR 84 WITH OCCASIONAL PAC. PATIENT HAS A RAPHAEL MIDLINE PATENT AND INTACT, FLUSHING WELL. R JUGULAR HD ACCESS DRESSING C/D/I. SAFETY MEASURES IN PLACE: BED LOCKED AND IN LOWEST POSITION, CALL LIGHT WITHIN REACH, SIDE RAILS UP. WILL MONITOR PATIENT CLOSELY.
[2022-01-05 20:20] LABS: HEMOGLOBIN 8.8 g/dL (11.5-14.8)
--- NOTE | 2022-01-05 21:11 | NUR ---
RN NOTE BLOOD BANK [facility] CALLED RE AVAILABLE 1 UNIT PLATELET FOR PATIENT. RN NOTED THAT THERE ARE TWO ORDERS OF PLATELET ORDERED CLOSE TO EACH OTHER. CLARIFIED ORDER. PER MD VARGAS, SHE ONLY ORDERED ONE WHICH WAS TRANSFUSED LAST NIGHT. D/C' D SECOND PLATELET ORDER AND NOTIFIED BLOOD BANK [facility]. CHARGE NURSE AWARE.
[2022-01-05] MEDS: ATORVASTATIN 10 MG TABLET PO SCH (21:46)
[2022-01-06] VITALS: BP 129/58
[2022-01-06 02:54] LABS: HEMOGLOBIN 8.4 g/dL (11.5-14.8)
[2022-01-06 04:00] VITALS: BP 105/50
[2022-01-06] MEDS: TOPIRAMATE 25 MG TABLET PO SCH ×3 (05:00→22:01)
[2022-01-06] MEDS: hydrALAZINE HCL 25 MG TABLET PO SCH ×3 (05:00→21:00)
--- NOTE | 2022-01-06 05:01 | NUR ---
RN NOTE PATIENT NOT GIVEN HYDRALAZINE D/T BP OF 105/50. PATIENT REFUSES TOPAMAX AT THIS TIME, EDUCATION PROVIDED. SHE REQUESTS THAT SYNTHROID BE GIVEN AT 0630.
--- NOTE | 2022-01-06 06:59 | NUR ---
RN CLOSING NOTE PATIENT IN BED, AWAKE, ABLE TO MAKE NEEDS KNOWN. A/O X 4. PATIENT ON RA, 94-95% O2 SAT. TOLERATING WELL. NOT IN ANY APPARENT DISTRESS. PATIENT S/P COLONOSCOPY WITH 1 CLIP PLACED, PATIENT NOT IN ANY PAIN AT THIS TIME. TELE MONITOR READS SR 73 WITH OCCASIONAL PAC AND 1ST DEGREE AV BLOCK. PATIENT HAS A RAPHEAL MIDLINE PATENT AND INTACT, FLUSHING WELL. R JUGULAR HD ACCESS DRESSING C/D/I. SAFETY MEASURES IN PLACE: BED LOCKED AND IN LOWEST POSITION, CALL LIGHT WITHIN REACH, SIDE RAILS UP. ALL NEEDS MET AND ATTENDED. ALL ORDERS CARRIED OUT. WILL ENDORSE TO DAY SHIFT NURSE FOR CHRISTINE.
[2022-01-06] MEDS: LEVOTHYROXINE SODIUM 50 MCG TABLET PO SCH (07:03)
[2022-01-06 07:31] LABS: BASOPHILS % (AUTO) 0.4 % (0.0-2.0); EOSINOPHILS % (AUTO) 5.5 % (0.0-6.0); HEMATOCRIT 24 % (33-45); HEMOGLOBIN 8.3 g/dL (11.5-14.8); LYMPHOCYTES % (AUTO) 12.3 % (20.0-44.0); MEAN CORPUSCULAR HGB CONC 35 g/dl (31.0-36.0); MEAN CORPUSCULAR VOLUME 90 fL (82-100); MONOCYTES # (AUTO) 0.8 K/uL (0.1-1.30); MONOCYTES % (AUTO) 9.2 % (2.0-12.0); NEUTROPHILS % (AUTO) 72.6 % (43.0-81.0); PLATELET COUNT (AUTO) 88 K/uL (150-450); RED BLOOD CELL COUNT(AUTO) 2.68 MIL/uL (4.0-5.2); WHITE BLOOD COUNT (AUTO) 8.3 K/uL (4.3-11.0)
[2022-01-06] MEDS: SEVELAMER CARBONATE 800 MG TABLET PO SCH ×4 (08:00→18:24)
[2022-01-06 08:19] VITALS: BP 115/58
[2022-01-06 08:42] LABS: ALBUMIN 2.5 g/dL (3.4-5.0); BILIRUBIN,TOTAL 0.3 mg/dL (0.2-1.0); CALCIUM, SERUM 7.8 mg/dL (8.5-10.1); CREATININE 2.8 mg/dL (0.6-1.3); POTASSIUM 3.7 mmol/L (3.5-5.1); TOTAL PROTEIN, SERUM 5.1 g/dL (6.4-8.2)
[2022-01-06] MEDS: risperiDONE 1 MG TABLET PO SCH ×3 (09:00→18:24)
[2022-01-06] MEDS: AMLODIPINE BESYLATE 5 MG TABLET PO SCH (09:00)
[2022-01-06] MEDS: CARBAMAZEPINE 200 MG TABLET PO SCH ×3 (09:00→18:24)
[2022-01-06] MEDS: CALCITRIOL 0.25 MCG CAPSULE PO SCH ×2 (09:00→09:44)
[2022-01-06] MEDS: CALCIUM CARBONATE (1250) 500 MG TABLET PO SCH ×2 (09:00→09:45)
[2022-01-06] MEDS: DOCUSATE SODIUM 100 MG CAPSULE PO SCH ×3 (09:00→18:24)
[2022-01-06] MEDS: MAGNESIUM OXIDE 400 MG TABLET PO SCH ×2 (09:00→09:44)
[2022-01-06] MEDS: POLYETHYLENE GLYCOL 3350 17 GM POWD.PACK PO SCH (09:00)
[2022-01-06] MEDS: LEVETIRACETAM (250 MG) 250 MG TABLET PO SCH ×3 (09:00→22:01)
[2022-01-06] MEDS: PANTOPRAZOLE 40 MG VIAL IV SCH ×2 (09:45→18:24)
[2022-01-06 10:41] LABS: HEMOGLOBIN 8.9 g/dL (11.5-14.8)
[2022-01-06 16:01] VITALS: BP 126/67
--- NOTE | 2022-01-06 18:00 | NUR ---
PT. DIALYZED X3 HRS.TOLERATED WELL.RECEIVED ORDERS FROM DR. MATTHEWS FOR DIALYSIS CATH PLACEMENT TOMORROW.RECEIVED EPOGEN PER PROTOCOL FOR LOW HGB.
[2022-01-06] MEDS ORDERED: EPOETIN ALFA-EPBX 4,000 UNIT/ML VIAL IV PRN (19:00)
--- NOTE | 2022-01-06 19:30 | NUR ---
RN OPENING NOTE PATIENT IN BED, AWAKE, ABLE TO MAKE NEEDS KNOWN. A/O X 4. PATIENT ON RA, 95% O2 SAT. TOLERATING WELL. NOT IN ANY APPARENT DISTRESS. PATIENT NOT IN ANY PAIN AT THIS TIME. PATIENT HAS A RAPHAEL MIDLINE PATENT AND INTACT, FLUSHING WELL. R JUGULAR HD ACCESS, BLEEDING NOTED ON THE R JUGULAR VASCULAR HD ACCESS, WILL CHANGE DRESSING. CONSENT OBTAINED FOR TUNNELED DIALYSIS CATH PLACEMENT TOMORROW. PATIENT TO BE NPO AFTER MN. SAFETY MEASURES IN PLACE: BED LOCKED AND IN LOWEST POSITION, CALL LIGHT WITHIN REACH, SIDE RAILS UP. ALL NEEDS MET AND ATTENDED. ALL ORDERS CARRIED OUT. WILL MONITOR PATIENT CLOSELY.
[2022-01-06 19:51] LABS: HEMOGLOBIN 8.3 g/dL (11.5-14.8)
[2022-01-06 20:00] VITALS: BP 108/52
--- NOTE | 2022-01-06 20:30 | NUR ---
RN NOTE R JUGULAR HD CATH DRESSING CHANGED. BLEEDING OBSERVED ON THE SITE OF CATHETER.
[2022-01-06] MEDS: ATORVASTATIN 10 MG TABLET PO SCH (22:01)
[2022-01-07 02:39] LABS: BASOPHILS % (AUTO) 0.3 % (0.0-2.0); EOSINOPHILS % (AUTO) 4.6 % (0.0-6.0); HEMATOCRIT 24 % (33-45); HEMOGLOBIN 7.9 g/dL (11.5-14.8); LYMPHOCYTES # (AUTO) 1.4 K/uL (0.8-4.8); LYMPHOCYTES % (AUTO) 19.2 % (20.0-44.0); MEAN CORPUSCULAR HGB CONC 34 g/dl (31.0-36.0); MEAN CORPUSCULAR VOLUME 91 fL (82-100); MONOCYTES # (AUTO) 0.9 K/uL (0.1-1.30); MONOCYTES % (AUTO) 12.4 % (2.0-12.0); NEUTROPHILS # (AUTO) 4.5 K/uL (1.8-8.9); NEUTROPHILS % (AUTO) 63.5 % (43.0-81.0); PLATELET COUNT (AUTO) 55 K/uL (150-450); RED BLOOD CELL COUNT(AUTO) 2.58 MIL/uL (4.0-5.2); WHITE BLOOD COUNT (AUTO) 7.1 K/uL (4.3-11.0)
[2022-01-07 02:54] LABS: ALBUMIN 2.4 g/dL (3.4-5.0); BILIRUBIN,TOTAL 0.3 mg/dL (0.2-1.0); CALCIUM, SERUM 7.7 mg/dL (8.5-10.1); CREATININE 2.6 mg/dL (0.6-1.3); MAGNESIUM 1.9 mg/dL (1.8-2.4); PHOSPHORUS 3.5 mg/dL (2.5-4.9); POTASSIUM 3.5 mmol/L (3.5-5.1); TOTAL PROTEIN, SERUM 4.9 g/dL (6.4-8.2)
[2022-01-07 03:57] LABS: EOSINOPHILS % (MANUAL) 4 % (0-4); LYMPHOCYTES % (MANUAL) 14 % (16-48); MONOCYTES % (MANUAL) 5 % (0-11.0); NEUTROPHILS % (MANUAL) 77 (42-76)
[2022-01-07] MEDS: hydrALAZINE HCL 25 MG TABLET PO SCH ×3 (05:00→21:54)
[2022-01-07] MEDS: TOPIRAMATE 25 MG TABLET PO SCH ×3 (05:00→22:10)
--- NOTE | 2022-01-07 06:57 | NUR ---
RN CLOSING NOTE PATIENT IN BED, ASLEEP, PATIENT AWAKENS WITH VERBAL AND TOUCH STIMULI. ABLE TO MAKE NEEDS KNOWN. A/O X 4. PATIENT ON RA, 95% O2 SAT. TOLERATING WELL. NOT IN ANY APPARENT DISTRESS. PATIENT NOT IN ANY PAIN AT THIS TIME. PATIENT HAS A RAPHAEL MIDLINE PATENT AND INTACT, FLUSHING WELL. R JUGULAR HD ACCESS DRESSING INTACT. NPO STATUS MAINTAINED FOR PERMACATH PLACEMENT AT [address] MATTHEWS. SAFETY MEASURES IN PLACE: BED LOCKED AND IN LOWEST POSITION, CALL LIGHT WITHIN REACH, SIDE RAILS UP. ALL NEEDS MET AND ATTENDED. ALL ORDERS CARRIED OUT. WILL ENDORSE PATIENT TO DAY SHIFT FOR CHRISTINE.
[2022-01-07] MEDS: LEVOTHYROXINE SODIUM 50 MCG TABLET PO SCH (07:30)
--- NOTE | 2022-01-07 07:30 | NUR ---
RECEIVED PT. IN RM.NPO FOR SURGERY TODAY.JUGULAR IV SITE WITH SM. AMT. LEAKAGE.MIDLINE RAPHAEL INTACT.VS STABLE.ALERT AND ORIENTED X4.NO COMPLAINTS OFFERED.
[2022-01-07 08:00] VITALS: BP 131/77
[2022-01-07] MEDS: SEVELAMER CARBONATE 800 MG TABLET PO SCH ×3 (08:00→18:00)
[2022-01-07] MEDS: MAGNESIUM OXIDE 400 MG TABLET PO SCH (09:00)
[2022-01-07] MEDS: LEVETIRACETAM (250 MG) 250 MG TABLET PO SCH ×2 (09:00→21:53)
[2022-01-07] MEDS: risperiDONE 1 MG TABLET PO SCH ×2 (09:00→17:00)
[2022-01-07] MEDS: CALCIUM CARBONATE (1250) 500 MG TABLET PO SCH (09:00)
[2022-01-07] MEDS: POLYETHYLENE GLYCOL 3350 17 GM POWD.PACK PO SCH (09:00)
[2022-01-07] MEDS: CARBAMAZEPINE 200 MG TABLET PO SCH ×2 (09:00→17:00)
[2022-01-07] MEDS: AMLODIPINE BESYLATE 5 MG TABLET PO SCH (09:00)
[2022-01-07] MEDS: CALCITRIOL 0.25 MCG CAPSULE PO SCH (09:00)
[2022-01-07] MEDS: DOCUSATE SODIUM 100 MG CAPSULE PO SCH ×2 (09:00→17:00)
[2022-01-07] MEDS: PANTOPRAZOLE 40 MG VIAL IV SCH ×2 (09:26→19:06)
[2022-01-07] MEDS ORDERED: IOHEXOL 50 ML IV ONE (11:20)
[2022-01-07] MEDS ORDERED: ANESTHESIA TRAY IN PYXIS 1 EA TRAY MC ONE (11:20)
[2022-01-07] MEDS ORDERED: HEPARIN SODIUM, PORCINE 1,000 UNIT/ML VIAL ONE (11:21)
[2022-01-07] MEDS ORDERED: LIDOCAINE 1% INJ 50 ML MDV IJ ONE (11:21)
[2022-01-07 11:26] LABS: HEMOGLOBIN 8.5 g/dL (11.5-14.8)
--- NOTE | 2022-01-07 12:30 | NUR ---
DR. JUÁREZ IN TO SEE PT.
[2022-01-07] MEDS ORDERED: LEVETIRACETAM (500MG) 750 MG in IV NS 0.9% 100 ML IV SCH (14:30)
[2022-01-07] MEDS ORDERED: LEVETIRACETAM (500MG) 750 MG in IV NS 0.9% 100 ML IV ONE (14:30)
--- NOTE | 2022-01-07 15:40 | NUR ---
LEFT FOR OR AT 154O,KEPPRA IV COMPLETED.OR NURSE INFORMED KEPPRA GIVEN.
[2022-01-07] MEDS ORDERED: BUPIVACAINE 0.5 % PF 150 MG/30 ML VIAL ONE (17:07)
--- NOTE | 2022-01-07 18:10 | NUR ---
RECEIVED PT. FROM OR.PERMACATH INTACT IN RT. CHEST.FORMER JUGULAR ACCESS FOR DIALYSIS REMOVED DRESSING IN PLACE.PT AWAKE AND ALERT.VS STABLE.PT.C/O DISCOMFORT AT RAPHAEL MIDLINE SITE,APPARENTLY INFILTRATED.PROCESSES CHEMICAL DESIGN ENGINEER INFORMED
--- NOTE | 2022-01-07 18:40 | NUR ---
MIDLINE RN HERE AND INSERTION NEW MIDLINE GEORGE.OK TO USE WELL PERMACATH OK TO USE.RN REMOVED MIDLINE RAPHAEL,FEEDING PT.
[2022-01-07 20:00] VITALS: BP 109/60
[2022-01-07] MEDS: ATORVASTATIN 10 MG TABLET PO SCH (22:10)
[2022-01-07 22:53] LABS: HEMOGLOBIN 8.3 g/dL (11.5-14.8)
--- NOTE | 2022-01-07 23:49 | NUR ---
MS/GWENDOLYN/RN TOPAMAX AND ATORVASTATIN FELL TO THE FLOOR, REMOVED MEDICATIONS AGAIN FROM OMNICEL.
--- NOTE | 2022-01-08 01:06 | NUR ---
MS/TELE/RN PATIENT IS SLEEPING AT THIS TIME, APPEARS COMFORTABLE, NO SIGNS OF DISTRESS NOTED, CALL LIGHT IN REACH. WILL MONITOR.
[2022-01-08] MEDS: hydrALAZINE HCL 25 MG TABLET PO SCH ×2 (05:14→12:53)
[2022-01-08] MEDS: TOPIRAMATE 25 MG TABLET PO SCH ×2 (05:14→12:53)
[2022-01-08] MEDS: LEVOTHYROXINE SODIUM 50 MCG TABLET PO SCH (06:21)
--- NOTE | 2022-01-08 06:40 | NUR ---
MS/TELE/RN PATIENT IS AWAKE, COMFORTABLE, NO DISTRESS NOTED, CALL LIGHT IN REACH, ALL NEEDS ATTENDED AT THIS TIME, WILL CONTINUE TO MONITOR.
[2022-01-08 06:45] LABS: BASOPHILS % (AUTO) 0.2 % (0.0-2.0); EOSINOPHILS % (AUTO) 1.7 % (0.0-6.0); HEMATOCRIT 25 % (33-45); HEMOGLOBIN 8.1 g/dL (11.5-14.8); LYMPHOCYTES # (AUTO) 1.2 K/uL (0.8-4.8); LYMPHOCYTES % (AUTO) 10.8 % (20.0-44.0); MEAN CORPUSCULAR HGB CONC 33 g/dl (31.0-36.0); MEAN CORPUSCULAR VOLUME 92 fL (82-100); MONOCYTES # (AUTO) 0.9 K/uL (0.1-1.30); MONOCYTES % (AUTO) 8.2 % (2.0-12.0); NEUTROPHILS # (AUTO) 8.8 K/uL (1.8-8.9); NEUTROPHILS % (AUTO) 79.1 % (43.0-81.0); PLATELET COUNT (AUTO) 83 K/uL (150-450); RED BLOOD CELL COUNT(AUTO) 2.68 MIL/uL (4.0-5.2); WHITE BLOOD COUNT (AUTO) 11.2 K/uL (4.3-11.0)
[2022-01-08 06:55] LABS: ALBUMIN 2.5 g/dL (3.4-5.0); BILIRUBIN,TOTAL 0.2 mg/dL (0.2-1.0); CALCIUM, SERUM 7.8 mg/dL (8.5-10.1); CREATININE 3.3 mg/dL (0.6-1.3); MAGNESIUM 1.9 mg/dL (1.8-2.4); PHOSPHORUS 3.3 mg/dL (2.5-4.9); POTASSIUM 3.6 mmol/L (3.5-5.1); TOTAL PROTEIN, SERUM 5.3 g/dL (6.4-8.2)
[2022-01-08 08:00] VITALS: BP 103/53
[2022-01-08] MEDS: SEVELAMER CARBONATE 800 MG TABLET PO SCH ×2 (08:41→12:53)
[2022-01-08] MEDS: PANTOPRAZOLE 40 MG VIAL IV SCH (08:41)
[2022-01-08 09:00] VITALS: BP 103/53
[2022-01-08] MEDS: AMLODIPINE BESYLATE 5 MG TABLET PO SCH (09:00)
[2022-01-08] MEDS: LEVETIRACETAM (250 MG) 250 MG TABLET PO SCH (09:14)
[2022-01-08] MEDS: MAGNESIUM OXIDE 400 MG TABLET PO SCH (09:14)
[2022-01-08] MEDS: POLYETHYLENE GLYCOL 3350 17 GM POWD.PACK PO SCH (09:14)
[2022-01-08] MEDS: DOCUSATE SODIUM 100 MG CAPSULE PO SCH (09:14)
[2022-01-08] MEDS: CARBAMAZEPINE 200 MG TABLET PO SCH (09:14)
[2022-01-08] MEDS: CALCITRIOL 0.25 MCG CAPSULE PO SCH (09:14)
[2022-01-08] MEDS: CALCIUM CARBONATE (1250) 500 MG TABLET PO SCH (09:14)
[2022-01-08] MEDS: risperiDONE 1 MG TABLET PO SCH (09:15)
[2022-01-08 11:01] LABS: HEMOGLOBIN 9.6 g/dL (11.5-14.8)
[2022-01-08] MEDS ORDERED: LEVO50TA PO (11:34)
--- NOTE | 2022-01-08 12:28 | NUR ---
HEMODIALYSIS DONE. 2LITERS OUT. PATIENT IS IN NO DISTRESS.
--- NOTE | 2022-01-08 15:21 | NUR ---
MS/PRINCIPAL CLERK TYPIST NOTES PATIENT IS ALERT AND ORIENTED X4, ABLE TO MAKE NEEDS KNOWN. DIFFICULTY SPEAKING. PATIENT IS STABLE ON ROOM AIR. PATIENT IS STABLE AND DR. JUÁREZ ORDERED DISCHARGE BACK TO [facility]. DISCHARGE INSTRUCTIONS GIVEN TO THE PATIENT, ABLE TO VERBALIZED UNDERSTANDING, LEFT UPPER ARM MIDLINE IV ACCESS DISCONTINUED. ALL BELONGINGS ACCOUNTED FOR. PATIENT WAS PICKED UP BY EMT FOR TRANSPORTATION.
== END 2022-01-08 15:15 | DRG 253 ==
LOC: ER 20:32 → TELE 12-30 00:55 → MED 01-06 10:49
PROVIDERS: ADMIT Internal Medicine; ATTEND Student in an Organized Health Care Education/Training Program
PROC: 30233R1 Transfusion of Nonautologous Platelets into Peripheral Vein, Percutaneous Approach (ICD-10-PCS; 2021-12-30)
PROC: 30233N1 Transfusion of Nonautologous Red Blood Cells into Peripheral Vein, Percutaneous Approach (ICD-10-PCS; principal; 2021-12-31)
PROC: 05H533Z Insertion of Infusion Device into Right Subclavian Vein, Percutaneous Approach (ICD-10-PCS; 2021-12-31)
PROC: B546ZZA Ultrasonography of Right Subclavian Vein, Guidance (ICD-10-PCS; 2021-12-31)
PROC: 05HM33Z Insertion of Infusion Device into Right Internal Jugular Vein, Percutaneous Approach (ICD-10-PCS; 2022-01-01)
PROC: B543ZZA Ultrasonography of Right Jugular Veins, Guidance (ICD-10-PCS; 2022-01-01)
PROC: 5A1D70Z Performance of Urinary Filtration, Intermittent, Less than 6 Hours Per Day (ICD-10-PCS; 2022-01-01)
PROC: 0W3P8ZZ Control Bleeding in Gastrointestinal Tract, Via Natural or Artificial Opening Endoscopic (ICD-10-PCS; 2022-01-05)
PROC: 05HD33Z Insertion of Infusion Device into Right Cephalic Vein, Percutaneous Approach (ICD-10-PCS; 2022-01-07)
PROC: B54MZZA Ultrasonography of Right Upper Extremity Veins, Guidance (ICD-10-PCS; 2022-01-07)
PROC: 0JH63XZ Insertion of Tunneled Vascular Access Device into Chest Subcutaneous Tissue and Fascia, Percutaneous Approach (ICD-10-PCS; 2022-01-07)
PROC: 02H633Z Insertion of Infusion Device into Right Atrium, Percutaneous Approach (ICD-10-PCS; 2022-01-07)
PROC: B518YZA Fluoroscopy of Superior Vena Cava using Other Contrast, Guidance (ICD-10-PCS; 2022-01-07)
PROC: 05PY33Z Removal of Infusion Device from Upper Vein, Percutaneous Approach (ICD-10-PCS; 2022-01-07)
DX: K55.21 Angiodysplasia of colon with hemorrhage (principal); N17.0 Acute kidney failure with tubular necrosis; D69.6 Thrombocytopenia, unspecified; R53.2 Functional quadriplegia; I13.2 Hypertensive heart and chronic kidney disease with heart failure and with stage 5 chronic kidney disease, or end stage renal disease; D62 Acute posthemorrhagic anemia; D63.1 Anemia in chronic kidney disease; E87.1 Hypo-osmolality and hyponatremia; E11.22 Type 2 diabetes mellitus with diabetic chronic kidney disease; N18.6 End stage renal disease; R62.7 Adult failure to thrive; I50.9 Heart failure, unspecified; E86.0 Dehydration; G40.909 Epilepsy, unspecified, not intractable, without status epilepticus; F09 Unspecified mental disorder due to known physiological condition; E03.9 Hypothyroidism, unspecified; I25.10 Atherosclerotic heart disease of native coronary artery without angina pectoris; Z99.3 Dependence on wheelchair; Z87.891 Personal history of nicotine dependence; Z20.822 Contact with and (suspected) exposure to COVID-19; R53.1 Weakness; Z86.73 Personal history of transient ischemic attack (TIA), and cerebral infarction without residual deficits; E78.5 Hyperlipidemia, unspecified; J45.909 Unspecified asthma, uncomplicated; Z91.14 Patient's other noncompliance with medication regimen; F20.9 Schizophrenia, unspecified
CPT/HCPCS: 36410; 36415; 36600; 70450-TC; 71045-TC; 76770-TC; 80048-TC; 80053-TC; 80076-TC; 80156-TC; 82272-TC; 82550-TC; 82803-TC; 82962-TC; 83605-TC; 83735-TC; 83880; 84100-TC; 84439-TC; 84443-TC; 84481; 84484-TC; 85025-TC; 85027-TC; 85378-TC; 85385-TC; 85610-TC; 85730-TC; 86704; 86705; 86706; 86803; 86850-TC; 87040-TC; 87081-TC; 87340; 90935-TC; 93307-TC; 97110-TC; 97112-TC; 97530-TC; 97535-TC; A4216; C1750; C1757; C1769; C1894; C9113; C9803; G0378; J0690; J0885; J1644; J1953; J2405; J2704; J2765; J3490; J7030; J7050; P9016; P9034; P9047; Q9967

== ENCOUNTER 2023-04-12 15:14 | Emergency (ER) | payer MEDICARE, OTHER ==
[~2023-04-12] VITALS: Ht 154.9 cm; Wt 81.6 kg
[~2023-04-12 15:14] MED LIST changes: -FURO-144 PO; -HYDR-4076 PO; -LEVO150T8 PO; +LEVO50TA PO
--- NOTE | 2023-04-12 15:30 | NUR ---
[facility] C/0 LEFT ANKLE BRUISING AND PAIN 05/20
--- NOTE | 2023-04-12 15:47 | NUR ---
XRAY AT BEDSIDE
[2023-04-12] MEDS ORDERED: ACETAMINOPHEN ES 500 MG TABLET ONE (15:48)
[2023-04-12] MEDS ORDERED: IBUPROFEN 400 MG TABLET ONE (15:49)
[2023-04-12] MEDS ORDERED: IBUPROFEN 400 MG TABLET PO ONE (16:00)
[2023-04-12] MEDS ORDERED: ACETAMINOPHEN ES 500 MG TABLET PO ONE (16:00)
[2023-04-12] MEDS ORDERED: KETO10TA2 PO (16:39)
[2023-04-12] MEDS ORDERED: ACET-73 PO (16:39)
--- NOTE | 2023-04-12 17:06 | NUR ---
CALLED [facility] AND SET UP BLS TRANSPORT ETA [phone]
--- NOTE | 2023-04-12 18:11 | NUR ---
Bouchra li in [facility] - 04/12/23 at 1811 by CHANDRA TRANASPSORT AT [facility] FOR PICKUP
--- NOTE | 2023-04-12 18:11 | NUR ---
TRANSPORT AT BEDSIDE FOR PICKUP
[2023-04-12 18:12] VITALS: BP 126/75; TEMP 98.3
== END 2023-04-12 18:13 | disposition home or self-care (01) ==
LOC: ER 15:36
DX: S93.402A Sprain of unspecified ligament of left ankle, initial encounter (principal); I10 Essential (primary) hypertension; E11.9 Type 2 diabetes mellitus without complications; E78.5 Hyperlipidemia, unspecified; Z88.0 Allergy status to penicillin; Z91.011 Allergy to milk products; Z88.8 Allergy status to other drugs, medicaments and biological substances; Z79.899 Other long term (current) drug therapy; W18.30XA Fall on same level, unspecified, initial encounter; Y93.89 Activity, other specified; Y92.89 Other specified places as the place of occurrence of the external cause; Y99.8 Other external cause status
CPT/HCPCS: 73610-TC

== ENCOUNTER 2024-01-04 11:17 | Inpatient (IN) | payer OTHER, MEDICARE ==
[~2024-01-04] VITALS: Ht 152.4 cm; Wt 102.5 kg
[~2024-01-04 11:17] MED LIST changes: +ACET-73 PO; +KETO10TA2 PO
[2024-01-04] MEDS ORDERED: LORA10TA7 PO (12:12)
[2024-01-04] MEDS ORDERED: LEVO75TA99 PO (12:12)
[2024-01-04] MEDS ORDERED: MUPI22OI7 TP (12:12)
[2024-01-04] MEDS ORDERED: FURO-144 PO (12:12)
[2024-01-04] MEDS ORDERED: RISP0.5T5 PO (12:12)
[2024-01-04] MEDS ORDERED: OLOP2.5D12 EACHEYE (12:12)
[2024-01-04] MEDS ORDERED: FERR325T23 PO (12:12)
[2024-01-04] MEDS ORDERED: FOLI0.4T6 PO (12:12)
[2024-01-04 12:35] LABS: WHITE BLOOD COUNT (AUTO) 9.2 K/uL (4.3-11.0)
[2024-01-04 12:37] LABS: BASOPHILS % (AUTO) 0.3 % (0.0-2.0); EOSINOPHILS # (AUTO) 0.1 K/uL (0.0-0.7); EOSINOPHILS % (AUTO) 1.4 % (0.0-6.0); HEMATOCRIT 25 % (33-45); HEMOGLOBIN 8.1 g/dL (11.5-14.8); LYMPHOCYTES # (AUTO) 0.8 K/uL (0.8-4.8); LYMPHOCYTES % (AUTO) 8.1 % (20.0-44.0); MEAN CORPUSCULAR HEMOGLOBIN 32 PG (26.0-33.0); MEAN CORPUSCULAR HGB CONC 32 g/dl (31.0-36.0); MEAN CORPUSCULAR VOLUME 99 fL (82-100); NEUTROPHILS # (AUTO) 7.3 K/uL (1.8-8.9); NEUTROPHILS % (AUTO) 79.2 % (43.0-81.0); PLATELET COUNT (AUTO) 60 K/uL (150-450); RED BLOOD CELL COUNT(AUTO) 2.53 MIL/uL (4.0-5.2); RED CELL DISTRIBUTION WIDTH 16.8 % (11.5-15.0)
[2024-01-04 12:43] LABS: CALCIUM, SERUM 8.2 mg/dL (8.5-10.1); CARBON DIOXIDE 30 mmol/L (21-32); CHLORIDE 106 mmol/L (98-107); CREATININE 1.6 mg/dL (0.6-1.3); GLUCOSE 94 mg/dL (74-106); POTASSIUM 3.4 mmol/L (3.5-5.1); SODIUM SERUM 140 mmol/L (136-145); UREA NITROGEN, BLOOD 13 mg/dL (7-18)
[2024-01-04 12:49] LABS: ALANINE AMINOTRANSFERASE 12 U/L (12-78); ALBUMIN 2.5 g/dL (3.4-5.0); ALKALINE PHOSPHATASE 133 U/L (46-116); ASPARTATE AMINOTRANSFERASE 10 U/L (15-37); BILIRUBIN,DIRECT 0.1 mg/dL (0.0-0.2); BILIRUBIN,TOTAL 0.2 mg/dL (0.2-1.0)
[2024-01-04 12:55] LABS: LACTIC ACID 1.6 mmol/L (0.4-2.0)
[2024-01-04 14:32] VITALS: O2SAT 98
[2024-01-04] MEDS ORDERED: HYDROCODONE/APAP 5/325MG TABLET PO PRN (15:00)
[2024-01-04] MEDS ORDERED: Z GUARD REMEDY 4 OZ OINT TP PRN (15:00)
[2024-01-04] MEDS ORDERED: ACETAMINOPHEN 325 MG TABLET PO PRN (15:00)
[2024-01-04] MEDS ORDERED: ONDANSETRON HCL/PF 4 MG/2 ML VIAL IVP PRN (15:00)
[2024-01-04 16:15] LABS: ANISOCYTOSIS 2+; EOSINOPHILS % (MANUAL) 1 % (0-4); LYMPHOCYTES % (MANUAL) 7 % (16-48); METAMYELOCYTES % 2 % (0-0); MONOCYTES % (MANUAL) 13 % (0-11.0); NEUTROPHILS % (MANUAL) 77 (42-76); PLATELET ESTIMATE DECREASED
[2024-01-04 20:00] VITALS: BP 111/53; TEMP 98.2; O2SAT 97
[2024-01-05] VITALS: BP 100/63; TEMP 97.8; O2SAT 97
[2024-01-05 04:00] VITALS: BP 114/57; TEMP 98.6; O2SAT 96
[2024-01-05 06:57] LABS: BASOPHILS % (AUTO) 0.4 % (0.0-2.0); EOSINOPHILS # (AUTO) 0.2 K/uL (0.0-0.7); EOSINOPHILS % (AUTO) 1.9 % (0.0-6.0); HEMATOCRIT 23 % (33-45); HEMOGLOBIN 7.5 g/dL (11.5-14.8); LYMPHOCYTES # (AUTO) 1.3 K/uL (0.8-4.8); LYMPHOCYTES % (AUTO) 16.1 % (20.0-44.0); MEAN CORPUSCULAR HEMOGLOBIN 32 PG (26.0-33.0); MEAN CORPUSCULAR HGB CONC 33 g/dl (31.0-36.0); MEAN CORPUSCULAR VOLUME 99 fL (82-100); MONOCYTES # (AUTO) 0.8 K/uL (0.1-1.30); NEUTROPHILS % (AUTO) 71.6 % (43.0-81.0); PLATELET COUNT (AUTO) 84 K/uL (150-450); RED BLOOD CELL COUNT(AUTO) 2.32 MIL/uL (4.0-5.2); RED CELL DISTRIBUTION WIDTH 16.4 % (11.5-15.0); WHITE BLOOD COUNT (AUTO) 8.3 K/uL (4.3-11.0)
[2024-01-05 07:10] LABS: CARBON DIOXIDE 28 mmol/L (21-32); CHLORIDE 105 mmol/L (98-107); CREATININE 2.7 mg/dL (0.6-1.3); GLUCOSE 86 mg/dL (74-106); MAGNESIUM 2.3 mg/dL (1.8-2.4); PHOSPHORUS 3.8 mg/dL (2.5-4.9); POTASSIUM 3.3 mmol/L (3.5-5.1); SODIUM SERUM 141 mmol/L (136-145); UREA NITROGEN, BLOOD 26 mg/dL (7-18)
[2024-01-05 07:30] VITALS: BP 117/62; TEMP 98.2; O2SAT 96
[2024-01-05] MEDS: PANTOPRAZOLE 40 MG TABLET.DR PO SCH (07:54)
[2024-01-05 07:56] LABS: IRON, SERUM 42 ug/dl (50-175); TOTAL IRON BINDING CAPACITY 202 ug/dl (250-450)
[2024-01-05 08:37] LABS: FERRITIN 451 ng/mL (8-388)
[2024-01-05 11:51] LABS: ANISOCYTOSIS 1+; BASOPHILS % (MANUAL) 0 % (0.0-2.0); EOSINOPHILS % (MANUAL) 3 % (0-4); LYMPHOCYTES % (MANUAL) 14 % (16-48); MONOCYTES % (MANUAL) 9 % (0-11.0); NEUTROPHILS % (MANUAL) 74 (42-76); PLATELET ESTIMATE DECREASED
[2024-01-05 16:00] VITALS: BP 127/67; TEMP 97.7; O2SAT 96
== END 2024-01-05 18:32 | DRG 425 ==
LOC: ER 11:20 → TELE 15:24
DX: E87.8 Other disorders of electrolyte and fluid balance, not elsewhere classified (principal); I13.2 Hypertensive heart and chronic kidney disease with heart failure and with stage 5 chronic kidney disease, or end stage renal disease; D69.6 Thrombocytopenia, unspecified; R53.2 Functional quadriplegia; N18.6 End stage renal disease; E11.22 Type 2 diabetes mellitus with diabetic chronic kidney disease; D63.8 Anemia in other chronic diseases classified elsewhere; E11.36 Type 2 diabetes mellitus with diabetic cataract; I50.9 Heart failure, unspecified; E03.9 Hypothyroidism, unspecified; E66.9 Obesity, unspecified; E78.5 Hyperlipidemia, unspecified; F20.9 Schizophrenia, unspecified; F32.A Depression, unspecified; F41.9 Anxiety disorder, unspecified; J45.909 Unspecified asthma, uncomplicated; K21.9 Gastro-esophageal reflux disease without esophagitis; Z86.73 Personal history of transient ischemic attack (TIA), and cerebral infarction without residual deficits; Z88.0 Allergy status to penicillin; Z87.891 Personal history of nicotine dependence; Z99.2 Dependence on renal dialysis; F09 Unspecified mental disorder due to known physiological condition; I25.10 Atherosclerotic heart disease of native coronary artery without angina pectoris; R53.1 Weakness; G40.909 Epilepsy, unspecified, not intractable, without status epilepticus; Z68.41 Body mass index [BMI] 40.0-44.9, adult
CPT/HCPCS: 36415; 71045-TC; 80048-TC; 80076-TC; 82607-TC; 82728-TC; 82962-TC; 83540-TC; 83605-TC; 83735-TC; 83880; 84100-TC; 84484-TC; 85025-TC; 87040-TC; 87081-TC; 93307-TC; 97110-TC; 97530-TC; G0378

== ENCOUNTER 2024-06-20 12:08 | Emergency (ER) | payer MEDICARE, OTHER ==
[~2024-06-20] VITALS: Ht 152.4 cm; Wt 106.6 kg
[~2024-06-20 12:08] MED LIST changes: -ACET-73 PO; -ACET-868 PO; -AMLO-212 PO; -CALC0.253 PO; -CARB200T PO; -CLOT15CR27 TP; +FERR325T23 PO; +FOLI0.4T6 PO; +FURO-144 PO; -KETO10TA2 PO; -LEVO50TA PO; +LEVO75TA99 PO; +LORA10TA7 PO; +MUPI22OI7 TP; +OLOP2.5D12 EACHEYE; -RISP0.253 PO; +RISP0.5T5 PO
[2024-06-20 12:32] LABS: BASOPHILS % (AUTO) 0.5 % (0.0-2.0); EOSINOPHILS # (AUTO) 0.1 K/uL (0.0-0.7); EOSINOPHILS % (AUTO) 0.8 % (0.0-6.0); HEMATOCRIT 33 % (33-45); HEMOGLOBIN 10.7 g/dL (11.5-14.8); LYMPHOCYTES # (AUTO) 0.6 K/uL (0.8-4.8); LYMPHOCYTES % (AUTO) 5.9 % (20.0-44.0); MEAN CORPUSCULAR HEMOGLOBIN 32 PG (26.0-33.0); MEAN CORPUSCULAR HGB CONC 32 g/dl (31.0-36.0); MEAN CORPUSCULAR VOLUME 98 fL (82-100); MONOCYTES # (AUTO) 1.2 K/uL (0.1-1.30); MONOCYTES % (AUTO) 12.6 % (2.0-12.0); NEUTROPHILS # (AUTO) 7.7 K/uL (1.8-8.9); NEUTROPHILS % (AUTO) 80.2 % (43.0-81.0); PLATELET COUNT (AUTO) 89 K/uL (150-450); RED BLOOD CELL COUNT(AUTO) 3.38 MIL/uL (4.0-5.2); RED CELL DISTRIBUTION WIDTH 17.3 % (11.5-15.0); WHITE BLOOD COUNT (AUTO) 9.6 K/uL (4.3-11.0)
[2024-06-20 13:31] LABS: ANISOCYTOSIS 1+; BASOPHILS % (MANUAL) 0 % (0.0-2.0); EOSINOPHILS % (MANUAL) 0 % (0-4); LYMPHOCYTES % (MANUAL) 6 % (16-48); MONOCYTES % (MANUAL) 11 % (0-11.0); NEUTROPHILS % (MANUAL) 83 (42-76); PLATELET ESTIMATE DECREASED
[2024-06-20 16:50] VITALS: BP 118/73; TEMP 98.6; O2SAT 96
== END 2024-06-20 16:51 ==
LOC: ER 12:10
DX: T82.838A Hemorrhage due to vascular prosthetic devices, implants and grafts, initial encounter (principal); E11.22 Type 2 diabetes mellitus with diabetic chronic kidney disease; I12.0 Hypertensive chronic kidney disease with stage 5 chronic kidney disease or end stage renal disease; N18.6 End stage renal disease; Z99.2 Dependence on renal dialysis; Z96.692 Finger-joint replacement of left hand; Z91.011 Allergy to milk products; Z88.8 Allergy status to other drugs, medicaments and biological substances
CPT/HCPCS: 36415; 85025-TC

== ENCOUNTER 2024-07-23 08:56 | Emergency (ER) | payer MEDICARE, OTHER ==
[~2024-07-23] VITALS: Ht 149.9 cm; Wt 97.5 kg
[2024-07-23] MEDS ORDERED: ACETAMINOPHEN 325 MG TABLET ONE (09:10)
[2024-07-23] MEDS: ACETAMINOPHEN 650 MG/20.3 ML UDC PO ONE (09:14)
[2024-07-23 09:39] VITALS: BP 129/59; TEMP 98; O2SAT 95
== END 2024-07-23 11:55 ==
LOC: ER 09:15
DX: S80.12XA Contusion of left lower leg, initial encounter (principal); I10 Essential (primary) hypertension; E78.5 Hyperlipidemia, unspecified; E11.36 Type 2 diabetes mellitus with diabetic cataract; R53.2 Functional quadriplegia; M19.90 Unspecified osteoarthritis, unspecified site; F29 Unspecified psychosis not due to a substance or known physiological condition; Z90.89 Acquired absence of other organs; Z88.0 Allergy status to penicillin; Z88.6 Allergy status to analgesic agent; Z99.3 Dependence on wheelchair; W18.39XA Other fall on same level, initial encounter; Y93.89 Activity, other specified; Y92.89 Other specified places as the place of occurrence of the external cause; Y99.8 Other external cause status
CPT/HCPCS: 73564-TC; 73590-TC

== ENCOUNTER 2025-02-01 12:37 | Inpatient (IN) | payer MEDICAID, MEDICARE ==
[~2025-02-01] VITALS: Ht 149.9 cm; Wt 101.6 kg
[2025-02-01 13:28] LABS: BASOPHILS % (AUTO) 0.2 % (0.0-2.0); EOSINOPHILS # (AUTO) 0.1 K/uL (0.0-0.7); LYMPHOCYTES # (AUTO) 0.7 K/uL (0.8-4.8); LYMPHOCYTES % (AUTO) 5.8 % (20.0-44.0); MEAN CORPUSCULAR HEMOGLOBIN 37 PG (26.0-33.0); MEAN CORPUSCULAR HGB CONC 34 g/dl (31.0-36.0); MEAN CORPUSCULAR VOLUME 109 fL (82-100); MONOCYTES # (AUTO) 1.1 K/uL (0.1-1.30); MONOCYTES % (AUTO) 9.6 % (2.0-12.0); NEUTROPHILS # (AUTO) 9.9 K/uL (1.8-8.9); NEUTROPHILS % (AUTO) 83.4 % (43.0-81.0); PLATELET COUNT (AUTO) 110 K/uL (150-450); RED CELL DISTRIBUTION WIDTH 15.8 % (11.5-15.0); WHITE BLOOD COUNT (AUTO) 11.8 K/uL (4.3-11.0)
[2025-02-01 13:40] LABS: HEMATOCRIT 17 % (33-45)
[2025-02-01 13:47] LABS: INR 0.98 (0.91-1.10); PARTIAL THROMBOPLASTIN TIME 25.6 SEC (24.3-34.3); PROTHROMBIN TIME 10.4 SECS (9.2-11.1)
[2025-02-01 13:49] LABS: SERUM AMMONIA 22 umol/L (11-32)
[2025-02-01 13:51] LABS: CARBON DIOXIDE 32 mmol/L (21-32); CHLORIDE 98 mmol/L (98-107); CREATININE 2.2 mg/dL (0.6-1.3); GLUCOSE 107 mg/dL (74-106); POTASSIUM 3.6 mmol/L (3.5-5.1); SODIUM SERUM 134 mmol/L (136-145); UREA NITROGEN, BLOOD 22 mg/dL (7-18)
[2025-02-01 13:53] LABS: LACTIC ACID 1.9 mmol/L (0.4-2.0)
[2025-02-01 13:59] LABS: ACETAMINOPHEN < 10 ug/ml (10-30); ALANINE AMINOTRANSFERASE 10 U/L (12-78); ALBUMIN 2.5 g/dL (3.4-5.0); ALCOHOL, BLOOD < 3 mg/dL (0-10); ALKALINE PHOSPHATASE 95 U/L (46-116); ASPARTATE AMINOTRANSFERASE 15 U/L (15-37); BILIRUBIN,DIRECT 0.1 mg/dL (0.0-0.2); BILIRUBIN,TOTAL 0.2 mg/dL (0.2-1.0); SALICYLATE 0.6 mg/dL (2.8-20.0); TOTAL PROTEIN, SERUM 5.4 g/dL (6.4-8.2)
[2025-02-01 14:02] LABS: EOSINOPHILS % (MANUAL) 2 % (0-4); LYMPHOCYTES % (MANUAL) 4 % (16-48); MONOCYTES % (MANUAL) 10 % (0-11.0); NEUTROPHILS % (MANUAL) 84 (42-76); PLATELET ESTIMATE DECREASED
[2025-02-01 14:03] LABS: ANISOCYTOSIS 1+
[2025-02-01] MEDS ORDERED: ACETAMINOPHEN 325 MG TABLET PO PRN (15:00)
[2025-02-01] MEDS ORDERED: MAG HYDROX/AL HYDROX/SIMETH 30 ML UDC PO PRN (15:00)
[2025-02-01] MEDS ORDERED: ONDANSETRON HCL/PF 4 MG/2 ML VIAL IVP PRN (15:00)
[2025-02-01] MEDS ORDERED: ZOLPIDEM TARTRATE 5 MG TABLET PO PRN (15:00)
[2025-02-01] MEDS ORDERED: MUPIROCIN OINT 2% 22 GM TUBE TP PRN (15:00)
[2025-02-01] MEDS ORDERED: Z GUARD REMEDY 4 OZ OINT TP PRN (15:00)
[2025-02-01] MEDS ORDERED: MAGNESIUM HYDROXIDE 30 ML UDC PO PRN (15:00)
[2025-02-01] MEDS: risperiDONE 1 MG TABLET PO SCH (17:24)
[2025-02-01] MEDS: SEVELAMER CARBONATE 800 MG TABLET PO SCH (17:24)
[2025-02-01] MEDS: EPOETIN ALFA (10,000 UNIT) 10,000 UNIT/ML VIAL SQ ONE (19:03)
[2025-02-01 20:00] VITALS: BP 102/59; TEMP 98.6; O2SAT 97
[2025-02-01] MEDS: LEVETIRACETAM (250 MG) 250 MG TABLET PO SCH (22:08)
[2025-02-01] MEDS: ATORVASTATIN 10 MG TABLET PO SCH (22:08)
[2025-02-01] MEDS: TOPIRAMATE 25 MG TABLET PO SCH (22:12)
[2025-02-01] MEDS: FUROSEMIDE 40 MG TABLET PO SCH (22:18)
[2025-02-01 22:29] VITALS: BP 107/50; TEMP 97.6
[2025-02-01 22:45] VITALS: BP 100/50; TEMP 97.9
[2025-02-01 23:15] VITALS: BP 100/54; TEMP 98.1
[2025-02-02] VITALS (8 sets, daily range): BP systolic 98–107; BP diastolic 47–62; TEMP 98.1–98.6; O2SAT 94–99
[2025-02-02] MEDS: LORATADINE 10 MG TABLET PO SCH (09:00)
[2025-02-02] MEDS: CALCIUM CARBONATE (1250) 500 MG TABLET PO SCH (09:01)
[2025-02-02] MEDS: LEVOTHYROXINE SODIUM 75 MCG TABLET PO SCH (09:02)
[2025-02-02] MEDS: FERROUS SULFATE (325 MG) 325 MG/TAB TABLET PO SCH (09:03)
[2025-02-02] MEDS: PANTOPRAZOLE 40 MG TABLET.DR PO SCH (09:03)
[2025-02-02] MEDS: FOLIC ACID 1 MG TABLET PO SCH (09:06)
[2025-02-02] MEDS: MAGNESIUM OXIDE 400 MG TABLET PO SCH (09:14)
[2025-02-02] MEDS: OLOPATADINE HCL 0.1% OPHTH BOTTLE OP SCH (09:14)
[2025-02-02 16:03] LABS: CALCIUM, SERUM 8.4 mg/dL (8.5-10.1); CREATININE 3.6 mg/dL (0.6-1.3); MAGNESIUM 2.6 mg/dL (1.8-2.4); PHOSPHORUS 3.3 mg/dL (2.5-4.9); POTASSIUM 4.2 mmol/L (3.5-5.1)
[2025-02-02 18:05] LABS: BASOPHILS % (AUTO) 0.3 % (0.0-2.0); EOSINOPHILS # (AUTO) 0.3 K/uL (0.0-0.7); EOSINOPHILS % (AUTO) 3.1 % (0.0-6.0); LYMPHOCYTES # (AUTO) 1.3 K/uL (0.8-4.8); LYMPHOCYTES % (AUTO) 14.8 % (20.0-44.0); MEAN CORPUSCULAR HEMOGLOBIN 35 PG (26.0-33.0); MEAN CORPUSCULAR HGB CONC 35 g/dl (31.0-36.0); MEAN CORPUSCULAR VOLUME 100 fL (82-100); MONOCYTES # (AUTO) 0.9 K/uL (0.1-1.30); MONOCYTES % (AUTO) 10.9 % (2.0-12.0); NEUTROPHILS # (AUTO) 6.1 K/uL (1.8-8.9); NEUTROPHILS % (AUTO) 70.9 % (43.0-81.0); PLATELET COUNT (AUTO) 121 K/uL (150-450); RED BLOOD CELL COUNT(AUTO) 2.03 MIL/uL (4.0-5.2); RED CELL DISTRIBUTION WIDTH 25.5 % (11.5-15.0); WHITE BLOOD COUNT (AUTO) 8.6 K/uL (4.3-11.0)
[2025-02-02 18:30] LABS: HEMATOCRIT 20 % (33-45)
[2025-02-02 18:48] LABS: ANISOCYTOSIS 1+; EOSINOPHILS % (MANUAL) 4 % (0-4); LYMPHOCYTES % (MANUAL) 21 % (16-48); MONOCYTES % (MANUAL) 2 % (0-11.0); NEUTROPHILS % (MANUAL) 73 (42-76); PLATELET ESTIMATE DECREASED
[2025-02-03] VITALS: BP 111/56; TEMP 97.9; O2SAT 100
[2025-02-03 04:00] VITALS: BP 99/64; TEMP 97.7; O2SAT 100
[2025-02-03 08:00] VITALS: BP 106/54; TEMP 97.6; O2SAT 95
[2025-02-03] MEDS: LEVOTHYROXINE SODIUM 125 MCG TABLET PO SCH (08:14)
[2025-02-03 10:20] LABS: BASOPHILS % (AUTO) 0.2 % (0.0-2.0); EOSINOPHILS # (AUTO) 0.2 K/uL (0.0-0.7); EOSINOPHILS % (AUTO) 2.1 % (0.0-6.0); HEMATOCRIT 21 % (33-45); HEMOGLOBIN 7.2 g/dL (11.5-14.8); LYMPHOCYTES # (AUTO) 0.8 K/uL (0.8-4.8); LYMPHOCYTES % (AUTO) 7.8 % (20.0-44.0); MEAN CORPUSCULAR HEMOGLOBIN 34 PG (26.0-33.0); MEAN CORPUSCULAR HGB CONC 34 g/dl (31.0-36.0); MEAN CORPUSCULAR VOLUME 101 fL (82-100); MONOCYTES # (AUTO) 0.7 K/uL (0.1-1.30); MONOCYTES % (AUTO) 6.9 % (2.0-12.0); NEUTROPHILS # (AUTO) 8.3 K/uL (1.8-8.9); PLATELET COUNT (AUTO) 133 K/uL (150-450); RED BLOOD CELL COUNT(AUTO) 2.11 MIL/uL (4.0-5.2); RED CELL DISTRIBUTION WIDTH 24.5 % (11.5-15.0)
[2025-02-03 12:00] VITALS: BP 102/54; TEMP 98.1; O2SAT 96
[2025-02-03 16:00] VITALS: BP 111/53; TEMP 97.9; O2SAT 96
[2025-02-03] MEDS: PROSOURCE / PROSTAT (PYXIS) 30 ML UDC PO SCH (18:13)
[2025-02-03 20:00] VITALS: BP 101/65; TEMP 97.8; O2SAT 98
[2025-02-03] MEDS ORDERED: ALBUMIN 25% 50 ML IV ONE (23:26)
[2025-02-03] MEDS: ALBUMIN 25% 12.5 GM/50 ML BOTTLE IV ONE (23:27)
[2025-02-03] MEDS: MIDODRINE HCL (5MG) 5 MG TABLET PO SCH (23:38)
[2025-02-04] VITALS (9 sets, daily range): BP systolic 101–120; BP diastolic 51–87; TEMP 97.3–98.5; O2SAT 95–100
[2025-02-04 05:49] LABS: OCCULT BLOOD STOOL POSITIVE (NEGATIVE)
[2025-02-04] MEDS: TOPIRAMATE 25 MG TABLET PO SCH (06:16)
[2025-02-04 10:22] LABS: BASOPHILS % (AUTO) 0.2 % (0.0-2.0); EOSINOPHILS # (AUTO) 0.2 K/uL (0.0-0.7); EOSINOPHILS % (AUTO) 2.8 % (0.0-6.0); HEMATOCRIT 21 % (33-45); LYMPHOCYTES # (AUTO) 0.8 K/uL (0.8-4.8); LYMPHOCYTES % (AUTO) 10.8 % (20.0-44.0); MEAN CORPUSCULAR HEMOGLOBIN 34 PG (26.0-33.0); MEAN CORPUSCULAR HGB CONC 34 g/dl (31.0-36.0); MEAN CORPUSCULAR VOLUME 102 fL (82-100); MONOCYTES # (AUTO) 0.5 K/uL (0.1-1.30); MONOCYTES % (AUTO) 7.4 % (2.0-12.0); NEUTROPHILS # (AUTO) 5.6 K/uL (1.8-8.9); NEUTROPHILS % (AUTO) 78.8 % (43.0-81.0); PLATELET COUNT (AUTO) 112 K/uL (150-450); RED BLOOD CELL COUNT(AUTO) 2.03 MIL/uL (4.0-5.2); RED CELL DISTRIBUTION WIDTH 24.5 % (11.5-15.0); WHITE BLOOD COUNT (AUTO) 7.2 K/uL (4.3-11.0)
[2025-02-04 10:30] LABS: HEMOGLOBIN 6.9 g/dL (11.5-14.8)
[2025-02-04 11:42] LABS: ANISOCYTOSIS 1+; EOSINOPHILS % (MANUAL) 4 % (0-4); LYMPHOCYTES % (MANUAL) 8 % (16-48); MONOCYTES % (MANUAL) 5 % (0-11.0); NEUTROPHILS % (MANUAL) 83 (42-76); PLATELET ESTIMATE DECREASED
[2025-02-05] VITALS (7 sets, daily range): BP systolic 97–120; BP diastolic 47–57; TEMP 97.3–98; O2SAT 93–100
[2025-02-05 07:48] LABS: BASOPHILS % (AUTO) 0.4 % (0.0-2.0); EOSINOPHILS # (AUTO) 0.3 K/uL (0.0-0.7); EOSINOPHILS % (AUTO) 3.2 % (0.0-6.0); HEMATOCRIT 26 % (33-45); HEMOGLOBIN 8.9 g/dL (11.5-14.8); LYMPHOCYTES # (AUTO) 0.9 K/uL (0.8-4.8); LYMPHOCYTES % (AUTO) 11.2 % (20.0-44.0); MEAN CORPUSCULAR HEMOGLOBIN 34 PG (26.0-33.0); MEAN CORPUSCULAR HGB CONC 35 g/dl (31.0-36.0); MEAN CORPUSCULAR VOLUME 97 fL (82-100); MONOCYTES # (AUTO) 0.9 K/uL (0.1-1.30); MONOCYTES % (AUTO) 11.1 % (2.0-12.0); NEUTROPHILS % (AUTO) 74.1 % (43.0-81.0); PLATELET COUNT (AUTO) 128 K/uL (150-450); RED BLOOD CELL COUNT(AUTO) 2.62 MIL/uL (4.0-5.2); RED CELL DISTRIBUTION WIDTH 26.2 % (11.5-15.0); RETICULOCYTE COUNT 5.1 % (0.6-2.5); WHITE BLOOD COUNT (AUTO) 8.1 K/uL (4.3-11.0)
[2025-02-05 08:09] LABS: INR 1.02 (0.91-1.10); PARTIAL THROMBOPLASTIN TIME 30.4 SEC (24.3-34.3); PROTHROMBIN TIME 10.8 SECS (9.2-11.1)
[2025-02-05 08:18] LABS: CALCIUM, SERUM 8.6 mg/dL (8.5-10.1); CREATININE 4.3 mg/dL (0.6-1.3); POTASSIUM 4.5 mmol/L (3.5-5.1)
[2025-02-05] MEDS ORDERED: LIDOCAINE 2% 50 ML MDV IJ ONE ×2 (11:33→13:29)
[2025-02-05] MEDS ORDERED: LIDOCAINE 2% JEL UROJET 10 ML MM ONE (11:34)
[2025-02-05] MEDS ORDERED: LIDOCAINE HCL/PF 2 % 5ML SDV 5 ML VIAL ONE (13:05)
[2025-02-05] MEDS ORDERED: FLUMAZENIL 0.5 MG VIAL ONE (13:28)
[2025-02-05] MEDS ORDERED: MIDAZOLAM HCL 2 MG/2ML VIAL ONE (13:28)
[2025-02-05] MEDS ORDERED: KETAMINE HCL (500MG/10ML) 50 MG/ML VIAL ONE (13:28)
[2025-02-05] MEDS ORDERED: TETRACAINE/BENZOCAINE/BUTAMBEN 56 GM SPRAY TP ONE (13:41)
[2025-02-06] VITALS: BP 108/58; TEMP 98; O2SAT 100
[2025-02-06 04:00] VITALS: BP 109/55; TEMP 97.8; O2SAT 99
[2025-02-06 08:00] VITALS: BP 93/36; TEMP 97.7; O2SAT 99
[2025-02-06 12:00] VITALS: BP 133/85; TEMP 98; O2SAT 99
[2025-02-06 16:00] VITALS: BP 97/55; TEMP 97.9; O2SAT 100
[2025-02-06 20:00] VITALS: BP 97/55; TEMP 97.9; O2SAT 100
== END 2025-02-06 20:06 | DRG 241 ==
LOC: ER 12:45 → TELE1 15:07 → MEDSG1 02-06 09:32
PROVIDERS: ADMIT Internal Medicine; ATTEND Internal Medicine
PROC: 30233N1 Transfusion of Nonautologous Red Blood Cells into Peripheral Vein, Percutaneous Approach (ICD-10-PCS; principal; 2025-02-01)
PROC: 5A1D70Z Performance of Urinary Filtration, Intermittent, Less than 6 Hours Per Day (ICD-10-PCS; 2025-02-03)
PROC: 0DJ08ZZ Inspection of Upper Intestinal Tract, Via Natural or Artificial Opening Endoscopic (ICD-10-PCS; 2025-02-05)
DX: K29.71 Gastritis, unspecified, with bleeding (principal); D69.6 Thrombocytopenia, unspecified; I13.2 Hypertensive heart and chronic kidney disease with heart failure and with stage 5 chronic kidney disease, or end stage renal disease; R53.2 Functional quadriplegia; D62 Acute posthemorrhagic anemia; D63.8 Anemia in other chronic diseases classified elsewhere; I95.3 Hypotension of hemodialysis; N18.6 End stage renal disease; E11.36 Type 2 diabetes mellitus with diabetic cataract; E88.09 Other disorders of plasma-protein metabolism, not elsewhere classified; E11.22 Type 2 diabetes mellitus with diabetic chronic kidney disease; I50.32 Chronic diastolic (congestive) heart failure; I25.10 Atherosclerotic heart disease of native coronary artery without angina pectoris; K21.9 Gastro-esophageal reflux disease without esophagitis; E03.9 Hypothyroidism, unspecified; E78.5 Hyperlipidemia, unspecified; E66.9 Obesity, unspecified; F32.A Depression, unspecified; Z86.73 Personal history of transient ischemic attack (TIA), and cerebral infarction without residual deficits; Z88.0 Allergy status to penicillin; Z87.891 Personal history of nicotine dependence; J45.909 Unspecified asthma, uncomplicated; F41.9 Anxiety disorder, unspecified; F20.9 Schizophrenia, unspecified; G40.909 Epilepsy, unspecified, not intractable, without status epilepticus; Z99.2 Dependence on renal dialysis; F09 Unspecified mental disorder due to known physiological condition; Z68.42 Body mass index [BMI] 45.0-49.9, adult; R19.5 Other fecal abnormalities; K29.81 Duodenitis with bleeding
CPT/HCPCS: 36415; 70450-TC; 71045-TC; 80048-TC; 80076-TC; 82140-TC; 82272-TC; 83605-TC; 83735-TC; 84100-TC; 84439-TC; 84443-TC; 84484-TC; 85025-TC; 85045-TC; 85610-TC; 85730-TC; 86850-TC; 90935-TC; 93307-TC; G0378; G0480; J0885; J2250; J3490; J7030; J7050; P9016; P9047

== ENCOUNTER 2025-03-29 14:51 | Emergency (ER) | payer MEDICARE, OTHER ==
[~2025-03-29] VITALS: Ht 154.9 cm; Wt 101.2 kg
[~2025-03-29 14:51] MED LIST changes: -FURO-144 PO
[2025-03-29] MEDS ORDERED: ACETAMINOPHEN ES 500 MG TABLET ONE (15:10)
[2025-03-29] MEDS: ACETAMINOPHEN ES 500 MG TABLET PO ONE (15:29)
[2025-03-29 15:58] LABS: BASOPHILS % (AUTO) 0.4 % (0.0-2.0); EOSINOPHILS # (AUTO) 0.2 K/uL (0.0-0.7); EOSINOPHILS % (AUTO) 2.5 % (0.0-6.0); HEMATOCRIT 22 % (33-45); HEMOGLOBIN 7.2 g/dL (11.5-14.8); LYMPHOCYTES # (AUTO) 0.9 K/uL (0.8-4.8); LYMPHOCYTES % (AUTO) 11.2 % (20.0-44.0); MEAN CORPUSCULAR HEMOGLOBIN 37 PG (26.0-33.0); MEAN CORPUSCULAR HGB CONC 33 g/dl (31.0-36.0); MEAN CORPUSCULAR VOLUME 112 fL (82-100); MONOCYTES % (AUTO) 11.9 % (2.0-12.0); NEUTROPHILS # (AUTO) 6.1 K/uL (1.8-8.9); PLATELET COUNT (AUTO) 117 K/uL (150-450); RED CELL DISTRIBUTION WIDTH 14.1 % (11.5-15.0); WHITE BLOOD COUNT (AUTO) 8.3 K/uL (4.3-11.0)
[2025-03-29 16:00] LABS: CALCIUM, SERUM 8.8 mg/dL (8.5-10.1); CARBON DIOXIDE 29 mmol/L (21-32); CHLORIDE 109 mmol/L (98-107); CREATININE 2.6 mg/dL (0.6-1.3); GLUCOSE 140 mg/dL (74-106); POTASSIUM 4.6 mmol/L (3.5-5.1); SODIUM SERUM 140 mmol/L (136-145); UREA NITROGEN, BLOOD 19 mg/dL (7-18)
[2025-03-29 16:01] LABS: RED BLOOD CELL COUNT(AUTO) 1.95 MIL/uL (4.0-5.2)
[2025-03-29 16:05] LABS: PARTIAL THROMBOPLASTIN TIME 25.6 SEC (24.3-34.3); PROTHROMBIN TIME 10.3 SECS (9.2-11.1)
[2025-03-29 16:12] LABS: ALANINE AMINOTRANSFERASE 11 U/L (12-78); ALBUMIN 2.7 g/dL (3.4-5.0); ALKALINE PHOSPHATASE 101 U/L (46-116); ASPARTATE AMINOTRANSFERASE 10 U/L (15-37); BILIRUBIN,TOTAL 0.2 mg/dL (0.2-1.0); TOTAL PROTEIN, SERUM 6.2 g/dL (6.4-8.2)
[2025-03-29 18:45] VITALS: BP 139/72; TEMP 98.5; O2SAT 99
[2025-03-29 19:00] LABS: BASOPHILS % (MANUAL) 0 % (0.0-2.0); EOSINOPHILS % (MANUAL) 2 % (0-4); LYMPHOCYTES % (MANUAL) 13 % (16-48); MONOCYTES % (MANUAL) 7 % (0-11.0); NEUTROPHILS % (MANUAL) 78 (42-76); PLATELET ESTIMATE DECREASED
== END 2025-03-29 18:46 ==
LOC: ER 15:10
DX: S80.12XA Contusion of left lower leg, initial encounter (principal); I12.0 Hypertensive chronic kidney disease with stage 5 chronic kidney disease or end stage renal disease; E11.22 Type 2 diabetes mellitus with diabetic chronic kidney disease; N18.6 End stage renal disease; E78.5 Hyperlipidemia, unspecified; G40.909 Epilepsy, unspecified, not intractable, without status epilepticus; Z79.899 Other long term (current) drug therapy; Z88.0 Allergy status to penicillin; Z88.6 Allergy status to analgesic agent; Z99.2 Dependence on renal dialysis; Z87.448 Personal history of other diseases of urinary system; Z87.42 Personal history of other diseases of the female genital tract; Z87.39 Personal history of other diseases of the musculoskeletal system and connective tissue; Z86.59 Personal history of other mental and behavioral disorders; Z88.8 Allergy status to other drugs, medicaments and biological substances; Z91.011 Allergy to milk products; X58.XXXA Exposure to other specified factors, initial encounter; Y93.89 Activity, other specified; Y92.89 Other specified places as the place of occurrence of the external cause; Y99.8 Other external cause status
CPT/HCPCS: 36415; 71045-TC; 73590-TC; 80048-TC; 80076-TC; 82962-TC; 85025-TC; 85730-TC; 86850-TC; 93971-TC

== ENCOUNTER 2025-04-08 12:31 | Inpatient (IN) | payer OTHER, MEDICARE ==
[~2025-04-08] VITALS: Ht 149.9 cm; Wt 97.5 kg
[2025-04-08] MEDS ORDERED: RISP1TAB97 PO (13:38)
[2025-04-08] MEDS ORDERED: FURO40TA5 PO (13:38)
[2025-04-08] MEDS ORDERED: LEVO125T8 PO (13:38)
[2025-04-08] MEDS ORDERED: CALC-494 PO (13:38)
[2025-04-08] MEDS ORDERED: [UNRECOGNIZED DRUG - OTHER] PO (13:38)
[2025-04-08] MEDS ORDERED: ACET325T53 PO (13:38)
[2025-04-08] MEDS ORDERED: CHOL200025 PO (13:38)
[2025-04-08] MEDS ORDERED: GUAI5LIQ10 PO (13:38)
[2025-04-08] MEDS ORDERED: ASCO-352 PO (13:38)
[2025-04-08 13:52] LABS: PLATELET COUNT (AUTO) 120 K/uL (150-450); RED BLOOD CELL COUNT(AUTO) 2.05 MIL/uL (4.0-5.2); RED CELL DISTRIBUTION WIDTH 13.8 % (11.5-15.0); WHITE BLOOD COUNT (AUTO) 6.1 K/uL (4.3-11.0)
[2025-04-08 13:56] LABS: CALCIUM, SERUM 8.6 mg/dL (8.5-10.1); CREATININE 3.6 mg/dL (0.6-1.3); SODIUM SERUM 137 mmol/L (136-145); UREA NITROGEN, BLOOD 22 mg/dL (7-18)
[2025-04-08 13:59] LABS: PHOSPHORUS 3.0 mg/dL (2.5-4.9)
[2025-04-08 14:09] LABS: ASPARTATE AMINOTRANSFERASE 8 U/L (15-37); NT-PRO BNP 1388 pg/mL (0-125); TOTAL PROTEIN, SERUM 5.8 g/dL (6.4-8.2)
[2025-04-08 14:21] LABS: EOSINOPHILS % (MANUAL) 4 % (0-4); LYMPHOCYTES % (MANUAL) 13 % (16-48); MONOCYTES % (MANUAL) 15 % (0-11.0); NEUTROPHILS % (MANUAL) 68 (42-76); PLATELET ESTIMATE ADEQUATE
[2025-04-08] MEDS ORDERED: FUROSEMIDE 40 MG/4 ML VIAL ONE (14:28)
[2025-04-08] MEDS: FUROSEMIDE 40 MG/4 ML VIAL IV ONE (14:50)
[2025-04-08] MEDS ORDERED: ONDANSETRON HCL/PF 4 MG/2 ML VIAL IVP PRN (17:00)
[2025-04-08] MEDS ORDERED: ACETAMINOPHEN 325 MG TABLET PO PRN (17:00)
[2025-04-08] MEDS: TOPIRAMATE 25 MG TABLET PO SCH (21:11)
[2025-04-08] MEDS: LEVETIRACETAM (250 MG) 250 MG TABLET PO SCH (21:11)
[2025-04-08] MEDS: ATORVASTATIN 10 MG TABLET PO SCH (21:12)
[2025-04-08] MEDS: FUROSEMIDE 40 MG TABLET PO SCH (21:12)
[2025-04-09] VITALS (8 sets, daily range): BP systolic 98–120; BP diastolic 52–91; TEMP 97.5–99.5; O2SAT 95–99
[2025-04-09] MEDS: ALBUTEROL FS 2.5 MG/3 ML VIAL.NEB NEB PRN (05:02)
[2025-04-09 06:25] LABS: PLATELET COUNT (AUTO) 135 K/uL (150-450); RED BLOOD CELL COUNT(AUTO) 2.09 MIL/uL (4.0-5.2); RED CELL DISTRIBUTION WIDTH 14.6 % (11.5-15.0); WHITE BLOOD COUNT (AUTO) 5.7 K/uL (4.3-11.0)
[2025-04-09] MEDS: LEVOTHYROXINE SODIUM 125 MCG TABLET PO SCH (08:01)
[2025-04-09] MEDS: PANTOPRAZOLE 40 MG TABLET.DR PO SCH (08:01)
[2025-04-09] MEDS: SEVELAMER CARBONATE 800 MG TABLET PO SCH (08:26)
[2025-04-09] MEDS: LORATADINE 10 MG TABLET PO SCH (08:27)
[2025-04-09] MEDS: CALCIUM CARBONATE 500 MG TAB.CHEW PO SCH (08:27)
[2025-04-09] MEDS: ASCORBIC ACID 500 MG TABLET PO SCH (08:28)
[2025-04-09] MEDS: FERROUS SULFATE (325 MG) 325 MG/TAB TABLET PO SCH (08:28)
[2025-04-09] MEDS: FOLIC ACID 1 MG TABLET PO SCH (08:42)
[2025-04-09] MEDS ORDERED: [UNRECOGNIZED DRUG - OTHER] PO SCH (09:00)
[2025-04-09] MEDS: OLOPATADINE HCL 0.1% OPHTH BOTTLE EACHEYE SCH (09:28)
[2025-04-09 10:37] LABS: CALCIUM, SERUM 9.1 mg/dL (8.5-10.1); CREATININE 4.5 mg/dL (0.6-1.3); PHOSPHORUS 4.4 mg/dL (2.5-4.9); SODIUM SERUM 145.0 mmol/L (136-145); UREA NITROGEN, BLOOD 29.0 mg/dL (7-18)
[2025-04-09] MEDS: EPOETIN ALFA (10,000 UNIT) 10,000 UNIT/ML VIAL IV ONE (11:44)
[2025-04-09 14:34] LABS: EOSINOPHILS % (MANUAL) 4 % (0-4); LYMPHOCYTES % (MANUAL) 15 % (16-48); MONOCYTES % (MANUAL) 11 % (0-11.0); NEUTROPHILS % (MANUAL) 70 (42-76); PLATELET ESTIMATE ADEQUATE
[2025-04-09 16:28] LABS: IRON, SERUM 64 ug/dl (50-175)
[2025-04-09] MEDS ORDERED: ALBUMIN 25% 100 ML IV ONE (21:40)
[2025-04-09] MEDS: ALBUMIN 25% 25 GM in PREMIX 1 EA IV PRN (21:42)
[2025-04-10] VITALS: BP 102/65; TEMP 99; O2SAT 96
[2025-04-10 04:00] VITALS: BP 100/56; TEMP 98.8; O2SAT 96
[2025-04-10 06:59] LABS: PLATELET COUNT (AUTO) 99 K/uL (150-450); RED CELL DISTRIBUTION WIDTH 13.9 % (11.5-15.0); WHITE BLOOD COUNT (AUTO) 7.0 K/uL (4.3-11.0)
[2025-04-10 07:22] LABS: CALCIUM, SERUM 8.4 mg/dL (8.5-10.1); CREATININE 3.3 mg/dL (0.6-1.3); PHOSPHORUS 2.8 mg/dL (2.5-4.9); RED BLOOD CELL COUNT(AUTO) 1.95 MIL/uL (4.0-5.2); SODIUM SERUM 136.0 mmol/L (136-145); UREA NITROGEN, BLOOD 18.0 mg/dL (7-18)
[2025-04-10 08:00] VITALS: BP 104/56; TEMP 98.1; O2SAT 96
[2025-04-10 12:00] VITALS: BP 100/55; TEMP 98.1; O2SAT 95
[2025-04-10 16:00] VITALS: BP 109/61; TEMP 98; O2SAT 95
[2025-04-10 20:00] VITALS: BP 105/50; TEMP 97.9; O2SAT 95
[2025-04-10] MEDS: MIDODRINE HCL (5MG) 5 MG TABLET PO PRN (21:42)
[2025-04-11] VITALS (9 sets, daily range): BP systolic 94–128; BP diastolic 53–85; TEMP 97.3–98.8; O2SAT 94–100
== END 2025-04-11 19:45 | disposition home health service (06) | DRG 194 ==
LOC: ER 12:31 → TELE-TD 14:33 → TELE1 15:31
PROVIDERS: ADMIT Nurse Practitioner Family; ATTEND Internal Medicine
PROC: 05HC33Z Insertion of Infusion Device into Left Basilic Vein, Percutaneous Approach (ICD-10-PCS; 2025-04-08)
PROC: B54NZZA Ultrasonography of Left Upper Extremity Veins, Guidance (ICD-10-PCS; 2025-04-08)
PROC: 5A1D70Z Performance of Urinary Filtration, Intermittent, Less than 6 Hours Per Day (ICD-10-PCS; 2025-04-09)
PROC: 30233N1 Transfusion of Nonautologous Red Blood Cells into Peripheral Vein, Percutaneous Approach (ICD-10-PCS; principal; 2025-04-11)
DX: I13.2 Hypertensive heart and chronic kidney disease with heart failure and with stage 5 chronic kidney disease, or end stage renal disease (principal); N18.6 End stage renal disease; E11.22 Type 2 diabetes mellitus with diabetic chronic kidney disease; E11.36 Type 2 diabetes mellitus with diabetic cataract; D64.9 Anemia, unspecified; E03.9 Hypothyroidism, unspecified; E66.01 Morbid (severe) obesity due to excess calories; I50.33 Acute on chronic diastolic (congestive) heart failure; I25.10 Atherosclerotic heart disease of native coronary artery without angina pectoris; J45.909 Unspecified asthma, uncomplicated; K21.9 Gastro-esophageal reflux disease without esophagitis; Z66 Do not resuscitate; Z88.0 Allergy status to penicillin; Z87.891 Personal history of nicotine dependence; Z99.2 Dependence on renal dialysis; Z86.73 Personal history of transient ischemic attack (TIA), and cerebral infarction without residual deficits; G40.909 Epilepsy, unspecified, not intractable, without status epilepticus; E78.5 Hyperlipidemia, unspecified; F20.9 Schizophrenia, unspecified; Z68.41 Body mass index [BMI] 40.0-44.9, adult; F09 Unspecified mental disorder due to known physiological condition
CPT/HCPCS: 36415; 71045-TC; 80048-TC; 80076-TC; 83540-TC; 83735-TC; 83880; 84100-TC; 84484-TC; 85025-TC; 85027-TC; 86850-TC; 87340; 90935-TC; 93971-TC; A4216; G0378; J0885; J1938; J7040; P9016; P9047

== ENCOUNTER 2025-04-24 15:22 | Emergency (ER) | payer MEDICARE, OTHER ==
[~2025-04-24] VITALS: Ht 152.4 cm; Wt 124.7 kg
[~2025-04-24 15:22] MED LIST changes: +ACET325T53 PO; +ASCO-352 PO; +CALC-494 PO; -CALC500T52 PO; +CHOL200025 PO; +FURO40TA5 PO; +GUAI5LIQ10 PO; +LEVO125T8 PO; -LEVO75TA99 PO; -MUPI22OI7 TP; -RISP0.5T5 PO; +RISP1TAB97 PO; +[UNRECOGNIZED DRUG - OTHER] PO
[2025-04-24 15:28] VITALS: TEMP 98.3
[2025-04-24 16:25] LABS: PLATELET COUNT (AUTO) 133 K/uL (150-450); RED BLOOD CELL COUNT(AUTO) 2.41 MIL/uL (4.0-5.2); RED CELL DISTRIBUTION WIDTH 16.3 % (11.5-15.0); WHITE BLOOD COUNT (AUTO) 8.2 K/uL (4.3-11.0)
[2025-04-24 16:36] LABS: CALCIUM, SERUM 8.8 mg/dL (8.5-10.1); CREATININE 3.0 mg/dL (0.6-1.3); SODIUM SERUM 138 mmol/L (136-145); UREA NITROGEN, BLOOD 18 mg/dL (7-18)
[2025-04-24 16:38] LABS: INR 0.97 (0.91-1.10)
[2025-04-24 16:43] LABS: ASPARTATE AMINOTRANSFERASE 11 U/L (15-37); TOTAL PROTEIN, SERUM 6.1 g/dL (6.4-8.2)
[2025-04-24] MEDS ORDERED: POTA10CA43 PO (16:58)
[2025-04-24] MEDS ORDERED: FURO-145 PO (16:58)
[2025-04-24 17:08] VITALS: BP 112/64; O2SAT 100
[2025-04-24 17:19] LABS: EOSINOPHILS % (MANUAL) 6 % (0-4); LYMPHOCYTES % (MANUAL) 8 % (16-48); MONOCYTES % (MANUAL) 6 % (0-11.0); NEUTROPHILS % (MANUAL) 80 (42-76)
[2025-04-24 17:21] LABS: PLATELET ESTIMATE ADEQUATE
[2025-04-24] MEDS ORDERED: FUROSEMIDE 40 MG/4 ML VIAL ONE (17:46)
[2025-04-24] MEDS: FUROSEMIDE 40 MG/4 ML VIAL IV ONE (17:50)
== END 2025-04-24 20:47 | disposition home or self-care (01) ==
LOC: ER 15:25
DX: R60.0 Localized edema (principal); I13.0 Hypertensive heart and chronic kidney disease with heart failure and stage 1 through stage 4 chronic kidney disease, or unspecified chronic kidney disease; E11.22 Type 2 diabetes mellitus with diabetic chronic kidney disease; I50.9 Heart failure, unspecified; G40.909 Epilepsy, unspecified, not intractable, without status epilepticus; E03.9 Hypothyroidism, unspecified; E78.5 Hyperlipidemia, unspecified; D64.9 Anemia, unspecified; K50.90 Crohn's disease, unspecified, without complications; N18.9 Chronic kidney disease, unspecified; Z79.899 Other long term (current) drug therapy; Z88.0 Allergy status to penicillin; Z88.6 Allergy status to analgesic agent
CPT/HCPCS: 99285; 96374; 71045; 93005; 85027; 80048; 83690; 80076; 85007; 84484 ×2; 85730; 83880; J1938; 36415